=== PATIENT | female | born 2000 | race Caucasian/White ===

== ENCOUNTER 2024-04-20 17:14 | Emergency (ER) | payer OTHER, SELFPAY ==
[2024-04-20 17:21] VITALS: BP 137/91; PULSE 87; TEMP 37; O2SAT 99; BMI 18.8
--- NOTE | 2024-04-20 17:27 | XR_ITS ---
The [address] [address] Patient Name: DELIA CHRIS MRN: [id number] date: 2000 Sex: F Assigned Patient Location: ER Current Patient Location: Accession/Order Number: [id number] Exam Date: 04/20/2024 17:41 Report Date: 04/20/2024 19:29 At the request of: RAVI MAJOR Procedure: XR chest 2V EXAM: XR chest 2V TECHNIQUE: PA and lateral view of the chest HISTORY: rib pain COMPARISON: None. FINDINGS: The heart and mediastinum are unremarkable. The lung lerma are clear of any acute infiltrate, effusion or mass. No acute bony abnormality. XR/XR chest 2V IMPRESSION: No acute pulmonary disease. Electronically authenticated by: JANEY JAMES Date: 04/20/2024 19:29
--- NOTE | 2024-04-20 17:38 | ED_ITS ---
HPI HPI - General Adult General Chief complaint: Trauma Stated complaint: Difficulty Breathing, Rib Pain Time Seen by Provider: 04/20/24 17:21 Source: patient Mode of arrival: walk-in Limitations: no limitations History of Present Illness HPI narrative: Patient presents to ED complaining of left anterior rib pain. A couple of days ago she tripped over a baby gate and landed on herLeft chest and underneath her chin on the ground. No loss of consciousness no neck pain. 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 Patient's been taking Tylenol and Motrin but the pain is getting more severe and she states those medications are not really helping her pain anymore. Pain with deep breath in the rib but no obvious shortness of breath at rest. Vital signs stable. Related Data Previous Rx's ?Medication ?Instructions ?Recorded oxycodone-acetaminophen 5 mg-325 1 tab PO Q6H #10 tabs 04/20/24 mg tablet (Percocet) Allergies Allergy/AdvReac Type Severity Reaction Status Date / Time No Known Drug Allergies Allergy Verified 04/20/24 17:21 Opioid HPI Opioid Management Most Recent Opioid Data: Last Pain Scale 8 04/20/24 17:57 Review of Systems ROS Status of ROS 10 or more systems reviewed and unremark able except as noted in history and below Exam Narrative Exam Narrative: Time Seen: [] Vital Signs: [Per nurse's notes.] General: [Alert] Skin: [Warm, dry, no rash.] Head: [Normocephalic, Bruise under the mandible on the right side from the fall. No malalignment of the teeth and no Tenderness to palpation of the mandible Neck: [Supple, trachea midline.] Eye: [Pupils are equal, round and reactive to light, extraocular movements are intact, normal conjunctiva.] Ears, nose, mouth and throat: oral mucosa moist. Cardiovascular: [Regular rate and rhythm, no murmur.] Respiratory: [Lungs are clear to auscultation, respirations are non-labored, breath sounds are equal.] Chest wall: No ecchymosis, tenderness to palpation in the left anterior ribs around ribs 5 and 6. No crepitus, no deformity.] Gastrointestinal: [Soft, nontender, non distended, normal bowel sounds.] MSK: 5 out of 5 muscle strength x 4 extremities no calf pain or edema Lymphatics: [No lymphadenopathy.] Psychiatric: [Cooperative, appropriate mood & affect.] Neurological: [Alert and oriented to person, place, time, and situation, no focal neurological deficit observed.] Constitutional Vital Signs, click to edit/add: Last Vital Signs Temp 98.6 F 04/20/24 17:21 Pulse 87 04/20/24 17:21 Resp 18 04/20/24 17:21 BP 137/91 04/20/24 17:21 Pulse Ox 99 04/20/24 17:21 O2 Del Method Room Air 04/20/24 17:21 Course Vital Signs Vital signs: Vital Signs Temperature 98.6 F 04/20/24 17:21 Pulse Rate 87 04/20/24 17:21 Respiratory Rate 18 04/20/24 17:21 Blood Pressure 137/91 04/20/24 17:21 Pulse Oximetry 99 04/20/24 17:21 Oxygen Delivery Method Room Air 04/20/24 17:21 Temperature 98.6 F 04/20/24 17:21 Pulse Rate 87 04/20/24 17:21 Respiratory Rate 18 04/20/24 17:21 Blood Pressure 137/91 04/20/24 17:21 Pulse Oximetry 99 04/20/24 17:21 Oxygen Delivery Method Room Air 04/20/24 17:21 Medical Decision Making MDM Narrative Medical decision making narrative: Chest x-ray negative for acute. Patient most likely has a rib contusion. Will send home with pain medication. Follow-up with family doctor or return to ED if worsening symptoms. Differential Diagnosis Differential Diagnosis: Rib contusion rib fracture chest wall strain Medical Records Medical records reviewed: Yes I reviewed the patient's medical records Imaging Data Chest x-ray: Attestation: I personally reviewed and interpreted this imaging study as follows: My impression: Negative for acute fracture, no pneumothorax Discharge Plan Discharge Stand Alone Forms: Portal Instructions Chief Complaint: Trauma Clinical Impression: Contusion of rib on left side Patient Disposition: Home, Self-Care Time of Disposition Decision: 18:27 Mode of Transportation: Private Vehicle Prescriptions / Home Meds: New oxycodone-acetaminophen [Percocet] 5-325 mg tablet 1 tab PO Q6H Qty: 10 0RF Print Language: Salvadorean Instructions: Rib Contusion (ED) Referrals: DEFRANCE,BRICE [Primary Care Provider] - 1 week
[2024-04-20 18:33] VITALS: BP 118/78; PULSE 78; O2SAT 98
== END 2024-04-20 18:35 | disposition home or self-care (01) ==
PROVIDERS: Emergency Provider Emergency Medicine; PCP Family Medicine
DX: S20.212A Contusion of left front wall of thorax, initial encounter (principal); W18.09XA Striking against other object with subsequent fall, initial encounter
CPT/HCPCS: 71046; 99283

== ENCOUNTER 2024-07-13 18:14 | Emergency (ER) | payer OTHER, SELFPAY ==
[2024-07-13 18:22] VITALS: BP 100/64; PULSE 87; TEMP 37.1; O2SAT 97; BMI 19.6
--- NOTE | 2024-07-13 18:58 | CT_ITS ---
[address] [address] Patient Name: DELIA CHRIS MRN: [id number] date: 2000 Sex: F Assigned Patient Location: Current Patient Location: Accession/Order Number: [id number] Exam Date: 07/13/2024 19:40 Report Date: 07/13/2024 21:07 At the request of: NENO CHOW Procedure: CT abdomen pelvis w con EXAM: CT Abdomen and Pelvis With Intravenous Contrast CLINICAL INDICATION: Abdominal pain, left upper quad TECHNIQUE: Axial computed tomography images of the abdomen and pelvis with intravenous contrast. This CT exam was performed using one or more of the following dose reduction techniques: automated exposure control, adjustment of the mA and/or kV according to patient size, and/or use of iterative reconstruction technique. COMPARISON: No relevant prior studies available. FINDINGS: LUNG BASES: Unremarkable. No mass. No consolidation. ABDOMEN: LIVER: Heterogeneous hepatic echotexture. GALLBLADDER AND BILE DUCTS: Unremarkable. No calcified stones. No ductal dilation. PANCREAS: Unremarkable. No mass. No ductal dilation. SPLEEN: Spleen measures 13 cm. ADRENALS: Unremarkable. No mass. KIDNEYS AND URETERS: Unremarkable. No solid mass. No hydronephrosis. STOMACH AND BOWEL: Unremarkable. No obstruction. No mucosal thickening. PELVIS: APPENDIX: No findings to suggest acute appendicitis. BLADDER: Unremarkable. No mass. REPRODUCTIVE: 2 left ovarian dominant follicles or cysts. Heterogeneous uterus. Pelvic ultrasound may be of diagnostic benefit. ABDOMEN and PELVIS: INTRAPERITONEAL SPACE: Small amount of free fluid detected. No free air. BONES/JOINTS: No acute fracture. No dislocation. SOFT TISSUES: Unremarkable. VASCULATURE: Unremarkable. No abdominal aortic aneurysm. Patent portal vein. LYMPH NODES: Unremarkable. No enlarged lymph nodes. CT/CT abdomen pelvis w con IMPRESSION: Spleen is mildly enlarged. Small amount of free fluid. 2 small left ovarian follicles or cysts. Heterogeneous liver. Consider further evaluation with pelvic ultrasound to better interrogate. Heterogeneous appearance of the liver. Correlation with liver function tests advised. No focal liver lesions. No gallstones. Electronically authenticated by: MARIA TERESA HARRINGTON Date: 07/13/2024 21:07
--- NOTE | 2024-07-13 18:59 | ED_ITS ---
HPI - Abdominal Pain General Chief Complaint: Abdominal Pain Stated Complaint: Abdominal Pain Time Seen by Provider: 07/13/24 18:31 Source: patient Mode of arrival: walk-in Limitations: no limitations History of Present Illness HPI narrative: Patient is a 24-year-old female with a 2-day history of increasing pain in the left upper quadrant. She drove herself to this emergency department. She is concerned for an issue with her spleen because she had a CT scan apparently several weeks ago with the [facility] emergency department showing splenomegaly. Patient states she has had ongoing issues with pain in the left upper quadrant for over a year including nausea, vomiting, difficulty eating. She was referred to GI and has also been referred to heme/onc for which she has an upcoming appointment. She states with her pain increasing in the last 2 days and having episodes of vomiting, she was concerned for an issue with her spleen causing her symptoms. She denies fevers, upper respiratory symptoms, flank or back pain. She has no concern for . No previous abdominal surgeries. Related Data Home Medications ?Medication ?Instructions ?Recorded ?Confirmed ondansetron HCl 4 mg tablet 4 mg PO Q8H 07/13/24 07/13/24 Allergies Allergy/AdvReac Type Severity Reaction Status Date / Time No Known Drug Allergies Allergy Verified 04/20/24 17:21 Review of Systems ROS Constitutional Denies: fever or chills Ears, nose, mouth, and throat Denies: throat pain or nasal congestion Respiratory Denies: shortness of breath Gastrointestinal Reports: abdominal pain, nausea and vomiting; Denies: diarrhea or constipation Musculoskeletal Denies: back pain or neck pain Integumentary/Breast Denies: rash Neurological Denies: headache, numbness in extremities or weakness in extremities Hematologic/Lymphatic Denies: easy bruising or easy bleeding Exam Narrative Exam Narrative: Gen.: Awake, alert, in no distress Head: Normocephalic, atraumatic ENT: Moist mucous membranes Respiratory: No respiratory distress, lungs clear bilaterally Cardio: Regular rate and rhythm Gastrointestinal: Abdomen is soft, nondistended and mildly tender to palpation in the left upper quadrant with no guarding or rebound; no splenomegaly Extremities: Moves extremities equally Psych: Normal mood and affect Neuro: No focal neuro deficit Skin: Warm, dry, intact Constitutional Vital Signs, click to edit/add: Last Vital Signs Temp 98.8 F 07/13/24 18:22 Pulse 87 07/13/24 18:22 Resp 18 07/13/24 18:22 BP 100/64 07/13/24 18:22 Pulse Ox 97 07/13/24 18:22 O2 Del Method Room Air 07/13/24 18:22 Course Vital Signs Vital signs: Vital Signs Temperature 98.8 F 07/13/24 18:22 Pulse Rate 87 07/13/24 18:22 Respiratory Rate 18 07/13/24 18:22 Blood Pressure 100/64 07/13/24 18:22 Pulse Oximetry 97 07/13/24 18:22 Oxygen Delivery Method Room Air 07/13/24 18:22 Temperature 98.8 F 07/13/24 18:22 Pulse Rate 87 07/13/24 18:22 Respiratory Rate 18 07/13/24 18:22 Blood Pressure 100/64 07/13/24 18:22 Pulse Oximetry 97 07/13/24 18:22 Oxygen Delivery Method Room Air 07/13/24 18:22 MDM - Abdominal Pain MDM Narrative Medical decision making narrative: This patient was medicated with IV fluids, Levsin, Zofran and Protonix. Labs were obtained, urine specimen and urine test are negative. She was sent for CT of the abdomen and pelvis. All of her blood tests and CT results are pending at this time, patient called out to the nurses station stating that she wanted to leave the emergency department to take care of her child. She left from the emergency room prior to completion of her testing, she signed out AGAINST MEDICAL ADVICE and understands the risks of and disability by leaving prior to evaluation of her abdominal pain. She is hemodynamically stable in no distress on leaving the emergency department AGAINST MEDICAL ADVICE and understand she can return at any time. SUPERVISED APC VISIT, PHYSICIAN ATTESTATION: Based on the medical record the care appears appropriate. ? Medical Records Attestation: I reviewed the patient's medical records. Lab Data Attestation: I reviewed the patient's lab results. Labs: Lab Results 07/13/24 07/13/24 Range/Units 18:25 19:10 WBC 11.1 H (4.0-11.0) 10^3/uL RBC 4.21 (4.20-5.40) 10^6/uL Hgb 12.9 (12.0-16.0) g/dL Hct 38.3 (36.0-48.0) % MCV 91.0 (81.0-99.0) fL MCH 30.6 (26.7-34.0) pg MCHC 33.7 (29.9-35.2) g/dL RDW 13.0 (11.0-15.0) % Plt Count 211 (150-450) 10^3/uL MPV 12.1 (9.5-13.5) fL Neut % (Auto) 69.4 (43.0-75.0) % Lymph % (Auto) 22.7 (20.5-60.0) % [place] % (Auto) 7.0 (1.7-12.0) % Eos % (Auto) 0.5 L (0.9-7.0) % Baso % (Auto) 0.3 (0.2-2.0) % Neut # (Auto) 7.7 H (1.4-6.5) 10^3/uL Lymph # (Auto) 2.5 (1.2-3.8) 10^3/uL [place] # (Auto) 0.8 (0.3-0.8) 10^3/uL Eos # (Auto) 0.1 (0.0-0.7) 10^3/uL Baso # (Auto) 0.0 (0.0-0.1) 10^3/uL Abs Immat Gran (auto) 0.01 (0.00-0.03) 10^3/uL Imm/Tot Granulo (auto) 0.1 (0.0-0.5) % PT 11.4 (9.0-11.6) sec INR 1.08 Sodium 138 (136-145) mmol/L Potassium 3.4 L (3.5-5.1) mmol/L Chloride 102 (98-107) mmol/L Carbon Dioxide 28.8 (21.0-32.0) mmol/L Anion Gap 10.6 BUN 9.0 (7.0-18.0) mg/dL Creatinine 0.78 (0.55-1.02) mg/dL Est GFR ( Amer) >60 (>=60) Est GFR (Non-Af Amer) >60 (>=60) BUN/Creatinine Ratio 11.5 Glucose 92 (74-106) mg/dL Lactate 0.9 (0.4-2.0) mmol/L Calcium 8.9 (8.5-10.1) mg/dL Total Bilirubin 0.8 (0.2-1.0) mg/dL AST 8 L (15-37) U/L ALT 14 (14-59) U/L Alkaline Phosphatase 65 (46-116) U/L Total Protein 6.9 (6.4-8.2) g/dL Albumin 3.7 (3.4-5.0) g/dL Globulin 3.2 g/dL Albumin/Globulin Ratio 1.2 Lipase 19.0 (16.0-77.0) U/L Urine Color Lt. yellow (YELLOW) Urine Clarity Clear (CLEAR) Urine pH 8.5 (5.0-9.0) Ur Specific [place] 1.020 (1.005-1.025) Urine Protein Negative (NEG/TRACE) mg/dL Urine Glucose (UA) Negative (NEGATIVE) mg/dL Urine Ketones Negative (NEGATIVE) mg/dL Urine Occult Blood Negative (NEGATIVE) Urine Nitrite Negative (NEGATIVE) Urine Bilirubin Negative (NEGATIVE) Urine Urobilinogen 0.2 (0.2-1.0) EU/dL Ur Leukocyte Esterase Negative (NEGATIVE) Urine HCG, Qual Negative (NEGATIVE) Discharge Plan Discharge Stand Alone Forms: Portal Instructions Chief Complaint: Abdominal Pain Clinical Impression: Abdominal pain Patient Disposition: Left Against Medical Advice Time of Disposition Decision: 20:12 Prescriptions / Home Meds: No Action ondansetron HCl 4 mg tablet 4 mg PO Q8H Print Language: Kinyarwanda Referrals: BRICE CHURCH [Primary Care Provider] - 1 week Discharge Date/Time: 07/13/24 20:20
[2024-07-13 19:02] LABS: Bilirubin Urine NEGATIVE (NEGATIVE); Blood Urine NEGATIVE (NEGATIVE); Clarity Urine CLEAR (CLEAR); Color Urine LT. YELLOW (YELLOW); Glucose Urine UA NEGATIVE (NEGATIVE); Ketones Urine NEGATIVE (NEGATIVE); Leukocyte Esterase Urine NEGATIVE (NEGATIVE); Nitrite Urine NEGATIVE (NEGATIVE); Protein Urine NEGATIVE (NEG/TRACE); Urobilinogen Urine 0.2 EU/dL (0.2-1.0); pH Urine 8.5 (5.0-9.0)
[2024-07-13 19:03] LABS: Urine Microscopic Indicated NO
[2024-07-13] MEDS: PANTOPRAZOLE SODIUM 40 MG VIAL IV (19:20)
[2024-07-13] MEDS: 0.9 % SODIUM CHLORIDE 1,000 ML 999 ML IV (19:20)
[2024-07-13] MEDS: ONDANSETRON PF 4 MG/2 ML VIAL IV (19:20)
[2024-07-13] MEDS: HYOSCYAMINE SULFATE 0.125 MG TAB.SUBL SL (19:20)
[2024-07-13 19:25] LABS: HCG Qualitative Urine* NEGATIVE (NEGATIVE); Internal Control Within Normal Limits
[2024-07-13 20:02] LABS: Basophils Percent Auto 0.3 % (0.2-2.0); Eosinophils Absolute Auto 0.1 10^3/uL (0.0-0.7); Eosinophils Percent Auto 0.5 % (0.9-7.0); Hematocrit 38.3 % (36.0-48.0); Hemoglobin 12.9 g/dL (12.0-16.0); Immature Granulocytes Abs Auto 0.01 10^3/uL (0.00-0.03); Immature Granulocytes Pct Auto 0.1 % (0.0-0.5); Lymphocytes Absolute Auto 2.5 10^3/uL (1.2-3.8); Lymphocytes Percent Auto 22.7 % (20.5-60.0); Mean Corpuscular HGB Conc 33.7 g/dL (29.9-35.2); Mean Corpuscular Hemoglobin 30.6 pg (26.7-34.0); Mean Platelet Volume 12.1 fL (9.5-13.5); Monocytes Absolute Auto 0.8 10^3/uL (0.3-0.8); Neutrophils Absolute Auto 7.7 10^3/uL (1.4-6.5); Neutrophils Percent Auto 69.4 % (43.0-75.0); Platelet Count 211 10^3/uL (150-450); Red Blood Count 4.21 10^6/uL (4.20-5.40); White Blood Count 11.1 10^3/uL (4.0-11.0)
[2024-07-13 20:15] LABS: INR 1.08; Prothrombin Time 11.4 sec (9.0-11.6)
[2024-07-13 20:19] LABS: Lactate/Lactic Acid 0.9 mmol/L (0.4-2.0)
[2024-07-13 20:25] LABS: Alanine Aminotransferase 14 U/L (14-59); Albumin Globulin Ratio 1.2; Albumin Level 3.7 g/dL (3.4-5.0); Alkaline Phosphatase 65 U/L (46-116); Anion Gap 10.6; Aspartate Amino Transferase 8 U/L (15-37); BUN Creatinine Ratio 11.5; Bilirubin Total 0.8 mg/dL (0.2-1.0); Calcium 8.9 mg/dL (8.5-10.1); Carbon Dioxide 28.8 mmol/L (21.0-32.0); Chloride 102 mmol/L (98-107); Estimated GFR (African America >60 (>=60); Estimated GFR (Non-African Ame >60 (>=60); Globulin 3.2 g/dL; Glucose 92 mg/dL (74-106); Potassium 3.4 mmol/L (3.5-5.1); Sodium 138 mmol/L (136-145); Total Protein 6.9 g/dL (6.4-8.2)
== END 2024-07-13 20:20 | disposition left against medical advice (07) ==
PROVIDERS: Physician Assistant; Emergency Provider Internal Medicine; PCP Family Medicine
DX: R10.12 Left upper quadrant pain (principal); Z53.29 Procedure and treatment not carried out because of patient's decision for other reasons
CPT/HCPCS: 36415; 74177; 80053; 81003; 83605; 83690; 84703; 85025; 85610; 96361; 96374; 96375; 99284; J2405; Q9967

== ENCOUNTER 2024-09-19 15:07 | Outpatient (OUT) | payer OTHER, SELFPAY ==
--- NOTE | 2024-09-19 15:09 | US_ITS ---
[address] [address] Patient Name: DELIA CHRIS MRN: [id number] date: 2000 Sex: F Assigned Patient Location: Current Patient Location: Accession/Order Number: [id number] Exam Date: 09/19/2024 15:15 Report Date: 09/20/2024 04:23 At the request of: DAT EDEN Procedure: US OB transvaginal EXAMINATION: US OB transvaginal HISTORY: Positive Test, COMPARISON: No relevant comparison available. FINDINGS: GESTATIONAL SAC: Present and normal appearing. YOLK SAC: Present and normal appearing. POLE: Present and normal appearing. CARDIAC: Present. UTERUS: Normal size and appearance. OVARIES: Right: Normal. Left: Corpus lutein cyst. CERVIX: 4.3 cm in length and closed. CUL-DE-SAC: Normal. OTHER: None. AGE BY LMP: 7 weeks 6 days TALIB BY LMP: 05/02/2025 AGE BY US CRL: 7 weeks 6 days TALIB BY US CRL: 05/02/2025 US/US OB transvaginal IMPRESSION: 1. Single live intrauterine . Electronically authenticated by: ALEXA ELKINS Date: 09/20/2024 04:23
--- OUTSIDE RECORDS SUMMARY | 2024-09-19 15:23 | XMS_ITS | CCD ---
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 on 07-06-2024 Eosinophils/100 WBC (Bld) 0.6 % Normal . [facility] Comment on above: Performed By: #### R A, JORGE LUIS, METH, HEPACUTE #### [facility] , #### CBC, LDH, FE and TIBC, KIRILL, CMP, [id number] #### [facility] [address] Automated eosinophil countOr dered By: Genoveva Arce on 07-06-2024 Eosinophils (Bld) [#/Vol] 0.1 10*3/uL Normal 0.0-0.45 [facility] Comment on above: Performed By: #### R A, JORGE LUIS, METH, HEPACUTE #### [facility] , #### CBC, LDH, FE and TIBC, KIRILL, CMP, [id number] #### [address] Automated monocyte %Ordered By: Genoveva Pulliamsimon on 07-06-2024 Monocytes/100 WBC (Bld) 6.5 % Normal . [facility] Comment on above: Performed By: #### R A, JORGE LUIS, METH, HEPACUTE #### [facility] , #### CBC, LDH, FE and TIBC, KIRILL, CMP, [id number] #### [address] Automated neutrophil %Ordere d By: Genoveva Pulliamsimon on 07-06-2024 Neutrophils/100 WBC (Bld) 62.6 % Normal . [facility] Comment on above: Performed By: #### R A, JORGE LUIS, METH, HEPACUTE #### [facility] , #### CBC, LDH, FE and TIBC, KIRILL, CMP, [id number] #### [address] Bilirubin.total [Mass/volume ] in Serum or PlasmaOrdered By: Genoveva Claude on 07-06-2024 Bilirubin [Mass/Vol] 1.0 mg/dL Normal 0.3-1.0 [facility] Comment on above: Performed By: #### R A, JORGE LUIS, METH, HEPACUTE #### [facility] , #### CBC, LDH, FE and TIBC, KIRILL, CMP, [id number] #### [facility] [address] Calcium [Mass/volume] in Ser um or PlasmaOrdered By: Genoveva Arce on 07-06-2024 Calcium [Mass/Vol] 10.4 mg/dL High 8.6-10.[address] [facility] Comment on above: Performed By: #### R A, JORGE LUIS, METH, HEPACUTE #### [facility] , #### CBC, LDH, FE and TIBC, KIRILL, CMP, [id number] #### [facility] [address] Carbon dioxide, total [Moles /volume] in Serum or PlasmaOrdered By: eGnoveva Arce on 07-06-2024 CO2 [Moles/Vol] 27.0 mmol/L Normal 21.0-31.0 [facility] Comment on above: Performed By: #### R A, JORGE LUIS, METH, HEPACUTE #### [facility] , #### CBC, LDH, FE and TIBC, KIRILL, CMP, [id number] #### [facility] [address] Chloride [Moles/volume] in S qing or PlasmaOrdered By: Genoveva Arce on 07-06-2024 Chloride [Moles/Vol] 102 mmol/L Normal 98-107 [facility] Comment on above: Performed By: #### R A, JORGE LUIS, METH, HEPACUTE #### [facility] , #### CBC, LDH, FE and TIBC, KIRILL, CMP, [id number] #### [facility] [address] Complete Blood Count Auto Di ffon 07-06-2024 Mean Corpuscular HGB Conc 33.5 g/dL Normal 32.0-35.0 [facility] Comment on above: Performed By: #### R A, JORGE LUIS, METH, HEPACUTE #### [facility] , #### CBC, LDH, FE and TIBC, KIRILL, CMP, [id number] #### [address] NRBC% 0.1 /100{WBC} Normal 0-0.5 [facility] Comment on above: Performed By: #### R A, JORGE LUIS, METH, HEPACUTE #### [facility] , #### CBC, LDH, FE and TIBC, KIRILL, CMP, [id number] #### [address] Comprehensive Metabolic Pane eduardo 07-06-2024 Albumin [Mass/Vol] 5.2 g/dL Normal 3.5-5.7 [facility] Comment on above: Performed By: #### R A, JORGE LUIS, METH, HEPACUTE #### [facility] , #### CBC, LDH, FE and TIBC, KIRILL, CMP, [id number] #### [address] Creatinine Clr Calc Pharmacy 94.62 Normal [facility] Comment on above: Performed By: #### R A, JORGE LUIS, METH, HEPACUTE #### [facility] , #### CBC, LDH, FE and TIBC, KIRILL, CMP, [id number] #### [address] GFR/1.73 sq M.predicted MDRD (S/P/Bld) [Vol rate/Area] mL/min/{1.73_m2} Normal [facility] Comment on above: Performed By: #### R A, JORGE LUIS, METH, HEPACUTE #### [facility] , #### CBC, LDH, FE and TIBC, KIRILL, CMP, [id number] #### [address] Creatinine [Mass/volume] in Serum or PlasmaOrdered By: Genoveva Arce on 07-06-2024 Creatinine [Mass/Vol] 0.80 mg/dL Normal 0.60-1.20 [facility] Comment on above: Performed By: #### R A, JORGE LUIS, METH, HEPACUTE #### [facility] , #### CBC, LDH, FE and TIBC, KIRILL, CMP, [id number] #### [address] Erythrocyte distribution wid th [Ratio] by Automated countOrdered By: Genoveva Claude on 07-06-2024 Erythrocyte distribution width (RBC) [Ratio] 13.7 % Normal 11.9-15.3 [facility] Comment on above: Performed By: #### R A, JORGE LUIS, METH, HEPACUTE #### [facility] , #### CBC, LDH, FE and TIBC, KIRILL, CMP, [id number] #### [address] Erythrocytes [#/volume] in B lood by Automated countOrdered By: Genoveva Claude on 07-06-2024 RBC (Bld) [#/Vol] 4.84 10*6/uL Normal 3.60-5.00 [facility] [place] [facility] Comment on above: Performed By: #### R A, JORGE LUIS, METH, HEPACUTE #### [facility] , #### CBC, LDH, FE and TIBC, KIRILL, CMP, [id number] #### [address] Ferritin [Mass/volume] in Se rum or PlasmaOrdered By: Genoveva Claude on 07-06-2024 Ferritin [Mass/Vol] 28.8 ng/mL Normal 11.0-306.8 [facility] [place] [facility] Comment on above: Performed By: #### R A, JORGE LUIS, METH, HEPACUTE #### [facility] , #### CBC, LDH, FE and TIBC, KIRILL, CMP, [id number] #### [address] Folate [Mass/volume] in Seru m or PlasmaOrdered By: Genoveva Arce on 07-06-2024 Folate [Mass/Vol] 17.2 ng/mL >5.9 [facility] Comment on above: Folate reference ran ge: >5.9 ng/mlThe WHO technical consultation on folate and vitamin [id number] has determined that folate concentrations lessthan 4 ng/ml are considered deficient. Glucose [Mass/volume] in Ser um or PlasmaOrdered By: Genoveva Arce on 07-06-2024 Glucose [Mass/Vol] 93 mg/dL Normal 70-[address] [facility] Comment on above: ADA recommended refe rence rangeRandom Glucose Reference Range is dependent on time and content of last meal. Glucose of more than 200 mg/dL in a nonstressed, ambulatory subject supports the diagnosis of Diabetes Mellitus. Result Comment: [place] om Glucose Reference Range is dependent on time and content of last meal. Glucose of more than 200 mg/dL in a nonstressed, ambulatory subject supports the diagnosis of Diabetes Mellitus. ADA recommended reference range Performed By: #### R A, JORGE LUIS, METH, HEPACUTE #### [facility] , #### CBC, LDH, FE and TIBC, KIRILL, CMP, [id number] #### [facility] [address] Hematocrit [Volume Fraction] of Blood by Automated countOrdered By: Genoveva Martinezshawn on 07-06-2024 Hematocrit (Bld) [Volume fraction] 43.6 % Normal 34.0-46.4 [facility] Comment on above: Performed By: #### R A, JORGE LUIS, METH, HEPACUTE #### [facility] , #### CBC, LDH, FE and TIBC, KIRILL, CMP, [id number] #### [facility] [address] Hemoglobin [Mass/volume] in BloodOrdered By: Genoveva Pulliamsimon on 07-06-2024 Hemoglobin (Bld) [Mass/Vol] 14.6 g/dL Normal 11.8-15.4 [facility] Comment on above: Performed By: #### R A, JORGE LUIS, METH, HEPACUTE #### [facility] , #### CBC, LDH, FE and TIBC, KIRILL, CMP, [id number] #### [address] Hepatitis Acute Panelon 06-23 HBsAg Screen Negative Normal Negative [facility] Comment on above: Performed By: #### U RDS, [facility] #### [address] Hepatitis A Antibody IgM Negative Normal Negative [facility] Comment on above: Performed By: #### U RDS, [facility] #### [address] Hepatitis B Core Antibody IgM Negative Normal Negative [facility] Comment on above: Performed By: #### [facility] #### [address] Hepatitis C Virus Antibody Non-Reactive Normal Non Reactive [facility] Comment on above: Performed By: #### [facility] #### [address] Interpretation Hepatitis C Comment Normal . [facility] Comment on above: Result Comment: Not infected with HCV unless early or acute infection is suspected (which may be delayed in an immunocompromised individual), or other evidence exists to indicate HCV infection. Performed at: - [place] [id number] [employer] Electrician: Lionel Levy PhD, Phone: [phone] PERFORMED BY: [place] [address] PATHOLOGIST DIETARY CLERK FOX PONCE M.D. Performed By: #### [facility] #### [address] Hepatitis B virus surface Ag [Presence] in Serum or Plasma by ImmunoassayOrdered By: Genoveva Arce on 07-06-2024 HBV surface Ag IA Ql Negative Negative [facility] Hepatitis C virus IgG Ab [Pr esence] in Serum or Plasma by ImmunoassayOrdered By: Genoveva Arce on 07-06-2024 HCV IgG IA Ql Non-Reactive Non Reactive [facility] Hepatitis C virus RNA [Units /volume] (viral load) in Serum or Plasma by LULI with probOrdered By: Genoveva Claude on 07-06-2024 HCV RNA LULI+probe Qn N/A [facility] Hepatitis C virus RNA [log u nits/volume] (viral load) in Serum or Plasma by LULI withOrdered By: Genoveva Claude on 07-06-2024 HCV RNA LULI+probe [Log units/Vol] N/A [facility] Iron [Mass/volume] in Serum or PlasmaOrdered By: Genoveva Arce on 07-06-2024 Iron [Mass/Vol] 64 ug/dL Normal 50-212 [facility] Comment on above: Performed By: #### R A, JORGE LUIS, METH, HEPACUTE #### [facility] , #### CBC, LDH, FE and TIBC, KIRILL, CMP, [id number] #### [facility] [address] [place] [address] [place] Iron and TIBC Profileon 06-23 % Iron Saturation 14.5 % Low 20-50 [facility] Comment on above: Performed By: #### R A, JORGE LUIS, METH, HEPACUTE #### [facility] , #### CBC, LDH, FE and TIBC, KIRILL, CMP, [id number] #### [facility] [address] [place] [id number] [facility] Total Iron Binding Capacity 440 ug/dL Normal 255-450 [facility] Comment on above: Performed By: #### R A, JORGE LUIS, METH, HEPACUTE #### [facility] , #### CBC, LDH, FE and TIBC, KIRILL, CMP, [id number] #### [facility] [address] [place] [id number] [place] Iron binding capacity [Mass/ volume] in Serum or PlasmaOrdered By: Genoveva Arce on 07-06-2024 Iron binding capacity [Mass/Vol] 440 ug/dL 255-450 [facility] Iron saturation [Mass Fracti on] in Serum or PlasmaOrdered By: Genoveva Arce on 07-06-2024 Iron saturation [Mass fraction] 14.5 % Low 20-50 [facility] LDH Lactate Dehydrogenaseon 07-06-2024 LDH Lactate Dehydrogenase 128 U/L Low 140-271 [facility] Comment on above: Performed By: #### R A, JORGE LUIS, METH, HEPACUTE #### [facility] , #### CBC, LDH, FE and TIBC, KIRILL, CMP, [id number] #### [facility] [address] Lactate dehydrogenase [Enzym atic activity/volume] in Serum or Plasma by Lactate to pyOrdered By: Genoveva Arce on 07-06-2024 LDH Lactate to pyruvate reaction [Catalytic activity/Vol] 128 U/L Low 140-271 [facility] Leukocytes [#/volume] correc ryan for nucleated erythrocytes in Blood by Automated counOrdered By: Genoveva Pulliamsimon on 07-06-2024 WBC corrected for nucl RBC Auto (Bld) [#/Vol] 11.6 10*3/uL 3.8-11.6 [facility] Leukocytes [#/volume] in Blo od by Automated countOrdered By: Genoveva Pulliamsimon on 07-06-2024 WBC (Bld) [#/Vol] 11.6 10*3/uL Normal 3.8-11.6 [facility] [place] [facility] Comment on above: Performed By: #### R A, JORGE LUIS, METH, HEPACUTE #### [facility] , #### CBC, LDH, FE and TIBC, KIRILL, CMP, [id number] #### [facility] [address] [place] [address] Lymphocytes [#/volume] in Bl ood by Automated countOrdered By: Genoveva Pulliamsimon on 07-06-2024 Lymphocytes (Bld) [#/Vol] 3.5 10*3/uL Normal 1.00-4.8 [facility] Comment on above: Performed By: #### R A, JORGE LUIS, METH, HEPACUTE #### [facility] , #### CBC, LDH, FE and TIBC, KIRILL, CMP, [id number] #### [facility] [address] Lymphocytes/100 leukocytes i n Blood by Automated countOrdered By: Genoveva Arce on 07-06-2024 Lymphocytes/100 WBC (Bld) 30.0 % Normal . [facility] Comment on above: Performed By: #### R A, JORGE LUIS, METH, HEPACUTE #### [facility] , #### CBC, LDH, FE and TIBC, KIRILL, CMP, [id number] #### [address] MCH [Entitic mass] by Automa ryan countOrdered By: Genoveva Arce on 07-06-2024 MCH (RBC) [Entitic mass] 30.1 pg Normal 24.7-34.3 [facility] Comment on above: Performed By: #### R A, JORGE LUIS, METH, HEPACUTE #### [facility] , #### CBC, LDH, FE and TIBC, KIRILL, CMP, [id number] #### [address] MCHC Auto (RBC) [Mass/Vol]Or dered By: Genoveva Arce on 07-06-2024 MCHC (RBC) [Mass/Vol] 33.5 g/dL 32.0-35.0 [facility] MCV [Entitic volume] by Auto mated countOrdered By: Genoveva Arce on 07-06-2024 MCV (RBC) [Entitic vol] 90.0 fL Normal 80-100 [facility] Comment on above: Performed By: #### R A, JORGE LUIS, METH, HEPACUTE #### [facility] , #### CBC, LDH, FE and TIBC, KIRILL, CMP, [id number] #### [address] Methylmalonic Acidon 024 Methylmalonic Acid 184 Normal 0-378 [facility] Comment on above: Result Comment: This test was developed and its performance characteristics determined by [facility]. It has not been cleared or approved by the Food and Drug Administration. Performed at: [address] [id number] [employer]ian: Endy Arzate MD, Phone: [phone] Performed By: #### U RDS, [facility] #### [facility] [address] Neutrophils [#/volume] in Bl ood by Automated countOrdered By: Genoveva Arce on 07-06-2024 Neutrophils (Bld) [#/Vol] 7.3 10*3/uL Normal 1.8-7.7 [facility] Comment on above: Performed By: #### R A, JORGE LUIS, METH, HEPACUTE #### [facility] , #### CBC, LDH, FE and TIBC, KIRILL, CMP, [id number] #### [facility] [address] [place] [address] No Panel InformationOrdered By: Genoveva Arce on 07-06-2024 Estimated GFR (CKD-EPI) > 60.0 mL/Min [facility] Hepatitis A IgM Antibody Negative Negative [facility] Hepatitis B Core IgM Antibody Negative Negative [facility] Hepatitis C Interpretation Comment . [facility] Comment on above: Not infected with HC V unless early or acute infection issuspected (which may be delayed in an immunocompromisedindividual), or other evidence exists to indicate HCVinfection.Performed at: [facility] [address] [id number] Director: Lionel Levy PhD, Phone: [phone] Pharmacy Creatinine Clearance (Chem 94.62 [facility] Nucleated erythrocytes [Pres ence] in Blood by Automated countOrdered By: Genoveva Arce on 07-06-2024 Nucleated RBC Auto Ql (Bld) 0.1 /100{WBC} 0-0.5 [facility] Platelet mean volume [Entiti c volume] in Blood by Automated countOrdered By: Genoveva Arce on 07-06-2024 Platelet mean volume (Bld) [Entitic vol] 9.9 fL Normal 6.3-10.7 [facility] Comment on above: Performed By: #### R A, JORGE LUIS, METH, HEPACUTE #### [facility] , #### CBC, LDH, FE and TIBC, KIRILL, CMP, [id number] #### [address] Platelets [#/volume] in Bloo d by Automated countOrdered By: Genoveva Arce on 07-06-2024 Platelets (Bld) [#/Vol] 260 10*3/uL Normal 150-450 [facility] Comment on above: Performed By: #### R A, JORGE LUIS, METH, HEPACUTE #### [facility] , #### CBC, LDH, FE and TIBC, KIRILL, CMP, [id number] #### [address] Potassium [Moles/volume] in Serum or PlasmaOrdered By: Genoveva Arce on 07-06-2024 Potassium [Moles/Vol] 3.8 mmol/L Normal 3.5-5.1 [facility] Comment on above: Performed By: #### R A, JORGE LUIS, METH, HEPACUTE #### [facility] , #### CBC, LDH, FE and TIBC, KIRILL, CMP, [id number] #### [address] Protein [Mass/volume] in Ser um or PlasmaOrdered By: Genoveva Martinezshawn on 07-06-2024 Protein [Mass/Vol] 8.3 g/dL Normal 6.4-8.[address] [facility] Comment on above: Performed By: #### R A, JORGE LUIS, METH, HEPACUTE #### [facility] , #### CBC, LDH, FE and TIBC, KIRILL, CMP, [id number] #### [address] Rheumatoid Factoron 07-06-20 Rheumatoid Factor 10.2 Normal <14.0 [facility] Comment on above: Result Comment: Perf ormed at: [facility] [address] [place], [place] [id number] [employer] Electrician: Lionel Levy PhD, Phone: [phone] Performed By: #### U RDS, CG #### [address] Serum globulin measurement b y calculation (mass/volume)Ordered By: Genoveva Arce on 07-06-2024 Globulin (S) [Mass/Vol] 3.1 g/dL Normal [facility] Comment on above: Performed By: #### R A, JORGE LUIS, METH, HEPACUTE #### [facility] , #### CBC, LDH, FE and TIBC, KIRILL, CMP, [id number] #### [address] Serum homogeneous pattern an tinuclear antibody (JORGE LUIS) titerOrdered By: Genoveva Arce on 07-06-2024 Homogenous nuclear Ab pattern (S) [Titer] N/A [facility] Serum nuclear antibody titer Ordered By: Genoveva Arce on 07-06-2024 Nuclear Ab (S) [Titer] Negative . [facility] Comment on above: Negative <1:80 Borde florinine 1:80 Positive >1:80ICAP nomenclature: AC-0For more information about Hep-2 cell patterns useANApatterns.org, the official website for theInternational Consensus on Antinuclear Antibody (JORGE LUIS)Patterns (ICAP).Performed at: [facility] [place] [id number] Director: Lionel Levy PhD, Phone: [phone] Serum or plasma albumin/glob ulin mass ratioOrdered By: Genoveva Arce on 07-06-2024 Albumin/Globulin [Mass ratio] 1.7 {ratio} Normal [facility] Comment on above: Performed By: #### R A, JORGE LUIS, METH, HEPACUTE #### [facility] , #### CBC, LDH, FE and TIBC, KIRILL, CMP, [id number] #### [facility] [address] Serum or plasma anion gap de terminationOrdered By: Genoveva Claude on 07-06-2024 Anion gap [Moles/Vol] 13.8 mmol/L Normal 6.0-15.0 [facility] Comment on above: Performed By: #### R A, JORGE LUIS, METH, HEPACUTE #### [facility] , #### CBC, LDH, FE and TIBC, KIRILL, CMP, [id number] #### [address] Serum or plasma methylmalona te measurement (moles/volume)Ordered By: Genoveva Arce on 07-06-2024 Methylmalonate [Moles/Vol] 184 nmol/L 0-378 [facility] Comment on above: This test was develo ped and its performance characteristicsdetermined by [employer]. It has not been cleared orapproved by the Food and Drug Administration.Performed at: [facility] [address] [id number] Director: Endy Arzate MD, Phone: [phone] Serum or plasma rheumatoid f actor measurement (units/volume)Ordered By: Genoveva Claude on 07-06-2024 Rheumatoid factor Qn 10.2 [IU]/mL <14.0 [facility] Comment on above: Performed at: [address] [id number] Director: Lionel Levy PhD, Phone: [phone] Sodium [Moles/volume] in Ser um or PlasmaOrdered By: Genoveva Arce on 07-06-2024 Sodium [Moles/Vol] 139 mmol/L Normal 136-[address] [facility] Comment on above: Performed By: #### R A, JORGE LUIS, METH, HEPACUTE #### [facility] , #### CBC, LDH, FE and TIBC, KIRILL, CMP, [id number] #### [address] Transferrin [Mass/volume] in Serum or PlasmaOrdered By: Genoveva Arce on 07-06-2024 Transferrin [Mass/Vol] 314 mg/dL Normal 203-362 [facility] Comment on above: Performed By: #### R A, JORGE LUIS, METH, HEPACUTE #### [facility] , #### CBC, LDH, FE and TIBC, KIRILL, CMP, [id number] #### [facility] [address] Urea nitrogen [Mass/volume] in Serum or PlasmaOrdered By: Genoveva Arce on 07-06-2024 Urea nitrogen [Mass/Vol] 11 mg/dL Normal 7-25 [facility] Comment on above: Performed By: #### R A, JORGE LUIS, METH, HEPACUTE #### [facility] , #### CBC, LDH, FE and TIBC, KIRILL, CMP, [id number] #### [facility] [address] [place] [address] Vit. B12/Folate Profileon Folate 17.2 ng/mL Normal >5.9 [facility] Comment on above: Result Comment: Coco te reference range: >5.9 ng/ml The WHO technical consultation on folate and vitamin b12 deficiencies has determined that folate concentrations less than 4 ng/ml are considered deficient. PERFORMED BY: [place] [address] PATHOLOGIST DIETARY CLERK FOX PONCE M.D. Performed By: #### R A, JORGE LUIS, METH, HEPACUTE #### [facility] , #### CBC, LDH, FE and TIBC, KIRILL, CMP, [id number] #### [facility] [address] [place] [address] Vitamin B12 ser/plasOrdered By: Genoveva Martinezshawn on 07-06-2024 Cobalamin (Vitamin B12) [Mass/Vol] 357 pg/mL Normal 180-914 [facility] Comment on above: Performed By: #### R A, JORGE LUIS, METH, HEPACUTE #### [facility] , #### CBC, LDH, FE and TIBC, KIRILL, CMP, [id number] #### [facility] [address] abdomen pelvis w conon CT abdomen pelvis w con [facility] [place] [address] [place] [address] CT Scan Report Signed Patient: Radha Dickinson MR#: [id number] : 2000 Acct:[id number] Age/Sex: 23 / F ADM Date: 06/14/24 Loc: CT Room: Type: [facility] Attending Dr: Karissa Rosenthal DO Copies to: Karissa Rosenthal DO Ordering Provider: Karissa Rosenthal DO Date of Service: 06/14/24 CT/CT abdomen pelvis w con: R10.9 - Unspecified abdominal pain CT ABDOMEN AND PELVIS WITH INTRAVENOUS CONTRAST: CLINICAL HISTORY: Abdominal pain diarrhea nausea. Weight loss. COMPARISON: None TECHNIQUE: Spiral images were obtained through the abdomen and pelvis following the administration of intravenous contrast. This CT exam was performed using one or more following dose reduction techniques: Automated exposure control, adjustment of the mA and/or kV according to patient size, or use of iterative reconstruction technique. FINDINGS: Lung Bases: [No acute findings.] Organs:Liver portal vein gallbladder pancreas adrenal glands kidneys and aorta all appear unremarkable.[Splenomegaly measuring 13.5 cm. GI: Stomach is grossly unremarkable. Small bowel appears nondilated. Appendix is normal. No acute colonic abnormality.[ Pelvis:[Uterus is grossly unremarkable. No adnexal mass. Urinary bladder is grossly unremarkable.] Peritoneum/Retroperitoneum :No free air, free fluid or lymphadenopathy.[ Abd wall/Bones:Abdominal wall demonstrates no acute findings. Osseous structures demonstrate no acute process.[ CT/CT abdomen pelvis w con IMPRESSION: No acute findings. Mild splenomegaly. Impression dictated by: Bradford Briggs Jr., D.ORojas06/14/2024 11:57 AM Dictation Location: [place] [address] Transcribed By: [facility] 06/14/24 1157 Dictated By: Bradford Briggs Jr, DO 06/14/24 1155 Signed By: 06/14/24 1157 Normal [facility] Amphetamine Screen Ql (U)Ord ered By: Karissa Rosenthal on 05-23-2024 Amphetamines Ql (U) Negative Negative [facility] [place] [facility] Barbiturates [Presence] in U rine by Screen methodOrdered By: Karissa Rosenthal on 05-23-2024 Barbiturates Screen Ql (U) Negative Negative [facility] Benzodiazepines Screen Ql (U )Ordered By: Karissa Rosenthal on 05-23-2024 Benzodiazepines Ql (U) Negative Negative [facility] Benzoylecgonine [Presence] i n Urine by Screen methodOrdered By: Karissa Rosenthal on 05-23-2024 Benzoylecgonine Screen Ql (U) Negative Negative [facility] Cannabinoids [Presence] in U rine by Screen methodOrdered By: Karissa Rosenthal on 05-23-2024 Cannabinoids Screen Ql (U) Positive High Negative [facility] Comment on above: These are unconfirme d results and should not be used for legal purposes. Drug Cut-Off Concentration: AMPH 1000 ng/mL NIEVES 200 ng/mL HUGO 200 ng/mL COCM 300 ng/mL OP 300 ng/mL PCP 25 ng/mL THC 20 ng/mL Drug Screen,Urineon 05-23-20 24 Amphetamine Screen,Urine Negative Normal Negative [facility] Comment on above: Performed By: #### [facility] #### [address] Barbiturate Screen,Urine Negative Normal Negative [facility] Comment on above: Performed By: #### [facility] #### [facility] [address] [place] [address] [place] Benzodiazepines Screen,Urine Negative Normal Negative [facility] Comment on above: Performed By: #### [facility] #### [facility] [address] [place] [address] [place] Cannabinoid Screen,Urine Positive High Negative [facility] Comment on above: Result Comment: Thes e are unconfirmed results and should not be used for legal purposes. Drug Cut-Off Concentration: AMPH 1000 ng/mL NIEVES 200 ng/mL HUGO 200 ng/mL COCM 300 ng/mL OP 300 ng/mL PCP 25 ng/mL THC 20 ng/mL PERFORMED BY: [place] [address] PATHOLOGIST DIETARY CLERK FOX PONCE M.D. Performed By: #### U RDS, CG #### [address] Cocaine Screen,Urine Negative Normal Negative [facility] Comment on above: Performed By: #### U RDS, CG #### [address] Opiate Screen,Urine Negative Normal Negative [facility] Comment on above: Performed By: #### U RDS, CG #### [address] Phencyclidine Screen,Urine Negative Normal Negative [facility] Comment on above: Performed By: #### U RDS, CG #### [address] HCG ( test) [place].rapi d Ql (U)Ordered By: Karissa Rosenthal on 05-23-2024 HCG ( test) Ql (U) Negative [facility] HCG,Urineon 05-23-2024 Beta HCG ( test) Ql (U) Negative Normal [facility] Comment on above: Result Comment: PERF ORMED BY: [place] [address] PATHOLOGIST DIETARY CLERK FOX PONCE M.D. Performed By: #### U RDS, CG #### [place] [address] [place] Eduardo 05-23-2024 L Specimen: [id number] Received: 05/23/24 Status: BRET Barker Num: [id number] Spec Type: Surgical Subm Dr: Karissa Rosenthal, DO Tissues: A Small Intestine - Biopsy/Polyp (SMALL BOWEL BX) B GASTRIC FOR HP (GASTRIC HP) C Colon Biopsy (RANDOM COLON T) D Colon Biopsy (RANDOM COLON LT) E Colon Biopsy (SIGMOID POLYP) Procedures: HE/10, Gross/Micro L4/5, H PYLORI, IHC First AB Age/ Patient Sex Location Account Attending Physician Radha Dickinson 23/F [id number] Karissa Rosenthal DO SPEC NUM: [id number] RECD: 05/23/24 STATUS: BRET BARKER NUM: [id number] GIAN: 05/23/24- SUBM DR: Karissa Rosenthal DO ENTERED: 05/23/24-[address] [facility] [address]: SPEC TYPE: Surgical DEPT: S ORDERED: HE/10, Gross/Micro L4/5, H PYLORI, IHC First AB ORDERED: HE/10, Gross/Micro L4/5, H PYLORI, IHC First AB Pathological Diagnosis A. Small bowel, biopsy: No significant pathologic abnormality. B. Stomach, Biopsy: Reactive/ Chemical Gastropathy. - H. Pylori Immunostain Is Negative For H. Pylori Organisms. C. Right colon, random biopsy: No evidence of colitis. D. Left colon, random biopsy: No evidence of colitis. E. Polyp, sigmoid colon, biopsy: Hyperplastic polyp. Clinical Information Unintentional weight loss, nausea and vomiting. Rule out celiac dx, rule out H. pylori Specimen: [id number] Received: 05/23/24 Status: BRET Mj Num: [id number] Spec Type: Surgical Subm Dr: Karissa Rosenthal DO Tissues: A Small Intestine - Biopsy/Polyp (SMALL BOWEL BX) B GASTRIC FOR HP (GASTRIC HP) C Colon Biopsy (RANDOM COLON T) D Colon Biopsy (RANDOM COLON LT) E Colon Biopsy (SIGMOID POLYP) Procedures: HE/10, Gross/Micro L4/5, H PYLORI, IHC First AB Patient: Radha Dickinson [id number] (Continued) Specimen: [id number] Received: 05/23/24 (Continued) Signed (signature on file) Wojciech Sheikh MD 05/24/24 1556 Specimen: [id number] Received: 05/23/24 Status: BRET Barker Num: [id number] Spec Type: Surgical Subm Dr: Karissa Rosenthal DO Tissues: A Small Intestine - Biopsy/Polyp (SMALL BOWEL BX) B GASTRIC FOR HP (GASTRIC HP) C Colon Biopsy (RANDOM COLON T) D Colon Biopsy (RANDOM COLON LT) E Colon Biopsy (SIGMOID POLYP) Procedures: HE/10, Gross/Micro L4/5, H PYLORI, IHC First AB Patient: Radha Dickinson [id number] (Continued) Specimen: [id number] Received: 05/23/24 (Continued) Gross Description Received are 5 formalin filled containers each labeled with the patient's name, date of and specific specimen site. A. Further labeled small bowel are 2 schrader mucosal tissue fragments measuring 0.3 x 0.2 x 0.1 cm and 0.1 x 0.1 x 0.1 cm, entirely submitted in A1. B. Further labeled gastric biopsy is a 0.3 x 0.3 x 0.1 cm schrader mucosal tissue fragment, entirely submitted in B1. C. Further labeled random right colon biopsies are 4 schrader mucosal tissue fragments ranging from 0.4 x 0.2 x 0.1 cm to 0.2 x 0.1 x 0.1 cm, entirely submitted in C1. D. Further labeled random left colon biopsies are 4 schrader mucosal tissue fragments ranging from 0.3 x 0.1 x 0.1 cm to 0.1 x 0.1 x 0.1 cm, entirely submitted in D1. E. Further labeled sigmoid colon polyp is a 0.3 x 0.2 x 0.1 cm schrader polypoid tissue fragment, entirely submitted in E1. CPT Codes [id number] Specimen: [id number] Received: 05/23/24 Status: BRET Barker Num: [id number] Spec Type: Surgical Subm Dr: Karissa Rosenthal, Tissues: A Small Intestine - Biopsy/Polyp (SMALL BOWEL BX) B GASTRIC FOR HP (GASTRIC HP) C Colon Biopsy (RANDOM COLON T) D Colon Biopsy (RANDOM COLON LT) E Colon Biopsy (SIGMOID POLYP) Procedures: HE/10, Gross/Micro L4/5, H PYLORI, IHC First AB Patient: Radha Dickinson [id number] (Continued) Signed (signature on file) Wojciech Sheikh MD 05/24/24 1756 Normal [facility] Opiates [Presence] in Urine by Screen methodOrdered By: Karissa Rosenthal on 05-23-2024 Opiates Screen Ql (U) Negative Negative [facility] Phencyclidine Screen Ql (U)O rdered By: Karissa Rosenthal on 05-23-2024 Phencyclidine Ql (U) Negative Negative [facility] IgA [Mass/Vol]on 05-20-2024 CELIAC DISEASE SEROLOGY [place] SEE COMMENTS 05/24/2024 10:21 PM Normal [facility] Comment on above: Result Comment: NOTE Test Result Flag Unit RefValue ---- Celiac Disease Serology [place] Immunoglobulin A (IgA), S 239 mg/dL 61 - 356 Celiac Disease Interpretation See Note See Comment: Negative serology. Celiac disease unlikely. However, approximately 10% of patients with celiac disease are seronegative. Also, patients who are already adhering to a gluten-free diet may be seronegative. If celiac disease is highly clinically suspected, consider HLA-DQ typing. Test Performed by: [place] [address] Lift Electrician: Marissa Dodson Ph.D.; CLIA# [id number] Performed By: #### 2 106-3 #### [facility] ([id number]) [address] [place] [address] 24913 tTG IgA IA Qn (S)on 05-20-20 TTG AB IGA <1.2 Normal <4.0 (Negative) [facility] Comment on above: Result Comment: NOTE Test Performed by: [place] [address] Lift Electrician: Marissa Dodson Ph.D.; CLIA# [id number] Performed By: #### 2 106-3 #### [facility] ([id number]) [address] [place] [address] 97991 CBC AND AUTO DIFFon 03-15-20 24 ABSOLUTE BASOPHIL 0.0 X10E9/L Normal 0.0-0.2 [facility] Comment on above: Performed By: #### 2 106-3 #### [facility] ([id number]) [address] [place] [address] 21664 ABSOLUTE NEUTROPHIL 6.9 X10E9/L High 1.5-6.6 [facility] Comment on above: Performed By: #### 2 106-3 #### [facility] ([id number]) [address] [place] [address] 66386 Basophils/100 WBC (Bld) 0.3 % Normal [facility] Comment on above: Performed By: #### 2 106-3 #### [facility] ([id number]) [address] [place] [address] 07874 Eosinophils (Bld) [#/Vol] 0.1 10*3/uL Normal 0.0-0.4 [facility] Comment on above: Performed By: #### 2 106-3 #### [facility] ([id number]) [address] [place] [address] 50597 Eosinophils/100 WBC (Bld) 0.6 % Normal [facility] Comment on above: Performed By: #### 2 106-3 #### [facility] ([id number]) [address] [place] [address] 14299 Erythrocyte distribution width (RBC) [Ratio] 14.9 % Normal 11.5-15.0 [facility] Comment on above: Performed By: #### 2 106-3 #### [facility] ([id number]) [address] [place] [address] 13205 Hematocrit (Bld) [Volume fraction] 41.6 % Normal 35-47 [facility] Comment on above: Performed By: #### 2 106-3 #### [facility] ([id number]) [address] [place] [address] 45775 Hemoglobin (Bld) [Mass/Vol] 14.1 g/dL Normal 11.7-15.5 [facility] Comment on above: Performed By: #### 2 106-3 #### [facility] ([id number]) [address] [place] [address] [place] [address] Lymphocytes (Bld) [#/Vol] 1.7 10*3/uL Normal 1.0-3.5 [facility] Comment on above: Performed By: #### 2 106-3 #### [facility] ([id number]) [address] [place] [address] 11739 Lymphocytes/100 WBC (Bld) 18.5 % Normal [facility] Comment on above: Performed By: #### 2 106-3 #### [facility] ([id number]) [address] [place] [address] 53749 MCH (RBC) [Entitic mass] 30.6 pg Normal 27-34 [facility] Comment on above: Performed By: #### 2 106-3 #### [facility] ([id number]) [address] [place] [address] 65415 MCHC (RBC) [Mass/Vol] 33.8 g/dL Normal 32-36 [facility] Comment on above: Performed By: #### 2 106-3 #### [facility] ([id number]) [address] [place] [address] 17069 MCV (RBC) [Entitic vol] 91 fL Normal 80-[address] [facility] Comment on above: Performed By: #### 2 106-3 #### [facility] ([id number]) [address] [place] [address] 92450 Monocytes (Bld) [#/Vol] 0.7 10*3/uL Normal 0-0.9 [facility] Comment on above: Performed By: #### 2 106-3 #### [facility] ([id number]) [address] [place] [address] 11721 Monocytes/100 WBC (Bld) 7.3 % Normal [facility] Comment on above: Performed By: #### 2 106-3 #### [facility] ([id number]) [address] [place] [address] 66104 Neutrophils/100 WBC (Bld) 73.3 % Normal [facility] Comment on above: Performed By: #### 2 106-3 #### [facility] ([id number]) [address] [place] [address] 34440 Platelet mean volume (Bld) [Entitic vol] 10.3 fL Normal 7-12 [facility] Comment on above: Performed By: #### 2 106-3 #### [facility] ([id number]) [address] [place] [address] 13181 Platelets (Bld) [#/Vol] 212 10*3/uL Normal 150-450 [facility] Comment on above: Performed By: #### 2 106-3 #### [facility] ([id number]) [address] [place] [address] 42179 RBC COUNT 4.59 X10E12/L Normal 3.80-5.20 [facility] Comment on above: Performed By: #### 2 106-3 #### [facility] ([id number]) [address] [place] [address] 45235 WBC (Bld) [#/Vol] 9.4 10*3/uL Normal 4.0-11.0 [facility] Comment on above: Performed By: #### 2 106-3 #### [facility] ([id number]) [address] [place] [address] 23599 COMPREHENSIVE METABOLIC PANE Eduardo 03-15-2024 Albumin [Mass/Vol] 4.4 g/dL Normal 3.2-5.3 [facility] Comment on above: Performed By: #### C MP, THYR, 27234-7 #### [facility] ([id number]) [address], [address] [place] [address] ALP [Catalytic activity/Vol] 63 U/L Normal 39-130 [facility] Comment on above: Performed By: #### C JOLYNN THYR, 08874-1 #### [facility] ([id number]) [address], [address] [place] [address] ALT [Catalytic activity/Vol] 21 U/L Normal 0-31 [facility] Comment on above: Performed By: #### C JOLYNN THYR, 34923-1 #### [facility] ([id number]) [address], [address] [place] [address] Anion gap [Moles/Vol] 7 mmol/L Normal 5-15 [facility] Comment on above: Performed By: #### C JOLYNN THYR, 10438-7 #### [facility] ([id number]) [address], [address] [place] [address] AST [Catalytic activity/Vol] 15 U/L Normal 0-41 [facility] Comment on above: Performed By: #### C JOLYNN THYR, 16797-0 #### [facility] ([id number]) [address], [address] [place] [address] Bilirubin [Mass/Vol] 0.9 mg/dL Normal 0.3-1.2 [facility] Comment on above: Performed By: #### C JOLYNN THYR, 97484-0 #### [facility] ([id number]) [address] [place] [address] Calcium [Mass/Vol] 9.6 mg/dL Normal 8.5-10.5 [facility] Comment on above: Performed By: #### C JOLYNN THYR, 83094-3 #### [facility] ([id number]) [address], [address] [place] [address] Chloride [Moles/Vol] 105 mmol/L Normal 98-109 [facility] Comment on above: Performed By: #### C JOLYNN THYR, 52578-7 #### [facility] ([id number]) [address], [address] [place] [address] CO2 [Moles/Vol] 27 mmol/L Normal 22-32 [facility] Comment on above: Performed By: #### C CASSI NEIL, 15064-1 #### [facility] ([id number]) [address], [address] [place] [address] Creatinine [Mass/Vol] 0.71 mg/dL Normal 0.40-1.00 [facility] Comment on above: Result Comment: METH OD TRACEABLE TO IDMS STANDARD Performed By: #### [place], [address]-6 #### [facility] ([id number]) [address], [address] [place] [address] eGFR (CKD-EPI) NON-RACE DEPENDENT >90 Normal >59 [facility] Comment on above: Result Comment: Reported eGFR is based on the CKD-EPI 2020 equation that does not use a race coefficient. Performed By: #### [place], [address]-6 #### [facility] ([id number]) [address], [address] [place] [address] Glucose [Mass/Vol] 105 mg/dL High 65-99 [facility] Comment on above: Performed By: #### [place], [address]-9 #### [facility] ([id number]) [address], [address] [place] [address] Potassium [Moles/Vol] 4.2 mmol/L Normal 3.5-5.0 [facility] Comment on above: Performed By: #### Veronica NEIL THYR, 50498-2 #### [facility] ([id number]) [address], [address] [place] [address] Protein [Mass/Vol] 7.0 g/dL Normal 6.0-8.0 [facility] Comment on above: Performed By: #### C JOLYNN, THYR, 89108-7 #### [facility] ([id number]) [address], [address] [place] [address] Sodium [Moles/Vol] 139 mmol/L Normal 134-146 [facility] Comment on above: Performed By: #### C MP, THYR, 74459-0 #### [facility] ([id number]) [address], [address] [place] [address] Urea nitrogen [Mass/Vol] 11 mg/dL Normal 5-23 [facility] Comment on above: Performed By: #### C JOLYNN, THYR, 86725-6 #### [facility] ([id number]) [address], [address] [place] [address] ESR Photometric method (Bld) [Velocity]on 03-15-2024 ESR, ERYTHROCYTE SEDIMENTATION RATE 6 mm/h Normal 0-20 [facility] Comment on above: Performed By: #### 2 106-3 #### [facility] ([id number]) [address] [place] [address], [place] [address] GI PANELon 03-15-2024 Gastrointestinal pathogens DNA and RNA panel LULI+non-probe (Stl) SPECIMEN SOURCE STOOL CAMPYLOBACTER Not detected (qualifier value) PLESIOMONAS Not detected (qualifier value) SALMONELLA Not detected (qualifier value) VIBRIO Not detected (qualifier value) VIBRIO CHOLERAE Not detected (qualifier value) Y. ENTEROCOLITICA Not detected (qualifier value) AGGREGATIVE E COLI Not detected (qualifier value) PATHOGENIC E COLI Not detected (qualifier value) TOXIGENIC E COLI Not detected (qualifier value) SHIGA TOXIN E COLI Not detected (qualifier value) SHIGELLA-E COLI Not detected (qualifier value) CRYPTOSPORIDIUM Not detected (qualifier value) CYCLOSPORA Not detected (qualifier value) E HISTOLYTICA Not detected (qualifier value) GIARDIA LAMBLIA Not detected (qualifier value) ADENOVIRUS Not detected (qualifier value) ASTROVIRUS Not detected (qualifier value) NOROVIRUS Not detected (qualifier value) ROTAVIRUS A Not detected (qualifier value) SAPOVIRUS Not detected (qualifier value) Normal NDET [facility] Comment on above: Performed By: #### 2 106-3 #### [facility] ([id number]) [address] [place] [address] Lipid 1996 panelon 4 Cholesterol [Mass/Vol] 131 mg/dL Low 150-200 [facility] Comment on above: Performed By: #### C CASSI NEIL, 47316-9 #### [facility] ([id number]) [address] [place] [address] Cholesterol in HDL [Mass/Vol] 49 mg/dL Normal >39 [facility] Comment on above: Result Comment: HDL <40 mg/dL - High Risk HDL > or = 40mg/dL- Desirable HDL >60 mg/dL - Negative Risk Performed By: #### Veronica NEIL THYR, 81211-2 #### [facility] ([id number]) [address] [place] [address] Cholesterol in LDL [Mass/Vol] 62 mg/dL Normal <130 [facility] Comment on above: Result Comment: LDL <100 mg/dL - Desirable LDL >160 mg/dL - High Risk Performed By: #### Veronica NEIL THYGeorgette, 40634-2 #### [facility] ([id number]) [address], [address] [place] [address] Cholesterol in VLDL [Mass/Vol] 20 mg/dL Normal 0-30 [facility] Comment on above: Performed By: #### [place], [address]-1 #### [facility] ([id number]) [address], [address] [place] [address] CHOLESTEROL:HDL 2.7 Normal 1.0-5.0 [facility] Comment on above: Performed By: #### C JOLYNN, THYR, 27422-4 #### [facility] ([id number]) [address], [address] [place] [address] Triglyceride [Mass/Vol] 100 mg/dL Normal 27-[address] [facility] Comment on above: Performed By: #### C JOLYNN, THYR, 04110-4 #### [facility] ([id number]) [address], [address] [place] [address] THYROID PROFILEon 03-15-2024 Free T4 [Mass/Vol] 1.04 ng/dL Normal 0.61-1.60 [facility] Comment on above: Performed By: #### C OJLYNN, THYR, 68401-8 #### [facility] ([id number]) [address] [place] [address] TSH 0.68 uIU/mL Normal 0.49-4.67 [facility] Comment on above: Performed By: #### C JOLYNN, THYR, 02960-7 #### [facility] ([id number]) [address], [address] [place] [address] BASIC METABOLIC PANLon 01-31 Anion gap [Moles/Vol] 11 mmol/L Normal 5-15 [facility] Comment on above: Performed By: #### B JOLYNN, CBCA, 64227-8 #### [facility] ([id number]) [address] [place] [address], [place] [address] Calcium [Mass/Vol] 9.0 mg/dL Normal 8.5-10.5 [facility] Comment on above: Performed By: #### B JOLYNN, CBCA, 69525-7 #### [facility] ([id number]) [address] [address] Chloride [Moles/Vol] 101 mmol/L Normal 98-109 [facility] Comment on above: Performed By: #### B VALENTINA NEIL, 47342-9 #### [facility] ([id number]) [address] [address] 10010 CO2 [Moles/Vol] 23 mmol/L Normal 22-32 [facility] Comment on above: Performed By: #### B VALENTINA NEIL, 14714-7 #### [facility] ([id number]) [address] [place] [address] 26030 Creatinine [Mass/Vol] 0.78 mg/dL Normal 0.40-1.00 [facility] Comment on above: Result Comment: METH OD TRACEABLE TO IDMS STANDARD Performed By: #### B VALENTINA NEIL, 98819-7 #### [facility] ([id number]) [address] [place] [address] eGFR (CKD-EPI) NON-RACE DEPENDENT >90 Normal >59 [facility] Comment on above: Result Comment: Reported eGFR is based on the CKD-EPI 1 equation that does not use a race coefficient. Performed By: #### [place], [address]-5 #### [facility] ([id number]) [address] [address]89[address] Glucose [Mass/Vol] 87 mg/dL Normal 65-99 [facility] Comment on above: Performed By: #### B VALENTINA NEIL, 26665-0 #### [facility] ([id number]) [address] [address] 16870 Potassium [Moles/Vol] 4.1 mmol/L Normal 3.5-5.0 [facility] Comment on above: Performed By: #### B VALENTINA NEIL, 16537-5 #### [facility] ([id number]) [address] [place] [address] 19922 Sodium [Moles/Vol] 135 mmol/L Normal 134-146 [facility] Comment on above: Performed By: #### B MP, CBCA, 81407-4 #### [facility] ([id number]) [address] [place] [address] 22514 Urea nitrogen [Mass/Vol] 13 mg/dL Normal 5-23 [facility] Comment on above: Performed By: #### B MP, CBCA, 05618-7 #### [facility] ([id number]) [address] [place] [address] 37526 CBC AND AUTO DIFFon 02-01-20 24 ABSOLUTE BASOPHIL 0.1 X10E9/L Normal 0.0-0.2 [facility] Comment on above: Performed By: #### B MP, CBCA, 82236-7 #### [facility] ([id number]) [address] [id number] ABSOLUTE NEUTROPHIL 5.3 X10E9/L Normal 1.5-6.6 [facility] Comment on above: Performed By: #### B MP, CBCA, [id number] #### [facility] ([id number]) [address] [place] [address] 64699 Basophils/100 WBC (Bld) 0.7 % Normal [facility] Comment on above: Performed By: #### B MP, CBCA, 78880-9 #### [facility] ([id number]) [address] [address] 84532 Eosinophils (Bld) [#/Vol] 0.0 10*3/uL Normal 0.0-0.4 [facility] Comment on above: Performed By: #### B MP, CBCA, 45038-0 #### [facility] ([id number]) [address] [place] [address] [place] [address] Eosinophils/100 WBC (Bld) 0.1 % Normal [facility] Comment on above: Performed By: #### B JOLYNN, CBCA, 69505-9 #### [facility] ([id number]) [address] [place] [address] 58075 Erythrocyte distribution width (RBC) [Ratio] 13.5 % Normal 11.5-15.0 [facility] Comment on above: Performed By: #### B JOLYNN, CBCA, 55722-1 #### [facility] ([id number]) [address] [address] 58032 Hematocrit (Bld) [Volume fraction] 44.0 % Normal 35-47 [facility] Comment on above: Performed By: #### B JOLYNN, CBCA, 57689-4 #### [facility] ([id number]) [address] [address] 82620 Hemoglobin (Bld) [Mass/Vol] 15.3 g/dL Normal 11.7-15.5 [facility] Comment on above: Performed By: #### B JOLYNN, CBCA, 42278-2 #### [facility] ([id number]) [address] [place] [address] 48050 Lymphocytes (Bld) [#/Vol] 2.6 10*3/uL Normal 1.0-3.5 [facility] Comment on above: Performed By: #### B JOLYNN, CBCA, 08335-2 #### [facility] ([id number]) [address] [address] 97288 Lymphocytes/100 WBC (Bld) 29.4 % Normal [facility] Comment on above: Performed By: #### B JOLYNN, CBCA, 94801-1 #### [facility] ([id number]) [address] [place] [address] 84467 MCH (RBC) [Entitic mass] 30.5 pg Normal 27-34 [facility] Comment on above: Performed By: #### B JOLYNN, CBCA, 15604-3 #### [facility] ([id number]) [address] [address] 27183 MCHC (RBC) [Mass/Vol] 34.8 g/dL Normal 32-36 [facility] Comment on above: Performed By: #### B JOLYNN, CBCA, 32339-3 #### [facility] ([id number]) [address] [place] [address] 27660 MCV (RBC) [Entitic vol] 88 fL Normal 80-[address] [facility] Comment on above: Performed By: #### B JOLYNN, CBCA, 79838-7 #### [facility] ([id number]) [address] [place] [address] 45197 Monocytes (Bld) [#/Vol] 0.8 10*3/uL Normal 0-0.9 [facility] Comment on above: Performed By: #### B JOLYNN, CBCA, 87896-9 #### [facility] ([id number]) [address] [place] [address] 61691 Monocytes/100 WBC (Bld) 9.7 % Normal [facility] Comment on above: Performed By: #### B JOLYNN, CBCA, 50013-8 #### [facility] ([id number]) [address] [place] [address] 78207 Neutrophils/100 WBC (Bld) 60.1 % Normal [facility] Comment on above: Performed By: #### B JOLYNN, CBCA, 53934-3 #### [facility] ([id number]) [address] [place] [address] 97929 Platelet mean volume (Bld) [Entitic vol] 10.6 fL Normal 7-12 [facility] Comment on above: Performed By: #### B JOLYNN, CBCA, 56842-2 #### [facility] ([id number]) [address] [place] [address] 01152 Platelets (Bld) [#/Vol] 153 10*3/uL Normal 150-450 [facility] Comment on above: Performed By: #### B MP, CBCA, 50338-1 #### [facility] ([id number]) [address] [place] [address] 91073 RBC COUNT 5.02 X10E12/L Normal 3.80-5.20 [facility] Comment on above: Performed By: #### B MP, CBCA, 40736-4 #### [facility] ([id number]) [address] [place] [address] 89240 WBC (Bld) [#/Vol] 8.8 10*3/uL Normal 4.0-11.0 [facility] Comment on above: Performed By: #### B MP, CBCA, 64132-0 #### [facility] ([id number]) [address] [place] [address] 50745 Fibrin D-dimer DDU (PPP) [Ma ss/Vol]on 02-01-2024 D DIMER 188 ng/mL DDU Normal <255 [facility] Comment on above: Result Comment: Results <255 ng/mL DDU: The presence of a VTE can safely be excluded with a negative D-Dimer result and Wells score. A negative result doesn't exclude the possibility of DIC. The test be repeated along with other diagnostic tests if the patient's symptoms persist or worsen. [email or web address] Performed By: #### B MP, CBCA, 31105-2 #### [facility] ([id number]) [address] [place] [address] 82839 XR CHEST 1 VWon 02-01-2024 XR CHEST 1 VW XR CHEST 1 VW Clinical history: Shortness of breath Views: 1 Comparison: 11/27/2022 Findings/Impression: 1. No acute infiltrate. No volume loss nor consolidation. There is no pleural effusion, pneumothorax, nor volume loss. Heart and mediastinal structures are unremarkable. Pulmonary vasculature stable. 2. No significant change Finalized by Ck Hernandez MD on 02/01/2024 11:20 AM Normal [facility] HCG ( test) Ql (U)o n 01-30-2024 Beta HCG ( test) Ql (U) Negative Normal NEG [facility] Comment on above: Performed By: #### 2 106-3 #### [facility] ([id number]) [address] [place] [address], [place] [address] SARS/FLU A+B/RSV by NAAT/Mol ecularon 01-30-2024 SARS/FLU A+B/RSV by NAAT/Molecular FLU A PCR Positive (qualifier value) FLU B PCR Negative (qualifier value) RSV by PCR Negative (qualifier value) SARS CoV 2 Not detected (qualifier value) NOTE The Xpert Xpress SARS-CoV-2/Flu/RSV Plus test is a rapid, multiplexed real-time RT-PCR test intended for the simultaneous qualitative detection and differentiation of SARS-CoV-2, influenza A, influenza B and respiratory syncytial virus (RSV) viral RNA from individuals suspected of respiratory viral infection consistent with COVID-19 by their healthcare provider. This test has not been validated in asymptomatic patients. The Xpert Xpress SARS-CoV-2 test is intended for use by qualified and trained operators who are performing tests using either [employer] or [facility] systems and is limited to laboratories that meet the CLIA requirements to perform high and moderate complexity tests. The Xpert Xpress SARS-CoV-2/Flu/RSV Plus is only for use under the Food and Drug Administration's Emergency Use Authorization. Results are for the simultaneous detection and differentiation of SARS-CoV-2, influenza A, influenza B and RSV nucleic acids in clinical specimens. SARS-CoV-2, influenza A, influenza B and RSV RNA identified by this test are generally detectable in upper respiratory samples during the acute phase of infection. Positive results are indicative of the presence of the identified virus, but do not rule out bacterial infection or co-infection with other pathogens not detected by this test. Clinical correlation with patient history and other diagnostic information is necessary to determine patient infection status. The agent detected may not be the definite cause of disease. Negative results do not preclude SARS-CoV-2, influenza A, influenza B and RSV infection and should not be used as the sole basis for treatment or other patient management decisions. Negative results must be combined with clinical observations, patient history and epidemiological information. An Invalid result may occur with specimen-associated inhibition unable to be resolved with specimen repeat. Fact Sheet for Healthcare Providers: https://www.fda.gov/media/ 774351/download Fact Sheet for Patients: https://www.fda.gov/media/ 218745/download Normal [facility] Comment on above: Performed By: #### C OVFLR #### [facility] ([id number]) [address] [place] [address] 21979 URN MACROSCOPIC NURon 2023 BILIRUBIN APOLINAR Small Abnormal NEG [facility] Comment on above: Performed By: #### N UM #### [facility] ([id number]) [address] [place] [address] 62558 BLOOD/HGB APOLINAR Negative Normal NEG [facility] Comment on above: Performed By: #### N UM #### [facility] ([id number]) [address] [place] [address] 41522 GLUCOSE APOLINAR Negative Normal NEG [facility] Comment on above: Performed By: #### N UM #### [facility] ([id number]) [address] [place] [address] 35996 KETONES APOLINAR 80 mg/dL Abnormal NEG [facility] Comment on above: Performed By: #### N UM #### [facility] ([id number]) [address] [place] [address] 18315 LEUKOCYTE ESTERASE APOLINAR Negative Normal NEG [facility] Comment on above: Performed By: #### N UM #### [facility] ([id number]) [address] [place] [address] NITRITE APOLINAR Negative Normal NEG [facility] Comment on above: Performed By: #### N UM #### [facility] ([id number]) [address] [place] [address] 56692 PH APOLINAR 5.5 Normal 5.0-8.5 [facility] Comment on above: Performed By: #### N UM #### [facility] ([id number]) [address] [place] [address] 63476 PROTEIN APOLINAR Trace Abnormal NEG [facility] Comment on above: Performed By: #### N UM #### [facility] ([id number]) [address] [place] [address] 24318 SPECIFIC GRAVITY APOLINAR 1.025 Normal 1.003-1 .03 5 [facility] Comment on above: Performed By: #### N UM #### [facility] ([id number]) [address] [place] [address] 43587 UROBILINOGEN APOLINAR 0.2 eu/dL Normal <1.1 [facility] Comment on above: Performed By: #### N UM #### [facility] ([id number]) [address] [place] [address] 26259 Laboratory - Microbiology an d Antimicrobial susceptibilityOrdered By: Viky Waters on 07-10-2023 N. gonorrhoeae DNA LULI+probe Ql (Unsp spec) Negative Negative [facility] Comment on above: Performed at: =G L [address] [id number] Director: Kinga Solomon MD, Phone: [phone] No Panel InformationOrdered By: Viky Waters on 07-10-2023 Kay albicans (LULI) Negative Negative [facility] Comment on above: This test was develo ped and its performance characteristicsdetermined by [facility]. It has not been cleared orapproved by the Food and Drug Administration. Kay glabrata (LULI) Negative Negative [facility] Comment on above: This test was develo ped and its performance characteristicsdetermined by [facility]. It has not been cleared orapproved by the Food and Drug Administration. Chlamydia trachomatis (LULI) (LAB) Negative Negative [facility] Trichomonas vaginalis (LULI) Negative Negative [facility] Vaginal fluid Atopobium vagi xuan DNA detection by probe and target amplification methoOrdered By: Viky Waters on 07-10-2023 A. vaginae DNA LULI+probe Ql (Vag fld) High - 2 Score . [facility] Vaginal fluid Megasphaera sp ecies type 1 DNA detection by probe and target amplificatOrdered By: Viky Waters on 07-10-2023 Megasphaera sp type 1 DNA LULI+probe Ql (Vag fld) High - 2 Score . [facility] Comment on above: Calculate total scor e by adding the 3 individual bacterialvaginosis (BV) marker scores together. Total score isinterpreted as follows:Total score 0-1: Indicates the absence of BV.Total score 2: Indeterminate for BV. Additional clinical data should be evaluated to establish a diagnosis.Total score 3-6: Indicates the presence of BV.This test was developed and its performance characteristicsdetermined by [employer]. It has not been cleared or approvedby the Food and Drug Administration. Vaginal fluid bacterial vagi nosis associated bacterium 2 DNA detection by probe and tOrdered By: Viky Waters on 07-10-2023 Bacterial vaginosis associated bacterium 2 DNA LULI+probe Ql (Vag fld) High - 2 Score . [facility] Q - SURESWAB ADVANCED VAGINI TIS PLUSon 04-24-2022 KAY GLABRATA Not detected Normal NOT DETECTED [facility] Comment on above: Order Comment: [facility] performed at: [facility], [address] [place] [address], [address] [place] [address], [phone], Radiology Interventional Physician: Jonathan Hernandez MD [facility] Collection Date/Time: [facility] Results Received Date/Time: [facility] Reported Date/Time: Result Comment: Kay species C. albicans, C. tropicalis, C. parapsilosis, and/or C. dubliniensis can be detected, but not differentiated, in the Kay spp. result. Performed By: #### 1 0120 #### [facility] Default [address] [place] [address] KAY SPECIES Detected Abnormal NOT DETECTED [facility] Comment on above: Order Comment: [facility] performed at: [facility] [employer] [facility], [address] , [address] [place] [address], [address] [place] [address], Radiology Interventional Physician: Jonathan Hernandez MD [facility] Date/Time: [facility] Results Received Date/Time: [facility] Reported Date/Time: Performed By: #### 1 0120 #### [facility] [address] [place] [address] CHLAMYDIA TRACHOMATIS RNA, TMA, UROGENITAL Not detected Normal NOT DETECTED [facility] Comment on above: Order Comment: [facility] performed at: [facility], [employer] [facility], [address] , [address] [place] [address], [address] [place] [address], Radiology Interventional Physician: Jonathan Hernandez MD [facility] Date/Time: [facility] Results Received Date/Time: [facility] Reported Date/Time: Performed By: #### 1 0120 #### [facility] [address] [place] [address] NEISSERIA GONORRHOEAE RNA, TMA, UROGENITAL Not detected Normal NOT DETECTED [facility] Comment on above: Order Comment: [facility] performed at: [facility] [employer] [facility], [address] , [address] [place] [address], [address] [place] [address], Radiology Interventional Physician: Jonathan Hernandez MD [facility] Date/Time: [facility] Results Received Date/Time: [facility] Reported Date/Time: Result Comment: For additional information, please refer to [email or web address] (This link is being provided for information/ educational purposes only.) Performed By: #### 1 0120 #### [facility] [address] [place] [address] SURESWAB(R) ADV BACTERIAL VAGINOSIS (BV), TMA Positive Abnormal NEGATIVE [facility] [employer] Comment on above: Order Comment: [facility] performed at: [facility], [employer] [facility], [address] [facility], [address] [place] [address], [address] [place] [address], Radiology Interventional Physician: Jonathan Hernandez MD [facility] Date/Time: [facility] Results Received Date/Time: [facility] Reported Date/Time: Performed By: #### 1 0120 #### [facility] [address] [place] [address] TRICHOMONAS VAGINALIS (TV), TMA Not detected Normal NOT DETECTED [facility] [employer] Comment on above: Order Comment: [facility] performed at: [facility], [employer] [facility], [address] , [address] [place] [address], [address] [place] [address], Radiology Interventional Physician: Jonathan Hernandez MD [facility] Date/Time: [facility] Results Received Date/Time: [facility] Reported Date/Time: Performed By: #### 1 0120 #### [facility] [address] [place] [address] CBC auto differentialOrdered By: Neyda Lyle on 08-02-2021 Absolute Eos # 0.05 [employer] Phone: Absolute Immature Granulocyte <0.03 [employer] Phone: Absolute Lymph # 1.77 [employer] Phone: Absolute Fajardo # 0.61 [employer] Phone: Basophils (Bld) [#/Vol] 10*3/uL [employer] Phone: Basophils/100 WBC (Bld) 0 % 0 - 2 % [employer] Phone: Differential Type NOT REPORTED [employer] Phone: Eosinophils/100 WBC (Bld) 1 % 1 - 4 % [employer] Phone: Hematocrit (Bld) [Volume fraction] 35.3 % Low 36.3 - 47.1 % [employer] Phone: Hemoglobin.gastrointest inal spec 1 Ql (Stl) 11.8 g/dL Low 11.9 - 15.1 g/dL [employer] Phone: [phone] Immature granulocytes/100 WBC (Bld) 0 % 0 [employer] Phone: Interpretation and review of laboratory results Abnormal [employer] Phone: Lymphocytes/100 WBC (Bld) 22 % Low 24 - 43 % [employer] Phone: MCH (RBC) [Entitic mass] 28.9 pg 25.2 - 33.5 pg [employer] Phone: MCHC (RBC) [Mass/Vol] 33.4 g/dL 28.4 - 34.8 g/dL [employer] Phone: MCV (RBC) [Entitic vol] 86.5 fL 82.6 - 102.9 fL [employer] Phone: Monocytes/100 WBC (Bld) 8 % 3 - 12 % [employer] Phone: NRBC Automated 0.0 0.0 per 100 WBC [employer] Phone: Platelet distribution width (Bld) [Ratio] 13.7 % 11.8 - 14.4 % [employer] Phone: Platelet Estimate NOT REPORTED [employer] Phone: Platelet mean volume (Bld) [Entitic vol] 12.4 fL 8.1 - 13.5 fL [employer] Phone: Platelets (Bld) [#/Vol] 197 10*3/uL [employer] Phone: RBC (Bld) [#/Vol] 4.08 10*6/uL 3.95 - 5.11 m/uL [employer] Phone: RBC (Bld) [#/Vol] NOT REPORTED [employer] Phone: Segmented neutrophils/100 WBC (Bld) 69 % High 36 - 65 % [employer] Phone: Segs Absolute 5.53 [facility] Phone: WBC (Bld) [#/Vol] 8.0 10*3/uL [employer] Phone: WBC (Bld) [#/Vol] NOT REPORTED [employer] Phone: [employer] Phone: CBC with Diffon 08-02-2021 Abs. Basophil <0.03 Normal 0.00-0.20 [facility] Comment on above: Performed By: #### C DP #### [address] [place] [address] [employer]: Brice Frederick MD Abs.Imm.Granulocyte <0.03 Normal 0.00-0.30 [facility] Comment on above: Performed By: #### C DP #### [facility] [address] [place] [address] [place] [place], [place] 2107783 [employer] Electrician: Brice Frederick MD Abs.Neutrophil (Seg) 5.53 k/uL Normal 1.50-8.10 [facility] Comment on above: Performed By: #### C DP #### [address] [place] [address] [employer] Electrician: Brice Frederick MD Basophils/100 WBC (Bld) 0 % Normal 0-2 M [facility] Comment on above: Performed By: #### C DP #### [facility] [address] [place] [address] [place], [place] 7476[address] [employer] Electrician: Brice Frederick MD Eosinophils (Bld) [#/Vol] 0.05 10*3/uL Normal 0.00-0.44 [facility] Comment on above: Performed By: #### C DP #### [address] [place], [facility] [employer] Electrician: Brice Frederick MD Eosinophils/100 WBC (Bld) 1 % Normal 1-4 [facility] Comment on above: Performed By: #### C DP #### [address] [place], [facility]83 [employer] Electrician: Brice Frederick MD Erythrocyte distribution width (RBC) [Ratio] 13.7 % Normal 11.8-14.4 [facility] Comment on above: Performed By: #### C DP #### [address] [place], [facility]83 [employer] Electrician: Brice Frederick MD Hematocrit (Bld) [Volume fraction] 35.3 % Low 36.3-47.1 [facility] Comment on above: Performed By: #### C DP #### [address] [place], [facility]83 [employer] Electrician: Brice Frederick MD Hemoglobin (Bld) [Mass/Vol] 11.8 g/dL Low 11.9-15.1 [facility] Comment on above: Performed By: #### C DP #### [address] [place], [facility]83 [employer] Electrician: Brice Frederick MD Immature granulocytes/100 WBC (Bld) 0 % Normal 0 [facility] Comment on above: Performed By: #### C DP #### [address] [place] [facility]83 [employer] Electrician: Brice Frederick MD Lymphocytes (Bld) [#/Vol] 1.77 10*3/uL Normal 1.10-3.70 [facility] Comment on above: Performed By: #### C DP #### [facility] [address] [place], [place] [id number] [employer] Electrician: Brice Frederick MD Lymphocytes/100 WBC (Bld) 22 % Low 24-43 [facility] Comment on above: Performed By: #### C DP #### [facility] [address] [place], [place] [address]83 [employer] Electrician: Brice Frederick MD MCH (RBC) [Entitic mass] 28.9 pg Normal 25.2-33.5 [facility] Comment on above: Performed By: #### C DP #### [address] [place], [place] [address]142183 L[employer] Electrician: Brice Frederick MD MCHC (RBC) [Mass/Vol] 33.4 g/dL Normal 28.4-34.8 [facility] Comment on above: Performed By: #### C DP #### [address] [place], [place] [address]83 [employer] Electrician: Brice Frederick MD MCV (RBC) [Entitic vol] 86.5 fL Normal 82.6-102.9 [facility] Comment on above: Performed By: #### C DP #### [facility] [address] [place] [address] [place] [place], [place] 2484983 [employer] Electrician: Brice Frederick MD Monocytes (Bld) [#/Vol] 0.61 10*3/uL Normal 0.10-1.20 [facility] Comment on above: Performed By: #### C DP #### [address] [place] [address] Lift Electrician: Brice Frederick MD Monocytes/100 WBC (Bld) 8 % Normal 3-12 M [facility] Comment on above: Performed By: #### C DP #### [facility] [address] [place], [place] 5335[address] Lift Electrician: Brice Frederick MD Neutrophil (Seg) 69 % High 36-65 [facility] Comment on above: Performed By: #### C DP #### [facility] [address] [place] [id number] L[employer] Electrician: Brice Frederick MD NRBC Automated 0.0 per 100 WBC Normal 0.0 [facility] Comment on above: Performed By: #### C DP #### [facility] [address] [place] [id number] L[employer] Electrician: Brice Frederick MD Platelet mean volume (Bld) [Entitic vol] 12.4 fL Normal 8.1-13.5 [facility] Comment on above: Performed By: #### C DP #### [facility] [address] [place] [address] [place] [place], [place] 732[address]83 [employer] Electrician: Brice Frederick MD Platelets (Bld) [#/Vol] 197 10*3/uL Normal 138-453 [facility] Comment on above: Performed By: #### C DP #### [address] [place], [place] [address]83 [employer] Electrician: Brice Frederick MD RBC (Bld) [#/Vol] 4.08 10*6/uL Normal 3.95-5.11 [facility] Comment on above: Performed By: #### C DP #### [facility] [address] [place], [place] 3344[address] Lift Electrician: Brice Frederick MD WBC (Bld) [#/Vol] 8.0 10*3/uL Normal 3.5-11.3 [facility] Comment on above: Performed By: #### C DP #### [facility] [address] [place] [address] Lift Electrician: Brice Frederick MD Auto Diff Performed NOT REPORTED Normal [facility] Comment on above: Performed By: #### C DP #### [facility] [address] [place] [address] Lift Electrician: Brice Frederick MD Platelet Estimate NOT REPORTED Normal [facility] Comment on above: Performed By: #### C DP #### [facility] [address] [place], [facility]83 [employer] Electrician: Brice Frederick MD RBC morphology finding Nom (Bld) NOT REPORTED Normal [facility] Comment on above: Performed By: #### C DP #### [facility] [address] [place] [address] Lift Electrician: Brice Frederick MD WBC Morphology NOT REPORTED Normal [facility] Comment on above: Performed By: #### C DP #### [facility] [address] [place], [facility]83 Lift Electrician: Brice Frederick MD DRUG SCREEN MULTI URINEOrder ed By: Neyda Lyle on 08-02-2021 Amphetamine Screen, Ur Negative NEGATIVE [facility] [employer] Phone: Barbiturate Screen, Ur Negative NEGATIVE [facility] Work Phone: Benzodiazepine Screen, Urine Negative NEGATIVE [facility] [employer] Work Phone: Buprenorphine Urine Negative NEGATIVE [facility] Work Phone: Cannabinoid Scrn, Ur Positive Abnormal NEGATIVE [facility] [employer] Work Phone: [phone] Cocaine Metabolite, Urine Negative NEGATIVE [facility] Work Phone: Interpretation and review of laboratory results Abnormal [facility] [employer] Work Phone: Methadone Screen, Urine Negative NEGATIVE [facility] [employer] Work Phone: Methamphetamine, Urine Negative NEGATIVE [facility] [employer] Work Phone: [phone] Opiates, Urine Negative NEGATIVE [employer] Phone: Oxycodone Screen, Ur Negative NEGATIVE [employer] Phone: Phencyclidine, Urine Negative NEGATIVE [employer] Phone: Propoxyphene, Urine Negative NEGATIVE [facility]: Test Information NOT REPORTED [employer] Phone: Tricyclic Antidepressants, Urine Negative NEGATIVE [employer] Phone: Comment on above: Drug screen results are to be used for medical purposes only. All positive results are unconfirmed. Testing for employment or legal uses should be sent to a reference laboratory for confirmation. [employer] Phone: Drug Scr, Abuse, Uron 2020 Amphetamine(s),Ur Negative Normal NEG [facility] Comment on above: Performed By: #### D AU #### [facility] [address] [place] [address] Dr. [place], [place] [id number] Lift Electrician: Brice Frederick MD Barbiturate(s),Ur Negative Normal NEG [facility] Comment on above: Performed By: #### D AU #### [facility] [address] [place] [address] Dr. [place], [place] [id number] Lift Electrician: Brice Frederick MD Benzodiazepine(s) Negative Normal NEG [facility] Comment on above: Performed By: #### D AU #### [facility] [address] [place] [address] Dr. [place], [place] [id number] Lift Electrician: Brice Frederick MD Buprenorphrine, Ur Negative Normal NEG [facility] Comment on above: Performed By: #### D AU #### [facility] [address] [place] [address] [place] [address] Lift Electrician: Brice Frederick MD Cannabinoid(s),Ur Positive Abnormal NEG [facility] Comment on above: Performed By: #### D AU #### [facility] [address] [place], [place] [id number] Lift Electrician: Brice Frederick MD Cocaine Metabolite Negative Normal [facility] Comment on above: Performed By: #### D AU #### [facility] [address] [place], [place] [id number] Lift Electrician: Brice Frederick MD Methadone Ql (U) Negative Normal NEG [facility] Comment on above: Performed By: #### D AU #### [facility] [address] [place], [place] [id number] Lift Electrician: Brice Frederick MD Methamphetamine, Ur Negative Normal NEG [facility] Comment on above: Performed By: #### D AU #### [facility] [address] [place], [facility]83 Lift Electrician: Brice Frederick MD Opiate(s), Ur Negative Normal [facility] Comment on above: Performed By: #### D AU #### [facility] [address] [place], [facility] Lift Electrician: Brice Frederick MD Oxycodone, Urine Negative Normal [facility] Comment on above: Performed By: #### D AU #### [facility] [address] [place], [facility] Lift Electrician: Brice Frederick MD Phencyclidine, Ur Negative Normal NEG [facility] Comment on above: Performed By: #### D AU #### [facility] [address] [place], [place] [id number] Lift Electrician: Brice Frederick MD Propoxyphene,Urine Negative Normal [facility] Comment on above: Performed By: #### D AU #### [facility] [address] [place] [address] Lift Electrician: Brice Frederick MD Tricyclic antidepressants Screen Ql (U) Negative Normal NEG [facility] Comment on above: Result Comment: Drug screen results are to be used for medical purposes only. All positive results are unconfirmed. Testing for employment or legal uses should be sent to a reference laboratory for confirmation. Performed By: #### D AU #### [facility] [address] [place] [address] [place] [address] Lift Electrician: Brice Frederick MD Interpretive Info NOT REPORTED Normal [facility] Comment on above: Performed By: #### D AU #### [facility] [address] [place] [address] Lift Electrician: Brice Frederick MD Drug Scr, Abuse, UrOrdered B y: Neyda Pool on 08-02-2021 MDMA, Urine NOT REPORTED Normal NEG [facility] Phone: Comment on above: Performed By: #### D AU #### [facility] [address] [place] [address] [place] [address] Lift Electrician: Brice Frederick MD GBS, External ResultOrdered By: Historical Provider on 08-02-2021 GBS, External Result Negative [employer] Phone: [employer] Phone: UrinalysisOrdered By: Debbi Kolb on 08-02-2021 Bilirubin Urine Negative NEGATIVE [employer] Phone: Color, UA YELLOW YELLOW [employer] Phone: Glucose, Ur Negative NEGATIVE [employer] Phone: Ketones Ql (U) Negative NEGATIVE [employer] Phone: Leukocyte esterase Test strip Ql (U) Negative NEGATIVE [employer] Phone: Nitrite, Urine Negative NEGATIVE [employer] Phone: pH, UA 6.0 [employer] Phone: Protein, UA Negative NEGATIVE [facility] [employer] Work Phone: Specific [place], UA 1.020 [facility] [employer] Work Phone: Turbidity UA CLEAR CLEAR [facility] Work Phone: Urinalysis Comments NOT REPORTED [facility] [employer] Work Phone: Urine Hgb Negative NEGATIVE [facility] Work Phone: Urobilinogen, Urine Normal Normal [facility] Work Phone: [facility] [employer] Work Phone: Urinalysis, Routineon 2020 Bilirubin, SemiQt,Ur Negative Normal NEG [facility] Comment on above: Performed By: #### U A #### [facility] [address] [place] [address] Lift Electrician: Brice Frederick MD Blood, Urine Negative Normal [facility] Comment on above: Performed By: #### U A #### [facility] [address] [place] [address] Lift Electrician: Brice Frederick MD Clarity (U) CLEAR Normal CLEAR [facility] Comment on above: Performed By: #### U A #### [facility] [address] [place] [address] Lift Electrician: Brice Frederick MD Color (U) YELLOW Normal YEL [facility] Comment on above: Performed By: #### U A #### [facility] [address] [place] [address] Lift Electrician: Brice Frederick MD Glucose Ql (U) Negative Normal NEG [facility] Comment on above: Performed By: #### U A #### [facility] [address] [place] [address] Lift Electrician: Brice Frederick MD Ketones Ql (U) Negative Normal NEG [facility] Comment on above: Performed By: #### U A #### [facility] [address] [place] [address] Dr. [place], [facility]83 Lift Electrician: Brice Frederick MD Leukocyte esterase Test strip Ql (U) Negative Normal NEG [facility] Comment on above: Performed By: #### U A #### [facility] [address] [place] [address] Dr. [place], [facility]83 Lift Electrician: Brice Frederick MD Nitrite,Ur Negative Normal NEG [facility] Comment on above: Performed By: #### U A #### [address] [place] [id number] Lift Electrician: Brice Frederick MD PH,Ur 6.0 Normal 5.0-9.0 [facility] Comment on above: Performed By: #### U A #### [address] [place], [facility]83 Lift Electrician: Brice Frederick MD Protein Ql (U) Negative Normal NEG [facility] Comment on above: Performed By: #### U A #### [address] [place] [id number] Lift Electrician: Brice Frederick MD Spec. [place],Ur 1.020 Normal 1.010-1.02 0 [facility] Comment on above: Performed By: #### U A #### [facility] [address] [place] [address] Dr. [place]arez, [facility]83 Lift Electrician: Brice Frederick MD Urobilinogen,Ur Normal Normal NORM [facility] Comment on above: Performed By: #### U A #### [address] [place] [address] Lift Electrician: Brice Frederick MD Comment NOT REPORTED Normal [facility] Comment on above: Performed By: #### U A #### [facility] [address] [place] [address] [place] [address] Lift Electrician: Brice Frederick MD ABO, External ResultOrdered By: Historical Provider on 01-10-2021 ABO, External Result A+ [employer] Phone: C. Trachomatis, External Res ultOrdered By: Historical Provider on 01-10-2021 C. Trachomatis, External Result Negative [employer] Phone: Hepatitis B, External Result Ordered By: Historical Provider on 01-10-2021 Hep B, External Result NR [employer] Phone: N. Gonorrhoeae, External Res ultOrdered By: Historical Provider on 01-10-2021 N. Gonorrhoeae, External Result Negative [employer] Phone: No Panel InformationOrdered By: Historical Provider on 01-10-2021 [employer] Phone: [employer] Phone: PROFILE IOrdered By : Historical Provider on 01-10-2021 Hepatitis B Surface Ag [employer] Phone: RPR, External LabOrdered By: Historical Provider on 01-10-2021 RPR, External Result Negative [facility] Phone: Rubella Titer, External Resu ltOrdered By: Historical Provider on 01-10-2021 Rubella Titer, External Result IMM [employer] Phone: Operative Reporton 7 Operative Report MR#: [id number] [facility] Pt. Name: Radha Dickinson Room #: 0C Discharge Date: Birthdate: 2000 OPERATIVE REPORTDATE OF SURGERY: 09/14/2017SURGEON: Stephani Lopez M.D.BUILDING SUPERVISOR: Ham Nino M.D.PREOPERATIVE DIAGNOSIS: Radial digital nerve laceration, left indexfinger.POSTOPERATIVE DIAGNOSIS: Radial digital nerve laceration, left indexfinger.PROCEDURE:1. Repair of radial digital nerve, left index finger.2. Intraoperative use of microscope.DESCRIPTION OF PROCEDURE: Under general anesthetic, patient's left upperextremity was prepped and draped for the proposed procedure. Tourniquetapplied to left proximal humerus, was inflated to 250 mmHg followingexsanguination of the limb via the use of an Esmarch bandage. At thistime, a Caleb-like incision was made, centered over the PIP joint. Afull-thickness flap was elevated. Dissection performed under 3.5 timesloupe magnification. Noted was that on exploration, there was evidence ofcomplete transection of the radial digital nerve. This was dissected freefrom the surrounding tissues and noted was that it appeared as if there porsha additional longitudinal fascicular injury along the proximal aspect ofthe digital nerve. It appears if this was a separate entity noting thatthe caliber of the digital nerve proper that was appeared to be preserved,matched to distal aspect.At this time, the microscope was introduced and with slight flexion of thedigit an epineural repair was effected using a 9-0 nylon suture. At thistime, the digit was placed through a gentle range of motion. Noted wasthat there was no evidence of any tension placed upon the repair site.The wound was irrigated with normal saline solution and skin closed with a4-0 Novafil established in a simple suture fashion. Sterile bulky dressingwas applied. There were no complications. The patient was transferred torecovery room in stable condition.Electronically Signed by:Stephani Lopez M.D. 09/17/2017 05:16 P Stephani Lopez M.D.Date Dict: 09/14/2017/11:28 P/Stephani Lopez M.D.Date Trans: 09/15/2017 02:25 A/Phil_[id number] Normal [facility] POC GLUCOSE LABon 09-14-2017 Glucose mass conc 91 mg/dL Normal 70-100 [facility] Comment on above: Performed By: #### [id number] ####[facility], [place] [address] [place] [address] POC URINE PREGNANCYon 2016 HCG.beta subunit ( test) Ql (U) Negative Normal NEGATIVE [facility] Comment on above: Result Comment: Perf ormed in PACU Performed By: #### [id number] ####[facility] [place] [address] Vital Signs Date Time Vital Sign Value Performing Clinician Facility 09-14-2024 16:37-0400 Body mass index (BMI) [Ratio] 19.34 kg/m2 Brice Madrid MD Work Phone: [facility] 09-14-2024 16:37-0400 Body weight 57.7 kg Brice Madrid MD Work Phone: [facility] 09-14-2024 16:37-0400 Diastolic blood pressure 56 mm[Hg] Brice Madrid MD Work Phone: [facility] 09-14-2024 16:37-0400 Heart rate 80 /min Brice Madrid MD Work Phone: [facility] 09-14-2024 16:37-0400 Respiratory rate 16 /min Brice Madrid MD Work Phone: [facility] 09-14-2024 16:37-0400 Systolic blood pressure 98 mm[Hg] Brice Madrid MD Work Phone: [facility] 09-01-2024 09:07-0400 Body mass index (BMI) [Ratio] 19.89 kg/m2 Dat Kolb CNM Work Phone: [facility] 09-01-2024 09:07-0400 Body weight 57.61 kg Dat Kolb CNM Work Phone: [facility] 09-01-2024 09:07-0400 Diastolic blood pressure 70 mm[Hg] Dat Kolb CNM Work Phone: [facility] 09-01-2024 09:07-0400 Systolic blood pressure 118 mm[Hg] Dat Kolb CNM Work Phone: [facility] 08-31-2024 11:23-0400 Body height 172.7 cm Brice Madrid MD Work Phone: [facility] 08-31-2024 11:23-0400 Body mass index (BMI) [Ratio] 18.72 kg/m2 Brice Madrid MD Work Phone: [facility] 08-31-2024 11:23-0400 Body temperature 98.71 [degF] Brice Madrid MD Work Phone: [facility] 08-31-2024 11:23-0400 Body weight 55.85 kg Brice Madrid MD Work Phone: [facility] 08-31-2024 11:23-0400 Diastolic blood pressure 68 mm[Hg] Brice Madrid MD Work Phone: [facility] 08-31-2024 11:23-0400 Systolic blood pressure 112 mm[Hg] Brice Madrid MD Work Phone: [facility] 07-19-2024 09:37-0400 Body height 172.72 cm MD Brice Madrid Work Phone: [facility] 07-19-2024 09:37-0400 Body mass index (BMI) [Ratio] 18.2 kg/m2 MD Brice Madrid Work Phone: [facility] 07-19-2024 09:37-0400 Body temperature 97.8 [degF] MD Brice Madrid Work Phone: [facility] 07-19-2024 09:37-0400 Body weight 54.43 kg MD Brice Madrid Work Phone: [facility] 07-19-2024 09:37-0400 Diastolic blood pressure 72 mm[Hg] MD Brice Madrid Work Phone: [facility] 07-19-2024 09:37-0400 Heart rate 90 /min MD Brice Madrid Work Phone: [facility] 07-19-2024 09:37-0400 Respiratory rate 20 /min MD Brice Madrid Work Phone: [facility] 07-19-2024 09:37-0400 SaO2% (BldA) [Mass fraction] 100 % MD Brice Madrid Work Phone: [facility] 07-19-2024 09:37-0400 Systolic blood pressure 109 mm[Hg] MD Brice Madrid Work Phone: [facility] 07-06-2024 14:45-0400 Body height 172.72 cm MD Brice Madrid Work Phone: [facility] 07-06-2024 14:45-0400 Body mass index (BMI) [Ratio] 18.8 kg/m2 MD Brice Madrid Work Phone: [facility] 07-06-2024 14:45-0400 Body temperature 97.3 [degF] MD Brice Madrid Work Phone: [facility] 07-06-2024 14:45-0400 Body weight 56.24 kg MD Brice Madrid Work Phone: [facility] 07-06-2024 14:45-0400 Diastolic blood pressure 83 mm[Hg] MD Brice Madrid Work Phone: [facility] 07-06-2024 14:45-0400 Heart rate 66 /min MD Brice Madrid Work Phone: [facility] 07-06-2024 14:45-0400 Respiratory rate 16 /min MD Brice Madrid Work Phone: [facility] 07-06-2024 14:45-0400 SaO2% (BldA) [Mass fraction] 99 % MD Brice Madrid Work Phone: [facility] 07-06-2024 14:45-0400 Systolic blood pressure 125 mm[Hg] MD Brice Madrid Work Phone: [facility] 05-23-2024 12:04-0400 Diastolic blood pressure 63 mm[Hg] MD Brice Madrid Work Phone: [facility] 05-23-2024 12:04-0400 Heart rate 76 /min MD Brice Madrid Work Phone: [facility] 05-23-2024 12:04-0400 Respiratory rate 18 /min MD Brice Madrid Work Phone: [facility] 05-23-2024 12:04-0400 SaO2% (BldA) [Mass fraction] 100 % MD Brice Madrid Work Phone: [facility] 05-23-2024 12:04-0400 Systolic blood pressure 96 mm[Hg] MD Brice Madrid Work Phone: [facility] 05-23-2024 09:36-0400 Body height 172.72 cm MD Brice Madrid Work Phone: [facility] 05-23-2024 09:36-0400 Body weight 54.43 kg MD Brice Madrid Work Phone: [facility] 05-20-2024 08:45-0400 Body height 170.18 cm [facility] 05-20-2024 08:45-0400 Body mass index (BMI) [Ratio] 18.8 kg/m2 [facility] 05-20-2024 08:45-0400 Body weight 54.43 kg [facility] 05-20-2024 08:45-0400 Diastolic blood pressure 75 mm[Hg] [facility] 05-20-2024 08:45-0400 Heart rate 93 /min [facility] 05-20-2024 08:45-0400 Systolic blood pressure 113 mm[Hg] [facility] 07-10-2023 09:40-0400 Body height 170.18 cm Viky Waters Other [employer] Other 07-10-2023 09:40-0400 Body mass index (BMI) [Ratio] 21.42 kg/m2 Viky Strangeler Other [employer] Other 07-10-2023 09:40-0400 Body temperature 96.8 [degF] Viky Waters Other [employer] Other 07-10-2023 09:40-0400 Body weight 62.05 kg Viky Waters Other [employer] Other 07-10-2023 09:40-0400 Diastolic blood pressure 66 mm[Hg] Viky Waters Other [employer] Other 07-10-2023 09:40-0400 Respiratory rate 16 /min Viky Waters Other [employer] Other 07-10-2023 09:40-0400 SaO2% (BldA) [Mass fraction] 99 % Viky Waters Other [employer] Other 07-10-2023 09:40-0400 Systolic blood pressure 112 mm[Hg] Viky Waters Other [employer] Other 08-04-2021 08:20-0400 Body temperature 97.9 [degF] Dat Babcocko FILE MACHINE OPERATOR - CNM Work Phone: [employer] Work Phone: 08-04-2021 08:20-0400 Diastolic blood pressure 67 mm[Hg] Dat Helmedixo FILE MACHINE OPERATOR - CNM Work Phone: [employer] Work Phone: 08-04-2021 08:20-0400 Heart rate 63 /min Dat Helmedixo FILE MACHINE OPERATOR - CNM Work Phone: [employer] Work Phone: 08-04-2021 08:20-0400 Respiratory rate 16 /min Dat Kolb FILE MACHINE OPERATOR - [employer] Work Phone: [employer] Work Phone: 08-04-2021 08:20-0400 Systolic blood pressure 104 mm[Hg] Dat Kolb FILE MACHINE OPERATOR - [employer] Work Phone: [employer] Work Phone: 08-02-2021 20:03-0400 Body height 170.2 cm Dat Kolb FILE MACHINE OPERATOR - [employer] Work Phone: [employer] Work Phone: 08-02-2021 20:03-0400 Body mass index (BMI) [Ratio] 26.63 kg/m2 Dat Kolb APRN - [employer] Work Phone: [employer] Work Phone: 08-02-2021 20:03-0400 Body weight 77.11 kg Dat Kolb APRN - CNWebalo Work Phone: [employer] Work Phone: Encounters Encounter Date Encounter Type Care Provider Facility Start: 09-14-2024 End: 09-14-2024 ambulatory BRICE MADRID [facility] Start: 09-14-2024 End: 09-14-2024 Office outpatient visit 15 minutes Brice Madrid MD Work Phone: [facility] Comment on above: Multiple masses of n charmaine (Primary Dx); Less than 8 weeks gestation of Start: 09-06-2024 End: 09-06-2024 [facility] Start: 09-06-2024 End: 09-06-2024 ambulatory BRICE MADRID [facility] Start: 09-01-2024 End: 09-01-2024 Office outpatient visit 15 minutes Dat Kolb [employer] Work Phone: [facility] Comment on above: GA: 8w6d Start: 09-01-2024 End: 09-01-2024 ambulatory DAT L FLORO Not Available Start: 08-31-2024 End: 08-31-2024 ambulatory BRICE MADRID [facility] Start: 08-31-2024 End: 08-31-2024 Office outpatient visit 15 minutes Brice Madrid MD Work Phone: [facility] Comment on above: Multiple masses of n charmaine (Primary Dx); Mononucleosis syndrome Start: 07-19-2024 End: 07-19-2024 ambulatory DAT L FLORO Not Available Start: 07-19-2024 End: 07-19-2024 ambulatory DAT L FLORO Not Available Start: 07-19-2024 End: 07-19-2024 ambulatory MD Brice Madrid Work Phone: [facility] Work Phone: Start: 07-19-2024 End: 07-19-2024 Patient encounter procedure MD Brice Madrid Work Phone: [facility] Work Phone: Start: 07-19-2024 Registered Recurring MD Brice Madrid Work Phone: [facility] Work Phone: Start: 07-19-2024 ambulatory Brice Madrid Facility :[facility] Start: 07-06-2024 End: 07-06-2024 ambulatory MD Brice Madrid Work Phone: [facility] Work Phone: Start: 07-06-2024 End: 07-06-2024 Patient encounter procedure MD Brice Madrid Work Phone: [facility] Work Phone: Start: 06-14-2024 End: 06-14-2024 Patient encounter procedure MD Brice Madrid Work Phone: [facility] [place] Work Phone: Start: 06-14-2024 End: 06-14-2024 ambulatory MD Brice Madrid Work Phone: [facility] Work Phone: Start: 05-23-2024 Non-patient / Non-visit MD Brice Madrid Work Phone: [facility] Work Phone: Start: 05-23-2024 End: 05-23-2024 Admission to same day surgery center MD Brice Madrid Work Phone: [facility] Work Phone: Start: 05-23-2024 End: 05-23-2024 ambulatory MD Brice Madrid Work Phone: [facility] Work Phone: Start: 05-20-2024 End: 05-20-2024 ambulatory KARISSA ROSENTHAL [facility] Start: 05-20-2024 End: 05-20-2024 ambulatory [facility] Work Phone: Start: 05-20-2024 End: 05-20-2024 Patient encounter procedure [facility] Work Phone: Start: 04-25-2024 End: 04-25-2024 ambulatory BRICE Smith [facility] Start: 03-15-2024 End: 03-15-2024 ambulatory BRICE Smith [facility] Start: 02-05-2024 Telephone encounter Lidya Martin MA [facility] Start: 02-01-2024 End: 02-02-2024 Emergency department patient visit VIKY TAYLOR [facility] Start: 01-30-2024 End: 01-30-2024 Emergency department patient visit BUCODA Sarah [facility] Start: 07-14-2023 Telephone encounter Viky Waters [facility] Urgent Care [facility] Start: 07-14-2023 End: 07-14-2023 ambulatory Viky Waters Other [employer] Other Start: 07-14-2023 End: 07-14-2023 Departed [employer] FILE MACHINE OPERATOR Viky Jt Work Phone: [facility] [place] Work Phone: Start: 07-10-2023 Office outpatient ne w 20 minutes Viky Waters [facility] Start: 07-10-2023 End: 07-10-2023 ambulatory Viky Waters Other [facility] [employer] Other Start: 07-10-2023 End: 07-10-2023 Departed [employer] FILE MACHINE OPERATOR Vkiy Waters Work Phone: [facility] [place] Work Phone: Start: 08-02-2021 End: 08-04-2021 Evaluation and management of inpatient DAT KOLB [facility] Start: 08-02-2021 End: 08-04-2021 Evaluation and management of inpatient Dat [facility] FILE MACHINE OPERATOR - CNM Work Phone: [facility] Start: 09-14-2017 End: 09-15-2017 Ambulatory ABDULAZIM LUCY Facility:[facility] Start: 09-11-2017 End: 09-12-2017 Ambulatory DEFAULT PHYSICIAN Facility:[facility] Start: 03-05-2017 Well adult Lidya Geiger [facility] Procedures Date Procedure Procedure Detail Performing Clinician Start: 09-01-2024 Urine test visual color cmprsn meths Dat Kolb CN Work Phone: Start: 08-31-2024 Adult depression screening assessment Brice Madrid MD Work Phone: Start: 06-14-2024 Computed tomography of abdomen and pelvis with contrast MD Brice Madrid Work Phone: Start: 05-23-2024 Esophagogastroduodenoscopy MD Brice vasquez Work Phone: Start: 05-23-2024 Esophagogastroduodenoscopy MD Brice vasquez Work Phone: Start: 03-15-2024 Follow-up visit Follow-up BRICE Sarah LYNNETTE Start: 06-08-2023 Adult depression screening assessment Lidya Geiger [employer] Start: 08-02-2021 Blood count complete auto&auto difrntl wbc Neyda Lyle FILE MACHINE OPERATOR - CNM Work Phone: Start: 08-02-2021 Drug screen class list a Neyda Lyle FILE MACHINE OPERATOR - CNM Work Phone: Start: 08-02-2021 Urnls dip stick/tablet rgnt auto w/o microscopy Dat Kolb FILE MACHINE OPERATOR - CNM Work Phone: Start: 08-02-2021 GBS, EXTERNAL RESULT Historical Provider Start: 01-10-2021 ABO, EXTERNAL RESULT Historical Provider Start: 01-10-2021 C. TRACHOMATIS, EXTERNAL RESULT Historic al Provider Start: 01-10-2021 HEPATITIS B, EXTERNAL RESULT Historical Provider Start: 01-10-2021 N. GONORRHOEAE, EXTERNAL RESULT Historic al Provider Start: 01-10-2021 Obstetric panel Historical Provider Start: 01-10-2021 RPR, EXTERNAL RESULT Historical Provider Start: 01-10-2021 RUBELLA TITER, EXTERNAL RESULT Historica l Provider Start: 09-14-2017 ANESTH LOWER ARM SURGERY OTIS CESAR Start: 09-14-2017 Microsurg tqs req use operating microscope ABDULAZIM LUCY Start: 09-14-2017 REPAIR OF DIGIT NERVE ABDULAZIM LUCY Plan of Treatment Date Care Activity Detail Author Start: 08-31-2025 Adult BMI Screening Adult BMI Screen ing [facility] Start: 08-31-2025 Depression Screening Depression Scre ening [facility] Start: 08-31-2025 Tobacco Screening Tobacco Screening [facility] Start: 01-31-2025 Adult BMI Screening Adult BMI Screen ing [facility] Start: 01-31-2025 Tobacco Screening Tobacco Screening [facility] Start: 09-20-2024 End: 09-20-2024 Professional / ancillary services management 09/20/2024 9:30 AM EDT Ancillary Procedure [facility] [address] [place] [address] [facility] Start: 09-20-2024 End: 09-20-2024 Patient encounter procedure 09/20/2024 9:00 AM EDT Routine [facility] [address] [place] [id number] Dat Kolb, CNM [address] [place] [address] [facility] Start: 09-14-2024 End: 09-14-2024 Patient encounter procedure 09/14/2024 4:30 PM EDT Office Visit [facility] [address] [place] [address] Brice Madrid MD [address], [place] [id number] [facility] Start: 09-01-2024 End: 09-01-2025 US for US OB less than 14 weeks early Imaging Routine Amenorrhea examination or test, positive result Expected: 09/01/2024, Expires: 09/01/2025 [facility] Work Phone: Comment on above: Expected: 09/01/2024 , Expires: 09/01/2025 Start: 08-31-2024 End: 08-31-2025 CBC W Auto Differential panel - Blood CBC auto differential Lab Routine Multiple masses of neck Expected: 08/31/2024, Expires: 08/31/2025 [facility] Comment on above: Expected: 08/31/2024 , Expires: 08/31/2025 Start: 08-31-2024 End: 08-31-2025 US Head and neck soft tissue Ultrasound soft tissue head neck Imaging Routine Multiple masses of neck Expected: 08/31/2024, Expires: 08/31/2025 [facility] Comment on above: Expected: 08/31/2024 , Expires: 08/31/2025 Start: 07-24-2024 Influenza vaccination Influenza Vacc ine [facility] Start: 06-08-2024 Depression Screening Depression Scre ening [facility] Start: 05-23-2024 [facility] Start: 07-24-2023 Influenza vaccination Influenza Vacc ine [facility] Start: 07-10-2023 [facility] Start: 07-24-2021 Influenza vaccination Flu vaccine (# 1) [facility] Phone: Start: 2019 Screening for malign ant neoplasm of cervix Pap smear [facility] Start: 2017 DTaP/Tdap/Td vaccine (1 - Tdap) DTaP/Tdap/Td vaccine (1 - Tdap) [facility] Phone: Start: 2016 Adult BMI Follow Up Plan Adult BMI Follow Up Plan [facility] Start: 2014 Screening for Chlamy logan trachomatis Chlamydia screen [facility] Phone: Start: 2013 [facility] Work Phone: Start: 2010 COVID-19 Vaccine (1) COVID-19 Vaccin e (1) [facility] Phone: Start: 2009 DTaP,Tdap and Td Vaccines (6 - Tdap) DTaP,Tdap and Td Vaccines (6 - Tdap) [facility] Start: 2009 HPV vaccine (1 - 2-d ose series) HPV vaccine (1 - 2-dose series) [facility] Phone: Start: 2004 Pneumococcal 0-64 ye ars Vaccine (1 of 2 - PPSV23) Pneumococcal 0-64 years Vaccine (1 of 2 - PPSV23) [facility] Phone: Start: 1999 Varicella vaccine (1 of 2 - 2-dose childhood series) Varicella vaccine (1 of 2 - 2-dose childhood series) [facility] Phone: Start: 1998 Hepatitis C screening Hepatitis C sc reen [facility] Phone: Start: 1998 Tobacco Counseling Tobacco Counselin g [facility] Atopobium vaginae DN A [Presence] in Vaginal fluid by LULI with probe detection [facility] Bacterial vaginosis associated bacterium 2 DNA [Presence] in Vaginal fluid by LULI with probe detection [facility] End: 08-31-2025 C-reactive protein C-reactive protein Lab Routine Multiple masses of neck 1 Occurrences starting 08/31/2024 until 08/31/2025 [facility] Work Phone: Comment on above: 1 Occurrences starti ng 08/31/2024 until 08/31/2025 Comprehensive metabo lic 2000 panel - Serum or Plasma [facility] Comprehensive metabo lic 1999 panel - Serum or Plasma [facility] CT Abdomen and Pelvi s W contrast IV [facility] End: 08-31-2025 Jerod-Pena virus VCA, IgG Jerod-Pena virus VCA, IgG Lab Routine Multiple masses of neck Mononucleosis syndrome 1 Occurrences starting 08/31/2024 until 08/31/2025 [facility] Comment on above: 1 Occurrences starti ng 08/31/2024 until 08/31/2025 End: 08-31-2025 Jerod-Pena virus VCA, IgM Jerod-Pena virus VCA, IgM Lab Routine Multiple masses of neck Mononucleosis syndrome 1 Occurrences starting 08/31/2024 until 08/31/2025 [facility] Comment on above: 1 Occurrences starti ng 08/31/2024 until 08/31/2025 End: 08-31-2025 Erythrocyte sedimentation rate Erythrocyte Sedimentation Rate (ESR) Lab Routine Multiple masses of neck 1 Occurrences starting 08/31/2024 until 08/31/2025 [facility] Comment on above: 1 Occurrences starti ng 08/31/2024 until 08/31/2025 Megasphaera sp type 1 DNA [Presence] in Vaginal fluid by LULI with probe detection [facility] Patient Education Gastritis [place] n polyps Know your Meds [facility] Work Phone: Rheumatoid factor [Units/volume] in Serum or Plasma [facility] Immunizations Immunization Date Immunization Notes Care Provider Fa cility 08-03-2021 diphtheria, tetanus toxoids and acellular pertussis vaccine, unspecified formulation Dat Kolb FILE MACHINE OPERATOR - CN Work Phone: [facility] Work Phone: 08-03-2021 measles, mumps and rubella virus vaccine Dat Kolb FILE MACHINE OPERATOR - CNM Work Phone: [facility] Work Phone: 02-17-2019 influenza virus vaccine, unspecified formulation Brice Madrid MD Work Phone: [facility] 06-05-2003 diphtheria, tetanus toxoids and acellular pertussis [facility] measles, mumps and rubella virus vaccine [facility] 06-05-2003 poliovirus vaccine, inactivated Lidya [facility] 01-01-2000 diphtheria, tetanus toxoids and acellular pertussis vaccine, unspecified formulation [facility] 01-01-2000 poliovirus vaccine, unspecified formulation [facility] 10-01-1999 haemophilus influenz ae type b vaccine, conjugate unspecified formulation [facility] 07-04-1999 measles, mumps and rubella virus vaccine [facility] 04-04-1999 hepatitis B vaccine, pediatric or pediatric/adolescent dosage Lidya Geiger [facility] 01-03-1999 diphtheria, tetanus toxoids and acellular pertussis vaccine, unspecified formulation Lidya Geiger [facility] 01-03-1999 haemophilus influenz ae type b vaccine, conjugate unspecified formulation [facility] 1998 diphtheria, tetanus toxoids and acellular pertussis vaccine, unspecified formulation [facility] 1998 haemophilus influenz ae type b vaccine, conjugate unspecified formulation [facility] 1998 poliovirus vaccine, unspecified [facility] 1998 diphtheria, tetanus toxoids and acellular pertussis vaccine, unspecified formulation Lidya Geiger [facility] 1998 haemophilus influenz ae type b vaccine, conjugate unspecified formulation Lidya Geiger [facility] 1998 poliovirus vaccine, unspecified formulation Lidya Geiger [facility] 1998 hepatitis B vaccine, pediatric or pediatric/adolescent dosage Lidya Geiger [facility] 1998 hepatitis B vaccine, pediatric or pediatric/adolescent dosage Lidya Geiger [facility] Payers Date Payer Category Payer Managed Care, Other (non HMO) [employer] [id number] 2024 Unknown 2024 Unknown [id number] 2024 Self-pay 2024 Private Health Insurance [employer] Veronica BOUDREAUXHFSO-SLK-YUCLNHP PLAN [id number] 2024-Present [address] [place] [address] [id number] 2023 Private Health Insurance [id number] 2022 Medicaid [id number] 2020 Unknown [id number]. [id number] 1998 Unknown [id number] 2.16.840.1.679648.3.579.2. 173 1998 Unknown [id number] 2.16.840.1.643474.3.579.2. 9 1998 Unknown [id number] 2.16.840.1.048414.3.579.2. 1258 1998 Unknown [id number] 2.16.840.1.707287.3.579.2. 1258 1998 Unknown [id number] 2.16.840.1.770074.3.579.2. 1258 1998 Unknown [id number] 2.16840.1.443801.3.579.2. 1285 1998 Unknown [id number] 2.840.1.825562.3.579.2. 1285 1998 Unknown [id number] 2.840.1.401948.3.579.2. 1285 1998 Unknown [id number] 2.840.1.638429.3.579.2. 1285 1998 Unknown [id number] 2.840.1.478513.3.579.2. 1285 1998 Unknown [id number] 2.840.1.040944.3.579.2. 1285 1998 Unknown [id number] 2.840.1.368916.3.579.2. 1285 1998 Unknown [id number] 2.840.1.854729.3.579.2. 1285 1998 Unknown [id number] 2.16840.1.234795.3.579.2. 1286 Unknown [id number] Unknown [id number] 2.16840.1.103707.3.579.2. 531 Unknown [id number] 2.840.1.364083.3.579.2. 531 Unknown [id number] 2.16.840.1.499411.3.579.2. 531 Social History Date Type Detail Facility Start: 04-06-2019 End: 03-15-2024 Tobacco smoking status NHIS Current every day smoker [facility] Phone: Start: 08-03-2021 End: 03-15-2024 Tobacco use and exposure Never used [employer] Start: 08-03-2021 Alcohol intake Current non-dr edge inker heels of alcohol (finding) [facility] Phone: Start: 08-02-2021 Tobacco Comment 1-2 cigs a day [facility] Phone: Start: 1998 Sex Assigned At Not on file [employer] Phone: Exposure to SARS-CoV -2 (event) Not sure [employer] Start: 12-10-2020 End: 02-01-2024 Sex Assigned At [facility] [employer] Other Start: 1998 Sex Assigned At Female F [facility] Start: 07-09-2023 Tobacco smoking stat us HIIS Ex-smoker [facility] Start: 05-20-2024 End: 05-23-2024 History of tobacco use Current smoker [facility] [employer] [facility] Start: 04-06-2019 History of tobacco use [facility] Start: 02-01-2024 End: 09-14-2024 Alcohol intake Ex-drinker (finding) [facility] [employer] Start: 12-10-2020 End: 02-01-2024 History of Social function [facility] Adolescent depressio n screening assessment 0 [facility] Start: 07-09-2023 Tobacco Comment 1 cigarette a day-every other day [facility] Start: 07-09-2023 Alcohol Comment rare [facility] Start: 07-19-2024 Tobacco smoking stat us HIIS Never smoked tobacco [facility] Start: 07-15-2024 [facility] Start: 06-26-2015 Sex Female (finding) [facility] Goals Date Patient Goal Desired Activity /State Clinical Notes 08-04-2021 to 09-14-2024 rBice Madrid MD - 09/14/2024 4:30 PM EDTBrice Madrid MD - 09/14/2024 4:30 PM EDTDat Kolb CNM - 09/01/2024 9:15 AM EDTBrice Madrid MD - 08/31/2024 11:15 AM EDT Note Date & Type Note Facility 09-14-2024 History of Present illness Narrative Images from the original note were not included. [id number] [facility] [address] SUBJECTIVE: Patient ID: Radha Dickinson is a 24 y.o. female. 24 yo wf with 7 weeks and has some keflex remaining, lymphnodes are stable or improving, will finish the antibiotic as pt is trying to get sinus infection, pt has gained 4# The following portions of the patient's history were reviewed and updated as appropriate: allergies, current medications, past family history, past medical history, past social history, past surgical history and problem list. REVIEW OF SYSTEMS: Review of Systems HENT: Positive for congestion. PHYSICAL EXAMINATION: Vitals: 09/14/24 1637 BP: 98/56 Pulse: 80 Resp: 16 Weight: 57.7 kg (127 lb 3.2 oz) Physical Exam HENT: Head: Normocephalic and atraumatic. Nose: Congestion and rhinorrhea present. Eyes: Extraocular Movements: Extraocular movements intact. Pupils: Pupils are equal, round, and reactive to light. Neck: Comments: Right postauricular node is stable, , and left occipital node slightly smaller Cardiovascular: Rate and Rhythm: Normal rate and regular rhythm. Pulmonary: Effort: Pulmonary effort is normal. Breath sounds: Normal breath sounds. Skin: General: Skin is warm and dry. Neurological: General: No focal deficit present. Mental Status: She is oriented to person, place, and time. Psychiatric: Mood and Affect: Mood normal. Behavior: Behavior normal. ASSESSMENT/PLAN: Radha was seen today for follow-up. Diagnoses and all orders for this visit: Multiple masses of neck Less than 8 weeks gestation of Follow-up: Complete keflex and recheck if not improving Images from the original note were not included. [id number] [facility] [address] SUBJECTIVE: Patient ID: Radha Dickinson is a 24 y.o. female. HPI The following portions of the patient's history were reviewed and updated as appropriate: allergies, current medications, past family history, past medical history, past social history, past surgical history and problem list. REVIEW OF SYSTEMS: Review of Systems PHYSICAL EXAMINATION: Vitals: 09/14/24 1637 BP: 98/56 Pulse: 80 Resp: 16 Weight: 57.7 kg (127 lb 3.2 oz) Physical Exam ASSESSMENT/PLAN: There are no diagnoses linked to this encounter. Follow-up: documented in this encounter [facility] 09-06-2024 Note US SOFT TISS HEAD NE CK Procedure: US SOFT TISS HEAD NECK; Reason for Exam: Multiple masses of neck; Comparison: None Technique: Real time sonography of the neck soft tissues performed. FINDINGS: In the right retroauricular region the mathematical sciences professor demonstrates a hypoechoic soft tissue lesion which measures 1.4 x 0.7 x 0.7 cm. There appears to be abnormal internal blood flow. In the left occipital region, mathematical sciences professor demonstrates a reniform hypoechoic lesion measuring 1.0 x 0.3 x 0.8 cm with hilar blood flow. IMPRESSION: 1. Right retroauricular soft tissue lesion, likely enlarged lymph node. While statistically benign/reactive, requires correlation with context/risk factors. Continued clinical follow-up recommended. If there is clinical worsening or failure to improve, consideration for sampling could be pursued. 2. Smaller presumed left suboccipital lymph node, favored reactive Finalized by Roshan Kramer MD on 09/06/2024 4:35 PM [facility] 09-01-2024 History of Present illness Narrative Subjective Radha Dickinson is a 24 y.o. at 8w6d with a working estimated date of delivery of 04/07/2025, by Last Menstrual Period who presents for an initial visit. This is unplanned. Patient Care Team: Brice Madrid MD as PCP - General (Family Medicine) Dat Kolb CNM (Obstetrics and Gynecology) OB History Para Term AB Living 3 1 1 1 1 SAB IAB Ectopic Multiple Live Births 1 1 # Outcome Date GA Lbr Mio/2nd Weight Sex Type Anes PTL Lv 3 Current 2 Term 08/02/21 38w3d / 00:11 6 lb 1.2 oz F Vag-Spont None N YULI 1 SAB 02/04/19 21w0d ND Her is complicated by: Patient referred by Gynecology History Last Pap 07/11/24 The following portions of the chart were reviewed this encounter and updated as appropriate: Review of Systems Objective Physical Exam weight: 127 lb Expected Total Weight Gain: 25 lb-35 lb Pregravid BMI: 19.89 BP: 118/70 Urine protein-negative Urine glucose-negative Labs Assessment/Plan Diagnoses and all orders for this visit: examination or test, positive result - US OB less than 14 weeks early; Future Amenorrhea - POCT , urine - US OB less than 14 weeks early; Future Patient is measuring about 5 weeks per US, sac visualized but no pole and tech feels the gestation is too early. We will have her return in 2-3 weeks for repeat US and verification of viability documented in this encounter [facility] 08-31-2024 History of Present illness Narrative Images from the original note were not included. [address] [facility] [address] SUBJECTIVE: Patient ID: Radha Dickinson is a 24 y.o. female. 24 yo WF with swollen gland worse x 1 week and somewhat chronic, 2 months , has had mono int he pas , recently saw oncology 1 month ago fo f/u - was cleared for any issues The following portions of the patient's history were reviewed and updated as appropriate: allergies, current medications, past family history, past medical history, past social history, past surgical history and problem list. REVIEW OF SYSTEMS: Review of Systems Hematological: Positive for adenopathy. Bruises/bleeds easily. PHYSICAL EXAMINATION: Vitals: 08/31/24 1123 BP: 112/68 BP Site: Left Arm BP Postition: Sitting Temp: 37.1 C (98.7 F) TempSrc: Tympanic Weight: 55.8 kg (123 lb 2 oz) Height: 172.7 cm (5' 8 ) Physical Exam Vitals and nursing note reviewed. Constitutional: Appearance: Normal appearance. HENT: Head: Normocephalic and atraumatic. Eyes: Extraocular Movements: Extraocular movements intact. Pupils: Pupils are equal, round, and reactive to light. Cardiovascular: Rate and Rhythm: Normal rate and regular rhythm. Pulses: Normal pulses. Heart sounds: Normal heart sounds. Pulmonary: Effort: Pulmonary effort is normal. Breath sounds: Normal breath sounds. Skin: General: Skin is warm and dry. Comments: Sq nodule/node under right ear and left post neck area Neurological: General: No focal deficit present. Mental Status: She is alert and oriented to person, place, and time. Psychiatric: Mood and Affect: Mood normal. Behavior: Behavior normal. ASSESSMENT/PLAN: Radha was seen today for mass. Diagnoses and all orders for this visit: Multiple masses of neck - C-reactive protein; Future - Erythrocyte Sedimentation Rate (ESR); Future - CBC auto differential; Future - Ultrasound soft tissue head neck; Future - Jerod-Pena virus VCA, IgM; Future - Jerod-Pena virus VCA, IgG; Future Mononucleosis syndrome - Jerod-Pena virus VCA, IgM; Future - Jerod-Pena virus VCA, IgG; Future Other orders - CEPHalexin (KEFLEX) 500 mg capsule; Take 1 capsule (500 mg total) by mouth in the morning and 1 capsule (500 mg total) at noon and 1 capsule (500 mg total) in the evening and 1 capsule (500 mg total) before bedtime. Do all this for 10 days. Follow-up: Keflex x10d Recheck in 2 weeks Labs and us soft tissue consider recheck by oncology documented in this encounter [facility] [email or web address] 05-23-2024 History and physical note Note Date/Time May 23, 2024 9:59a m [facility] [address] [place] [address] Gastroenterology H&P Signed Patient: Radha Dickinson MR#: [id number] : 2000 Acct:[id number] Age/Sex: 23 / F Adm Date: 4 Loc: Room: Type: [facility] Attending Dr: Karissa Rosenthal DO Copies to: DO Brice Acharya MD~ Date of Service: 05/23/2024 HISTORY & PHYSICAL: Patient's history with special attention to the cardiovascular, pulmonary systems and the current problem was reviewed with the patient immediately prior to the procedure. Present medications and doses reviewed in the EMR. Allergies and pertinent laboratory tests were also reviewedat this time in the EMR. The physical examination, as below, was then performed. Indication, assessment and HPI: 23-year-old female who presents for EGD and colonoscopy for nausea, vomiting, abdominal pain, diarrhea, abnormal weight loss. No prior EGD or colonoscopy Family history of GI malignancy? No PHYSICAL EXAMINATION General appearance: cooperative, NAD Skin: No jaundice, no rash or lesions Head: NCAT Eyes: Anicteric Neck: Supple Lungs: Normal respiratory effort, no use of accessory muscles Abdomen: Soft, nondistended Neuro: No focal deficits, Ox3. REVIEW OF SYSTEMS Constitutional: Denies malaise, fevers Cardiovascular: Denies chest pain, palpitations Respiratory: Denies shortness of breath, wheezing Gastrointestinal: As per HPI Genitourinary: Denies dysuria, polyuria Musculoskeletal: Denies joint swelling, joint stiffness Neurological: Denies confusion, numbness, tingling Endocrine: Denies fatigue Written informed consent obtained from the patient. Risks (including but not limited to perforation, infection, bloating, bleeding, need for emergent surgeryand loss of life), benefits and alternatives explained and questions answered. The patient verbalized understanding. Based on history patient is an appropriate candidate for the procedure. Karissa Rosenthal DO Documented By: Karissa Rosenthal DO 05/23/24 0958 Signed By: <Electronically signed by Karissa Rosenthal DO> 05/23/24 110[address] [facility] Work Phone: 1(825) 994-437807-01-2024 [facility] Miscellaneous Notes* Telephone Encounter - Lidya Geiger CMA - 02/05/2024 10:00 AM EDT Patient with sinus pressure asking for ATB to [employer] * Telephone Encounter - Brice Madrid MD - 02/05/2024 10:00 AM EDT Zpak sent to [employer] * Telephone Encounter - Lidya Geiger CMA - 02/05/2024 10:00 AM EDT Patient advised [facility] Telephone encounter Note* Telephone Encounter - Lidya Geiger CMA - 02/05/2024 10:00 AM EDT Patient with sinus pressure asking for ATB to [employer] [facility]03-15-2024 Telephone encounter Note* Telephone Encounter - Brice Madrid MD - 02/05/2024 10:00 AM EDT [employer] sent to [employer] [facility]03-15-2024 Telephone encounter Note* Telephone Encounter - Lidya Geiger CMA - 02/05/2024 10:00 AM EDT Patient advised [facility]08-18-2023 Evaluation note* Encounter Date Diagnosis Assessment Notes Treatment Notes Treatment Clinical Notes Jun, Vaginal discharge (ICD-10 - N89.8) Vag + performed in office today. Will treat prophylactically for yeast based on physical exam and symptoms. Specimen was sent to lab and patient will be notified of results. Tx plan may be altered at time of results. Patient to follow with PCP or CONDUIT CLEANER as needed for persistent or worsening symptoms. Immediate eval if abdominal pain, fever, chills, body aches, back/flank pain, nausea, urinary complaints. Patient may use OTC external yeast infection creams for external irritation, do not insert creams or meds as Diflucan rx will treat. Avoid scratching and douching. Patient verbalizes understanding and is agreeable to treatment plan. [facility] Other 09-12-2021 History of Present illness Narrative* Neyda Lyle APRN - NATALEE - 08/04/2021 9:15 AM EDT Department of Obstetrics and Gynecology Labor and Delivery Post Progress Note SUBJECTIVE: Pt doing well today. Pt denies needs at this time. Pt is ready to go home today OBJECTIVE: Vitals: BP 104/67 Pulse 63 Temp 97.9 F (36.6 C) Resp 16 Ht 5' 7 (1.702 m) Wt 170 lb (77.1 kg) Unknown BMI 26.63 kg/m Patient Vitals for the past 24 hrs: BP Temp Pulse Resp 08/04/21 0820 104/67 97.9 F (36.6 C) 63 16 08/04/21 0238 125/70 66 16 08/03/21 1930 116/60 98.2 F (36.8 C) 73 20 08/03/21 1655 117/76 98.4 F (36.9 C) 79 18 08/03/21 1124 130/67 98.7 F (37.1 C) 88 20 ABDOMEN: normal shape, position and consistency GENITAL/URINARY: External Genitalia: General appearance; normal, Hair distribution; normal, Lesionsabsent Uterus: Size normal, Contour normal Breast:normal appearance, no masses or tenderness Cor: RRR no Murmurs Pulmonary: clear to auscultation anterior and posterior Extremities: no Clubbing cyanosis or ecchymosis DATA: ASSESSMENT : Active Problems: 38 weeks gestation of (normal spontaneous vaginal delivery) Plan: Continue care * Neyda Lyle APRN - CNM - 08/03/2021 8:22 AM EDT Department of Obstetrics and Gynecology Labor and Delivery Post Progress Note SUBJECTIVE: Pt doing much better today. Pt denies needs at this time. OBJECTIVE: Vitals: BP 119/78 Pulse 63 Temp 97.9 F (36.6 C) Resp 16 Ht 5' 7 (1.702 m) Wt 170 lb (77.1 kg) Unknown BMI 26.63 kg/m Patient Vitals for the past 24 hrs: BP Temp Pulse Resp Height Weight 08/03/21 0802 119/78 97.9 F (36.6 C) 63 16 08/03/21 0652 (!) 122/57 97.8 F (36.6 C) 73 20 08/03/21 0201 125/77 86 08/03/21 0141 126/73 73 08/03/21 0127 126/69 71 08/03/21 0112 123/67 73 08/03/21 0056 138/88 85 08/03/21 0041 129/78 81 08/03/21 0028 137/81 85 08/03/21 0027 115/84 82 08/03/21 0011 (!) 138/94 81 08/02/21 2358 (!) 132/90 97.4 F (36.3 C) 81 08/02/21 2343 (!) 140/78 75 08/02/21 2338 (!) 149/99 97 08/02/21 2330 24 08/02/21 2301 22 08/02/21 2258 (!) 140/87 81 08/02/21 2246 132/80 76 22 08/02/21 2226 (!) 135/90 84 08/02/21 2208 122/74 75 08/02/21 2207 97.8 F (36.6 C) 20 08/02/212002 (!) 107/58 76 5' 7 (1.702 m) 170 lb (77.1 kg) 08/02/211902 117/62 95 08/02/211901 98 F (36.7 C) 18 ABDOMEN: normal shape, position and consistency GENITAL/URINARY: External Genitalia: General appearance; normal, Hair distribution; normal, Lesionsabsent Uterus: Size normal, Contour normal Breast:normal appearance, no masses or tenderness Cor: RRR no Murmurs Pulmonary: clear to auscultation anterior and posterior Extremities: no Clubbing cyanosis or ecchymosis DATA: ASSESSMENT : Active Problems: 38 weeks gestation of (normal spontaneous vaginal delivery) Plan: continue care * Lucille Hong RN - 08/02/2021 6:57 PM EDT Pt arrives with complaints of contractions, states they have been Q5min apart since she woke up 3 hours ago. Pt rates ctx pain 6 on scale 1-10. Pt denies leaking of fluid or vaginal bleeding. Pt states she last had a appointment with Frank Kolb CNM yesterday - states she did not have an SVE at appointment. Pt states last SVE was here at the hospital the last time she came in. [facility] Work Phone: evaluation note* Diagnosis 38 weeks gestation of state, incidental (normal spontaneous vaginal delivery) Normal delivery documented in this encounter [facility] [employer] Work Phone: evaluation noteNo assessment information available [facility] Work Phone: Evaluation noteNo InformationNort Muzui Other Evaluation note* Diagnosis Onset Date Resolution Status Abdominal pain acute Diarrhea acute Nausea & vomiting acute Unintentional weight loss ac wilfredo [facility] Work Phone: Evaluation note* Diagnosis Onset Date Resolution Status Abdominal pain acute Diarrhea acute Nausea & vomiting acute Unintentional weight loss ac wilfredo Splenomegaly acute Splenomegaly acute [facility] Work Phone: Evaluation note* Diagnosis Multiple masses of neck- Primary Mononucleosis syndrome Infectious mononucleosis [facility] Diagnosis examination or test, positive result Amenorrhea Absence of menstruation [facility] Diagnosis Multiple masses of neck- Primary Less than 8 weeks gestation of [facility] Narrative - Reported* Type Description Date Surgical History KNEE SURGERY Surgical History TENDON REPAIR IN HAND Surgical History WISDOME TEETH Hospitalization History CHILD [facility] Other Hospital Discharge instructions* Instructions* Tonia Cuellar RN - 08/04/2021 Follow-up with your OB doctor as specified. [facility] OB Department phone: Kalli Kolb, MSN, FILE MACHINE OPERATOR, CNM [place] [phone] DIET Eat a well balanced diet focusing on foods high in fiber and protein. Drink plenty of fluids especially water. To avoid constipation you may take a mild stool softener as recommended by your doctor or media liaison officer. ACTIVITY Gradually increase your activity. Resume exercise regimen only after advice by your doctor or media liaison officer. Avoid lifting anything heavier than a gallon of milk for SIX weeks. Avoid driving until your doctor or media liaison officer has given their approval. Rise slowly from a lying to sitting and then a standing position. Climb stairs one at a time. Use caution when carrying your baby up and down the stairs. NO SEXUAL Activity for 4-6 weeks or until advised by your doctor; Nothing in vagina: intercourse, tampons, or douching. Be prepared to discuss family planning at your follow-up OB visit. You may feel tired or have a lack of energy. You may continue your vitamin to replenish nutrients post delivery. Nap when baby naps to catch up on sleep. EMOTIONS You may feel quintana, sad, teary, & overwhelmed. Contact your OB provider if you feel you may be showing signs of depression, or have thoughts of harming yourself or your infant. If will not stop crying, contact another adult for help or place infant in their crib on their back and take a break. NEVER shake your . BLEEDING Vaginal bleeding will decrease in amount over the next few weeks. You will notice that as your activity increases, your flow may increase. This is your body's way oftelling you, you need to take things easier and rest more often. Call your care provider if you are saturating more than one maxi pad in an hour & resting does not help. BREAST CARE Take medications as recommended by your doctor or media liaison officer for pain If you develop a warm, red, tender area on your breast or develop a fever contact your OB provider. For moms: If you become engorged, feeding may be more difficult or painful for 1-2 days. You may find it helpful to hand express some milk so that the infant can latch on more easily. While , continue to take your vitamins as directed by your doctor or media liaison officer. Refer to the booklet in the folder/binder for more information. If you feel you need more assistance or have questions, please call Agata Gray IBCLC, consumer services consultant, at or the OB department to schedule an appointment or phone consultation. For more FREE help, visit the Support Group on Thursday evenings at 7 pm in the OB department. For NON- moms: You may apply ice packs to your breasts over your bra for twenty minutes at a time for comfort. Avoid stimulation to your breasts, when showering allow the water to strike your back not your breasts. Wear a good fitting bra until your milk dries, such as a sports bra. SYED CARE Use the syed-bottle after toileting until bleeding stops. Cleanse your perineum from front to back If used, stitches will dissolve in 4-6 weeks. You may use a sitz bath or soak in a clean tub as needed for comfort. Kegel exercises will help restore bladder control. SWELLING Try to keep your legs elevated when you are sitting. When lying down keep your legs elevated. When wearing stocking or socks, make sure they are not too tight. WHEN TO CALL THE DOCTOR If you have a temp of 100.6 or more. If your bleeding has increased and you are saturating a pad in an hour. Your abdomen is tender to touch. You are passing blood clots bigger than the size of a lemon. If you are experiencing extreme weakness or dizziness. If you are having flu-like symptoms such as achy muscles or joints. There is a foul smell or a green color to your vaginal bleeding. If you have pain that cannot be relieved. You have persistent burning or frequency with urination. Call if you have concerns about your well-being. You are unable to sleep, eat, or are having thoughts of harming yourself or your baby. You have swelling, bleeding, drainage, foul odor, redness, or warmth in/around your incision or stitches. You have a red, warm, tender area in your calf. 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-Power 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 Latest Code Status on File Code Status Date Activated Date Inactivated Comments Full Code 08/03/2021 12:15 AM Full Code 08/02/2021 7:40 PM 08/03/2021 12:14 AM Full Code 08/02/2021 7:16 PM 08/02/2021 7:40 PM Advance Directive Response Recorded Date/ Time Advance Directives No April 07 3:39pm Latest Code Status on File Code Status Date Activated Date Inactivated Comments Full Code 07/08/2021 10:51 PM 07/09/2021 1:17 AM Date Activated Date Inactivated Comments 07/08/2021 10:51 PM 07/09/2021 1:17 AM Chief Complaint and Reason for Visit Chief Complaint Refer by Brice camargo, unintentional weight loss Reason for Visit Abdominal pain Diarrhea Nausea & vomiting Unintentional weight loss Chief Complaint Refer by Brice camargo, unintentional weight loss unintentional weight loss/ n&v / diarrhea unintentional weight loss/ n&v / diarrhea Reason for Visit Abdominal pain Diarrhea Nausea & vomiting Unintentional weight loss Chief Complaint Refer by Brice camargo, unintentional weight loss unintentional weight loss/ n&v / diarrhea unintentional weight loss/ n&v / diarrhea r10.9 Reason for Visit Abdominal pain Diarrhea Nausea & vomiting Unintentional weight loss Chief Complaint Refer by Brice camargo, unintentional weight loss unintentional weight loss/ n&v / diarrhea unintentional weight loss/ n&v / diarrhea r10.9 NEW Splenomegaly Reason for Visit Abdominal pain Diarrhea Nausea & vomiting Unintentional weight loss Chief Complaint Refer by Brice camargo, unintentional weight loss unintentional weight loss/ n&v / diarrhea unintentional weight loss/ n&v / diarrhea r10.9 NEW Splenomegaly Splenomegaly Follow Up Reason for Visit Abdominal pain Diarrhea Nausea & vomiting Unintentional weight loss Splenomegaly Splenomegaly Additional Source Comments INFORMATION SOURCE (unrecogn ized section and content) DATE CREATED AUTHOR 05/18/2018 [facility] DATE CREATED AUTHOR AUTHOR'S ORGANIZ ATION 08/05/2021 [facility] DATE CREATED AUTHOR AUTHOR'S ORGANIZ ATION 04/26/2022 [facility] dical Specialist DATE CREATED AUTHOR AUTHOR'S ORGANIZ ATION 07/20/2024 [facility] DATE CREATED AUTHOR AUTHOR'S ORGANIZ ATION 09/06/2024 [facility] d[facility] Specialists EPIC DATE CREATED AUTHOR AUTHOR'S ORGANIZ ATION 09/08/2024 [facility] DATE CREATED AUTHOR AUTHOR'S ORGANIZ ATION 09/16/2024 [facility] Reason for Visit (unrecogniz ed section and content) Reason Comments Contractions Reason Comments Mass Behind ear and hairl ine- itches and tender Reason Comments Initial Visit Reason Comments Follow-up Patient is ! Back of neck went down some, right ear has not went down Scheduled Active and Recently Administ ered Medications (unrecognized section and content) Medication Order 08/02/2021 08/03/2021 08/04/2021 benzocaine-menthol (DERMOPLAST) 20-0.5 % spray Topical, 2 TIMES DAILY, First dose on 08/03/21 at 0030, Apply to perineal area. Patient is capable and may self administer at bedside., 0138 (Given - Provider: Safia Reynolds RN)0900 (Due)2100 (Due) 09 (Due)2099 (Due) ibuprofen (ADVIL;MOTRIN) tablet 800 mg 800 mg, Oral, EVERY 8 HOURS, First dose on 08/03/21 at 0030, Do not crush or break., 0138 (Given - Provider: Safia Reynolds, RN)0830 (Due)1704 (Given - Provider: Tonia Cuellar, RN) 0235 (Given - Provider: Lizeth Horton, RN)1030 (Due - Provider: Lucille Hong, RN)1200 (Given - Provider: Tonia Cuellar, RN)1630 (Due) measles, mumps & rubella vaccine (MMR) injection 0.5 mL 0.5 mL, SubCUTAneous, PRIOR TO DISCHARGE, Starting on 08/03/21 at 0014, For 1 dose, sodium chloride flush 0.9 % injection 10 mL 10 mL, IntraVENous, EVERY 12 HOURS SCHEDULED (2 times per day), First dose on 08/03/21 at 0900, 09 (Due)2099 (Due) 899 (Due)2099 (Due) Yhotjrs-Ijuasb-Nilek Pertussis (BOOSTRIX) injection 0.5 mL 0.5 mL, IntraMUSCular, PRIOR TO DISCHARGE, Starting on 08/03/21 at 0014, For 1 dose, If not previously administered during at 27-36 weeks as recommended by CDC., witch kavita-glycerin (TUCKS) pad Topical, 2 TIMES DAILY, First dose on 08/03/21 at 0030, Apply to perineal area. Patient is capable and may self administer at bedside., 0030 (Due)09 (Due)2099 (Due) 09 (Due)2099 (Due) Continuous Medication Order 08/02/2021 08/03/2021 08/04/2021 lactated ringers infusion (CANCELED) IntraVENous, at 125 mL/hr, CONTINUOUS, Starting on Thu08/02/21 at 2000, Labor and Delivery 2027 (New Bag - Provider: Safia Reynolds, RN)223 (New Bag - Provider: Safia Reynolds, RN)2319 (Rate/Dose Change - Provider: Safia Reynolds, RN)2338 (Stopped - Provider: Safia Reynolds, RN)2348 (Canceled Entry - Provider: Safia Reynolds, STEPHON) oxytocin (PITOCIN) 30 units in 500 mL infusion (CANCELED) 1-24 cali-units/min (1-24 mL/hr), IntraVENous, at 1-24 mL/hr, CONTINUOUS, Starting on 08/02/21 at 2215, Begin infusion at 1 cali-unit/min (1 cali-unit per min = 1 mL per hour) and increase by 2 cali-unit/min after 30 minutes. Then increase by 2 cali-units/min as needed, no faster than every 30 minutes, until labor is achieved. Labor is defined as contractions every 2-3 minutes with cervical changes or [place] units (MVU) greater than 200 in a 10-minute window. Maximum infusion rate: 24 cali-unit/min. Contact provider if maximum rate does not achieve desired response. Provider may order alternative titration goal or other clinically appropriate goal of titration rate (s). Smaller titration increments of 1 cali-units/min, not faster than every 30 minutes, may be used when approaching therapeutic goal. 2205 (New Bag - Provider: Safia Reynolds, RN)2235 (Rate/Dose Change - Provider: Safia Reynolds, RN)2305 (Rate/Dose Change - Provider: Safia Reynolds, RN)2329 (Stopped - Provider: Safia Reynolds, RN)2348 (Restarted - Provider: Safia Reynolds, RN) 0008 (Rate/Dose Change - Provider: Safia Reynolds, RN)0200 (Stopped - Provider: Safia Reynolds, RN) PRN Medication Order 08/02/2021 08/03/2021 08/04/2021 0.9 % sodium chloride infusion 25 mL, IntraVENous, at 100 mL/hr, PRN, If patient receiving piggyback infusions without ordered maintenance IV fluids or with frequent/long duration piggyback infusions, Starting on 08/03/21 at 0014, Administer at the same rate as the piggyback being infused., acetaminophen (TYLENOL) tablet 650 mg 650 mg, Oral, EVERY 4 HOURS PRN, Fever, Fever >100.5 F (38 C) or pain 1-10, Starting on 08/03/21 at 0014, Maximum dose of acetaminophen is 4000 mg from all sources in 24 hours., 0919 (Given - Provid er: Tonia Cuellar, RN) docusate sodium (COLACE) capsule 100 mg 100 mg, Oral, 2 TIMES DAILY PRN, Constipation, Starting on 08/03/21 at 0014, Do not crush or break., lansinoh lanolin ointment Topical, PRN, Dry Skin, nipple discomfort, Starting on 08/03/21 at 0014, nalbuphine (NUBAIN) injection 10 mg (CANCELED) 10 mg, IntraVENous, EVERY 2 HOURS PRN, Pain Moderate (4-6), Pain Severe (7-10), For pain, Starting on Thu08/02/21 at 1939, PRN for pain, Labor and Delivery 2204 (Given - Provider: Safia Reynolds, STEPHON) oxytocin (PITOCIN) 30 units in 500 mL infusion 166 cali-units/min (166 mL/hr), IntraVENous, at 166 mL/hr, PRN, Bleeding, Starting on Thu08/02/21 at 1939, For 1 dose, For Post Use Only. Give after delivery of placenta. Following Bolus from bag administration, reduce the rate to166 mL/hr and administer remaining bag sodium chloride flush 0.9 % injection 10 mL 10 mL, IntraVENous, PRN, Line Care, Starting on 08/03/21 at 0014, After every IV line use, Care Teams (unrecognized sec tion and content) Team Status: Inactive Member Role Status Dates Jung Mcqueen MD Attending Provider Active Team Status: Inactive Member Role Status Dates Viky Waters APRN Attending Provider Active Senior Hardware Engineer Relationship Specialty Start Date End Date Brice Madrid MD [address] [place] [address] PCP - General Family Medicine 06/12/23 Team Status: Active Member Role Status Dates PHYSICIAN NO FAMILY Primary Care Provider Active Team Status: Inactive Member Role Status Dates PHYSICIAN NO FAMILY Primary Care Provider Active Start: May 20, 2024 End: May 20, 2024 Karissa Rosenthal DO Attending Provider Active St art: May 20, 2024 End: May 20, 2024 Team Status: Active Member Role Status Dates Brice Madrid MD Primary Care Provider Active Team Status: Inactive Member Role Status Dates Karissa Billings Ly , DO Attending Provider Active St art: May 23, 2024 End: May 23, 2024 Brice Madrid MD Primary Care Provider Active Start: May 23, 2024 End: May 23, 2024 Team Status: Active Member Role Status Dates Karissa Rosenthal , DO Attending Provider, Other Provider Active Start: May 23, 2024 Brice Madrid MD Primary Care Provider Active Start: May 23, 2024 Team Status: Inactive Member Role Status Dates Brice Madrid MD Primary Care Provider Active Start: June 14, 2024 End: June 14, 2024 Karissa L Ly , DO Attending Provider Active St art: June 14, 2024 End: June 14, 2024 Team Status: Inactive Member Role Status Dates Brice Madrid MD Primary Care Provider Active Start: July 06, 2024 End: July 06, 2024 Genoveva Arce APRN Attending Provider Acti ve Start: July 06, 2024 End: July 06, 2024 Karissa Manuelito Rosenthal , DO Referring Provider Active St art: July 06, 2024 End: July 06, 2024 Team Status: Active Member Role Status Dates Brice Madrid MD Primary Care Provider Active Start: July 19, 2024 Genoveva Arce APRN Attending Provider Acti ve Start: July 19, 2024 Karissa Rosenthal , DO Referring Provider Active St art: July 19, 2024 Team Status: Inactive Member Role Status Dates Brice Madrid MD Primary Care Provider Active Start: July 19, 2024 End: July 19, 2024 Genoveva Arce APRN Attending Provider Acti ve Start: July 19, 2024 End: July 19, 2024 Senior Hardware Engineer Relationship Specialty Start Date End Date Brice Madrid MD [address] [place] [address] PCP - General Family Medicine 06/12/23 Senior Hardware Engineer Relationship Specialty Start Date End Date Brice Madrid MD [address] [place] [address] PCP - General Family Medicine 08/10/24 Dat Kolb CNM [address] [place] [address] Obstetrics and Gynecology 06/30/23 Senior Hardware Engineer Relationship Specialty Start Date End Date Brice Madrid MD [address] [place], [place] [id number] PCP - General Family Medicine 06/12/23 Goals (unrecognized section and content) Goals may be documented in a n alternate section FOR RECORDS PERTAINING TO PATIENTS WHO ARE OR HAVE BEEN ENROLLED IN A CHEMICAL DEPENDENCY/SUBSTANCEABUSE PROGRAM, SOME INFORMATION MAY BE OMITTED. This clinical summary was aggregated from multiple sources. Caution should be exercised in using it in the provision of clinical care. This summary normalizes information from multiple sources, and as a consequence, information in this document may materially change the coding, format and clinical context of patient data. In addition, data may be omitted in some cases. CLINICAL DECISIONS SHOULD BE BASED ON THE PRIMARY CLINICAL RECORDS. [facility] [employer] [facility]. provides no warranty or guarantee of the accuracy or completeness of information in this document.
== END 2024-09-19 15:08 | disposition home or self-care (01) ==
LOC: US 15:07
PROVIDERS: PCP Family Medicine; Visit Provider Midwife
DX: Z32.01 Encounter for pregnancy test, result positive (principal); Z3A.01 Less than 8 weeks gestation of pregnancy; N91.2 Amenorrhea, unspecified
CPT/HCPCS: 76817

== ENCOUNTER 2024-10-04 14:18 | Emergency (ER) | payer OTHER, SELFPAY ==
[2024-10-04 14:32] VITALS: BP 116/72; PULSE 111; TEMP 36.9; O2SAT 98; BMI 19.8
--- NOTE | 2024-10-04 14:39 | US_ITS ---
The [address] [address] Patient Name: DELIA CHRIS MRN: [id number] date: 2000 Sex: F Assigned Patient Location: ER Current Patient Location: Accession/Order Number: [id number] Exam Date: 10/04/2024 16:06 Report Date: 10/04/2024 17:28 At the request of: RAVI MAJOR Procedure: US OB transvaginal EXAM: Pelvic ultrasound ultrasound CLINICAL INDICATION: vag bleeding. COMPARISON: Ultrasound dated 09/19/2024 TECHNIQUE: Transvaginal pelvic ultrasound was performed with grayscale and color Doppler images were obtained. FINDINGS: Intrauterine gestational sac with fetus and yolk sac present. cardiac activity is present at 168 bpm. [place]-rump length measures 3.2 cm for an estimated gestational age of 10 weeks 1 day. Cervix is closed and measures 3.8 cm length. No placental hematoma evident. Right ovary: Measures 3.1 x 2.5 x 2.2 cm. Normal color flow and Doppler arterial and venous waveforms. No ovarian masses. Left ovary: Measures 3.2 x 2.6 x 2.4 cm. Normal color flow and Doppler arterial and venous waveforms. No ovarian masses. No free fluid in the pelvis. US/US OB transvaginal IMPRESSION: 1. Single intrauterine , cardiac activity is present. 2. No acute sonographic abnormalities evident. Electronically authenticated by: GREGORIA JOYCE Date: 10/04/2024 17:28
--- NOTE | 2024-10-04 14:41 | ED_ITS ---
HPI HPI - General Adult General Chief complaint: Vaginal Bleeding Stated complaint: VAGINAL BLEEDING Time Seen by Provider: 10/04/24 14:22 Source: patient Mode of arrival: walk-in Limitations: no limitations History of Present Illness HPI narrative: at 10 weeks along presents with a long presents with concerns for lower abdominal cramping back pain and spotting on this past Thursday. She had 1 miscarriage in the past with her first at 21 weeks. her second was a normal full-term without any complication. This is her third and she is at about 10 weeks along. Thursday she said she had some spotting and since then she has had some lower abdominal cramping and today she started with some back cramping. Since she had a miscarriage with her first she said she was just sitting at home very anxious about what could be going on so she came in for evaluation. She has not had any continued bleeding. She denies any chest pain vomiting or shortness of breath. She has had some mild nausea throughout the . She has had 1 ultrasound in this at 8 weeks which was normal at that time. Patient has not had continued vaginal bleeding she just had a little bit of spotting on Thursday. Otherwise no further complaints at this time Related Data Home Medications ?Medication ?Instructions ?Recorded ?Confirmed ondansetron HCl 4 mg tablet 4 mg PO Q8H 07/13/24 07/13/24 Allergies Allergy/AdvReac Type Severity Reaction Status Date / Time No Known Drug Allergies Allergy Verified 10/04/24 14:36 Opioid HPI Opioid Management Most Recent Opioid Data: Last Pain Scale 8 04/20/24 17:57 04/20/24 Review of Systems ROS Status of ROS 10 or more systems reviewed and unremark able except as noted in history and below PFSH [facility] Social History Little interest or pleasure in doing things: not at all Feeling down, depressed, or hopeless: not at all Exam Narrative Exam Narrative: Time Seen: [] Vital Signs: [Per nurse's notes.] General: [Alert] Skin: [Warm, dry, no rash.] Head: [Normocephalic, atraumatic.] Neck: [Supple, trachea midline.] Eye: [Pupils are equal, round and reactive to light, extraocular movements are intact, normal conjunctiva.] Ears, nose, mouth and throat: oral mucosa moist. Cardiovascular: [Regular rate and rhythm, no murmur.] Respiratory: [Lungs are clear to auscultation, respirations are non-labored, breath sounds are equal.] Chest wall: [No tenderness, no deformity.] Gastrointestinal: [Soft, very mild lower abdominal pain, mild left lower quadrant pain. No rebound no guarding, non distended, normal bowel sounds.] MSK: 5 out of 5 muscle strength x 4 extremities no calf pain or edema Lymphatics: [No lymphadenopathy.] Psychiatric: [Cooperative, appropriate mood & affect.] Neurological: [Alert and oriented to person, place, time, and situation, no focal neurological deficit observed.] Constitutional Vital Signs, click to edit/add: Last Vital Signs Temp 98.4 F 10/04/24 14:32 Pulse 111 H 10/04/24 14:32 Resp 20 10/04/24 14:32 BP 116/72 10/04/24 14:32 Pulse Ox 98 10/04/24 14:32 O2 Del Method Room Air 10/04/24 14:32 Course Vital Signs Vital signs: Vital Signs Temperature 98.4 F 10/04/24 14:32 Pulse Rate 111 H 10/04/24 14:32 Respiratory Rate 20 10/04/24 14:32 Blood Pressure 116/72 10/04/24 14:32 Pulse Oximetry 98 10/04/24 14:32 Oxygen Delivery Method Room Air 10/04/24 14:32 Temperature 98.4 F 10/04/24 14:32 Pulse Rate 111 H 10/04/24 14:32 Respiratory Rate 20 10/04/24 14:32 Blood Pressure 116/72 10/04/24 14:32 Pulse Oximetry 98 10/04/24 14:32 Oxygen Delivery Method Room Air 10/04/24 14:32 Medical Decision Making MDM Narrative Medical decision making narrative: Patient's ultrasound showed normal heart tones at 168 and fetus was measuring 10 weeks 1 day. No obvious acute abnormalities on the ultrasound. Patient was instructed to follow-up with [facility] as scheduled. Return to ED if worsening bleeding cramping or any other concerns. Patient is comfortable with care plan for home. Differential Diagnosis Differential Diagnosis: Threatened , first trimester bleeding, subchorionic hemorrhage Discharge Plan Discharge Chief Complaint: Vaginal Bleeding Clinical Impression: Vaginal bleeding Patient Disposition: Home, Self-Care Time of Disposition Decision: 16:37 Condition: Good Mode of Transportation: Private Vehicle Prescriptions / Home Meds: No Action ondansetron HCl 4 mg tablet 4 mg PO Q8H Print Language: [place]an Instructions: Abdominal Pain in (ED) Referrals: BRICE CHURCH [Primary Care Provider] - 1 week Discharge Date/Time: 10/04/24 16:49
== END 2024-10-04 16:49 | disposition home or self-care (01) ==
PROVIDERS: Emergency Provider Emergency Medicine; PCP Family Medicine
DX: O20.9 Hemorrhage in early pregnancy, unspecified (principal); Z3A.10 10 weeks gestation of pregnancy
CPT/HCPCS: 76817; 99284

== ENCOUNTER 2024-12-13 15:53 | Outpatient (OUT) | payer OTHER, SELFPAY ==
--- NOTE | 2024-12-13 15:59 | US_ITS ---
[address] [address] Patient Name: DELIA CHRIS MRN: [id number] date: 2000 Sex: F Assigned Patient Location: US Current Patient Location: US Accession/Order Number: [id number] Exam Date: 12/13/2024 16:08 Report Date: 12/13/2024 23:39 At the request of: DAT EDEN Procedure: US OB cervical length EXAMINATION: US OB anatomy, US OB cervical length HISTORY: Related Condition In Second Trimester COMPARISON: Ultrasound OB transvaginal 10/04/2024 TECHNIQUE: Transabdominal sonographic examination was performed for obstetrical and evaluation. FINDINGS: Number: 1 Heart Rate: 156.98 bpm H.B. /min Amniotic Fluid Volume: Subjectively normal Placental Location: Posterior with lower margin 5.4 cm from os. Cervix Length: 3.2 cm; closed. ANATOMY: Normal Structures -cerebellum, choroid plexus, cisterna magna, lateral cerebral ventricles, orbits, midline falx, hard palate, four-chamber heart, RVOT, LVOT, stomach, kidneys, bladder, umbilical cord insertion into abdomen, three-vessel cord, cervical spine, thoracic spine, lumbar spine, sacral spine, right upper extremity, left upper extremity, right lower extremity, left lower extremity. SUBOPTIMALLY SEEN: None ABNORMALITIES: None BIOMETRY: BPD: 4.86 cm; 20 weeks 5 days; 77.40 % HC: 17.79 cm; 20 weeks 2 days; 54.40 % AC: 15.31 cm; 20 weeks 4 days; 61.80 % FL: 3.29 cm; 20 weeks 2 days; 52.10 % EFW:351.18 g; 68.50 % FL/AC: 21.46 FL/BPD: 67.64 HC/AC: 1.16 GESTATIONAL AGE: Age by EDC: 20 weeks 0 days Age by current US: 20 weeks 3 days TALIB by current US: 2025-04-29 TALIB by EDC: 2025-05-02 US/US OB cervical length IMPRESSION: 1. Single live intrauterine with growth detailed above. 2. Closed cervix 3.2 cm in length. Electronically authenticated by: ALEXA ELKINS Date: 12/13/2024 23:39
--- NOTE | 2024-12-13 15:59 | US_ITS ---
[address] [address] Patient Name: DELIA CHRIS MRN: [id number] date: 2000 Sex: F Assigned Patient Location: US Current Patient Location: US Accession/Order Number: [id number] Exam Date: 12/13/2024 16:08 Report Date: 12/13/2024 23:39 At the request of: DAT EDEN Procedure: US OB anatomy EXAMINATION: US OB anatomy, US OB cervical length HISTORY: Related Condition In Second Trimester COMPARISON: Ultrasound OB transvaginal 10/04/2024 TECHNIQUE: Transabdominal sonographic examination was performed for obstetrical and evaluation. FINDINGS: Number: 1 Heart Rate: 156.98 bpm H.B. /min Amniotic Fluid Volume: Subjectively normal Placental Location: Posterior with lower margin 5.4 cm from os. Cervix Length: 3.2 cm; closed. ANATOMY: Normal Structures -cerebellum, choroid plexus, cisterna magna, lateral cerebral ventricles, orbits, midline falx, hard palate, four-chamber heart, RVOT, LVOT, stomach, kidneys, bladder, umbilical cord insertion into abdomen, three-vessel cord, cervical spine, thoracic spine, lumbar spine, sacral spine, right upper extremity, left upper extremity, right lower extremity, left lower extremity. SUBOPTIMALLY SEEN: None ABNORMALITIES: None BIOMETRY: BPD: 4.86 cm; 20 weeks 5 days; 77.40 % HC: 17.79 cm; 20 weeks 2 days; 54.40 % AC: 15.31 cm; 20 weeks 4 days; 61.80 % FL: 3.29 cm; 20 weeks 2 days; 52.10 % EFW:351.18 g; 68.50 % FL/AC: 21.46 FL/BPD: 67.64 HC/AC: 1.16 GESTATIONAL AGE: Age by EDC: 20 weeks 0 days Age by current US: 20 weeks 3 days TALIB by current US: 2025-04-29 TALIB by EDC: 2025-05-02 US/US OB anatomy IMPRESSION: 1. Single live intrauterine with growth detailed above. 2. Closed cervix 3.2 cm in length. Electronically authenticated by: ALEXA ELKINS Date: 12/13/2024 23:39
== END 2024-12-13 15:54 | disposition home or self-care (01) ==
LOC: US 15:53
PROVIDERS: PCP Family Medicine; Visit Provider Midwife
DX: O26.92 Pregnancy related conditions, unspecified, second trimester (principal); Z3A.20 20 weeks gestation of pregnancy
CPT/HCPCS: 76805; 76817

== ENCOUNTER 2024-12-30 13:22 | Observation (INO) | payer OTHER, SELFPAY ==
[2024-12-30 13:32] VITALS: BP 118/67; PULSE 107; TEMP 36.8; O2SAT 98; BMI 22.7
--- NOTE | 2024-12-30 13:39 | ECG_ITS ---
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
[2024-12-30 13:59] LABS: Basophils Percent Auto 0.3 % (0.2-2.0); Eosinophils Absolute Auto 0.1 10^3/uL (0.0-0.7); Eosinophils Percent Auto 1.3 % (0.9-7.0); Hematocrit 32.7 % (36.0-48.0); Hemoglobin 10.8 g/dL (12.0-16.0); Immature Granulocytes Abs Auto 0.07 10^3/uL (0.00-0.03); Immature Granulocytes Pct Auto 0.6 % (0.0-0.5); Lymphocytes Absolute Auto 1.9 10^3/uL (1.2-3.8); Lymphocytes Percent Auto 17.1 % (20.5-60.0); Mean Corpuscular Hemoglobin 29.4 pg (26.7-34.0); Mean Corpuscular Volume 89.1 fL (81.0-99.0); Mean Platelet Volume 10.6 fL (9.5-13.5); Monocytes Absolute Auto 0.9 10^3/uL (0.3-0.8); Monocytes Percent Auto 8.4 % (1.7-12.0); Neutrophils Absolute Auto 7.9 10^3/uL (1.4-6.5); Neutrophils Percent Auto 72.3 % (43.0-75.0); Platelet Count 193 10^3/uL (150-450); Red Blood Count 3.67 10^6/uL (4.20-5.40); Red Cell Distribution Width 12.8 % (11.0-15.0)
[2024-12-30 14:00] VITALS: PULSE 99; O2SAT 100
--- NOTE | 2024-12-30 14:05 | XR_ITS ---
The [address] [address] Patient Name: DELIA CHRIS MRN: [id number] date: 2000 Sex: F Assigned Patient Location: ED.MAIN Current Patient Location: ED.MAIN Accession/Order Number: [id number] Exam Date: 12/30/2024 14:00 Report Date: 12/30/2024 14:34 At the request of: NENO CHOW Procedure: XR chest 1V EXAM: XR chest 1V at 1353 hours HISTORY: Shortness of breath COMPARISON: 11/05/2012 TECHNIQUE: AP upright portable chest x-ray FINDINGS: The heart is not enlarged and the vasculature is not distended. No acute infiltrate, effusion or pneumothorax is identified. The osseous structures are grossly intact. XR/XR chest 1V IMPRESSION: No acute infiltrate or evidence of cardiac decompensation. The overall appearance of the chest is essentially unchanged. Electronically authenticated by: QUETA TERRY Date: 12/30/2024 14:34
[2024-12-30 14:06] LABS: Bilirubin Urine NEGATIVE (NEGATIVE); Blood Urine NEGATIVE (NEGATIVE); Clarity Urine CLEAR (CLEAR); Color Urine LT. YELLOW (YELLOW); Glucose Urine UA NEGATIVE (NEGATIVE); Ketones Urine NEGATIVE (NEGATIVE); Leukocyte Esterase Urine NEGATIVE (NEGATIVE); Nitrite Urine NEGATIVE (NEGATIVE); Protein Urine NEGATIVE (NEG/TRACE); Specific Gravity Urine <=1.005 (1.005-1.025); Urobilinogen Urine 0.2 EU/dL (0.2-1.0)
--- NOTE | 2024-12-30 14:12 | ED_ITS ---
HPI HPI - General Adult General Chief complaint: Abdominal Pain Stated complaint: 22 WEEKS SOB SWOLLEN ANKLES Time Seen by Provider: 12/30/24 13:39 Source: patient Limitations: no limitations History of Present Illness HPI narrative: Patient is a 24-year-old female who presents to the emergency department at 22 weeks of for the evaluation of exertional dyspnea for the last week. She has not had any fevers, chills, cough, congestion, chest pain. She has not had any sputum production. She states that her bilateral ankles are swollen but she has not had any calf swelling or pain. She is speaking and breathing easily at initial interview. She also reports low abdominal tightness that has been present for the last several days. No urinary symptoms, vomiting or diarrhea. No medications taken prior to arrival. She has not had any vaginal bleeding or discharge. Related Data Home Medications ?Medication ?Instructions ?Recorded ?Confirmed ondansetron HCl 4 mg tablet 4 mg PO Q8H 07/13/24 07/13/24 Allergies Allergy/AdvReac Type Severity Reaction Status Date / Time No Known Drug Allergies Allergy Verified 12/30/24 13:31 Opioid HPI Opioid Management Most Recent Opioid Data: Last Pain Scale 8 04/20/24 17:57 04/20/24 Review of Systems ROS Constitutional Denies: fever or chills Ears, nose, mouth, and throat Denies: throat pain, nasal discharge or nasal congestion Cardiovascular Denies: chest pain Respiratory Reports: shortness of breath; Denies: cough, coughing up blood or chest congestion Gastrointestinal Reports: abdominal pain; Denies: nausea, vomiting or diarrhea Musculoskeletal Denies: back pain Integumentary/Breast Denies: rash Neurological Denies: numbness in extremities or weakness in extremities Hematologic/Lymphatic Denies: easy bruising or easy bleeding [facility] Social History Little interest or pleasure in doing things: not at all Feeling down, depressed, or hopeless: not at all Exam Narrative Exam Narrative: Gen.: Awake, alert, in no distress Head: Normocephalic, atraumatic ENT: Moist mucous membranes Respiratory: No respiratory distress, lungs clear bilaterally, speaks in full sentences, no coughing or wheezing noted Cardio: Regular rate and rhythm Gastrointestinal: Abdomen is soft, nondistended and nontender to palpation; gravid abdomen Extremities: Moves extremities equally, minimal pitting edema noted of the bilateral ankles with no calf swelling or tenderness Psych: Normal mood and affect Neuro: No focal neuro deficit Skin: Warm, dry, intact Constitutional Vital Signs, click to edit/add: Last Vital Signs Temp 98.2 F 12/30/24 13:32 Pulse 107 H 12/30/24 13:32 Resp 20 12/30/24 13:32 BP 118/67 12/30/24 13:32 Pulse Ox 100 12/30/24 14:00 O2 Del Method Room Air 12/30/24 14:00 Course Vital Signs Vital signs: Vital Signs Temperature 98.2 F 12/30/24 13:32 Pulse Rate 107 H 12/30/24 13:32 Respiratory Rate 20 12/30/24 13:32 Blood Pressure 118/67 12/30/24 13:32 Pulse Oximetry 98 12/30/24 13:32 Oxygen Delivery Method Room Air 12/30/24 13:32 Temperature 98.2 F 12/30/24 13:32 Pulse Rate 107 H 12/30/24 13:32 Respiratory Rate 20 12/30/24 13:32 Blood Pressure 118/67 12/30/24 13:32 Pulse Oximetry 100 12/30/24 14:00 Oxygen Delivery Method Room Air 12/30/24 14:00 Medical Decision Making MDM Narrative Medical decision making narrative: Patient declined pain medication or nausea medication in the ER. She has an unremarkable EKG, unremarkable labs. She is speaking and breathing easily in the ER with an unremarkable chest x-ray. BNP is normal as well. She is discharged from the emergency department and sent to [facility] for clearance of her low abdominal pain at 22 weeks . Urine specimen was unremarkable. She is comfortable with treatment plan. SUPERVISED APC VISIT, PHYSICIAN ATTESTATION: Based on the medical record the care appears appropriate. ? Medical Records Medical records reviewed: Yes I reviewed the patient's medical records Lab Data Lab results reviewed: Yes I reviewed the patient's lab results Labs: Lab Results 12/30/24 12/30/24 Range/Units 13:47 13:51 WBC 11.0 (4.0-11.0) 10^3/uL RBC 3.67 L (4.20-5.40) 10^6/uL Hgb 10.8 L (12.0-16.0) g/dL Hct 32.7 L (36.0-48.0) % MCV 89.1 (81.0-99.0) fL MCH 29.4 (26.7-34.0) pg MCHC 33.0 (29.9-35.2) g/dL RDW 12.8 (11.0-15.0) % Plt Count 193 (150-450) 10^3/uL MPV 10.6 (9.5-13.5) fL Neut % (Auto) 72.3 (43.0-75.0) % Lymph % (Auto) 17.1 L (20.5-60.0) % [place] % (Auto) 8.4 (1.7-12.0) % Eos % (Auto) 1.3 (0.9-7.0) % Baso % (Auto) 0.3 (0.2-2.0) % Neut # (Auto) 7.9 H (1.4-6.5) 10^3/uL Lymph # (Auto) 1.9 (1.2-3.8) 10^3/uL [place] # (Auto) 0.9 H (0.3-0.8) 10^3/uL Eos # (Auto) 0.1 (0.0-0.7) 10^3/uL Baso # (Auto) 0.0 (0.0-0.1) 10^3/uL Abs Immat Gran (auto) 0.07 H (0.00-0.03) 10^3/uL Imm/Tot Granulo (auto) 0.6 H (0.0-0.5) % Sodium 141 (136-145) mmol/L Potassium 3.6 (3.5-5.1) mmol/L Chloride 106 (98-107) mmol/L Carbon Dioxide 27.3 (21.0-32.0) mmol/L Anion Gap 11.3 BUN 9.0 (7.0-18.0) mg/dL Creatinine 0.53 L (0.55-1.02) mg/dL Est GFR ( Amer) >60 (>=60 mL/min/1.73m^2) Est GFR (Non-Af Amer) >60 (>=60 mL/min/1.73m^2) BUN/Creatinine Ratio 17.0 Glucose 76 (74-106) mg/dL Calcium 8.2 L (8.5-10.1) mg/dL NT-Pro-B Natriuret Pep 84.0 (<=450.0) pg/mL Urine Color Lt. yellow (YELLOW) Urine Clarity Clear (CLEAR) Urine pH 6.0 (5.0-9.0) Ur Specific [place] <=1.005 A (1.005-1.025) Urine Protein Negative (NEG/TRACE) mg/dL Urine Glucose (UA) Negative (NEGATIVE) mg/dL Urine Ketones Negative (NEGATIVE) mg/dL Urine Occult Blood Negative (NEGATIVE) Urine Nitrite Negative (NEGATIVE) Urine Bilirubin Negative (NEGATIVE) Urine Urobilinogen 0.2 (0.2-1.0) EU/dL Ur Leukocyte Esterase Negative (NEGATIVE) Urine RBC None seen (0-2) #/HPF Urine WBC 0-2 A (NONE SEEN) #/HPF Ur Squamous Epith Cells Rare (NONE/RARE) #/LPF Urine Crystals None seen (None Seen) #/HPF Urine Bacteria None seen (NONE SEEN) #/HPF Urine Casts None seen (NONE SEEN) #/LPF Urine Mucus None seen (NONE SEEN) Ur Culture Indicated? No Imaging Data Chest x-ray: Attestation: I have reviewed the pertinent imaging results. Radiologist's impression: ITS Impressions Chest X-Ray 12/30/24 14:05 IMPRESSION: No acute infiltrate or evidence of cardiac decompensation. The overall appearance of the chest is essentially unchanged. Electronically authenticated by: QUETA TERRY Date: 12/30/2024 14:34 ECG Data Attestation: I personally reviewed and interpreted this ECG as follows: (. Normal sinus rhythm at a rate of 95, no acute ST elevation or ectopy. EKG reviewed by attending physician) Discharge Plan Discharge Chief Complaint: Abdominal Pain Clinical Impression: Exertional dyspnea, Abdominal pain affecting Patient Disposition: Admitted to [facility], OBS Time of Disposition Decision: 15:15 Condition: Good Prescriptions / Home Meds: No Action ondansetron HCl 4 mg tablet 4 mg PO Q8H Print Language: Citizen Of [place] Instructions: Dyspnea (ED), Abdominal Pain in (ED) Referrals: BRICE CHURCH [Primary Care Provider] - 1 week
[2024-12-30 14:14] LABS: Bacteria Urine NONE SEEN #/HPF (NONE SEEN); Cast Seen? NONE SEEN #/LPF (NONE SEEN); Crystals Seen? None Seen #/HPF (None Seen); Mucus Urine NONE SEEN (NONE SEEN); RBC Urine NONE SEEN #/HPF (0-2); Squamous Epithelial Cell Urine RARE #/LPF (NONE/RARE); Urine Culture Indicated NO; WBC Urine 0-2 #/HPF (NONE SEEN)
[2024-12-30 14:29] LABS: Anion Gap 11.3; Calcium 8.2 mg/dL (8.5-10.1); Carbon Dioxide 27.3 mmol/L (21.0-32.0); Chloride 106 mmol/L (98-107); Estimated GFR (African America >60 (>=60 mL/min/1.73m^2); Estimated GFR (Non-African Ame >60 (>=60 mL/min/1.73m^2); Glucose 76 mg/dL (74-106); Potassium 3.6 mmol/L (3.5-5.1); Sodium 141 mmol/L (136-145)
[2024-12-30 16:08] VITALS: PULSE 91; O2SAT 100
--- OUTSIDE RECORDS SUMMARY | 2024-12-30 16:22 | XMS_ITS | CCD ---
Author Organization [facility] Care Team Providers Care Anodizing Line Operator Name Role Phone PHYSICIAN, DEFAULT Unavailable Unavailable PHYSICIAN, DEFAULT Unavailable Unavailable LUCY, ABDULAZIM Unavailable Unavailable LUCY, ABDULAZIM Unavailable Unavailable SELF, REFERRED Unavailable Unavailable SELF, REFERRED Unavailable Unavailable MT Unavailable Unavailable LUCY, ABDULAZIM Unavailable Unavailable OTIS WEBSTER Unavailable Unavailable MT Unavailable Unavailable Unavailable Primary Care Provider UnavailDAT Seaman Admitting Unavailable NEYDA LYLE Attending Unavailable Viky Waters Unavailable EFFIE Waters Attending Provider MD Jung Mcqueen Attending Provider [phone] Brice Madrid MD Primary Care Provider Ly, DO Karissa L Attending Provider MD Brice Madrid Primary Care Provider [phone] EFFIE Arce Attending Provider Ly, DO Karissa L Referring Provider [phone] Brice Madrid Primary Care Unavailable Ly, Karissa L Admitting Unavailable Ly, Karissa L Attending Unavailable Brice Madrid Primary Care Unavailable Ly, Karissa L Admitting Unavailable Ly, Karissa L Attending Unavailable Brice Madrid Primary Care Unavailable Ly, Karissa L Referring Unavailable Genoveva Arce Admitting Unavail able Genoveva Arce Attending Unavail able Kennedi ALBRIGHT, Dat L Unavailable [phone] Brice Madrid MD Primary Care Provider BRICE MADRID Primary Care Unavailable KYA HIDALGO Attending UnavailBRICE Stevens Primary Care Unavailable KAYODE, DANNY L. Attending Unavailable VAZQUEZ, VIKY Attending Unavailable VAZQUEZ, VIKY Referring Unavailable DEFRANCE, BRICE T Primary Care Unavailable DEFRANCE, BRICE T Referring Unavailable DEFRANCE, BRICE T Primary Care Unavailable LY, KARISSA Billings Referring Unavailable DEFRANCE, BRICE T Primary Care [...] Unavailable DEFRANCE, BRICE T Primary Care Unavailable FLORO, DAT L Attending Unavailable FLORO, DAT L Attending Unavailable FLORO, DAT L Referring Unavailable FLORO, DAT L Attending Unavailable FLORO, DAT L Referring Unavailable FLORO, DAT L Attending Unavailable FLORO, DAT L Attending Unavailable FLORO, DAT L Referring Unavailable FLORO, DAT L Attending Unavailable Allergies Allergy Classification Reported Allergen(s) Allergy Type Date of Onset Reaction(s) Facility (1 source) NKA; Translations: [NKA] Propensity to adverse reactions (disorder) [facility] (1 source) No Known Allergies; Translations: [No Known Allergies] Propensity to adverse reactions (disorder) [facility] Medications Current Medications Medication Drug [...] 24 hours. albuterol 0.83 mg/ml inhalation solution (12 sources) beta2-Adrenergic Agonist Start: 02-01-2024 take 3 [...] as needed Inhalation every 4 hrs Active amoxicillin 500 mg oral capsule (1 source) Penicillin-class Antibacterial Start: 12-09-2024 End: 12-19-2024 take 1 capsule by mouth three times daily amoxicillin (AMOXIL) 500 mg capsule Take 1 capsule (500 mg total) by mouth 3 (three) times a day for 10 days. 30 capsule 12/09/2024 12/19/2024 Active ascorbic acid/vitamin E/biotin (HAIR, SKIN, NAILS WITH BIOTIN ORAL) (1 source) ascorbic acid/vitamin E/biotin (HAIR, SKIN, NAILS WITH BIOTIN ORAL) Take by mouth. 0 Active azithromycin 250 mg oral tablet (1 source) Macrolide Antimicrobial Start: 02-05-2024 End: 02-10-2024 azithromycin (ZITHROMAX Z-JANA) 250 mg tablet Take 2 tablets the first day then 1 tablet every day for 4 days. 6 tablet 0 02/05/2024 02/10/2024 Active benzocaine 200 mg/ml / menthol 5 mg/ml topical spray (1 source) Standardized Chemical Allergen Start: 08-03-2021 apply 1 dose topically twice daily Topical, 2 TIMES DAILY, First dose on 08/03/21 at 0030 Apply to perineal area. Patient is capable and may self administer at bedside. benzonatate 100 mg oral capsule (1 source) Non-narcotic Antitussive Start: 01-30-2024 take 1 capsule by mouth every eight hours benzonatate (TESSALON PERLES) 100 mg capsule Take 1 capsule (100 mg total) by mouth every 8 (eight) hours. 21 capsule 0 01/30/2024 Active cephalexin 500 mg oral capsule (1 source) Cephalosporin Antibacterial Start: 08-31-2024 End: 09-10-2024 CEPHalexin (KEFLEX) 500 mg capsule Take 1 capsule (500 mg total) by mouth in the morning and 1 capsule (500 mg total) at noon and 1 capsule (500 mg total) in the evening and 1 capsule (500 mg total) before bedtime. Do all this for 10 days. 40 capsule 08/31/2024 09/10/2024 Active docusate sodium 100 mg oral capsule (1 source) Start: 08-03-2021 take 100 mg by mouth twice daily as needed for constipation 100 mg, Oral, 2 TIMES DAILY PRN, Constipation, Starting on 08/03/21 at 0014 Do not crush or break. fluconazole 150 mg oral tablet (2 sources) Azole Antifungal Start: 07-10-2023 Fluconazole 150 MG 1 tablet Orally once, repeat dose in 72 hours if needed for 2 Jun, Active ibuprofen 800 mg oral tablet (1 source) Nonsteroidal Anti-inflammatory Drug Start: 08-03-2021 take 800 mg by mouth every eight hours 800 mg, Oral, EVERY 8 HOURS, First dose on 08/03/21 at 0030 Do not crush or break. lanolin 1000 mg/ml topical cream (1 source) Start: 08-03-2021 Topical, PRN, Dry Skin, nipple discomfort, Starting on 08/03/21 at 0014, metroNIDAZOLE 500 mg oral tablet (1 source) Nitroimidazole Antimicrobial Start: 07-14-2023 take 1 tablet by mouth every twelve hours metroNIDAZOLE 500 MG 1 tablet Orally Twice a day for 7 day(s) Jun, Active vxbqftcx-mfxu-BR-c alcium &mins (THERAGRAN-M) 9 mg iron-400 mcg tablet (1 source) qbrtyies-fnwv-EZ - calcium &mins (THERAGRAN-M) 9 mg iron-400 mcg tablet Take 1 tablet by mouth in the morning. 0 Active ondansetron 4 mg disintegrating oral tablet (20 sources) Serotonin-3 Receptor Antagonist Start: 11-14-2024 take 2 tablets by mouth every eight hours for nausea ondansetron ODT (Zofran-ODT) 4 MG disintegrating tablet Indications: Nausea and vomiting in prior to 22 weeks gestation Take 2 tablets (8 mg) by mouth every 8 (eight) hours if needed for nausea or vomiting 20 tablet 11/14/2024 Active Start: 09-28-2024 take 2 tablets by mo uth every eight hours for nausea ondansetron ODT (Zofran-ODT) 4 MG disintegrating tablet Indications: Nausea and vomiting in prior to 22 weeks gestation Take 2 tablets (8 mg) by mouth every 8 (eight) hours if needed for nausea or vomiting 20 tablet 09/28/2024 Active Start: 07-19-2024 take 8 mg by mouth e very eight hours Ondansetron Active 8 MG PO Q8H July 19, 2024 12:00am Start: 05-20-2024 take 4 mg by mouth once daily Ondansetron Hcl Active 4 MG PO Daily May 20, 2024 12:00am Start: 01-30-2024 End: 10-13-2024 take 1 tablet by mouth every eight hours as needed for nausea ondansetron ODT (ZOFRAN ODT) 4 mg disintegrating tablet Dissolve 1 tablet (4 mg total) on tongue every 8 (eight) hours as needed for nausea for up to 180 doses. 30 tablet 10/13/2024 Active End: 08-04-2021 ondansetron (ZOFRAN-ODT) 8 M [...] 0.028 meq/ml injectable solution (1 source) Start: 1 End: 1 lactated ringers infusion 1 ml medroxyPROGESTERone acetate 150 mg/ml prefilled syringe (7 sources) Progestin Start: 3 End: 4 medroxyPROGESTERone (Depo-Provera) 150 MG/ML suspension prefilled syringe injection syringe Indications: Encounter for Depo-Provera contraception INJECT 1ML INTO THE SHOULDER, THIGH OR BUTTOCKS ONE TIME FOR ONE DOSE 1 mL 2 09/30/2023 07/19/2024 Discontinued (Therapy completed) medroxyprogester one acetate (DEPO-PROVERA IM) Inject into the appropriate muscle. 0 Active Depo-Provera 150 MG/ML 1 mL Intramuscular Active 1 ml nalbuphine hydrochloride 10 mg/ml injection (1 source) Opioid Agonist/Antagonist Start: 08-02-2021 End: 08-03-2021 nalbuphine (NUBAIN) injection [...] Date Documented Da te Episodic/Chronic Anxiety disorders (5 sources) Mixed anxiety and depressive disorder; Translations: [...] Amenorrhea; Translations: [Amenorrhea, unspecified] 09-01-2024 Chronic Other complications of (2 sources) Vomiting of , unspecified; Translations: [Mild hyperemesis gravidarum, unspecified as to episode of care or not applicable] 09-19-2024 Episodic Other female genital disorders (1 source) Other [...] 05-20-2024 Episodic Other and delivery including normal (12 sources) Delivery normal; Translations: [Encounter for full-term [...] weeks gestation of ] Onset: 09-14-2024 Episodic Substance-related disorders (2 sources) Marijuana user; Translations: [Cannabis use, unspecified, uncomplicated] 10-17-2024 Episodic Unclassified (2 sources) Unknown / UNK(Unknown) [...] Date Documented Da te Episodic/Chronic Abdominal pain (14 sources) Abdominal pain; Translations: [Unspecified abdominal pain] Onset: 05-20-2024 05-20-2024 Episodic Influenza (1 source) Influenza due to other identified influenza virus with other respiratory manifestations; Translations: [Influenza due to other identified influenza virus with other respiratory manifestations] Onset: 01-30-2024 Episodic Mood disorders (5 sources) Depressive disorder; Translations: [Depression] Onset: 03-05-2017 Resolved: 03-05-2017 03-05-2017 Chronic Mood disorders (5 sources) Mood disorders Onset: 06-08-2023 Resolved: 08-31-2024 [...] of mental health and substance abuse codes (5 sources) H/O: attempted suicide; Translations: [History of suicide attempt] Onset: 03-05-2017 03-05-2017 Episodic Results Test Name Value Interpretation Reference Range Facility C REACTIVE PROTEINon 09-06- 024 CRP [Mass/Vol] mg/L Normal 0.000-0.74 4 [facility] Comment on above: Performed By: #### 2 106-3 #### [facility] ([id number]) [address] [place] [address] CBC AND AUTO DIFFon 09-06-20 24 ABSOLUTE BASOPHIL 0.1 X10E9/L Normal 0.0-0.[address] [facility] Comment on above: Performed By: #### 2 106-3 #### [facility] ([id number]) [address] [place] [address] ABSOLUTE NEUTROPHIL 7.6 X10E9/L High 1.5-6.6 [facility] Comment on above: Performed By: #### 2 106-3 #### [facility] ([id number]) [address] [place] [address] 58319 Basophils/100 WBC (Bld) 0.5 % Normal [facility] Comment on above: Performed By: #### 2 106-3 #### [facility] ([id number]) [address] [place] [address] 26278 Eosinophils (Bld) [#/Vol] 0.2 10*3/uL Normal 0.0-0.4 [facility] Comment on above: Performed By: #### 2 106-3 #### [facility] ([id number]) [address] [place] [address] 65151 Eosinophils/100 WBC (Bld) 1.5 % Normal [facility] Comment on above: Performed By: #### 2 106-3 #### [facility] ([id number]) [address] [place] [address] 14806 Erythrocyte distribution width (RBC) [Ratio] 13.1 % Normal 11.5-15.0 [facility] Comment on above: Performed By: #### 2 106-3 #### [facility] ([id number]) [address] [place] [address] 82266 Hematocrit (Bld) [Volume fraction] 39.5 % Normal 35-47 [facility] Comment on above: Performed By: #### 2 106-3 #### [facility] ([id number]) [address] [place] [address] 47927 Hemoglobin (Bld) [Mass/Vol] 13.1 g/dL Normal 11.7-15.5 [facility] Comment on above: Performed By: #### 2 106-3 #### [facility] ([id number]) [address] [place] [address] 91123 Lymphocytes (Bld) [#/Vol] 2.4 10*3/uL Normal 1.0-3.5 [facility] Comment on above: Performed By: #### 2 106-3 #### [facility] ([id number]) [address] [place] [address] 24157 Lymphocytes/100 WBC (Bld) 20.9 % Normal [facility] Comment on above: Performed By: #### 2 106-3 #### [facility] ([id number]) [address] [place] [address] 10342 MCH (RBC) [Entitic mass] 30.6 pg Normal 27-34 [facility] Comment on above: Performed By: #### 2 106-3 #### [facility] ([id number]) [address] [place] [address] 06761 MCHC (RBC) [Mass/Vol] 33.2 g/dL Normal 32-36 [facility] Comment on above: Performed By: #### 2 106-3 #### [facility] ([id number]) [address] [place] [address] 80990 MCV (RBC) [Entitic vol] 92 fL Normal 80-100 [facility] Comment on above: Performed By: #### 2 106-3 #### [facility] ([id number]) [address] [place] [address] 52689 Monocytes (Bld) [#/Vol] 1.4 10*3/uL High 0-0.9 [facility] Comment on above: Performed By: #### 2 106-3 #### [facility] ([id number]) [address] [place] [address] 02565 Monocytes/100 WBC (Bld) 11.9 % Normal [facility] Comment on above: Performed By: #### 2 106-3 #### [facility] ([id number]) [address] [place] [address] 67174 Neutrophils/100 WBC (Bld) 65.2 % Normal [facility] Comment on above: Performed By: #### 2 106-3 #### [facility] ([id number]) [address] [place] [address] 81936 Platelet mean volume (Bld) [Entitic vol] 10.1 fL Normal 7-12 [facility] Comment on above: Performed By: #### 2 106-3 #### [facility] ([id number]) [address] [place] [address] 76109 Platelets (Bld) [#/Vol] 195 10*3/uL Normal 150-450 [facility] Comment on above: Performed By: #### 2 106-3 #### [facility] ([id number]) [address] [place] [address] 34470 RBC COUNT 4.28 X10E12/L Normal 3.80-5.20 [facility] Comment on above: Performed By: #### 2 106-3 #### [facility] ([id number]) [address] [place] [address] 37602 WBC (Bld) [#/Vol] 11.7 10*3/uL High 4.0-11.0 [facility] Comment on above: Performed By: #### 2 106-3 #### [facility] ([id number]) [address] [place] [address] 72758 EBV capsid IgG IA Qn (S)on 1 JEROD PENA VCA IgG >8.0 High <0.9 [facility] Comment on above: Result Comment: Interpretation-------- <0.9 Negative 0.9 - 1.0 Equivocal >1.0 Positive Performed By: #### 2 106-3 #### [facility] ([id number]) [address] [place] [address] 25944 EBV capsid IgM IA Qn (S)on 1 JEROD PENA VCA IgM 0.3 AI Normal <0.9 [facility] Comment on above: Result Comment: Interpretation-------- <0.9 Negative 0.9 - 1.0 Equivocal >1.0 Positive Performed By: #### C OVFLR #### [facility] ([id number]) [address] [place] [address] 40350 ESR Photometric method (Bld) [Velocity]on 09-06-2024 ESR, ERYTHROCYTE SEDIMENTATION RATE 2 mm/h Normal 0-20 [facility] Comment on above: Performed By: #### 2 106-3 #### [facility] ([id number]) [address] [place] [address] 27460 HCG ( test) Ql (U)o n 09-01-2024 Interpretation and review of laboratory results Abnormal [facility] Preg Test, Ur [facility] US OB < 14 WEEKS EARLYon US [...] at this time. Likely too early. Followup CGs. 2. Followup ultrasound 20-22 weeks GA for growth/anatomy. Dictated and transcribed 09/01/24/dpd This report has been electronically signed and [...] IFA Negative Normal . [facility] Comment on above: Result Comment: Nega tive <1:80 Borderline 1:80 Positive >1:80 ICAP nomenclature: AC-0 For more information about Hep-2 cell patterns use ANApatterns.org, the official website for the International Consensus on Antinuclear Antibody (JORGE LUIS) Patterns (ICAP). Performed at: - Lab[address] [id number] Client Advisor: Lionel Levy PhD, Phone: [phone] PERFORMED BY: [address] [address] PATHOLOGIST SHIPBOARD INTELLIGENCE ANALYST FOX PONCE M.D. Performed By: #### [facility] [place] #### [facility] [address] Alanine aminotransferase [En zymatic activity/volume] in Serum or PlasmaOrdered By: Genoveva Pulliamsimon on 07-06-2024 ALT [Catalytic activity/Vol] 13 U/L Normal 7-52 [facility] Comment on above: Performed By: #### R A, JORGE LUIS, METH, HEPACUTE #### [facility] , #### CBC, LDH, FE and TIBC, KIRILL, CMP, [id number] #### [facility] [address] Albumin [Mass/volume] in Ser um or Plasma by Bromocresol green (BCG) dye binding methoOrdered By: Genoveva Claude on 07-06-2024 Albumin BCG dye [Mass/Vol] 5.2 g/dL 3.5-5.7 [facility] Alkaline phosphatase [Enzyma tic activity/volume] in Serum or PlasmaOrdered By: Genoveva Claude on 07-06-2024 ALP [Catalytic activity/Vol] 67 U/L Normal 34-104 [facility] Comment on above: Performed By: #### R A, JORGE LUIS, METH, HEPACUTE #### [facility] , #### CBC, LDH, FE and TIBC, KIRILL, CMP, [id number] #### [facility] [address] [place] [address] Aspartate aminotransferase [ Enzymatic activity/volume] in Serum or PlasmaOrdered By: Genoevva Claude on 07-06-2024 AST [Catalytic activity/Vol] 13 U/L Normal 13-39 [facility] Comment on above: Performed By: #### R A, JORGE LUIS, METH, HEPACUTE #### [facility] , #### CBC, LDH, FE and TIBC, KIRILL, CMP, [id number] #### [facility] [address] [place] [address] [place] Automated basophil %Ordered By: Genoveva Claude on 07-06-2024 Basophils/100 WBC (Bld) 0.3 % Normal . [facility] Comment on above: Performed By: #### R A, JORGE LUIS, METH, HEPACUTE #### [facility] , #### CBC, LDH, FE and TIBC, KIRILL, CMP, [id number] #### [address] Automated basophil countOrde red By: Genoveva Pulliamsimon on 07-06-2024 Basophils (Bld) [#/Vol] 0.0 10*3/uL Normal 0.0-0.2 [facility] Comment on above: Result Comment: PERF ORMED BY: [place] [address] PATHOLOGIST SHIPBOARD INTELLIGENCE ANALYST FOX PONCE M.D. Performed By: #### R A, JORGE LUIS, METH, HEPACUTE #### [facility] , #### CBC, LDH, FE and TIBC, KIRILL, CMP, [id number] #### [address] Automated blood monocyte cou ntOrdered By: Genoveva Claude on 07-06-2024 Monocytes (Bld) [#/Vol] 0.8 10*3/uL Normal 0.0-0.8 [facility] Comment on above: Performed By: #### R A, JORGE LUIS, METH, HEPACUTE #### [facility] , #### CBC, LDH, FE and TIBC, KIRILL, CMP, [id number] #### [address] Automated eosinophil %Ordere d By: Genoveva Claude on 07-06-2024 Eosinophils/100 WBC (Bld) 0.6 % Normal . [facility] Comment on above: Performed By: #### R A, JORGE LUIS, METH, HEPACUTE #### [facility] , #### CBC, LDH, FE and TIBC, KIRILL, CMP, [id number] #### [address] Automated eosinophil countOr dered By: Genoveva Claude on 07-06-2024 Eosinophils (Bld) [#/Vol] 0.1 10*3/uL Normal 0.0-0.45 [facility] Comment on above: Performed By: #### R A, JORGE LUIS, METH, HEPACUTE #### [facility] , #### CBC, LDH, FE and TIBC, KIRILL, CMP, [id number] #### [facility] [address] Automated monocyte %Ordered By: Genoveva Claude on 07-06-2024 Monocytes/100 WBC (Bld) 6.5 % Normal . [facility] Comment on above: Performed By: #### R A, JORGE LUIS, METH, HEPACUTE #### [facility] , #### CBC, LDH, FE and TIBC, KIRILL, CMP, [id number] #### [address] Automated neutrophil %Ordere d By: Genoveva Claude on 07-06-2024 Neutrophils/100 WBC (Bld) 62.6 % Normal . [facility] Comment on above: Performed By: #### R A, JORGE LUIS, METH, HEPACUTE #### [facility] , #### CBC, LDH, FE and TIBC, KIRILL, CMP, [id number] #### [address] Bilirubin.total [Mass/volume ] in Serum or PlasmaOrdered By: Genoveva Claude on 07-06-2024 Bilirubin [Mass/Vol] 1.0 mg/dL Normal 0.3-1.0 [facility] Comment on above: Performed By: #### R A, JORGE LUIS, METH, HEPACUTE #### [facility] , #### CBC, LDH, FE and TIBC, KIRILL, CMP, [id number] #### [address] Calcium [Mass/volume] in Ser um or PlasmaOrdered By: Genoveva Arce on 07-06-2024 Calcium [Mass/Vol] 10.4 mg/dL High 8.6-10.3 [facility] Comment on above: Performed By: #### R A, JORGE LUIS, METH, HEPACUTE #### [facility] , #### CBC, LDH, FE and TIBC, KIRILL, CMP, [id number] #### [address] Carbon dioxide, total [Moles /volume] in Serum or PlasmaOrdered By: Genoveva Claude on 07-06-2024 CO2 [Moles/Vol] 27.0 mmol/L Normal 21.0-31.0 [facility] Comment on above: Performed By: #### R A, JORGE LUIS, METH, HEPACUTE #### [facility] , #### CBC, LDH, FE and TIBC, KIRILL, CMP, [id number] #### [address] Chloride [Moles/volume] in S qing or PlasmaOrdered By: Genoveva Claude on 07-06-2024 Chloride [Moles/Vol] 102 mmol/L Normal 98-107 [facility] Comment on above: Performed By: #### R A, JORGE LUIS, METH, HEPACUTE #### [facility] , #### CBC, LDH, FE and TIBC, KIRILL, CMP, [id number] #### [address] Complete Blood Count Auto Di ffon 07-06-2024 Mean Corpuscular HGB Conc 33.5 g/dL Normal 32.0-35.0 [facility] Comment on above: Performed By: #### R A, JORGE LUIS, METH, HEPACUTE #### [facility] , #### CBC, LDH, FE and TIBC, KIRILL, CMP, [id number] #### [address] NRBC% 0.1 /100{WBC} Normal 0-0.5 [facility] Comment on above: Performed By: #### R A, JORGE LUIS, METH, HEPACUTE #### [facility] , #### CBC, LDH, FE and TIBC, KIRILL, CMP, [id number] #### [facility] [address] Comprehensive Metabolic Pane eduardo 07-06-2024 Albumin [Mass/Vol] 5.2 g/dL Normal 3.5-5.7 [facility] Comment on above: Performed By: #### R A, JORGE LUIS, METH, HEPACUTE #### [facility] , #### CBC, LDH, FE and TIBC, KIRILL, CMP, [id number] #### [facility] [address] [place] [address] Creatinine Clr Calc Pharmacy 94.62 Normal [facility] Comment on above: Performed By: #### R A, JORGE LUIS, METH, HEPACUTE #### [facility] , #### CBC, LDH, FE and TIBC, KIRILL, CMP, [id number] #### [address] GFR/1.73 sq M.predicted MDRD (S/P/Bld) [Vol rate/Area] mL/min/{1.73_m2} Normal [facility] Comment on above: Performed By: #### R A, JORGE LUIS, METH, HEPACUTE #### [facility] , #### CBC, LDH, FE and TIBC, KIRILL, CMP, [id number] #### [facility] [address] [place] [address] Creatinine [Mass/volume] in Serum or PlasmaOrdered By: Genoveva Arce on 07-06-2024 Creatinine [Mass/Vol] 0.80 mg/dL Normal 0.60-1.20 [facility] Comment on above: Performed By: #### R A, JORGE LUIS, METH, HEPACUTE #### [facility] , #### CBC, LDH, FE and TIBC, KIRILL, CMP, [id number] #### [facility] [address] Erythrocyte distribution wid th [Ratio] by Automated countOrdered By: Genoveva Claude on 07-06-2024 Erythrocyte distribution width (RBC) [Ratio] 13.7 % Normal 11.9-15.3 [facility] Comment on above: Performed By: #### R A, JORGE LUIS, METH, HEPACUTE #### [facility] , #### CBC, LDH, FE and TIBC, KIRILL, CMP, [id number] #### [facility] [address] Erythrocytes [#/volume] in B lood by Automated countOrdered By: Genoveva Claude on 07-06-2024 RBC (Bld) [#/Vol] 4.84 10*6/uL Normal 3.60-5.00 [facility] Comment on above: Performed By: #### R A, JORGE LUIS, METH, HEPACUTE #### [facility] , #### CBC, LDH, FE and TIBC, KIRILL, CMP, [id number] #### [address] Ferritin [Mass/volume] in Se rum or PlasmaOrdered By: Genoveva Claude on 07-06-2024 Ferritin [Mass/Vol] 28.8 ng/mL Normal 11.0-306.8 [facility] Comment on above: Performed By: #### R A, JORGE LUIS, METH, HEPACUTE #### [facility] , #### CBC, LDH, FE and TIBC, KIRILL, CMP, [id number] #### [facility] [address] [place] [address] Folate [Mass/volume] in Seru m or PlasmaOrdered By: Genoveva Claude on 07-06-2024 Folate [Mass/Vol] 17.2 ng/mL >5.9 [facility] Comment on above: Folate reference ran ge: >5.9 ng/mlThe WHO technical consultation on folate and vitamin [id number] has determined that folate concentrations lessthan 4 ng/ml are considered deficient. Glucose [Mass/volume] in Ser um or PlasmaOrdered By: Genoveva Arce on 07-06-2024 Glucose [Mass/Vol] 93 mg/dL Normal 70-100 [facility] Comment on above: ADA recommended refe rence rangeRandom Glucose Reference Range is dependent on time and content of last meal. Glucose of more than 200 mg/dL in a nonstressed, ambulatory subject supports the diagnosis of Diabetes Mellitus. Result Comment: [place] om Glucose Reference Range is dependent on time and content of last meal. Glucose of more than 200 mg/dL in a nonstressed, ambulatory subject supports the diagnosis of Diabetes Mellitus. ADA recommended reference range Performed By: #### R A, JORGE LUIS, METH, HEPACUTE #### [facility] , #### CBC, LDH, FE and TIBC, KIRILL, CMP, [id number] #### [address] Hematocrit [Volume Fraction] of Blood by Automated countOrdered By: Genoveva Arce on 07-06-2024 Hematocrit (Bld) [Volume fraction] 43.6 % Normal 34.0-46.4 [facility] Comment on above: Performed By: #### R A, JORGE LUIS, METH, HEPACUTE #### [facility] , #### CBC, LDH, FE and TIBC, KIRILL, CMP, [id number] #### [facility] [address] [place] [address] Hemoglobin [Mass/volume] in BloodOrdered By: Genoveva Arce on 07-06-2024 Hemoglobin (Bld) [Mass/Vol] 14.6 g/dL Normal 11.8-15.4 [facility] Comment on above: Performed By: #### R A, JORGE LUIS, METH, HEPACUTE #### [facility] , #### CBC, LDH, FE and TIBC, KIRILL, CMP, [id number] #### [address] Hepatitis Acute Panelon 06-23 HBsAg Screen Negative Normal Negative [facility] Comment on above: Performed By: #### [facility] [place] #### [address] Hepatitis A Antibody IgM Negative Normal Negative [facility] Comment on above: Performed By: #### [facility], [facility] #### [address] Hepatitis B Core Antibody IgM Negative Normal Negative [facility] Comment on above: Performed By: #### [facility] [place] #### [address] Hepatitis C Virus Antibody Non-Reactive Normal Non Reactive [facility] Comment on above: Performed By: #### [facility] [place] #### [address] Interpretation Hepatitis C Comment Normal . [facility] Comment on above: Result Comment: Not infected with HCV unless early or acute infection is suspected (which may be delayed in an immunocompromised individual), or other evidence exists to indicate HCV infection. Performed at: - [facility] [id number] Client Advisor: Lionel eLvy PhD, Phone: [phone] PERFORMED BY: [place] [address] PATHOLOGIST SHIPBOARD INTELLIGENCE ANALYST FOX PONCE M.D. Performed By: #### [facility] [place] #### [address] Hepatitis B virus surface Ag [Presence] in Serum or Plasma by ImmunoassayOrdered By: Genoveva Arce on 07-06-2024 HBV surface Ag IA Ql Negative Negative [facility] Hepatitis C virus IgG Ab [Pr esence] in Serum or Plasma by ImmunoassayOrdered By: Genoveva Arce on 07-06-2024 HCV IgG IA Ql Non-Reactive Non Reactive [facility] Hepatitis C virus RNA [Units /volume] (viral load) in Serum or Plasma by LULI with probOrdered By: Genoveav Arce on 07-06-2024 HCV RNA LULI+probe Qn N/A [facility] Hepatitis C virus RNA [log u nits/volume] (viral load) in Serum or Plasma by LULI withOrdered By: Genoveva Claude on 07-06-2024 HCV RNA LULI+probe [Log units/Vol] N/A [facility] Iron [Mass/volume] in Serum or PlasmaOrdered By: Genoveva Arce on 07-06-2024 Iron [Mass/Vol] 64 ug/dL Normal 50-212 [facility] Comment on above: Performed By: #### R A, JORGE LUIS, METH, HEPACUTE #### [facility] , #### CBC, LDH, FE and TIBC, KIRILL, CMP, [id number] #### [facility] [address] Iron and TIBC Profileon 06-23 % Iron Saturation 14.5 % Low 20-50 [facility] Comment on above: Performed By: #### R A, JORGE LUIS, METH, HEPACUTE #### [facility] , #### CBC, LDH, FE and TIBC, KIRILL, CMP, [id number] #### [facility] [address] Total Iron Binding Capacity 440 ug/dL Normal 255-450 [facility] Comment on above: Performed By: #### R A, JORGE LUIS, METH, HEPACUTE #### [facility] , #### CBC, LDH, FE and TIBC, KIRILL, CMP, [id number] #### [facility] [address] Iron binding capacity [Mass/ volume] in Serum or PlasmaOrdered By: Genoveva Arce on 07-06-2024 Iron binding capacity [Mass/Vol] 440 ug/dL 255-450 [facility] Iron saturation [Mass Fracti on] in Serum or PlasmaOrdered By: Genoveva Arce on 07-06-2024 Iron saturation [Mass fraction] 14.5 % Low 20-50 [facility] LDH Lactate Dehydrogenaseon 07-06-2024 LDH Lactate Dehydrogenase 128 U/L Low 140-271 [facility] Comment on above: Performed By: #### R A, JORGE LUIS, METH, HEPACUTE #### [facility] , #### CBC, LDH, FE and TIBC, KIRILL, CMP, [id number] #### [facility] [address] [place] [address] [place] Lactate dehydrogenase [Enzym atic activity/volume] in Serum or Plasma by Lactate to pyOrdered By: Genoveva Claude on 07-06-2024 LDH Lactate to pyruvate reaction [Catalytic activity/Vol] 128 U/L Low 140-271 [facility] Leukocytes [#/volume] correc ryan for nucleated erythrocytes in Blood by Automated counOrdered By: Genoveva Claude on 07-06-2024 WBC corrected for nucl RBC Auto (Bld) [#/Vol] 11.6 10*3/uL 3.8-11.6 [facility] Leukocytes [#/volume] in Blo od by Automated countOrdered By: Genoveva Claude on 07-06-2024 WBC (Bld) [#/Vol] 11.6 10*3/uL Normal 3.8-11.6 [facility] Comment on above: Performed By: #### R A, JORGE LUIS, METH, HEPACUTE #### [facility] , #### CBC, LDH, FE and TIBC, KIRILL, CMP, [id number] #### [facility] [address] [place] [address] [place] Lymphocytes [#/volume] in Bl ood by Automated countOrdered By: Genoveva Claude on 07-06-2024 Lymphocytes (Bld) [#/Vol] 3.5 10*3/uL Normal 1.00-4.8 [facility] Comment on above: Performed By: #### R A, JORGE LUIS, METH, HEPACUTE #### [facility] , #### CBC, LDH, FE and TIBC, KIRILL, CMP, [id number] #### [facility] [address] [place], [place] [address] [place] Lymphocytes/100 leukocytes i n Blood by Automated countOrdered By: Genoveva Arce on 07-06-2024 Lymphocytes/100 WBC (Bld) 30.0 % Normal . [facility] Comment on above: Performed By: #### R A, JORGE LUIS, METH, HEPACUTE #### [facility] , #### CBC, LDH, FE and TIBC, KIRILL, CMP, [id number] #### [facility] [address] MCH [Entitic mass] by Automa ryan countOrdered By: Genoveva Arce on 07-06-2024 MCH (RBC) [Entitic mass] 30.1 pg Normal 24.7-34.3 [facility] Comment on above: Performed By: #### R A, JORGE LUIS, METH, HEPACUTE #### [facility] , #### CBC, LDH, FE and TIBC, KIRILL, CMP, [id number] #### [facility] [address] MCHC Auto (RBC) [Mass/Vol]Or dered By: Genoveva Pulliamsimon on 07-06-2024 MCHC (RBC) [Mass/Vol] 33.5 g/dL 32.0-35.0 [facility] MCV [Entitic volume] by Auto mated countOrdered By: Genoveva Arce on 07-06-2024 MCV (RBC) [Entitic vol] 90.0 fL Normal 80-100 [facility] Comment on above: Performed By: #### R A, JORGE LUIS, METH, HEPACUTE #### [facility] , #### CBC, LDH, FE and TIBC, KIRILL, CMP, [id number] #### [facility] [address] Methylmalonic Acidon 024 Methylmalonic Acid 184 Normal 0-378 [facility] Comment on above: Result Comment: This test was developed and its performance characteristics determined by [facility]. It has not been cleared or approved by the Food and Drug Administration. Performed at: [address] [id number] Client Advisor: Endy Arzate MD, Phone: [phone] Performed By: #### U RDS, [facility] #### [facility] [address] [place] [address] Neutrophils [#/volume] in Bl ood by Automated countOrdered By: Genoveva Arce on 07-06-2024 Neutrophils (Bld) [#/Vol] 7.3 10*3/uL Normal 1.8-7.7 [facility] Comment on above: Performed By: #### R A, JORGE LUIS, METH, HEPACUTE #### [facility] , #### CBC, LDH, FE and TIBC, KIRILL, CMP, [id number] #### [facility] [address] [place] [address] No Panel InformationOrdered By: Genoveva Arce on 07-06-2024 Estimated GFR (CKD-EPI) > 60.0 mL/Min [facility] Hepatitis A IgM Antibody Negative Negative [facility] Hepatitis B Core IgM Antibody Negative Negative [facility] Hepatitis C Interpretation Comment . [facility] Comment on above: Not infected with HC V unless early or acute infection issuspected (which may be delayed in an immunocompromisedindividual), or other evidence exists to indicate HCVinfection.Performed at: [facility] [id number] Director: Lionel Levy PhD, Phone: [phone] Pharmacy Creatinine Clearance (Chem 94.62 [facility] Nucleated erythrocytes [Pres ence] in Blood by Automated countOrdered By: Genoveva Arce on 07-06-2024 Nucleated RBC Auto Ql (Bld) 0.1 /100{WBC} 0-0.5 [facility] Platelet mean volume [Entiti c volume] in Blood by Automated countOrdered By: Genoveva Arce on 07-06-2024 Platelet mean volume (Bld) [Entitic vol] 9.9 fL Normal 6.3-10.7 [facility] Comment on above: Performed By: #### R A, JORGE LUIS, METH, HEPACUTE #### [facility] , #### CBC, LDH, FE and TIBC, KIRILL, CMP, [id number] #### [facility] [address] [place] [address] [place] Platelets [#/volume] in Bloo d by Automated countOrdered By: Genoveva Arce on 07-06-2024 Platelets (Bld) [#/Vol] 260 10*3/uL Normal 150-450 [facility] Comment on above: Performed By: #### R A, JORGE LUIS, METH, HEPACUTE #### [facility] , #### CBC, LDH, FE and TIBC, KIRILL, CMP, [id number] #### [address] Potassium [Moles/volume] in Serum or PlasmaOrdered By: Genoveva Arce on 07-06-2024 Potassium [Moles/Vol] 3.8 mmol/L Normal 3.5-5.1 [facility] Comment on above: Performed By: #### R A, JORGE LUIS, METH, HEPACUTE #### [facility] , #### CBC, LDH, FE and TIBC, KIRILL, CMP, [id number] #### [facility] [address] [place] [address] Protein [Mass/volume] in Ser um or PlasmaOrdered By: Genoveva Arce on 07-06-2024 Protein [Mass/Vol] 8.3 g/dL Normal 6.4-8.9 [facility] Comment on above: Performed By: #### R A, JORGE LUIS, METH, HEPACUTE #### [facility] , #### CBC, LDH, FE and TIBC, KIRILL, CMP, [id number] #### [facility] [address] Rheumatoid Factoron 07-06-20 Rheumatoid Factor 10.2 Normal <14.0 [facility] Comment on above: Result Comment: Perf ormed at: - [facility] [address] [id number] Client Advisor: Lionel Levy PhD, Phone: [phone] Performed By: #### [facility] [place], [facility] #### [facility] [address] Serum globulin measurement b y calculation (mass/volume)Ordered By: Genoveva Pulliamsimon on 07-06-2024 Globulin (S) [Mass/Vol] 3.1 g/dL Normal F [facility] Comment on above: Performed By: #### R A, JORGE LUIS, METH, HEPACUTE #### [facility] , #### CBC, LDH, FE and TIBC, KIRILL, CMP, [id number] #### [facility] [address] Serum homogeneous pattern an tinuclear antibody (JORGE LUIS) titerOrdered By: Genoveva Claude on 07-06-2024 Homogenous nuclear Ab pattern (S) [Titer] N/A [facility] Serum nuclear antibody titer Ordered By: Genoveva Claude on 07-06-2024 Nuclear Ab (S) [Titer] Negative . [facility] Comment on above: Negative <1:80 Borde rline 1:80 Positive >1:80ICAP nomenclature: AC-0For more information about Hep-2 cell patterns useANApatterns.org, the official website for theInternational Consensus on Antinuclear Antibody (JORGE LUIS)Patterns (ICAP).Performed at: [facility] [id number] Director: Lionel Levy PhD, Phone: [phone] Serum or plasma albumin/glob ulin mass ratioOrdered By: Genoveva Claude on 07-06-2024 Albumin/Globulin [Mass ratio] 1.7 {ratio} Normal [facility] Comment on above: Performed By: #### R A, JORGE LUIS, METH, HEPACUTE #### [facility] , #### CBC, LDH, FE and TIBC, KIRILL, CMP, [id number] #### [address] Serum or plasma anion gap de terminationOrdered By: Genoveva Claude on 07-06-2024 Anion gap [Moles/Vol] 13.8 mmol/L Normal 6.0-15.0 [facility] Comment on above: Performed By: #### R A, JORGE LUIS, METH, HEPACUTE #### [facility] , #### CBC, LDH, FE and TIBC, KIRILL, CMP, [id number] #### [facility] [address] Serum or plasma methylmalona te measurement (moles/volume)Ordered By: Genoveva Pulliamsimon on 07-06-2024 Methylmalonate [Moles/Vol] 184 nmol/L 0-378 [facility] Comment on above: This test was develo ped and its performance characteristicsdetermined by [facility]. It has not been cleared orapproved by the Food and Drug Administration.Performed at: [facility] [id number] Director: Endy Arzate MD, Phone: [phone] Serum or plasma rheumatoid f actor measurement (units/volume)Ordered By: Genoveva Pulliamsimon on 07-06-2024 Rheumatoid factor Qn 10.2 [IU]/mL <14.0 [facility] Comment on above: Performed at: [address] [id number] Director: Lionel Levy PhD, Phone: [phone] Sodium [Moles/volume] in Ser um or PlasmaOrdered By: Genoveva Claude on 07-06-2024 Sodium [Moles/Vol] 139 mmol/L Normal 136-145 [facility] Comment on above: Performed By: #### R A, JORGE LUIS, METH, HEPACUTE #### [facility] , #### CBC, LDH, FE and TIBC, KIRILL, CMP, [id number] #### [facility] [address] Transferrin [Mass/volume] in Serum or PlasmaOrdered By: Genoveva Claude on 07-06-2024 Transferrin [Mass/Vol] 314 mg/dL Normal 203-362 [facility] Comment on above: Performed By: #### R A, JORGE LUIS, METH, HEPACUTE #### [facility] , #### CBC, LDH, FE and TIBC, KIRILL, CMP, [id number] #### [facility] [address] [place] [address] Urea nitrogen [Mass/volume] in Serum or PlasmaOrdered By: Genoveva Pulliamsimon on 07-06-2024 Urea nitrogen [Mass/Vol] 11 mg/dL Normal 7-25 [facility] Comment on above: Performed By: #### R A, JORGE LUIS, METH, HEPACUTE #### [facility] , #### CBC, LDH, FE and TIBC, KIRILL, CMP, [id number] #### [facility] [address] [place] [address] Vit. B12/Folate Profileon Folate 17.2 ng/mL Normal >5.9 [facility] Comment on above: Result Comment: Coco te reference range: >5.9 ng/ml The WHO technical consultation on folate and vitamin b12 deficiencies has determined that folate concentrations less than 4 ng/ml are considered deficient. PERFORMED BY: [place] [address] PATHOLOGIST SHIP[employer]ARD INTELLIGENCE ANALYST FOX PONCE M.D. Performed By: #### R A, JORGE LUIS, METH, HEPACUTE #### [facility] , #### CBC, LDH, FE and TIBC, KIRILL, CMP, [id number] #### [facility] [address] [place] [address] Vitamin B12 ser/plasOrdered By: Genoveva Pulliamsimon on 07-06-2024 Cobalamin (Vitamin B12) [Mass/Vol] 357 pg/mL Normal 180-914 [facility] Comment on above: Performed By: #### R A, JORGE LUIS, METH, HEPACUTE #### [facility] , #### CBC, LDH, FE and TIBC, KIRILL, CMP, [id number] #### [address] abdomen pelvis w conon CT abdomen pelvis w con [facility] [place] [address] [place] [address] CT Scan Report Signed Patient: Radha Dickinson MR#: [id number] : 2000 Acct:[id number] Age/Sex: 23 / F ADM Date: 06/14/24 Loc: CT Room: Type: [facility] Attending Dr: Karissa Rosenthal DO Copies [...] splenomegaly. Impression dictated by: Bradford Briggs Jr., D.O.06/14/2024 11:57 AM Dictation Location: [place] [address] Transcribed By: [facility] 06/14/24 1157 Dictated By: Bradford Briggs Jr, DO 06/14/24 1155 Signed By: 06/14/24 1157 Normal [facility] Amphetamine Screen Ql (U)Ord ered By: Karissa Rosenthal on 05-23-2024 Amphetamines Ql (U) Negative Negative [facility] Barbiturates [Presence] in U rine by Screen methodOrdered By: Karissa Rosenthal on 05-23-2024 Barbiturates Screen Ql (U) Negative Negative [facility] Benzodiazepines Screen Ql (U )Ordered By: Karissa Rosenthal on 05-23-2024 Benzodiazepines Ql (U) Negative Negative Fi [facility] Benzoylecgonine [Presence] i n Urine by Screen methodOrdered By: Karissa Rosenthal on 05-23-2024 Benzoylecgonine Screen Ql (U) Negative Negative [facility] Cannabinoids [Presence] in U rine by Screen methodOrdered By: Karissa Rosenthal on 05-23-2024 Cannabinoids Screen Ql (U) Positive High Negative [facility] Comment on above: These are unconfirme d results and should not be used for legal purposes. Drug Cut-Off Concentration: AMPH 1000 ng/mL NIEVES 200 ng/mL HUGO 200 ng/mL COCM 300 ng/mL OP 300 ng/mL PCP 25 ng/mL THC 20 ng/mL Drug Screen,Urineon 05-23-20 24 Amphetamine Screen,Urine Negative Normal Negative [facility] Comment on above: Performed By: #### [facility] #### [address] Barbiturate Screen,Urine Negative Normal Negative [facility] Comment on above: Performed By: #### [facility] [place] #### [place] [address] [place] Benzodiazepines Screen,Urine Negative Normal Negative [facility] Comment on above: Performed By: #### [facility] [place] #### [place] [address] [place] Cannabinoid Screen,Urine Positive High Negative [facility] Comment on above: Result Comment: Thes e are unconfirmed results and should not be used for legal purposes. Drug Cut-Off Concentration: AMPH 1000 ng/mL NIEVES 200 ng/mL HUGO 200 ng/mL COCM 300 ng/mL OP 300 ng/mL PCP 25 ng/mL THC 20 ng/mL PERFORMED BY: [place] [address] PATHOLOGIST SHIP[employer]ARD INTELLIGENCE ANALYST FOX PONCE M.D. Performed By: #### [facility] #### [facility] [address] Cocaine Screen,Urine Negative Normal Negative [facility] Comment on above: Performed By: #### [facility] #### [facility] [address] Opiate Screen,Urine Negative Normal Negative [facility] Comment on above: Performed By: #### [facility] #### [facility] [address] Phencyclidine Screen,Urine Negative Normal Negative [facility] Comment on above: Performed By: #### [facility] #### [address] HCG ( test) IA.rapi d Ql (U)Ordered By: Karissa Rosenthal on 05-23-2024 HCG ( test) Ql (U) Negative [facility] HCG,Urineon 05-23-2024 Beta HCG ( test) Ql (U) Negative Normal [facility] Comment on above: Result Comment: PERF ORMED BY: [place] [address] PATHOLOGIST SHIPBOARD INTELLIGENCE ANALYST FOX PONCE M.D. Performed By: #### U [facility], [facility] #### [address] Eduardo 05-23-2024 L Specimen: [id number] Received: 05/23/24 Status: BRET Barker Num: [id number] Spec Type: Surgical Subm Dr: Karissa Rosenthal DO Tissues: A Small Intestine - Biopsy/Polyp (SMALL BOWEL BX) B GASTRIC FOR HP (GASTRIC HP) C Colon Biopsy (RANDOM COLON T) D Colon Biopsy (RANDOM COLON LT) E Colon Biopsy (SIGMOID POLYP) Procedures: HE/10, Gross/Micro L4/5, H PYLORI, IHC First AB Age/ Patient Sex Location Account Attending Physician Radha Dickinson 23/F [id number] Karissa Rosenthal DO SPEC NUM: [id number] RECD: 05/23/24 STATUS: BRET BARKER NUM: [id number] GIAN: 05/23/24- SUBM DR: Karissa Rosenthal DO ENTERED: 05/23/24-[address] [facility] [address]: SPEC TYPE: Surgical DEPT: S ORDERED: [...] celiac dx, rule out H. pylori Specimen: [id number] Received: 05/23/24 Status: BRET Barker Num: [id number] Spec Type: Surgical Subm Dr: Karissa Rosenthal DO Tissues: A Small Intestine - Biopsy/Polyp (SMALL BOWEL BX) B GASTRIC FOR HP (GASTRIC HP) C Colon Biopsy (RANDOM COLON T) D Colon Biopsy (RANDOM COLON LT) E Colon Biopsy (SIGMOID POLYP) Procedures: HE/10, Gross/Micro L4/5, H PYLORI, IHC First AB Patient: Radha Dickinson [id number] (Continued) Specimen: [id number] Received: 05/23/24 (Continued) Signed (signature on file) Wojciech Sheikh MD 05/24/24 1556 Specimen: [id number] Received: 05/23/24 Status: BRET Barker Num: [id number] Spec Type: Surgical Subm Dr: Karissa Rosenthal DO Tissues: A Small Intestine - Biopsy/Polyp (SMALL BOWEL BX) B GASTRIC FOR HP (GASTRIC HP) C Colon Biopsy (RANDOM COLON T) D Colon Biopsy (RANDOM COLON LT) E Colon Biopsy (SIGMOID POLYP) Procedures: HE/10, Gross/Micro L4/5, H PYLORI, IHC First AB Patient: Radha Dickinson [id number] (Continued) Specimen: [id number] Received: 05/23/24-1218 (Continued) Gross Description Received are 5 formalin [...] polypoid tissue fragment, entirely submitted in E1. [facility] Codes [id number] Specimen: [id number] Received: 05/23/24 Status: BRET Barker Num: [id number] Spec Type: Surgical Subm Dr: Karissa Rosenthal, Tissues: A Small Intestine - Biopsy/Polyp (SMALL BOWEL BX) B GASTRIC FOR HP (GASTRIC HP) C Colon Biopsy (RANDOM COLON T) D Colon Biopsy (RANDOM COLON LT) E Colon Biopsy (SIGMOID POLYP) Procedures: HE/10, Gross/Micro L4/5, H PYLORI, IHC First AB Patient: Radha Dickinson [id number] (Continued) Signed (signature on file) Wojciech Sheikh MD 05/24/24 1764 Normal [facility] Opiates [Presence] in Urine by Screen methodOrdered By: Karissa Rosenthal on 05-23-2024 Opiates Screen Ql (U) Negative Negative [facility] Phencyclidine Screen Ql (U)O rdered By: Karissa Rosenthal on 05-23-2024 Phencyclidine Ql (U) Negative Negative [facility] IgA [Mass/Vol]on 05-20-2024 CELIAC DISEASE SEROLOGY [place] SEE COMMENTS 05/24/2024 10:21 PM Normal [facility] Comment on above: Result Comment: NOTE Test Result Flag Unit RefValue ---- Celiac Disease Serology [place] Immunoglobulin A (IgA), S 239 mg/dL 61 - 356 Celiac Disease Interpretation See Note See Comment: Negative serology. Celiac disease unlikely. However, approximately 10% of patients with celiac disease are seronegative. Also, patients who are already adhering to a gluten-free diet may be seronegative. If celiac disease is highly clinically suspected, consider HLA-DQ typing. Test Performed by: [place] [address] Client Advisor: Marissa Dodson Ph.D.; CLIA# [id number] Performed By: #### 2 106-3 #### [facility] ([id number]) [address] [place] [address] tTG IgA IA Qn (S)on 05-20-20 TTG AB IGA <1.2 Normal <4.0 (Negative) [facility] Comment on above: Result Comment: NOTE Test Performed by: [place] [address] Client Advisor: Marissa Dosdon Ph.D.; CLIA# [id number] Performed By: #### 2 106-3 #### [facility] ([id number]) [address] [place] [address] CBC AND AUTO DIFFon 03-15-20 24 ABSOLUTE BASOPHIL 0.0 X10E9/L Normal 0.0-0.[address] [facility] Comment on above: Performed By: #### 2 106-3 #### [facility] ([id number]) [address] [place] [address] ABSOLUTE NEUTROPHIL 6.9 X10E9/L High 1.5-6.6 [facility] Comment on above: Performed By: #### 2 106-3 #### [facility] ([id number]) [address] [place] [address] 85913 Basophils/100 WBC (Bld) 0.3 % Normal [facility] Comment on above: Performed By: #### 2 106-3 #### [facility] ([id number]) [address] [place] [address] 06778 Eosinophils (Bld) [#/Vol] 0.1 10*3/uL Normal 0.0-0.4 [facility] Comment on above: Performed By: #### 2 106-3 #### [facility] ([id number]) [address] [place] [address] 67059 Eosinophils/100 WBC (Bld) 0.6 % Normal [facility] Comment on above: Performed By: #### 2 106-3 #### [facility] ([id number]) [address] [place] [address] 69764 Erythrocyte distribution width (RBC) [Ratio] 14.9 % Normal 11.5-15.0 [facility] Comment on above: Performed By: #### 2 106-3 #### [facility] ([id number]) [address] [place] [address] 42456 Hematocrit (Bld) [Volume fraction] 41.6 % Normal 35-47 [facility] Comment on above: Performed By: #### 2 106-3 #### [facility] ([id number]) [address] [place] [address] 74676 Hemoglobin (Bld) [Mass/Vol] 14.1 g/dL Normal 11.7-15.5 [facility] Comment on above: Performed By: #### 2 106-3 #### [facility] ([id number]) [address] [place] [address] 57340 Lymphocytes (Bld) [#/Vol] 1.7 10*3/uL Normal 1.0-3.5 [facility] Comment on above: Performed By: #### 2 106-3 #### [facility] ([id number]) [address] [place] [address] 28145 Lymphocytes/100 WBC (Bld) 18.5 % Normal [facility] Comment on above: Performed By: #### 2 106-3 #### [facility] ([id number]) [address] [place] [address] 96401 MCH (RBC) [Entitic mass] 30.6 pg Normal 27-34 [facility] Comment on above: Performed By: #### 2 106-3 #### [facility] ([id number]) [address] [place] [address] 69556 MCHC (RBC) [Mass/Vol] 33.8 g/dL Normal 32-36 [facility] Comment on above: Performed By: #### 2 106-3 #### [facility] ([id number]) [address] [place] [address] 86446 MCV (RBC) [Entitic vol] 91 fL Normal 80-100 [facility] Comment on above: Performed By: #### 2 106-3 #### [facility] ([id number]) [address] [place] [address] 93610 Monocytes (Bld) [#/Vol] 0.7 10*3/uL Normal 0-0.9 [facility] Comment on above: Performed By: #### 2 106-3 #### [facility] ([id number]) [address] [place] [address] 48331 Monocytes/100 WBC (Bld) 7.3 % Normal [facility] Comment on above: Performed By: #### 2 106-3 #### [facility] ([id number]) [address] [place] [address] 96320 Neutrophils/100 WBC (Bld) 73.3 % Normal [facility] Comment on above: Performed By: #### 2 106-3 #### [facility] ([id number]) [address] [place] [address] 01646 Platelet mean volume (Bld) [Entitic vol] 10.3 fL Normal 7-12 [facility] Comment on above: Performed By: #### 2 106-3 #### [facility] ([id number]) [address] [place] [address] 77364 Platelets (Bld) [#/Vol] 212 10*3/uL Normal 150-450 [facility] Comment on above: Performed By: #### 2 106-3 #### [facility] ([id number]) [address] [place] [address] 53569 RBC COUNT 4.59 X10E12/L Normal 3.80-5.20 [facility] Comment on above: Performed By: #### 2 106-3 #### [facility] ([id number]) [address] [place] [address] 88206 WBC (Bld) [#/Vol] 9.4 10*3/uL Normal 4.0-11.[address] [facility] Comment on above: Performed By: #### 2 106-3 #### [facility] ([id number]) [address] [place] [address] 98085 COMPREHENSIVE METABOLIC PANE Eduardo 03-15-2024 Albumin [Mass/Vol] 4.4 g/dL Normal 3.2-5.[address] [facility] Comment on above: Performed By: #### C JOLYNN, THYR, 38367-1 #### [facility] ([id number]) [address] [facility] [address], [address] [place] [address] ALP [Catalytic activity/Vol] 63 U/L Normal 39-130 [facility] Comment on above: Performed By: #### C MP, THYR, 14655-5 #### [facility] ([id number]) [address], [address] [place] [address] ALT [Catalytic activity/Vol] 21 U/L Normal 0-31 [facility] Comment on above: Performed By: #### Veronica NEIL THYR, 27141-5 #### [facility] ([id number]) [address], [address] [place] [address] Anion gap [Moles/Vol] 7 mmol/L Normal 5-15 [facility] Comment on above: Performed By: #### C JOLYNN THYR, 07326-5 #### [facility] ([id number]) [address], [address] [place] [address] AST [Catalytic activity/Vol] 15 U/L Normal 0-41 [facility] Comment on above: Performed By: #### Veronica NEIL THYR, 84961-3 #### [facility] ([id number]) [address], [address] [place] [address] Bilirubin [Mass/Vol] 0.9 mg/dL Normal 0.3-1.2 [facility] Comment on above: Performed By: #### Veronica NEIL THYGeorgette, 75986-8 #### [facility] ([id number]) [address], [address] [place] [address] Calcium [Mass/Vol] 9.6 mg/dL Normal 8.5-10.[address] [facility] Comment on above: Performed By: #### Veronica NEIL THYR, 95858-3 #### [facility] ([id number]) [address], [address] [place] [address] Chloride [Moles/Vol] 105 mmol/L Normal 98-109 [facility] Comment on above: Performed By: #### Veronica NEIL THYR, 22152-1 #### [facility] ([id number]) [address], [address] [place] [address] CO2 [Moles/Vol] 27 mmol/L Normal 22-32 [facility] Comment on above: Performed By: #### C JOLYNN THYR, 78330-7 #### [facility] ([id number]) [address] [address] [place] [address] Creatinine [Mass/Vol] 0.71 mg/dL Normal 0.40-1.00 [facility] Comment on above: Result Comment: METH OD TRACEABLE TO IDMS STANDARD Performed By: #### C JOLYNN THYR, 78359-8 #### [facility] ([id number]) [address], [facility] [address] [place] [address] eGFR (CKD-EPI) NON-RACE DEPENDENT >90 Normal >59 [facility] Comment on above: Result Comment: Reported eGFR is based on the CKD-EPI 2020 equation that does not use a race coefficient. Performed By: #### C JOLYNN THYR, 67544-2 #### [facility] ([id number]) [address], [address] [place] [address] Glucose [Mass/Vol] 105 mg/dL High 65-[address] [facility] Comment on above: Performed By: #### C JOLYNN THYR, 97072-4 #### [facility] ([id number]) [address] [address] [place] [address] Potassium [Moles/Vol] 4.2 mmol/L Normal 3.5-5.0 [facility] Comment on above: Performed By: #### C JOLYNN THYR, 73899-8 #### [facility] ([id number]) [address], [address] [place] [address] Protein [Mass/Vol] 7.0 g/dL Normal 6.0-8.[address] [facility] Comment on above: Performed By: #### C JOLYNN, THYR, 21548-3 #### [facility] ([id number]) [address], [address] [place] [address] Sodium [Moles/Vol] 139 mmol/L Normal 134-[address] [facility] Comment on above: Performed By: #### C JOLYNN, THYR, 17427-1 #### [facility] ([id number]) [address], [address] [place] [address] Urea nitrogen [Mass/Vol] 11 mg/dL Normal 5-23 [facility] Comment on above: Performed By: #### C JOLYNN, THYR, 70908-3 #### [facility] ([id number]) [address], [address] [place] [address] ESR Photometric method (Bld) [Velocity]on 03-15-2024 ESR, ERYTHROCYTE SEDIMENTATION RATE 6 mm/h Normal 0-20 [facility] Comment on above: Performed By: #### 2 106-3 #### [facility] ([id number]) [address] [place] [address] 39492 GI PANELon 03-15-2024 Gastrointestinal pathogens DNA and [...] SAPOVIRUS Not detected (qualifier value) Normal NDET [facility] Comment on above: Performed By: #### 2 106-3 #### [facility] ([id number]) [address] [facility], [place] [address] Lipid 1996 panelon 4 Cholesterol [Mass/Vol] 131 mg/dL Low 150-200 Pr [facility] Comment on above: Performed By: #### [place], [address]-2 #### [facility] ([id number]) [address], [address] [place] [address] Cholesterol in HDL [Mass/Vol] 49 mg/dL Normal >39 [facility] Comment on above: Result Comment: HDL <40 mg/dL - High Risk HDL > or = 40mg/dL- Desirable HDL >60 mg/dL - Negative Risk Performed By: #### Veronica NEIL THYGeorgette, 23313-7 #### [facility] ([id number]) [address], [address] [place] [address] Cholesterol in LDL [Mass/Vol] 62 mg/dL Normal <130 [facility] Comment on above: Result Comment: LDL <100 mg/dL - Desirable LDL >160 mg/dL - High Risk Performed By: #### [place], [address]-9 #### [facility] ([id number]) [address], [address] [place] [address] Cholesterol in VLDL [Mass/Vol] 20 mg/dL Normal 0-30 [facility] Comment on above: Performed By: #### [place], [address]72-2 #### [facility] ([id number]) [address], [address] [place] [address] CHOLESTEROL:HDL 2.7 Normal 1.0-5.0 [facility] Comment on above: Performed By: #### C JOLYNN, THYR, 05901-0 #### [facility] ([id number]) [address], [address] [place] [address] Triglyceride [Mass/Vol] 100 mg/dL Normal 27-150 [facility] Comment on above: Performed By: #### C JOLYNN, THYR, 23074-5 #### [facility] ([id number]) [address], [address] [place] [address] THYROID PROFILEon 03-15-2024 Free T4 [Mass/Vol] 1.04 ng/dL Normal 0.61-1.[address] [facility] Comment on above: Performed By: #### C JOLYNN, THYR, 21630-8 #### [facility] ([id number]) [address], [address] [place] [address] TSH 0.68 uIU/mL Normal 0.49-4.67 [facility] Comment on above: Performed By: #### C JOLYNN, THYR, 78161-5 #### [facility] ([id number]) [address], [address] [place] [address] BASIC METABOLIC PANLon 01-31 Anion gap [Moles/Vol] 11 mmol/L Normal 5-15 [facility] Comment on above: Performed By: #### B JOLYNN CBCA, 65229-1 #### [facility] ([id number]) [address] [place] [address] 58223 Calcium [Mass/Vol] 9.0 mg/dL Normal 8.5-10.[address] [facility] Comment on above: Performed By: #### B JOLYNN CBCA, 49590-7 #### [facility] ([id number]) [address] [place] [address] 63846 Chloride [Moles/Vol] 101 mmol/L Normal 98-109 [facility] Comment on above: Performed By: #### B VALENTINA NEIL, 12150-0 #### [facility] ([id number]) [address] [place] [address] 66580 CO2 [Moles/Vol] 23 mmol/L Normal 22-32 [facility] Comment on above: Performed By: #### B VALENTINA NEIL, 97750-5 #### [facility] ([id number]) [address] [place] [address] 57148 Creatinine [Mass/Vol] 0.78 mg/dL Normal 0.40-1.00 [facility] Comment on above: Result Comment: METH OD TRACEABLE TO IDMS STANDARD Performed By: #### B VALENTINA NEIL, 23144-8 #### [facility] ([id number]) [address] [place] [address] 39342 eGFR (CKD-EPI) NON-RACE DEPENDENT >90 Normal >59 [facility] Comment on above: Result Comment: Reported eGFR is based on the CKD-EPI 2021 equation that does not use a race coefficient. Performed By: #### B VALENTINA NEIL, 98228-7 #### [facility] ([id number]) [address] [place] [address] 45331 Glucose [Mass/Vol] 87 mg/dL Normal 65-[address] [facility] Comment on above: Performed By: #### B VALENTINA NEIL, 85347-7 #### [facility] ([id number]) [address] [place] [address] 51275 Potassium [Moles/Vol] 4.1 mmol/L Normal 3.5-5.0 [facility] Comment on above: Performed By: #### B VALENTINA NEIL, 83157-0 #### [facility] ([id number]) [address] [place] [address] 39478 Sodium [Moles/Vol] 135 mmol/L Normal 134-[address] [facility] Comment on above: Performed By: #### B MP, CBCA, 71054-5 #### [facility] ([id number]) [address] [place] [address] 76286 Urea nitrogen [Mass/Vol] 13 mg/dL Normal 5-23 [facility] Comment on above: Performed By: #### B MP, CBCA, 41433-4 #### [facility] ([id number]) [address] [place] [address] 57756 CBC AND AUTO DIFFon 02-01-20 24 ABSOLUTE BASOPHIL 0.1 X10E9/L Normal 0.0-0.[address] [facility] Comment on above: Performed By: #### B MP, CBCA, 10932-0 #### [facility] ([id number]) [address] [place] [address] 77553 ABSOLUTE NEUTROPHIL 5.3 X10E9/L Normal 1.5-6.6 [facility] Comment on above: Performed By: #### B MP, CBCA, 03398-5 #### [facility] ([id number]) [address] [place] [address] 92797 Basophils/100 WBC (Bld) 0.7 % Normal [facility] Comment on above: Performed By: #### B MP, CBCA, 65151-2 #### [facility] ([id number]) [address] [place] [address] 55252 Eosinophils (Bld) [#/Vol] 0.0 10*3/uL Normal 0.0-0.4 [facility] Comment on above: Performed By: #### B MP, CBCA, 07351-8 #### [facility] ([id number]) [address] [place] [address] 33235 Eosinophils/100 WBC (Bld) 0.1 % Normal [facility] Comment on above: Performed By: #### B MP, CBCA, 26828-1 #### [facility] ([id number]) [address] [place] [address] 70512 Erythrocyte distribution width (RBC) [Ratio] 13.5 % Normal 11.5-15.0 [facility] Comment on above: Performed By: #### B JOLYNN, CBCA, 76089-0 #### [facility] ([id number]) [address] [place] [address] 39219 Hematocrit (Bld) [Volume fraction] 44.0 % Normal 35-47 [facility] Comment on above: Performed By: #### B JOLYNN, CBCA, 78763-2 #### [facility] ([id number]) [address] [place] [address] 98135 Hemoglobin (Bld) [Mass/Vol] 15.3 g/dL Normal 11.7-15.5 [facility] Comment on above: Performed By: #### B JOLYNN, CBCA, 83583-7 #### [facility] ([id number]) [address] [place] [address] 83836 Lymphocytes (Bld) [#/Vol] 2.6 10*3/uL Normal 1.0-3.5 [facility] Comment on above: Performed By: #### B JOLYNN, CBCA, 22228-8 #### [facility] ([id number]) [address] [place] [address] 44650 Lymphocytes/100 WBC (Bld) 29.4 % Normal [facility] Comment on above: Performed By: #### B JOLYNN, CBCA, 85633-6 #### [facility] ([id number]) [address] [place] [address] 24073 MCH (RBC) [Entitic mass] 30.5 pg Normal 27-34 [facility] Comment on above: Performed By: #### B JOLYNN, CBCA, 85466-4 #### [facility] ([id number]) [address] [place] [address] 28521 MCHC (RBC) [Mass/Vol] 34.8 g/dL Normal 32-36 [facility] Comment on above: Performed By: #### B JOLYNN, CBCA, 24486-3 #### [facility] ([id number]) [address] [place] [address] 03750 MCV (RBC) [Entitic vol] 88 fL Normal 80-100 [facility] Comment on above: Performed By: #### B JOLYNN, CBCA, 97589-6 #### [facility] ([id number]) [address] [place] [address] 63927 Monocytes (Bld) [#/Vol] 0.8 10*3/uL Normal 0-0.9 [facility] Comment on above: Performed By: #### B JOLYNN, CBCA, 88863-4 #### [facility] ([id number]) [address] [place] [address] 27016 Monocytes/100 WBC (Bld) 9.7 % Normal [facility] Comment on above: Performed By: #### Dhruv NEIL, CBCA, 47502-0 #### [facility] ([id number]) [address] [place] [address] 69036 Neutrophils/100 WBC (Bld) 60.1 % Normal [facility] Comment on above: Performed By: #### B JOLYNN, CBCA, 24179-3 #### [facility] ([id number]) [address] [place] [address] 95544 Platelet mean volume (Bld) [Entitic vol] 10.6 fL Normal 7-12 [facility] Comment on above: Performed By: #### B JOLYNN, CBCA, 19340-6 #### [facility] ([id number]) [address] [place] [address] 57801 Platelets (Bld) [#/Vol] 153 10*3/uL Normal 150-450 [facility] Comment on above: Performed By: #### B MP, CBCA, 77947-5 #### [facility] ([id number]) [address] [place] [address] 05904 RBC COUNT 5.02 X10E12/L Normal 3.80-5.20 [facility] Comment on above: Performed By: #### B MP, CBCA, 23236-6 #### [facility] ([id number]) [address] [place] [address] 84574 WBC (Bld) [#/Vol] 8.8 10*3/uL Normal 4.0-11.[address] [facility] Comment on above: Performed By: #### B MP, CBCA, 77599-1 #### [facility] ([id number]) [address] [place] [address] 94179 Fibrin D-dimer DDU (PPP) [Ma ss/Vol]on 02-01-2024 D DIMER 188 ng/mL DDU Normal <255 [facility] Comment on above: Result Comment: Results <255 ng/mL DDU: The presence of a VTE can safely be excluded with a negative D-Dimer result and Wells score. A negative result doesn't exclude the possibility of DIC. The test be repeated along with other diagnostic tests if the patient's symptoms persist or worsen. [email or web address] Performed By: #### B MP, CBCA, 45505-4 #### [facility] ([id number]) [address] [place] [address] 28306 XR CHEST 1 VWon 02-01-2024 XR CHEST [...] Hernandez MD on 02/01/2024 11:20 AM Normal [facility] HCG ( test) Ql (U)o n 01-30-2024 Beta HCG ( test) Ql (U) Negative Normal NEG [facility] Comment on above: Performed By: #### 2 106-3 #### [facility] ([id number]) [address] [place] [address], [place] [address] SARS/FLU A+B/RSV by NAAT/Mol ecularon 01-30-2024 SARS/FLU [...] operators who are performing tests using either [employer] DX or [employer] systems and is limited to laboratories that [...] repeat. Fact Sheet for Healthcare Providers: https://www.fda.gov/media/ 045546/download Fact Sheet for Patients: https://www.fda.gov/media/ 326362/download Normal [facility] Comment on above: Performed By: #### C OVFLR #### [facility] ([id number]) [address] [place] [address] 94112 URN MACROSCOPIC NURon 2023 BILIRUBIN APOLINAR Small Abnormal NEG [facility] Comment on above: Performed By: #### N UM #### [facility] ([id number]) [address] [place] [address] 70855 BLOOD/HGB APOLINAR Negative Normal NEG [facility] Comment on above: Performed By: #### N UM #### [facility] ([id number]) [address] [place] [address] 41079 GLUCOSE APOLINAR Negative Normal NEG [facility] Comment on above: Performed By: #### N UM #### [facility] ([id number]) [address] [place] [address] 32656 KETONES APOLINAR 80 mg/dL Abnormal NEG [facility] Comment on above: Performed By: #### N UM #### [facility] ([id number]) [address] [place] [address] 97178 LEUKOCYTE ESTERASE APOLINAR Negative Normal NEG Pr [facility] Comment on above: Performed By: #### N UM #### [facility] ([id number]) [address] [place] [address] 50752 NITRITE APOLINAR Negative Normal NEG [facility] Comment on above: Performed By: #### N UM #### [facility] ([id number]) [address] [place] [address] PH APOLINAR 5.5 Normal 5.0-8.5 [facility] Comment on above: Performed By: #### N UM #### [facility] ([id number]) [address] [place] [address] 60024 PROTEIN APOLINAR Trace Abnormal NEG [facility] Comment on above: Performed By: #### N UM #### [facility] ([id number]) [address] [place] [address] 86596 SPECIFIC GRAVITY APOLINAR 1.025 Normal 1.003-1 .03 5 [facility] Comment on above: Performed By: #### N UM #### [facility] ([id number]) [address] [place] [address] 75164 UROBILINOGEN APOLINAR 0.2 eu/dL Normal <1.1 [facility] Comment on above: Performed By: #### N UM #### [facility] ([id number]) [address] [place] [address] 40993 Laboratory - Microbiology an d Antimicrobial susceptibilityOrdered By: Viky Waters on 07-10-2023 N. gonorrhoeae DNA LULI+probe Ql (Unsp spec) Negative Negative [facility] Comment on above: Performed at: [address] [id number] Director: Kinga Solomon MD, Phone: [phone] No Panel InformationOrdered By: Viky Waters on 07-10-2023 Kay albicans (LULI) Negative Negative [facility] Comment on above: This test was develo ped and its performance characteristicsdetermined by [facility]. It has not been cleared orapproved by the Food and Drug Administration. Kay glabrata (LULI) Negative Negative [facility] Comment on above: This test was develo ped and its performance characteristicsdetermined by [facility]. It has not been cleared orapproved by the Food and Drug Administration. Chlamydia trachomatis (LULI) (LAB) Negative Negative [facility] Trichomonas vaginalis (LULI) Negative Negative [facility] Vaginal fluid Atopobium vagi xuan DNA detection by probe and target amplification methoOrdered By: Viky Waters on 07-10-2023 A. vaginae DNA LULI+probe Ql (Vag fld) High - 2 Score . [facility] Vaginal fluid Megasphaera sp ecies type 1 DNA detection by probe and target amplificatOrdered By: Viky Waters on 07-10-2023 Megasphaera sp type 1 DNA LULI+probe Ql (Vag fld) High - 2 Score . [facility] Comment on above: Calculate total scor e by adding the 3 individual bacterialvaginosis (BV) marker scores together. Total score isinterpreted as follows:Total score 0-1: Indicates the absence of BV.Total score 2: Indeterminate for BV. Additional clinical data should be evaluated to establish a diagnosis.Total score 3-6: Indicates the presence of BV.This test was developed and its performance characteristicsdetermined by [facility]. It has not been cleared or approvedby the Food and Drug Administration. Vaginal fluid bacterial vagi nosis associated bacterium 2 DNA detection by probe and tOrdered By: Viky Waters on 07-10-2023 Bacterial vaginosis associated bacterium 2 DNA LULI+probe Ql (Vag fld) High - 2 Score . [facility] Q - SURESWAB ADVANCED VAGINI TIS PLUSon 04-24-2022 KAY GLABRATA Not detected Normal NOT DETECTED [facility] Comment on above: Order Comment: [facility] performed at: QPT, [facility], [address] [place] [address], [address] [place], [place] [address], [id number], Palliative Care Nurse Practitioner: Jonathan Hernandez MD [facility] Collection Date/Time: [facility] Results Received Date/Time: [facility] Reported Date/Time: Result Comment: Kay species C. albicans, C. tropicalis, C. parapsilosis, and/or C. dubliniensis can be detected, but not differentiated, in the Kay spp. result. Performed By: #### 1 0120 #### [facility] Default [address] [place] [address] KAY SPECIES Detected Abnormal NOT DETECTED [facility] Specialist Comment on above: Order Comment: [facility] Testing performed at: [facility] [employer] [facility], [address] [facility], [address] [place] [address], [address] [place] [address], Palliative Care Nurse Practitioner: Jonathan Hernandez MD [facility] Collection Date/Time: [facility] Results Received Date/Time: [facility] Reported Date/Time: Performed By: #### 1 0120 #### [facility] Default [address] [place] [address] CHLAMYDIA TRACHOMATIS RNA, TMA, UROGENITAL Not detected Normal NOT DETECTED [facility] Specialist Comment on above: Order Comment: [facility] Testing performed at: [facility] [employer] [facility], [address] [facility], [address] [place] [address], [address] [place] [address], Palliative Care Nurse Practitioner: Jonathan Hernadnez MD [facility] Collection Date/Time: [facility] Results Received Date/Time: [facility] Reported Date/Time: Performed By: #### 1 0120 #### [facility] Default [address] [place] [address] NEISSERIA GONORRHOEAE RNA, TMA, UROGENITAL Not detected Normal NOT DETECTED [facility] Specialist Comment on above: Order Comment: [facility] Testing performed at: [facility] [employer], [address] [facility], [address] [place] [address], [address] [place] [address], Palliative Care Nurse Practitioner: Jonathan Hernandez MD [facility] Collection Date/Time: [facility] Results Received Date/Time: [facility] Reported Date/Time: Result Comment: For additional information, please refer to https://education.discoapi/faq/BLI907 (This link is being provided for information/ educational purposes only.) Performed By: #### 1 0120 #### [facility] Default [address] [place] [address] SURESWAB(R) ADV BACTERIAL VAGINOSIS (BV), TMA Positive Abnormal NEGATIVE [facility] Specialist Comment on above: Order Comment: [facility] Testing performed at: [facility] [employer] [facility], [address], [address] [place] [address], [id number], Palliative Care Nurse Practitioner: Jonathan Hernandez MD [facility] Collection Date/Time: [facility] Results Received Date/Time: [facility] Reported Date/Time: Performed By: #### 1 0120 #### [facility] Default [address] [place] [address] TRICHOMONAS VAGINALIS (TV), TMA Not detected Normal NOT DETECTED [facility] Supervisor Comment on above: Order Comment: [facility] Testing performed at: [facility] [employer] [facility], [address], [address] [place], [address], Palliative Care Nurse Practitioner: Jonathan Hernandez MD [facility] Collection Date/Time: [facility] Results Received Date/Time: [facility] Reported Date/Time: Performed By: #### 1 0120 #### [facility] Default [address] [place] [address] CBC auto differentialOrdered By: Neyda Lyle on 08-02-2021 Absolute Eos # 0.05 [employer] Phone: Absolute Immature Granulocyte <0.03 [employer] Phone: Absolute Lymph # 1.77 [employer] Phone: Absolute [place]burn # 0.61 [employer] Phone: Basophils (Bld) [#/Vol] 10*3/uL [facility] Phone: Basophils/100 WBC (Bld) 0 % 0 - 2 % [facility] Phone: Differential Type NOT REPORTED [employer] Phone: Eosinophils/100 WBC (Bld) 1 % 1 - 4 % [employer] Phone: Hematocrit (Bld) [Volume fraction] 35.3 % Low 36.3 - 47.1 % [employer] Phone: Hemoglobin.gastrointest inal spec 1 Ql (Stl) 11.8 g/dL Low 11.9 - 15.1 g/dL [employer] Phone: Immature granulocytes/100 WBC (Bld) 0 % 0 [employer] Phone: Interpretation and review of laboratory results Abnormal [employer] Phone: Lymphocytes/100 WBC (Bld) 22 % Low 24 - 43 % [employer] Phone: MCH (RBC) [Entitic mass] 28.9 pg 25.2 - 33.5 pg [employer] Phone: MCHC (RBC) [Mass/Vol] 33.4 g/dL 28.4 - 34.8 g/dL [employer] Phone: MCV (RBC) [Entitic vol] 86.5 fL 82.6 - 102.9 fL [employer] Phone: Monocytes/100 WBC (Bld) 8 % 3 - 12 % [facility] Phone: NRBC Automated 0.0 0.0 per 100 WBC [employer] Phone: Platelet distribution width (Bld) [Ratio] 13.7 % 11.8 - 14.4 % [employer] Phone: Platelet Estimate NOT REPORTED [employer] Phone: Platelet mean volume (Bld) [Entitic vol] 12.4 fL 8.1 - 13.5 fL [employer] Phone: Platelets (Bld) [#/Vol] 197 10*3/uL [employer] Phone: RBC (Bld) [#/Vol] 4.08 10*6/uL 3.95 - 5.11 m/uL [facility] Phone: RBC (Bld) [#/Vol] NOT REPORTED [facility] Phone: Segmented neutrophils/100 WBC (Bld) 69 % High 36 - 65 % [employer] Phone: Segs Absolute 5.53 [facility] Phone: WBC (Bld) [#/Vol] 8.0 10*3/uL [facility] Phone: WBC (Bld) [#/Vol] NOT REPORTED [facility] Phone: [facility] Phone: CBC with Diffon 08-02-2021 Abs. Basophil <0.03 Normal 0.00-0.20 [facility] Comment on above: Performed By: #### C DP #### [facility] [address] [place] [address] Dr. [place], [place] [id number] Client Advisor: Brice Frederick MD Abs.Imm.Granulocyte <0.03 Normal 0.00-0.30 [facility] Comment on above: Performed By: #### C DP #### [facility] [address] [place] [address] Dr. [place], [place] [id number] Client Advisor: Brice Frederick MD Abs.Neutrophil (Seg) 5.53 k/uL Normal 1.50-8.10 [facility] Comment on above: Performed By: #### C DP #### [facility] [address] [place] [address] Dr. [place], [place] [phone] Client Advisor: Brice Frederick MD Basophils/100 WBC (Bld) 0 % Normal 0-2 [facility] Comment on above: Performed By: #### C DP #### [facility] [address] [place] [address] Dr. [place], [place] [id number] Client Advisor: Brice Frederick MD Eosinophils (Bld) [#/Vol] 0.05 10*3/uL Normal 0.00-0.44 [facility] Comment on above: Performed By: #### C DP #### [address] [place], [facility]83 Client Advisor: Brice Frederick MD Eosinophils/100 WBC (Bld) 1 % Normal 1-4 [facility] Comment on above: Performed By: #### C DP #### [address] [place], [place] [address] Client Advisor: Brice Frederick MD Erythrocyte distribution width (RBC) [Ratio] 13.7 % Normal 11.8-14.4 [facility] Comment on above: Performed By: #### C DP #### [address] [place] [address] Client Advisor: Brice Frederick MD Hematocrit (Bld) [Volume fraction] 35.3 % Low 36.3-47.1 [facility] Comment on above: Performed By: #### C DP #### [address] [place], [place] [address] Client Advisor: Brice Frederick MD Hemoglobin (Bld) [Mass/Vol] 11.8 g/dL Low 11.9-15.1 [facility] Comment on above: Performed By: #### C DP #### [address] [place], [place] [address] Client Advisor: Brice Frederick MD Immature granulocytes/100 WBC (Bld) 0 % Normal 0 [facility] Comment on above: Performed By: #### C DP #### [address] [place], [facility]83 Client Advisor: Brice Frederick MD Lymphocytes (Bld) [#/Vol] 1.77 10*3/uL Normal 1.10-3.70 [facility] Comment on above: Performed By: #### C DP #### [facility] [address] [place], [place] [id number] Client Advisor: Brice Frederick MD Lymphocytes/100 WBC (Bld) 22 % Low 24-43 [facility] Comment on above: Performed By: #### C DP #### [facility] [address] [place], [facility]83 Client Advisor: Brice Frederick MD MCH (RBC) [Entitic mass] 28.9 pg Normal 25.2-33.5 [facility] Comment on above: Performed By: #### C DP #### [facility] [address] [place] [address] Client Advisor: Brice Frederick MD MCHC (RBC) [Mass/Vol] 33.4 g/dL Normal 28.4-34.8 [facility] Comment on above: Performed By: #### C DP #### [address] [place], [place] [address] Client Advisor: Brice Frederick MD MCV (RBC) [Entitic vol] 86.5 fL Normal 82.6-102.9 [facility] Comment on above: Performed By: #### C DP #### [address] [place], [facility]83 Client Advisor: Brice Frederick MD Monocytes (Bld) [#/Vol] 0.61 10*3/uL Normal 0.10-1.20 [facility] Comment on above: Performed By: #### C DP #### [facility] [address] [place], [facility]83 Client Advisor: Brice Frederick MD Monocytes/100 WBC (Bld) 8 % Normal 3-12 [facility] Comment on above: Performed By: #### C DP #### [facility] [address] [place], [facility]83 Client Advisor: Brice Frederick MD Neutrophil (Seg) 69 % High 36-65 [facility] Comment on above: Performed By: #### C DP #### [facility] [address] [place] [address] Client Advisor: Brice Frederick MD NRBC Automated 0.0 per 100 WBC Normal 0.0 [facility] Comment on above: Performed By: #### C DP #### [facility] [address] [place], [place] [id number] Client Advisor: Brice Frederick MD Platelet mean volume (Bld) [Entitic vol] 12.4 fL Normal 8.1-13.5 [facility] Comment on above: Performed By: #### C DP #### [facility] [address] [place] [address] Client Advisor: Brice Frederick MD Platelets (Bld) [#/Vol] 197 10*3/uL Normal 138-453 [facility] Comment on above: Performed By: #### C DP #### [address] [place], [place] [id number] Client Advisor: Brice Frederick MD RBC (Bld) [#/Vol] 4.08 10*6/uL Normal 3.95-5.11 [facility] Comment on above: Performed By: #### C DP #### [facility] [address] [place], [facility]83 Client Advisor: Brice Frederick MD WBC (Bld) [#/Vol] 8.0 10*3/uL Normal 3.5-11.3 [facility] Comment on above: Performed By: #### C DP #### [facility] [address] [place], [place] [id number] Client Advisor: Brice Frederick MD Auto Diff Performed NOT REPORTED Normal [facility] Comment on above: Performed By: #### C DP #### [facility] [address] [place] [address] Client Advisor: Brice Frederick MD Platelet Estimate NOT REPORTED Normal [facility] Comment on above: Performed By: #### C DP #### [facility] [address] [place], [place] [id number] Client Advisor: Brice Frederick MD RBC morphology finding Nom (Bld) NOT REPORTED Normal [facility] Comment on above: Performed By: #### C DP #### [facility] [address] [place], [place] [id number] Client Advisor: Brice Frederick MD WBC Morphology NOT REPORTED Normal [facility] Comment on above: Performed By: #### C DP #### [facility] [address] [place] [address] Client Advisor: Brice Frederick MD DRUG SCREEN MULTI URINEOrder ed By: Neyda Lyle on 08-02-2021 Amphetamine Screen, Ur Negative NEGATIVE [facility] Work Phone: Barbiturate Screen, Ur Negative NEGATIVE [facility] Work Phone: Benzodiazepine Screen, Urine Negative NEGATIVE [facility] [employer] Work Phone: Buprenorphine Urine Negative NEGATIVE [facility] Work Phone: Cannabinoid Scrn, Ur Positive Abnormal NEGATIVE [facility] Work Phone: Cocaine Metabolite, Urine Negative NEGATIVE [facility] Work Phone: Interpretation and review of laboratory results Abnormal [facility] [employer] Work Phone: Methadone Screen, Urine Negative NEGATIVE [facility] Work Phone: Methamphetamine, Urine Negative NEGATIVE [facility] Work Phone: Opiates, Urine Negative NEGATIVE [facility] Work Phone: Oxycodone Screen, Ur Negative NEGATIVE [facility] Work Phone: Phencyclidine, Urine Negative NEGATIVE [facility] [employer] Phone: Propoxyphene, Urine Negative NEGATIVE [facility] Phone: Test Information NOT REPORTED [facility] Phone: Tricyclic Antidepressants, Urine Negative NEGATIVE [facility] Phone: Comment on above: Drug screen results are to be used for medical purposes only. All positive results are unconfirmed. Testing for employment or legal uses should be sent to a reference laboratory for confirmation. [employer] Phone: Drug Scr, Abuse, Uron 2020 Amphetamine(s),Ur Negative Normal NEG [facility] Comment on above: Performed By: #### D AU #### [facility] [address] [place] [address] [place] [address] Client Advisor: Brice Frederick MD Barbiturate(s),Ur Negative Normal NEG [facility] Comment on above: Performed By: #### D AU #### [facility] [address] [place] [address] Client Advisor: Brice Frederick MD Benzodiazepine(s) Negative Normal [facility] Comment on above: Performed By: #### D AU #### [facility] [address] [place], [place] [id number] Client Advisor: Brice Frederick MD Buprenorphrine, Ur Negative Normal NEG [facility] Comment on above: Performed By: #### D AU #### [facility] [address] [place] [address] Client Advisor: Brice Frederick MD Cannabinoid(s),Ur Positive Abnormal NEG [facility] Comment on above: Performed By: #### D AU #### [facility] [address] [place] [address] Client Advisor: Brice Frederick MD Cocaine Metabolite Negative Normal [facility] Comment on above: Performed By: #### D AU #### [facility] [address] [place], [facility]83 Client Advisor: Brice Frederick MD Methadone Ql (U) Negative Normal [facility] Comment on above: Performed By: #### D AU #### [facility] [address] [place], [facility]83 Client Advisor: Brice Frederick MD Methamphetamine, Ur Negative Normal NEG [facility] Comment on above: Performed By: #### D AU #### [facility] [address] [place] [id number] Client Advisor: Brice Frederick MD Opiate(s), Ur Negative Normal [facility] Comment on above: Performed By: #### D AU #### [facility] [address] [place] [id number] Client Advisor: Brice Frederick MD Oxycodone, Urine Negative Normal [facility] Comment on above: Performed By: #### D AU #### [facility] [address] [place] [id number] Client Advisor: Brice Frederick MD Phencyclidine, Ur Negative Normal [facility] Comment on above: Performed By: #### D AU #### [facility] [address] [place], [facility]83 Client Advisor: Brice Frederick MD Propoxyphene,Urine Negative Normal [facility] Comment on above: Performed By: #### D AU #### [facility] [address] [place] [id number] Client Advisor: Brice Frederick MD Tricyclic antidepressants Screen Ql (U) Negative Normal [facility] Comment on above: Result Comment: Drug screen results are to be used for medical purposes only. All positive results are unconfirmed. Testing for employment or legal uses should be sent to a reference laboratory for confirmation. Performed By: #### D AU #### [facility] [address] [place] [address] Client Advisor: Brice Frederick MD Interpretive Info NOT REPORTED Normal [facility] Comment on above: Performed By: #### D AU #### [facility] [address] [place] [address] Client Advisor: Brice Frederick MD Drug Scr, Abuse, UrOrdered B y: Neyda Pool on 08-02-2021 MDMA, Urine NOT REPORTED Normal NEG [facility] Phone: Comment on above: Performed By: #### D AU #### [facility] [address] [place] [address] Client Advisor: Brice Frederick MD GBS, External ResultOrdered By: Historical Provider on 08-02-2021 GBS, External Result Negative [employer] Phone: [employer] Phone: UrinalysisOrdered By: Debbi Kolb on 08-02-2021 Bilirubin Urine Negative NEGATIVE [employer] Phone: Color, UA YELLOW YELLOW [employer] Phone: Glucose, Ur Negative NEGATIVE [employer] Phone: Ketones Ql (U) Negative NEGATIVE [employer] Phone: Leukocyte esterase Test strip Ql (U) Negative NEGATIVE [employer] Phone: Nitrite, Urine Negative NEGATIVE [employer] Phone: pH, UA 6.0 [employer] Phone: Protein, UA Negative NEGATIVE [employer] Phone: Specific [place], UA 1.020 [employer] Phone: Turbidity UA CLEAR CLEAR [employer] Phone: Urinalysis Comments NOT REPORTED [facility] [employer] Work Phone: Urine Hgb Negative NEGATIVE [facility] Work Phone: Urobilinogen, Urine Normal Normal [facility] [employer] [place] Phone: [facility] [employer] Work Phone: Urinalysis, Routineon 2020 Bilirubin, SemiQt,Ur Negative Normal NEG [facility] Comment on above: Performed By: #### U A #### [facility] [address] [place] [address] Client Advisor: Brice Frederick MD Blood, Urine Negative Normal [facility] Comment on above: Performed By: #### U A #### [facility] [address] [place] [address] Dr. [place], [facility]83 Client Advisor: Brice Frederick MD Clarity (U) CLEAR Normal CLEAR [facility] Comment on above: Performed By: #### U A #### [facility] [address] [place] [address] [place] [address] Client Advisor: Brice Frederick MD Color (U) YELLOW Normal YEL [facility] Comment on above: Performed By: #### U A #### [facility] [address] [place] [address] Client Advisor: Brice Frederick MD Glucose Ql (U) Negative Normal [facility] Comment on above: Performed By: #### U A #### [facility] [address] [place] [address] [place] [address] Client Advisor: Brice Frederick MD Ketones Ql (U) Negative Normal NEG [facility] Comment on above: Performed By: #### U A #### [facility] [address] [place] [address] Client Advisor: Brice Frederick MD Leukocyte esterase Test strip Ql (U) Negative Normal NEG [facility] Comment on above: Performed By: #### U A #### [address] [place] [address] Client Advisor: Brice Frederick MD Nitrite,Ur Negative Normal NEG [facility] Comment on above: Performed By: #### U A #### [address] [place] [address] Client Advisor: Brice Frederick MD PH,Ur 6.0 Normal 5.0-9.0 [facility] Comment on above: Performed By: #### U A #### [address] [place] [address] Client Advisor: Brice Frederick MD Protein Ql (U) Negative Normal NEG [facility] Comment on above: Performed By: #### U A #### [address] [place] [address] Client Advisor: Brice Frederick MD Spec. Crand[place],Ur 1.020 Normal 1.010-1.02 0 [facility] Comment on above: Performed By: #### U A #### [address] [place], [place] [id number] Client Advisor: Brice Frederick MD Urobilinogen,Ur Normal Normal NORM [facility] Comment on above: Performed By: #### U A #### [address] [place] [address] Client Advisor: Brice Frederick MD Comment NOT REPORTED Normal [facility] Comment on above: Performed By: #### U A #### [address] [place] [address] Client Advisor: Brice Frederick MD ABO, External ResultOrdered By: Historical Provider on 01-10-2021 ABO, External Result A+ [employer] Phone: C. Trachomatis, External Res ultOrdered By: Historical Provider on 01-10-2021 C. Trachomatis, External Result Negative [employer] Phone: Hepatitis B, External Result Ordered By: Historical Provider on 01-10-2021 Hep B, External Result NR [employer] Phone: N. Gonorrhoeae, External Res ultOrdered By: Historical Provider on 01-10-2021 N. Gonorrhoeae, External Result Negative [employer] Phone: No Panel InformationOrdered By: Historical Provider on 01-10-2021 [employer] Phone: [employer] Phone: PROFILE IOrdered By : Historical Provider on 01-10-2021 Hepatitis B Surface Ag NR [employer] Phone: RPR, External LabOrdered By: Historical Provider on 01-10-2021 RPR, External Result Negative [employer] Phone: Rubella Titer, External Resu ltOrdered By: Historical Provider on 01-10-2021 Rubella Titer, External Result IMM [employer] Phone: Operative Reporton [id number] [id number] Operative Report MR#: [id number] [facility] Pt. Name: Radha Dickinson Room #: 0C Discharge Date: Birthdate: 2000 OPERATIVE REPORTDATE OF SURGERY: 09/14/2017SURGEON: Stephani Lopez M.D.POURER BUGGY LADLE: Ham Nino M.D.PREOPERATIVE DIAGNOSIS: Radial digital nerve [...] 09/14/2017/11:28 P/Stephani Lopez M.D.Date Trans: 09/15/2017 02:25 [id number] Normal [facility] POC GLUCOSE LABon 09-14-2017 Glucose mass conc 91 mg/dL Normal 70-100 [facility] Comment on above: Performed By: #### 8 5499 ####[facility] [place] [address], [facility] POC URINE PREGNANCYon 2016 HCG.beta subunit ( test) Ql (U) Negative Normal NEGATIVE [facility] Comment on above: Result Comment: Perf ormed in PACU Performed By: #### 8 4140 ####[facility] Vital Signs Date Time Vital Sign Value Performing Clinician Facility 12-19-2024 16:29-0500 Body mass index (BMI) [Ratio] 21.46 kg/m2 Dat Floro CNM Work Phone: [facility] 12-19-2024 16:29-0500 Body weight 62.14 kg Dat Floro CNM Work Phone: [facility] 12-19-2024 16:29-0500 Diastolic blood pressure 70 mm[Hg] Dat Floro CNM Work Phone: [facility] 12-19-2024 16:29-0500 Systolic blood pressure 120 mm[Hg] Dat Floro CNM Work Phone: [facility] 10-17-2024 16:59-0500 Body mass index (BMI) [Ratio] 20.2 kg/m2 Dat Floro CNM Work Phone: [facility] 10-17-2024 16:59-0500 Body weight 58.51 kg Dat Floro CNM Work Phone: [facility] 10-17-2024 16:59-0500 Diastolic blood pressure 70 mm[Hg] Dat Floro CNM Work Phone: [facility] 10-17-2024 16:59-0500 Systolic blood pressure 120 mm[Hg] Dat Floro CNM Work Phone: [facility] 09-19-2024 13:27-0400 Body mass index (BMI) [Ratio] 20.05 kg/m2 Dat Floro CNM Work Phone: [facility] 09-19-2024 13:27-0400 Body weight 58.06 kg Dat Floro CNM Work Phone: [facility] 09-19-2024 13:27-0400 Diastolic blood pressure 80 mm[Hg] Dat Yokoo CNM Work Phone: [facility] 09-19-2024 13:27-0400 Systolic blood pressure 122 mm[Hg] Dat Yokoo CNM Work Phone: [facility] 09-14-2024 16:37-0400 Body mass index (BMI) [Ratio] 19.34 kg/m2 Brice Madrid MD Work Phone: [facility] 09-14-2024 16:37-0400 Body weight 57.7 kg Brice Madrid MD Work Phone: [facility] 09-14-2024 16:37-0400 Diastolic blood pressure 56 mm[Hg] Brice Madrid MD Work Phone: [facility] 09-14-2024 16:37-0400 Heart rate 80 /min Brice Madrid MD Work Phone: [facility] 09-14-2024 16:37-0400 Respiratory rate 16 /min Brice Madrid MD Work Phone: [facility] 09-14-2024 16:37-0400 Systolic blood pressure 98 mm[Hg] Brice Madrid MD Work Phone: [facility] 09-01-2024 09:07-0400 Body mass index (BMI) [Ratio] 19.89 kg/m2 Dat Yokoo CNM Work Phone: [facility] 09-01-2024 09:07-0400 Body weight 57.61 kg Dat Yokoo CNM Work Phone: [facility] 09-01-2024 09:07-0400 Diastolic blood pressure 70 mm[Hg] Dat Floro CNM Work Phone: [facility] 09-01-2024 09:07-0400 Systolic blood pressure 118 mm[Hg] Dat Floro CNM Work Phone: [facility] 08-31-2024 11:23-0400 Body height 172.7 cm Brice Madrid MD Work Phone: [facility] 08-31-2024 11:23-0400 Body mass index (BMI) [Ratio] 18.72 kg/m2 Brice Madrid MD Work Phone: [facility] 08-31-2024 11:23-0400 Body temperature 98.71 [degF] Brice Madrid MD Work Phone: [facility] 08-31-2024 11:23-0400 Body weight 55.85 kg Brice Madrid MD Work Phone: [facility] 08-31-2024 11:23-0400 Diastolic blood pressure 68 mm[Hg] Brice Madrid MD Work Phone: [facility] 08-31-2024 11:23-0400 Systolic blood pressure 112 mm[Hg] Brice Madrid MD Work Phone: [facility] 07-19-2024 13:20-0400 Body mass index (BMI) [Ratio] 19.58 kg/m2 Dat Floro CNM Work Phone: [facility] 07-19-2024 13:20-0400 Body weight 56.7 kg Dat Floro CNM Work Phone: [facility] 07-19-2024 13:20-0400 Diastolic blood pressure 70 mm[Hg] Dat Floro CNM Work Phone: [facility] 07-19-2024 13:20-0400 Systolic blood pressure 112 mm[Hg] Dat Floro CNM Work Phone: [facility] 07-19-2024 09:37-0400 Body height 172.72 cm MD Brice Madrid Work Phone: [facility] 07-19-2024 09:37-0400 Body mass index (BMI) [Ratio] 18.2 kg/m2 MD Brice Madrid Work Phone: [facility] 07-19-2024 09:37-0400 Body temperature 97.8 [degF] MD Brice Madrid Work Phone: [facility] 07-19-2024 09:37-0400 Body weight 54.43 kg MD Brice Madrid Work Phone: [facility] 07-19-2024 09:37-0400 Diastolic blood pressure 72 mm[Hg] MD Brice Madrid Work Phone: [facility] 07-19-2024 09:37-0400 Heart rate 90 /min MD Brice Madrid Work Phone: [facility] 07-19-2024 09:37-0400 Respiratory rate 20 /min MD Brice Madrid Work Phone: [facility] 07-19-2024 09:37-0400 SaO2% (BldA) [Mass fraction] 100 % MD Brice Madrid Work Phone: [facility] 07-19-2024 09:37-0400 Systolic blood pressure 109 mm[Hg] MD Brice Madrid Work Phone: [facility] 07-06-2024 14:45-0400 Body height 172.72 cm MD Brice Madrid Work Phone: [facility] 07-06-2024 14:45-0400 Body mass index (BMI) [Ratio] 18.8 kg/m2 MD Brice Madrid Work Phone: [facility] 07-06-2024 14:45-0400 Body temperature 97.3 [degF] MD Brice Madrid Work Phone: [facility] 07-06-2024 14:45-0400 Body weight 56.24 kg MD Brice Madrid Work Phone: [facility] 07-06-2024 14:45-0400 Diastolic blood pressure 83 mm[Hg] MD Brice Madrid Work Phone: [facility] 07-06-2024 14:45-0400 Heart rate 66 /min MD Brice Madrid Work Phone: [facility] 07-06-2024 14:45-0400 Respiratory rate 16 /min MD Brice Madrid Work Phone: [facility] 07-06-2024 14:45-0400 SaO2% (BldA) [Mass fraction] 99 % MD Brice Madrid Work Phone: [facility] 07-06-2024 14:45-0400 Systolic blood pressure 125 mm[Hg] MD Brice Madrid Work Phone: [facility] 05-23-2024 12:04-0400 Diastolic blood pressure 63 mm[Hg] MD Brice Madrid Work Phone: [facility] 05-23-2024 12:04-0400 Heart rate 76 /min MD Brice Madrid Work Phone: [facility] 05-23-2024 12:04-0400 Respiratory rate 18 /min MD Brice Madrid Work Phone: [facility] 05-23-2024 12:04-0400 SaO2% (BldA) [Mass fraction] 100 % MD Brice Madrid Work Phone: [facility] 05-23-2024 12:04-0400 Systolic blood pressure 96 mm[Hg] MD Brice Madrid Work Phone: [facility] 05-23-2024 09:36-0400 Body height 172.72 cm MD Brice Madrid Work Phone: [facility] 05-23-2024 09:36-0400 Body weight 54.43 kg MD Brice Madrid Work Phone: [facility] 05-20-2024 08:45-0400 Body height 170.[address] [facility] 05-20-2024 08:45-0400 Body mass index (BMI) [Ratio] 18.8 kg/m2 [facility] 05-20-2024 08:45-0400 Body weight 54.[address] [facility] 05-20-2024 08:45-0400 Diastolic blood pressure 75 mm[Hg] [facility] 05-20-2024 08:45-0400 Heart rate 93 /min [facility] 05-20-2024 08:45-0400 Systolic blood pressure 113 mm[Hg] [facility] 07-10-2023 09:40-0400 Body height 170.18 cm Viky Jt Other [employer] Other 07-10-2023 09:40-0400 Body mass index (BMI) [Ratio] 21.42 kg/m2 Viky Waters Other [employer] Other 07-10-2023 09:40-0400 Body temperature 96.8 [degF] Viky Waters Other [employer] Other 07-10-2023 09:40-0400 Body weight 62.05 kg Viky Waters Other [employer] Other 07-10-2023 09:40-0400 Diastolic blood pressure 66 mm[Hg] Viky Waters Other [employer] Other 07-10-2023 09:40-0400 Respiratory rate 16 /min Viky Waters Other [employer] Other 07-10-2023 09:40-0400 SaO2% (BldA) [Mass fraction] 99 % Viky Waters Other [employer] Other 07-10-2023 09:40-0400 Systolic blood pressure 112 mm[Hg] Viky Waters Other [employer] Other 08-04-2021 08:20-0400 Body temperature 97.9 [degF] Dat Kolb APRN [facility] Work Phone: [employer] Work Phone: 08-04-2021 08:20-0400 Diastolic blood pressure 67 mm[Hg] Dat Kolb APRN - CNM Work Phone: [employer] Work Phone: 08-04-2021 08:20-0400 Heart rate 63 /min Dat Kolb APRN - CNM Work Phone: [employer] Work Phone: 08-04-2021 08:20-0400 Respiratory rate 16 /min Dat Kolb APRN - CNM Work Phone: [employer] Work Phone: 08-04-2021 08:20-0400 Systolic blood pressure 104 mm[Hg] Dat Kolb APRN - CNM Work Phone: [employer] Work Phone: 08-02-2021 20:03-0400 Body height 170.2 cm Dat Kolb APRN - CNM Work Phone: [employer] Work Phone: 08-02-2021 20:03-0400 Body mass index (BMI) [Ratio] 26.63 kg/m2 Dat Kolb APRN - CNM Work Phone: [employer] Phone: 08-02-2021 20:03-0400 Body weight 77.11 kg Dat Kolb APRN - CNM Work Phone: [employer] Phone: Encounters Encounter Date Encounter Type Care Provider Facility Start: 12-30-2024 End: 12-30-2024 Telephone encounter Dat Kolb CNM Work Phone: [facility] Start: 12-19-2024 End: 12-19-2024 Subsequent care visit Dat Kolb CNM Work Phone: [facility] Comment on above: Encounter for superv ision of other normal , third trimester (Primary Dx) Start: 12-19-2024 End: 12-19-2024 ambulatory DAT L FLORO Not Available Start: 12-19-2024 End: 12-19-2024 Bamboo flowsheet Dat L Floro CNM Work Phone: [facility] Start: 12-19-2024 End: 12-19-2024 Bamboo flowsheet Dat L Floro CNM Work Phone: [facility] Start: 12-09-2024 End: 12-09-2024 Orders Only Brice Madrid [facility] Start: 11-21-2024 End: 11-21-2024 ambulatory DAT L FLORO Not Available Start: 11-21-2024 End: 11-21-2024 Bamboo flowsheet Dat L Floro CNM Work Phone: [facility] Start: 11-21-2024 End: 11-21-2024 Bamboo flowsheet Dat L Floro CNM Work Phone: [facility] Start: 10-17-2024 End: 10-17-2024 Subsequent care visit Dat L Floro CNM Work Phone: [facility] Comment on above: Marijuana use (Prima ry Dx); Encounter for supervision of other normal , first trimester Start: 10-17-2024 End: 10-17-2024 ambulatory DAT L FLORO Not Available Start: 10-17-2024 End: 10-17-2024 Bamboo flowsheet Dat L Floro CNM Work Phone: [facility] Start: 10-17-2024 End: 10-17-2024 Bamboo flowsheet Dat L Floro CNM Work Phone: [facility] Start: 10-13-2024 End: 10-13-2024 Refill Brice Madrid MD [facility] Start: 09-20-2024 End: 09-20-2024 Telephone encounter Brice Madrid MD Work Phone: [facility] Start: 09-19-2024 End: 09-19-2024 Bamboo flowsheet Dat L Floro CNM Work Phone: [facility] Start: 09-19-2024 End: 09-19-2024 Bamboo flowsheet Dat L Floro CNM Work Phone: [facility] Start: 09-19-2024 End: 09-19-2024 Office outpatient visit 15 minutes Dat L Floro CNM Work Phone: [facility] Comment on above: Nausea and vomiting in prior to 22 weeks gestation (Primary Dx); Encounter for supervision of other normal , first trimester Start: 09-19-2024 End: 09-19-2024 ambulatory DAT L FLORO Not Available Start: 09-14-2024 End: 09-14-2024 ambulatory [facility] Start: 09-14-2024 End: 09-14-2024 Office outpatient visit 15 minutes Brice Madrid MD Work Phone: [facility] Comment on above: Multiple masses of n charmaine (Primary Dx); Less than 8 weeks gestation of Start: 09-06-2024 End: 09-06-2024 ambulatory BRICE MADRID [facility] Start: 09-06-2024 End: 09-06-2024 ambulatory BRICE LEERANCE [facility] Start: 09-01-2024 End: 09-01-2024 Office outpatient visit 15 minutes Dat L Floro CNM Work Phone: [facility] Comment on above: GA: 8w6d Start: 09-01-2024 End: 09-01-2024 ambulatory DAT L FLORO Not Available Start: 08-31-2024 End: 08-31-2024 ambulatory [facility] Start: 08-31-2024 End: 08-31-2024 Office outpatient visit 15 minutes Brice Madrid MD [facility] Comment on above: Multiple masses of n charmaine (Primary Dx); Mononucleosis syndrome Start: 07-19-2024 End: 07-19-2024 ambulatory DAT L FLORO Not Available Start: 07-19-2024 End: 07-19-2024 Bamboo flowsheet Dat L Floro CNM Work Phone: [facility] Start: 07-19-2024 End: 07-19-2024 Bamboo flowsheet Dat L Floro CNM Work Phone: [facility] Start: 07-19-2024 End: 07-19-2024 Office outpatient visit 15 minutes Dat L Floro CNM Work Phone: [facility] Comment on above: Pelvic pain in femal e Start: 07-19-2024 End: 07-19-2024 ambulatory DAT L FLORO Not Available Start: 07-19-2024 End: 07-19-2024 ambulatory MD Brice Madrid Work Phone: [facility] Work Phone: Start: 07-19-2024 End: 07-19-2024 Patient encounter procedure MD Brice Madrid Work Phone: [facility] [place] [facility] Work Phone: Start: 07-19-2024 Registered Recurring MD Brice Madrid Work Phone: [facility] Work Phone: Start: 07-19-2024 ambulatory Brice Madrid Facility :[facility] Start: 07-11-2024 End: 07-11-2024 Bamboo flowsheet Dat L Floro CNM Work Phone: [facility] Start: 07-11-2024 End: 07-11-2024 Bamboo flowsheet Dat L Floro CNM Work Phone: [facility] Start: 07-06-2024 End: 07-06-2024 ambulatory MD Brice Madrid Work Phone: [facility] Work Phone: Start: 07-06-2024 End: 07-06-2024 Patient encounter procedure MD Brice Madrid Work Phone: [facility] Work Phone: Start: 06-14-2024 End: 06-14-2024 Patient encounter procedure MD Brice Madrid Work Phone: [facility] [place] Work Phone: Start: 06-14-2024 End: 06-14-2024 ambulatory MD Brice Madrid Work Phone: [facility] Work Phone: Start: 05-23-2024 Non-patient / Non-visit MD Brice Madrid Work Phone: [facility] G[facility] Work Phone: Start: 05-23-2024 End: 05-23-2024 Admission to same day surgery center MD Brice Madrid Work Phone: [facility] Work Phone: Start: 05-23-2024 End: 05-23-2024 ambulatory MD Brice Madrid Work Phone: [facility] Work Phone: Start: 05-20-2024 End: 05-20-2024 ambulatory KARISSA ROSENTHAL [facility] Start: 05-20-2024 End: 05-20-2024 ambulatory [facility] Work Phone: Start: 05-20-2024 End: 05-20-2024 Patient encounter procedure [facility] G[facility] Work Phone: Start: 04-25-2024 End: 04-25-2024 ambulatory BRICE [facility] Start: 03-15-2024 End: 03-15-2024 ambulatory [facility] Start: 02-05-2024 Telephone encounter Lidya Bar[facility] Start: 02-01-2024 End: 02-02-2024 Emergency department patient visit VIKY VAZQUEZ [facility] Start: 01-30-2024 End: 01-30-2024 Emergency department patient visit BRICE Ibarra [facility] Start: 07-14-2023 Telephone encounter Viky Waters [facility] [address] Start: 07-14-2023 End: 07-14-2023 ambulatory Viky Waters Other [employer] Other Start: 07-14-2023 End: 07-14-2023 Departed Referred EFFIE Waters Work Phone: [facility] [employer] [place] Work Phone: Start: 07-10-2023 Office outpatient ne w 20 minutes Viky Waters [facility] Start: 07-10-2023 End: 07-10-2023 ambulatory Viky Waters Other [employer] Other Start: 07-10-2023 End: 07-10-2023 Departed Referred EFFIE Waters Work Phone: [facility] [employer] [place] Work Phone: Start: 08-02-2021 End: 08-04-2021 Evaluation and management of inpatient DAT KOLB [facility] Start: 08-02-2021 End: 08-04-2021 Evaluation and management of inpatient 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M Work Phone: [facility] Labor and Delivery Start: 09-14-2017 End: 09-15-2017 Ambulatory ABDULAZIM LUCY Facility:[facility] Start: 09-11-2017 End: 09-12-2017 Ambulatory DEFAULT PHYSICIAN Facility:[facility] Start: 03-05-2017 Well adult Lidya Geiger [facility] Procedures Date Procedure Procedure Detail Performing Clinician Start: 09-01-2024 Urine test visual color cmprsn meths Dat Billings Kennedi CNM Work Phone: Start: 08-31-2024 Adult depression screening assessment Brice Madrid MD Work Phone: Start: 06-14-2024 Computed tomography of abdomen and pelvis with contrast MD Brice Madrid Work Phone: Start: 05-23-2024 Esophagogastroduodenoscopy MD Brice vasquez Work Phone: Start: 05-23-2024 Esophagogastroduodenoscopy MD Brice vasquez Work Phone: Start: 03-15-2024 Follow-up visit Follow-up BRICE MADRID Start: 06-08-2023 Adult depression screening assessment Lidya Geiger [employer] REPA[employer]ER Start: 08-02-2021 Blood count complete auto&auto difrntl wbc Neyda E Pool 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 - CNM Work Phone: Start: 08-02-2021 Drug screen class list a Neyda E Pool 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 - CNM Work Phone: Start: 08-02-2021 Urnls dip stick/tablet rgnt auto w/o microscopy Dat Kennedi 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 - CNM Work Phone: Start: 08-02-2021 GBS, [...] Treatment Date Care Activity Detail Author Start: 09-14-2025 Adult BMI Screening Adult BMI Screen ing [facility] Start: 09-14-2025 Tobacco Screening Tobacco Screening [facility] Start: 08-31-2025 Adult BMI Screening Adult BMI Screen ing [facility] Start: 08-31-2025 Depression Screening Depression Scre ening [facility] Start: 08-31-2025 Tobacco Screening Tobacco Screening [facility] Start: 01-31-2025 Adult BMI Screening Adult BMI Screen ing [facility] Start: 01-31-2025 Tobacco Screening Tobacco Screening [facility] Start: 01-16-2025 End: 01-16-2025 Patient encounter procedure 01/16/2025 4:30 PM EST Routine [facility] [address] [place] [address] Dat Kolb CNM [address] [place] [address] [facility] Start: 11-21-2024 End: 11-21-2024 Patient encounter procedure [facility] Comment on above: Arrived Start: 10-17-2024 End: 10-17-2024 Patient encounter procedure [facility] Comment on above: Encounter for superv ision of other normal , first trimester Start: 10-17-2024 End: 10-17-2025 ABO/Rh ABO/Rh Lab Routine Encounter for supervision of other normal , first trimester Expected: 10/17/2024 (Approximate), Expires: 10/17/2025 [facility] Comment on above: Expected: 10/17/2024 (Approximate), Expires: 10/17/2025 Start: 10-17-2024 End: 10-17-2025 Antibody screen Antibody screen Lab Routine Encounter for supervision of other normal , first trimester Expected: 10/17/2024 (Approximate), Expires: 10/17/2025 [facility] Comment on above: Expected: 10/17/2024 (Approximate), Expires: 10/17/2025 Start: 10-17-2024 End: 10-17-2025 Bacteria identified in Urine by Culture Urine culture Microbiology Routine Encounter for supervision of other normal , first trimester Expected: 10/17/2024 (Approximate), Expires: 10/17/2025 [facility] Comment on above: Expected: 10/17/2024 (Approximate), Expires: 10/17/2025 Start: 10-17-2024 End: 10-17-2025 CBC panel - Blood by Automated count CBC Lab Routine Encounter for supervision of other normal , first trimester Expected: 10/17/2024 (Approximate), Expires: 10/17/2025 [facility] Comment on above: Expected: 10/17/2024 (Approximate), Expires: 10/17/2025 Start: 10-17-2024 End: 10-17-2025 DRUG TOX MONITORIGN 6 W/ CONF,URINE DRUG TOX MONITORIGN 6 W/ CONF,URINE Lab Routine Encounter for supervision of other normal , first trimester Expected: 10/17/2024 (Approximate), Expires: 10/17/2025 [facility] Comment on above: Expected: 10/17/2024 (Approximate), Expires: 10/17/2025 Start: 10-17-2024 End: 10-17-2025 Hemoglobin A1c/Hemoglobin.total in Blood Hemoglobin A1c Lab Routine Encounter for supervision of other normal , first trimester Expected: 10/17/2024 (Approximate), Expires: 10/17/2025 [facility] Comment on above: Expected: 10/17/2024 (Approximate), Expires: 10/17/2025 Start: 10-17-2024 End: 10-17-2025 Hepatitis B virus surface Ag [Presence] in Serum or Plasma by Immunoassay Hepatitis B surface antigen Lab Routine Encounter for supervision of other normal , first trimester Expected: 10/17/2024 (Approximate), Expires: 10/17/2025 [facility] Work Phone: Comment on above: Expected: 10/17/2024 (Approximate), Expires: 10/17/2025 Start: 10-17-2024 End: 10-17-2025 HIV-1/HIV-2 antigen/antibody combination immunoassay HIV-1 and HIV-2 antibodies Lab Routine Encounter for supervision of other normal , first trimester Expected: 10/17/2024 (Approximate), Expires: 10/17/2025 [facility] Comment on above: Expected: 10/17/2024 (Approximate), Expires: 10/17/2025 Start: 10-17-2024 End: 10-17-2025 Neisseria gonorrhoeae DNA [Presence] in Cervical mucus by LULI with probe detection C. trachomatis / N. gonorrhoeae, DNA probe Pathology and Cytology Routine Encounter for supervision of other normal , first trimester Expected: 10/17/2024 (Approximate), Expires: 10/17/2025 [facility] Comment on above: Expected: 10/17/2024 (Approximate), Expires: 10/17/2025 Start: 10-17-2024 End: 10-17-2025 Reagin Ab [Presence] in Serum by RPR RPR Lab Routine Encounter for supervision of other normal , first trimester Expected: 10/17/2024 (Approximate), Expires: 10/17/2025 [facility] Comment on above: Expected: 10/17/2024 (Approximate), Expires: 10/17/2025 Start: 10-17-2024 End: 10-17-2025 Rubella antibody, IgG Rubella antibody, IgG Lab Routine Encounter for supervision of other normal , first trimester Expected: 10/17/2024 (Approximate), Expires: 10/17/2025 [facility] Comment on above: Expected: 10/17/2024 (Approximate), Expires: 10/17/2025 Start: 10-17-2024 End: 10-17-2025 TSH W/REFLEX TO FT4 TSH W/REFLEX TO FT4 Lab Routine Encounter for supervision of other normal , first trimester Expected: 10/17/2024 (Approximate), Expires: 10/17/2025 [facility] Comment on above: Expected: 10/17/2024 (Approximate), Expires: 10/17/2025 Start: 10-17-2024 End: 10-17-2025 URINALYSIS MICROSCOPIC URINALYSIS MICROSCOPIC Lab Routine Encounter for supervision of other normal , first trimester Expected: 10/17/2024 (Approximate), Expires: 10/17/2025 [facility] Comment on above: Expected: 10/17/2024 (Approximate), Expires: 10/17/2025 Start: 09-20-2024 End: 09-20-2024 Professional / ancillary services management 09/20/2024 11:30 AM EDT Ancillary Procedure [facility] [address] [address] [facility] Start: 09-20-2024 End: 09-20-2024 Professional / ancillary services management 09/20/2024 9:30 AM EDT Ancillary Procedure [facility] [address] [address] [facility] Start: 09-20-2024 End: 09-20-2024 Patient encounter procedure 09/20/2024 9:00 AM EDT Routine [facility] [address] [place] [id number] Dat Kolb, CNM [address] [place] [address] [facility] Start: 09-19-2024 End: 09-19-2024 Patient encounter procedure 09/19/2024 1:30 PM EDT Routine [facility] [address] [place] [address] Dat Kolb, CNM [address] [place] [address] Arrived [facility] Comment on above: Arrived Start: 09-14-2024 End: 09-14-2024 Patient encounter procedure 09/14/2024 4:30 PM EDT Office Visit [facility] [address] [place] [id number] Brice Madrid MD [address] [place] [address] [facility] Start: 09-01-2024 End: [...] masses of neck Expected: 08/31/2024, Expires: 08/31/2025 [facility] Comment on above: Expected: 08/31/2024 , Expires: 08/31/2025 Start: 08-31-2024 End: 08-31-2025 US Head and neck soft tissue Ultrasound soft tissue head neck Imaging Routine Multiple masses of neck Expected: 08/31/2024, Expires: 08/31/2025 [facility] Comment on above: Expected: 08/31/2024 , Expires: 08/31/2025 Start: 07-24-2024 Influenza vaccination Influenza Vacc [facility] Start: 07-19-2024 End: 07-19-2025 US Pelvis transvaginal [facility] Work Phone: Comment on above: Expected: 07/19/2024 , Expires: 07/19/2025 Start: 07-19-2024 End: 07-19-2024 Patient encounter procedure 07/19/2024 1:15 PM EDT Office Visit [facility] [address] [place] [address] Dat Kolb, CNM [address] [place] [address] Arrived [facility] Comment on above: Arrived Start: 06-08-2024 Depression Screening Depression Scre vera [facility] Start: 05-23-2024 [facility] Start: 07-24-2023 Influenza vaccination Influenza Vacc ine [facility] Start: 07-10-2023 [facility] Start: 07-24-2021 Influenza vaccination Flu vaccine (# 1) [facility] [employer] Work Phone: Start: 2019 Screening for malign ant neoplasm of cervix [facility] Start: 2017 DTaP/Tdap/Td vaccine (1 - Tdap) DTaP/Tdap/Td vaccine (1 - Tdap) [employer] Phone: Start: 2016 Adult BMI Follow Up Plan [facility] Start: 2014 Screening for Chlamy logan trachomatis [facility]lamydia [facility] Phone: Start: 2013 HIV screening [facility] screen [facility] Work Phone: Start: 2010 COVID-19 Vaccine (1) COVID-19 Vaccin e (1) [facility]: Start: 2009 DTaP,Tdap and Td Vaccines (6 - Tdap) DTaP,Tdap and Td Vaccines (6 - Tdap) [facility] Start: 2009 HPV vaccine (1 - 2-d ose series) HPV vaccine (1 - 2-dose series) [employer] Phone: Start: 2004 Pneumococcal 0-64 ye ars Vaccine (1 of 2 - PPSV23) Pneumococcal 0-64 years Vaccine (1 of 2 - PPSV23) [facility] Phone: Start: 1999 Varicella vaccine (1 of 2 - 2-dose childhood series) Varicella vaccine (1 of 2 - 2-dose childhood series) [facility] Phone: Start: 1998 Hepatitis C screening Hepatitis C sc reen [facility] Phone: Start: 1998 Tobacco Counseling Tobacco Counselin g [facility] [employer] [facility] Atopobium vaginae DN A [Presence] in Vaginal fluid by LULI with probe detection [facility] Bacterial vaginosis associated bacterium 2 DNA [Presence] in Vaginal fluid by LULI with probe detection [facility] End: 08-31-2025 C-reactive protein C-reactive protein Lab Routine Multiple masses of neck 1 Occurrences starting 08/31/2024 until 08/31/2025 [facility] Work Phone: Comment on above: 1 Occurrences starti ng 08/31/2024 until 08/31/2025 Comprehensive metabo lic 1999 panel - Serum or Plasma [facility] Comprehensive metabo lic 1999 panel - Serum or Plasma [facility] CT Abdomen and Pelvi s W contrast IV [facility] End: 08-31-2025 Jerod-Pena virus VCA, IgG Jerod-Pena virus VCA, IgG Lab Routine Multiple masses of neck Mononucleosis syndrome 1 Occurrences starting 08/31/2024 until 08/31/2025 [facility] Comment on above: 1 Occurrences starti ng 08/31/2024 until 08/31/2025 End: 08-31-2025 Jerod-Pena virus VCA, IgM Jerod-Pena virus VCA, IgM Lab Routine Multiple masses of neck Mononucleosis syndrome 1 Occurrences starting 08/31/2024 until 08/31/2025 [facility] Comment on above: 1 Occurrences starti ng 08/31/2024 until 08/31/2025 End: 08-31-2025 Erythrocyte sedimentation rate Erythrocyte Sedimentation Rate (ESR) Lab Routine Multiple masses of neck 1 Occurrences starting 08/31/2024 until 08/31/2025 [facility] Comment on above: 1 Occurrences starti ng 08/31/2024 until 08/31/2025 Hepatitis C virus Ab [Presence] in Serum or Plasma by Immunoassay Hepatitis C antibody Lab Routine Encounter for supervision of other normal , first trimester Ordered: 10/17/2024 [facility] Comment on above: Ordered: 10/17/2024 Megasphaera sp type 1 DNA [Presence] in Vaginal fluid by LULI with probe detection [facility] Patient Education Gastritis [place] n polyps Know your Meds [facility] Work Phone: Rheumatoid factor [Units/volume] in Serum or Plasma [facility] Immunizations Immunization Date Immunization Notes Care Provider Fa cility 08-03-2021 diphtheria, tetanus toxoids and acellular pertussis vaccine, unspecified formulation 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 Work Phone: [facility] Work Phone: 08-03-2021 measles, mumps and rubella virus vaccine 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 Work Phone: [facility] Work Phone: 02-17-2019 influenza virus vaccine, unspecified formulation Brice Madrid MD Work Phone: [facility] 06-05-2003 diphtheria, tetanus toxoids and acellular pertussis vaccine Lidya Geiger [facility] 06-05-2003 measles, mumps and rubella [facility], [facility] 01-01-2000 diphtheria, tetanus toxoids and acellular pertussis vaccine, unspecified formulation Lidya Geiger [facility] 01-01-2000 poliovirus vaccine, unspecified formulation Lidya Geiger [facility] 10-01-1999 haemophilus influenz ae type b vaccine, conjugate unspecified formulation [facility] 07-04[facility]1999 measles, mumps and rubella virus vaccine [facility] 04-04-1999 hepatitis B vaccine, pediatric or pediatric/adolescent dosage [facility] 01-03-1999 diphtheria, tetanus toxoids and acellular pertussis vaccine, unspecified formulation Lidya Geiger [facility] 01-03-1999 haemophilus influenz ae type b vaccine, conjugate unspecified formulation Lidya Geiger [facility] 1998 diphtheria, tetanus toxoids and acellular pertussis vaccine, unspecified formulation Lidya Geiger [facility] 1998 haemophilus influenz ae type b vaccine, conjugate unspecified formulation Lidya Geiger [facility] 1998 poliovirus vaccine, unspecified formulation Lidya Geiger [facility] 1998 diphtheria, tetanus toxoids and acellular pertussis vaccine, unspecified formulation [facility] 1998 haemophilus influenz ae type b vaccine, conjugate unspecified formulation Lidya Juanjo [facility] 1998 poliovirus vaccine, unspecified formulation Lidya Geiger [facility] 1998 hepatitis B vaccine, pediatric or pediatric/adolescent dosage Lidya Geiger [facility] 1998 hepatitis B vaccine, pediatric or pediatric/adolescent dosage Lidya Geiger [facility] Payers Date Payer Category Payer Managed Care, Other (non HMO) [id number] 2024 Unknown 2024 Unknown [id number] 2024 Self-pay 2024 Private Health Insurance [id number] 2023 Private Health Insurance [id number] 2022 Medicaid [id number] 2. [id number] 2020 Unknown [id number] 15 1998 Unknown [id number] 2.16.8 40.1.635878.3.579.2.173 1998 Unknown [id number] 2.16.840.1.428927.3.579.2.1286 1998 Unknown [id number] 2.16.840.1.346461.3.579.2.1286 1998 Unknown [id number] 2.16.840.1.710964.3.579.2.1286 1998 Unknown [id number] 2.16.840.1.849756.3.579.2.128 1998 Unknown [id number] 2.16.840.1.497968.3.579.2.1286 1998 Unknown [id number] 2.16.840.1.418694.3.579.2.1285 1998 Unknown [id number] 2.16.840.1.817626.3.579.2.1285 1998 Unknown [id number] 2.16.840.1.841447.3.579.2.1285 1998 Unknown [id number] 2.16.840.1.916437.3.579.2.1285 1998 Unknown [id number] 2.16.84 0.1.209171.3.579.2.1258 1998 Unknown [id number] 2.16.84 0.1.657202.3.579.2.1258 1998 Unknown [id number] 2.16.84 0.1.928202.3.579.2.1258 1998 Unknown [id number] 2.16.84 0.1.693188.3.579.2.1258 1998 Unknown [id number] 2.16.84 0.1.248009.3.579.2.1258 1998 Unknown [id number] 2.16.84 0.1.592431.3.579.2.1258 1998 Unknown [id number] 2.16.84 0.1.068300.3.579.2.1258 1998 Unknown [id number] 2.16.84 0.1.980067.3.579.2.1259 Unknown [id number] Unknown [id number] 2.16.8 40.1.164974.3.579.2.531 Unknown [id number] 2.16.8 40.1.495709.3.579.2.531 Unknown [id number] 2.16.8 40.1.183053.3.579.2.531 Social History Date Type Detail Facility Start: 04-06-2019 End: 03-15-2024 Tobacco smoking status NHIS Current every day smoker [employer] Phone: Start: 08-03-2021 End: 07-19-2024 Tobacco use and exposure Never used [employer] Start: 08-03-2021 Alcohol intake Current non-drinker of alcohol (finding) [employer] Phone: Start: 08-02-2021 Tobacco Comment 1-2 cigs a day [employer] Phone: Start: 1998 Sex Assigned At Not on file [employer] Phone: Exposure to SARS-CoV -2 (event) Not sure [employer] Start: 02-01-2024 End: 09-01-2024 Sex Assigned At [facility] [employer] Start: 2000 Sex Assigned At Female [facility] Start: 07-09-2023 Tobacco smoking status NHIS Ex-smoker [employer] Start: 05-20-2024 End: 05-23-2024 History of tobacco use Current smoker [employer] Start: 04-06-2019 History of tobacco use [employer] Start: 02-01-2024 End: 09-01-2024 Alcohol intake Ex-drinker (finding) [employer] Start: 02-01-2024 End: 09-01-2024 History of Social function [facility] Adolescent depressio n screening assessment 0 [facility] Start: 07-09-2023 Tobacco Comment 1 cigarette a day-every other day [employer] Start: 07-09-2023 Alcohol Comment rare [facility] Start: 07-19-2024 Tobacco smoking status NHIS Never smoked tobacco [facility] Start: 07-15-2024 [facility] Start: 06-26-2015 Sex Female (finding) [facility] Tobacco smoking stat NHIS Tobacco smoking consumption unknown [facility] Goals Date Patient Goal Desired Activity /State Clinical Notes 08-04-2021 to 12-30-2024 Telephone Encounter - Lita Clancy - 12/30/2024 10:11 AM ESTTelephone Encounter - Lita Clancy - 12/30/2024 10:11 AM Brandin Kolb CNM - 12/19/2024 4:30 PM EST Note Date & Type Note Facility 12-30-2024 Telephone encounter Note Tn, my name is Radha Gauthier. I am calling about question for Ball or even Eva in her office. If 1 of them could just give me a call back against Radha Gauthier. My day is [phone] and my phone number is [phone]. Thank you. [facility] 12-30-2024 Miscellaneous Notes Tn, my name is Radha Gauthier. I am calling about question for Ball or even Eva in her office. If 1 of them could just give me a call back against Radha Gauthier. My day is 8998 and my phone number is [phone]. Thank you. documented in this encounter [facility] 12-19-2024 History of Present illness Narrative Subjective No chief complaint on file. Radha Dickinson is a 24 y.o. at 20w6d with a working estimated date of delivery of 05/02/2025, by Ultrasound who presents for a routine visit. She denies vaginal bleeding, leakage of fluid, decreased movements, or contractions. OB History Para Term AB Living 3 1 1 1 1 SAB IAB Ectopic Multiple Live Births 1 1 # Outcome Date GA Lbr Mio/2nd Weight Sex Type Anes PTL Lv 3 Current 2 Term 08/02/21 38w3d / 00:11 6 lb 1.2 oz F Vag-Spont None N YULI 1 SAB 02/04/19 21w0d ND Her is complicated by: nausea and vomiting The following portions of the chart were reviewed this encounter and updated as appropriate: Objective Physical Exam weight: 137 lb Expected Total Weight Gain: 25 lb-35 lb Pregravid BMI: 19.89 BP: 120/70 Urine protein Urine glucose Labs: reviewed Imaging Assessment/Plan Continue vitamin. Labs reviewed. Rhogam GTT . Follow up in 2 weeks for a routine visit. documented in this encounter [facility] 10-17-2024 History of Present illness Narrative Subjective No chief complaint on file. Radha Dickinson is a 24 y.o. at 11w6d with a working estimated date of delivery of 05/02/2025, by Ultrasound who presents for a routine visit. She denies vaginal bleeding, leakage of fluid, decreased movements, and contractions. OB History Para Term AB Living 3 1 1 1 1 SAB IAB Ectopic Multiple Live Births 1 1 # Outcome Date GA Lbr Mio/2nd Weight Sex Type Anes PTL Lv 3 Current 2 Term 08/02/21 38w3d / 00:11 6 lb 1.2 oz F Vag-Spont None N YULI 1 SAB 02/04/19 21w0d ND Her is complicated by: marijuana use The following portions of the chart were reviewed this encounter and updated as appropriate: Objective Physical Exam weight: 129 lb, Pregravid BMI: 19.89 Expected Total Weight Gain: 25 lb-35 lb BP: 120/70 Labs Imaging Assessment/Plan Diagnoses and all orders for this visit: Marijuana use Encounter for supervision of other normal , first trimester - Ambulatory referral to Obstetrics / Gynecology - Hepatitis B surface antigen; Future - Rubella antibody, IgG; Future - CBC; Future - Antibody screen; Future - RPR; Future - Hemoglobin A1c; Future - TSH W/REFLEX TO FT4; Future - HIV-1 and HIV-2 antibodies; Future - ABO/Rh; Future - DRUG TOX MONITORIGN 6 W/ CONF,URINE; Future - Hepatitis C antibody - Urine culture; Future - URINALYSIS MICROSCOPIC; Future - C. trachomatis / N. gonorrhoeae, DNA probe; Future Urine protein-negative Urine glucose-negative Continue vitamin. Labs reviewed. Order placed for anatomy scan at 20 weeks. Follow up in 4 weeks for a routine visit. documented in this encounter [facility] 10-13-2024 Miscellaneous Notes Patient requesting refill of Ondansetron to [facility] documented in this encounter [facility] 10-13-2024 Telephone encounter Note Patient requesting refill of Ondansetron to [facility] 09-20-2024 Telephone encounter Note Kimmie from the [facility] Ultrasound called to say the order needs updated to say transvaginal and then faxed to [phone]. Ty [facility] 09-20-2024 Miscellaneous Notes Kimmie from the [facility] Ultrasound called to say the order needs updated to say transvaginal and then faxed to [phone]. Ty documented in this encounter [facility] 09-19-2024 History of Present illness Narrative Subjective No chief complaint on file. Radha Dickinson is a 24 y.o. at 11w3d with a working estimated date of delivery of 04/07/2025, by Last Menstrual Period who presents for a routine visit. She denies vaginal bleeding, leakage of fluid, decreased movements, and contractions. OB History Para Term AB Living 3 1 1 1 1 SAB IAB Ectopic Multiple Live Births 1 1 # Outcome Date GA Lbr Mio/2nd Weight Sex Type Anes PTL Lv 3 Current 2 Term 08/02/21 38w3d / 00:11 6 lb 1.2 oz F Vag-Spont None N YULI 1 SAB 02/04/19 21w0d ND Her is complicated by: nausea and vomiting The following portions of the chart were reviewed this encounter and updated as appropriate: Objective Physical Exam weight: 128 lb, Pregravid BMI: 19.89 Expected Total Weight Gain: 25 lb-35 lb BP: 122/80 Labs Imaging Assessment/Plan Diagnoses and all orders for this visit: Nausea and vomiting in prior to 22 weeks gestation Encounter for supervision of other normal , first trimester Urine protein-negative Urine glucose-negative Unable to auscultate heart tones at 11 weeks , patient going to [facility] Continue vitamin. Labs reviewed. Order placed for anatomy scan at 20 weeks. Follow up in 4 weeks for a routine visit. documented in this encounter [facility] 09-14-2024 History of Present illness Narrative Images from the original note were not included. [address] [facility] [address] SUBJECTIVE: Patient ID: Radha Dickinson [...] note were not included. [address] [facility] [address] SUBJECTIVE: Patient ID: Radha Dickinson is a [...] this encounter. Follow-up: documented in this encounter [facility] 09-06-2024 Note US SOFT TISS HEAD NE CK Procedure: US SOFT TISS HEAD NECK; Reason for Exam: Multiple masses of neck; Comparison: None Technique: Real time sonography of the neck soft tissues performed. FINDINGS: In the right retroauricular region the cube cutter demonstrates a hypoechoic soft tissue lesion which measures 1.4 x 0.7 x 0.7 cm. There appears to be abnormal internal blood flow. In the left occipital region, cube cutter demonstrates a reniform hypoechoic lesion measuring 1.0 [...] Roshan Kramer MD on 09/06/2024 4:35 PM [facility] 09-01-2024 History of Present illness Narrative Subjective [...] verification of viability documented in this encounter [facility] 08-31-2024 History of Present illness Narrative Images from the original note were not included. [address] [facility] [id number] SUBJECTIVE: Patient ID: Radha Dickinson is a [...] recheck by oncology documented in this encounter [employer] 07-19-2024 History of Present illness Narrative PROBLEM VISIT Radha Dickinson is 24 y.o. a patient of [facility] Here for Last pap: 09/18/21 Last mammogram: Patient's last menstrual period was 2024 (approximate). History: History reviewed. No pertinent past medical history. Past Surgical History: Procedure Laterality Date KNEE SURGERY Right No family history on file. @SOCX@ Allergies: No Known Allergies Medications: Current Outpatient Medications on File Prior to Visit Medication Sig Dispense Refill ondansetron ODT (Zofran-ODT) 4 MG disintegrating tablet 1 tablet on the tongue and allow to dissolve Orally every 6-8 hrs prn nausea and vomiting for 10 days [DISCONTINUED] medroxyPROGESTERone (Depo-Provera) 150 MG/ML suspension prefilled syringe injection syringe INJECT 1ML INTO THE SHOULDER, THIGH OR BUTTOCKS ONE TIME FOR ONE DOSE 1 mL 2 No current facility-administered medications on file prior to visit. There were no vitals filed for this visit. HPI: ROS: Review of Systems All other systems reviewed and are negative. Physical exam: Physical Exam Cardiovascular: Rate and Rhythm: Normal rate and regular rhythm. Pulses: Normal pulses. Heart sounds: Normal heart sounds. Pulmonary: Effort: Pulmonary effort is normal. Breath sounds: Normal breath sounds. Abdominal: General: Bowel sounds are normal. Tenderness: There is generalized abdominal tenderness and tenderness in the suprapubic area. Assessment and Plan: There are no diagnoses linked to this encounter. Patient has abdominal tenderness with palpation she states her bowel movements are normal and no difficulty with bowel movements. She has been sick and losing weight for a long time, like over a year. She has been to several specialists to see what is wrong and she had a CT scan that showed ovarian cysts and was told to follow up with me. CT scan done at [facility] reviewed and does not have any measurements of ovarian cysts so I will order US here today. Patient has been to specialists such as GI, oncology, endocrinology, thyroid, etc and no one can find out what's wrong with me. She states she has lost 70-80 lbs in the last year and at first they told me they thought I had lymphoma. She states her PCP does not see her, keeps referring her specialists and she's seen everyone she feels like. She is hoping someone can figure out what is wrong. She eats about every 2 days as she gets nauseated and vomits. I do want her to make an appt with her PCP and meet with him and go over all of the testing, results and his recommendations. PVU I will call her when we get the results and then recommend she see PCP No follow-ups on file. There are no Patient Instructions on file for this visit. Eva Daigle MA,07/19/2024 1:29 PM documented in this encounter [facility] 05-23-2024 History and physical note Note Date/Time May 23, 2024 9:59a m [facility] [address] [place] [address] Gastroenterology H&P Signed Patient: Radha Dickinson MR#: [id number] : 2000 Acct:[id number] Age/Sex: 23 / F Adm Date: 4 Loc: Room: Type: [facility] Attending Dr: Karissa Rosenthal DO Copies [...] <Electronically signed by Karissa Rosenthal DO> 05/23/24 [address] [facility] Work Phone: 1(475) 355-311507-01-2024 [facility]-2024 Miscellaneous Notes* Telephone Encounter - Lidya Geiger CMA - 02/05/2024 10:00 AM EDT Patient with sinus pressure asking for ATB to [facility] * Telephone Encounter - Brice Madrid MD - 02/05/2024 10:00 AM EDT Zpak sent to [facility] * Telephone Encounter - Lidya Geiger CMA - 02/05/2024 10:00 AM EDT Patient advised [facility] Telephone encounter Note* Telephone Encounter - Lidya Geiger CMA - 02/05/2024 10:00 AM EDT Patient with sinus pressure asking for ATB to [employer] [employer] [id number] Telephone encounter Note* Telephone Encounter - Brice Madrid MD - 02/05/2024 10:00 AM EDT Zpak sent to [employer] [id number] Telephone encounter Note* Telephone Encounter - Lidya Geiger CMA - 02/05/2024 10:00 AM EDT Patient advised [employer]08-18-2023 Evaluation note* Encounter Date Diagnosis Assessment Notes Treatment Notes Treatment Clinical Notes Jun, Vaginal discharge (ICD-10 - N89.8) Vag + performed in office today. Will treat prophylactically for yeast based on physical exam and symptoms. Specimen was sent to lab and patient will be notified of results. Tx plan may be altered at time of results. Patient to follow with PCP or COMPUTATIONAL SCIENTIST as needed for persistent or worsening symptoms. Immediate eval if abdominal pain, fever, chills, body aches, back/flank pain, nausea, urinary complaints. Patient may use OTC external yeast infection creams for external irritation, do not insert creams or meds as Diflucan rx will treat. Avoid scratching and douching. Patient verbalizes understanding and is agreeable to treatment plan. [employer] Other 09-12-2021 History of Present illness Narrative* [...] 7 (1.702 m) 170 lb (77.1 kg) 08/02/21 1903 117/62 95 08/02/21 1902 98 F (36.7 C) 18 ABDOMEN: normal [...] states she last had a appointment with V. Floro CNM yesterday - states she did not have an SVE at appointment. Pt states last SVE was here at the hospital the last time she came in. [facility] [employer] Work Phone: evaluation note* Diagnosis 38 weeks gestation of state, incidental (normal spontaneous vaginal delivery) Normal delivery documented in this encounter [facility] [employer] Work Phone: evaluation noteNo assessment information available [facility] Work Phone: Evaluation noteNo InformationNortWern[facility] Other Evaluation note* Diagnosis Onset Date Resolution Status Abdominal pain acute Diarrhea acute Nausea & vomiting acute Unintentional weight loss [place] [facility] Work Phone: Evaluation note* Diagnosis Onset Date Resolution Status Abdominal pain acute Diarrhea acute Nausea & vomiting acute Unintentional weight loss [place] Splenomegaly acute Splenomegaly acute [facility] Work Phone: Evaluation note* Diagnosis Multiple masses of neck- Primary Mononucleosis syndrome Infectious mononucleosis [facility] Diagnosis examination or test, positive result Amenorrhea Absence of menstruation [facility] Diagnosis Multiple masses of neck- Primary Less than 8 weeks gestation of [facility] Diagnosis Nausea and vomiting in prior to 22 weeks gestation- Primary Encounter for supervision of other normal , first trimester [facility] Diagnosis Marijuana use- Primary Encounter for supervision of other normal , first trimester [facility]* Diagnosis Pelvic pain in female Unspecified symptom associated with female genital organs [facility] Diagnosis Encounter for supervision of other normal , third trimester- Primary documented in this encounter [facility] Narrative - Reported* Type Description Date Surgical History KNEE SURGERY Surgical History TENDON REPAIR IN HAND Surgical History WISDOME TEETH Hospitalization History CHILD [facility] Other Hospital Discharge instructions* Instructions* Tonia Cuellar RN - 08/04/2021 Follow-up with your OB doctor as specified. [facility] OB Department phone: Kalli Kolb, MSN, 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, CNM [place] [id number] [facility] [address] DIET Eat a well balanced diet focusing on foods high in fiber and protein. Drink plenty of fluids especially water. To avoid constipation you may take a mild stool softener as recommended by your doctor or trim technician. ACTIVITY Gradually increase your activity. Resume exercise regimen only after advice by your doctor or trim technician. Avoid lifting anything heavier than a gallon of milk for SIX weeks. Avoid driving until your doctor or trim technician has given their approval. Rise slowly from [...] of harming yourself or your infant. If infant will not stop crying, contact another adult for help or place in their crib on their back and take a break. NEVER shake your infant. BLEEDING Vaginal bleeding will decrease in amount [...] medications as recommended by your doctor or trim technician for pain If you develop a warm, [...] vitamins as directed by your doctor or trim technician. Refer to the booklet in the folder/binder for more information. If you feel you need more assistance or have questions, please call Agata Gray IBCLC, image consultant, at or the OB department to [...] area in your calf. documented in this [facility] [employer] Work Phone: InstructionsNot on filedocumented in this encounter [facility]ructions[facility] on filedocumented in this encounter [facility] SystemInstructionsNot on filedocumented in this encounter [facility] SystemInstructionsNot on filedocumented in this encounter [facility] SystemReason for visit Narrative* Maternity Services (Routine) - Closed Specialty Diagnoses / Procedures Referred By Leann ibarra Referred To Contact Obstetrics and Gynecology Diagnoses Encounter for supervision of other normal , first trimester Procedures MT OFFICE/OUTPATIENT [facility] HIGH MDM 60 MINUTES aDt Kolb, CNM [address] [place] [address] Phone: tel: fax: Dat Kolb, CNM [address] [place] [address] Phone: tel: fax: Referral ID Status Reason Start Date Expiration Date V isits Requested Visits Authorized [id number] Closed Specialty Services Required 09/19/2024 03/18/2025 1 1 [facility] Healthcare Summary Purpose Family History Relationship Condition Age at Onset Recorded Date/T jannette maternal grandfather Heart disease Unknown Advance Directives Documents on File Type Date Recorded Patient Grain Combine Driver Expl anation ACP-Advance Directive ACP-Power of Jinrikisha Driver Latest Code Status on File Code Status [...] weight loss Chief Complaint Refer by Brice Defra nce, unintentional weight loss unintentional weight loss/ n&v [...] section and content) DATE CREATED AUTHOR 05/18/2018 [facility] DATE CREATED AUTHOR AUTHOR'S ORGANIZ ATION 08/05/2021 [facility] DATE CREATED AUTHOR AUTHOR'S ORGANIZ ATION 04/26/2022 [facility] dical Specialist DATE CREATED AUTHOR AUTHOR'S ORGANIZ ATION 07/20/2024 [facility] DATE CREATED AUTHOR AUTHOR'S ORGANIZ ATION 09/08/2024 [facility] DATE CREATED AUTHOR AUTHOR'S ORGANIZ ATION 09/16/2024 [facility] DATE CREATED AUTHOR AUTHOR'S ORGANIZ ATION 12/20/[address] [facility] dical Specialists EPIC Reason for Visit (unrecogniz ed section and content) Reason Comments Contractions Reason Comments Mass Behind ear and hairl ine- itches and tender Reason Comments Initial Visit Reason Comments Follow-up Patient is ! Back of neck went down some, right ear has not went down Reason Onset Date Comments Med Refill 10/13/2024 Reason Comments Pelvic Pain Scheduled Active and Recently Administ ered Medications (unrecognized section and content) Medication Order 08/02/2021 08/03/2021 08/04/2021 benzocaine-menthol (DERMOPLAST) 20-0.5 % spray Topical, 2 TIMES DAILY, First dose on 08/03/21 at 0030, Apply to perineal area. Patient is capable and may self administer at bedside., 0138 (Given - Provider: Safia Reynolds, STEPHON)0900 (Due)2099 (Due) 09 (Due)2099 (Due) ibuprofen (ADVIL;MOTRIN) tablet 800 mg 800 mg, Oral, EVERY 8 HOURS, First dose on 08/03/21 at 0030, Do not crush or break., 0138 (Given - Provider: Safia Reynolds, STEPHON)0830 (Due)1704 (Given - Provider: Tonia Cuellar, RN) [...] day), First dose on 08/03/21 at 0900, 0900 (Due)2100 (Due) 09 (Due)2099 (Due) Wwxdeyh-Qerrii-Maevm Pertussis (BOOSTRIX) injection 0.5 mL 0.5 mL, IntraMUSCular, PRIOR TO DISCHARGE, Starting on 08/03/21 at 0014, For 1 dose, If not previously administered during at 27-36 weeks as recommended by CDC., witch kavita-glycerin (TUCKS) pad Topical, 2 TIMES DAILY, First dose on 08/03/21 at 0030, Apply to perineal area. Patient is capable and may self administer at bedside., 0030 (Due)0900 (Due)2100 (Due) 09 (Due)2099 (Due) Continuous Medication Order 08/02/2021 08/03/2021 08/04/2021 lactated ringers infusion (CANCELED) IntraVENous, at 125 mL/hr, CONTINUOUS, Starting on Thu08/02/21 at 2000, Labor and Delivery 2027 (New Bag - Provider: Safia Reynolds, STEPHON)2234 (New Bag - Provider: Safia Reynolds RN)2319 (Rate/Dose Change - Provider: Safia Reynolds, RN)2338 (Stopped - Provider: Safia Reynolds, RN)2348 (Canceled Entry - Provider: Safia Reynolds RN) oxytocin (PITOCIN) 30 units in 500 mL infusion (CANCELED) 1-24 cali-units/min (1-24 mL/hr), IntraVENous, at 1-24 mL/hr, CONTINUOUS, Starting on Thu08/02/21 at 2215, Begin infusion at 1 cali-unit/min (1 cali-unit per min = 1 mL per hour) and increase by 2 cali-unit/min after 30 minutes. Then increase by 2 cali-units/min as needed, no faster than every 30 minutes, until labor is achieved. Labor is defined as contractions every 2-3 minutes with cervical changes or [place] units (MVU) greater than 200 in a [...] goal. 2205 (New Bag - Provider: Safia Reynolds RN)2235 (Rate/Dose Change - Provider: Safia Reynolds, [...] with frequent/long duration piggyback infusions, Starting on Thu08/03/21 at 0014, Administer at the same rate [...] 1939, PRN for pain, Labor and Delivery 220 (Given - Provider: Safia Reynolds RN) oxytocin (PITOCIN) 30 units in 500 mL [...] Dates Viky Waters APRN Attending Provider Active Anodizing Line Operator Relationship Specialty Start Date End Date Brice Madrid MD [address] [place] [address] PCP - General Family Medicine 06/12/23 Team Status: Active Member Role Status Dates PHYSICIAN NO FAMILY Primary Care Provider Active Team Status: Inactive Member Role Status Dates PHYSICIAN NO FAMILY Primary Care Provider Active Start: May 20, 2024 End: May 20, 2024 Karissa Billings Ly , DO Attending Provider Active St art: May 20, 2024 End: May 20, 2024 Team Status: Active Member Role Status Dates Brice Madrid MD Primary Care Provider Active Team Status: Inactive Member Role Status Dates Karissa Rosenthal , DO Attending Provider Active St art: May 23, 2024 End: May 23, 2024 Brice Madrid MD Primary Care Provider Active Start: May 23, 2024 End: May 23, 2024 Team Status: Active Member Role Status Dates Karissa Rosenthal , Attending Provider, Other Provider Active Start: May 23, 2024 Brice Madrid MD Primary Care Provider Active Start: May 23, 2024 Team Status: Inactive Member Role Status Dates Brice Madrid MD Primary Care Provider Active Start: June 14, 2024 End: June 14, 2024 Karissa Rosenthal , DO Attending Provider Active St art: June 14, 2024 End: June 14, 2024 Team Status: Inactive Member Role Status Dates Brice Madrid MD Primary Care Provider Active Start: July 06, 2024 End: July 06, 2024 Genoveva Arce APRN Attending Provider Acti ve Start: July 06, 2024 End: July 06, 2024 Karissa Rosenthal , Referring Provider Active St art: July 06, 2024 End: July 06, 2024 Team Status: Active Member Role Status Gita Madrid MD Primary Care Provider Active Start: July 19, 2024 Genoveva Arce APRN Attending Provider Acti ve Start: July 19, 2024 Karissa Rosenthal , Referring Provider Active St art: July 19, 2024 Team Status: Inactive Member Role Status Gita Madrid MD Primary Care Provider Active Start: July 19, 2024 End: July 19, 2024 Genoveva Arce APRN Attending Provider Acti ve Start: July 19, 2024 End: July 19, 2024 Anodizing Line Operator Relationship Specialty Start Date End Date Brice Madrid MD [address] [address] PCP - General Family Medicine 06/12/23 Anodizing Line Operator Relationship Specialty Start Date End Date Brice Madrid MD [address] [place] [address] PCP - General Family Medicine 08/10/24 Dat Kolb CNM [address] [place] [facility] [place] [address] Obstetrics and Gynecology 06/30/23 Anodizing Line Operator Relationship Specialty Start Date End Date Brice Madrid MD [address] [place] [address] PCP - General Family Medicine 06/12/23 Anodizing Line Operator Relationship Specialty Start Date End Date Brice Madrid MD [address] [place] [address] PCP - General Family Medicine 08/10/24 Dat Kolb CNM [address] [place] [facility] [place] [address] Obstetrics and Gynecology 06/30/23 Anodizing Line Operator Relationship Specialty Start Date End Date Brice Madrid MD [address] [place] [address] PCP - General Family Medicine 08/10/24 Dat Kolb CNM [address] [place] [facility] [place] [address] Obstetrics and Gynecology 06/30/23 Anodizing Line Operator Relationship Specialty Start Date End Date Brice Madrid MD [address] [place] [address] PCP - General Family Medicine 06/12/23 Anodizing Line Operator Relationship Specialty Start Date End Date Brice Madrid MD [address] [place] [address] PCP - General Family Medicine 08/10/24 Dat Kolb CNM [address] [place] [address] Obstetrics and Gynecology 06/30/23 Anodizing Line Operator Relationship Specialty Start Date End Date Dat Kolb CNM [address] [place] [address] Obstetrics and Gynecology 06/30/23 Anodizing Line Operator Relationship Specialty Start Date End Date Dat Kolb CNM [address] [place] [facility] [place] [address] Obstetrics and Gynecology 06/30/23 Anodizing Line Operator Relationship Specialty Start Date End Date Dat Kolb CNM [address] [place] [facility] [place] [address] Obstetrics and Gynecology 06/30/23 Anodizing Line Operator Relationship Specialty Start Date End Date Brice Madrid MD [address] [place] [address] PCP - General Family Medicine 08/10/24 Dat Kolb CNM [address] [facility] [place] [address] Obstetrics and Gynecology 06/30/23 Anodizing Line Operator Relationship Specialty Start Date End Date Brice Madrid MD [address] [place] [address] PCP - General Family Medicine 06/12/23 Anodizing Line Operator Relationship Specialty Start Date End Date Brice Madrid MD [address] [place] [address] PCP - General Family Medicine 08/10/24 Dat Kolb CNM [address] [facility] [place] [address] Obstetrics and Gynecology 06/30/23 Anodizing Line Operator Relationship Specialty Start Date End Date Brice Madrid MD [address] [place] [address] PCP - General Family Medicine 08/10/24 Dat Kolb CNM [address] [facility] [place] [address] Obstetrics and Gynecology 06/30/23 Goals (unrecognized section and content) Goals may [...] BE BASED ON THE PRIMARY CLINICAL RECORDS. [facility]. provides no warranty or guarantee of the accuracy or completeness of information in this document.
[2024-12-30 16:33] VITALS: BP 104/58; PULSE 83
--- NOTE | 2024-12-30 17:02 | PC.NURSE ---
2637-Pt arrives from ER for further OB assessment. Report received from Erica SZYMANSKI. Pt has IV 20G Right AC. Pt taken to room 253 via wheelchair. Pt ambulates to bathroom and PO fluids given. handheld doppler tones obtained at this time; heart rate ranges from 136-157 bpm with very active movement noted audibly and per pt. Pt denies vaginal bleeding or leaking of fluid. Pt denies complications in . Pt reports very active movement daily. Pt begins to explain lower bilateral abdominal pain that increases with movement. Pt states she feels like its just normal round ligament pain . Pt states she has been experiencing this more recently. Pt states she is having regular bowel movements and no urinary s/s.Pt denies other s/s at this time.
--- NOTE | 2024-12-30 17:26 | PC.NURSE ---
1652-Discharge instructions given to patient at this time. Pt verbalizes understanding. 1655-Pt d/c home.
--- OUTSIDE RECORDS SUMMARY | 2024-12-30 17:38 | XMS_ITS | CCD ---
Author Organization [facility] [employer] Care Team Providers Care Databases Software Consultant Name Role Phone PHYSICIAN, DEFAULT Unavailable Unavailable PHYSICIAN, DEFAULT Unavailable Unavailable LUCY, ABDULAZIM Unavailable Unavailable LUCY, ABDULAZIM Unavailable Unavailable SELF, REFERRED Unavailable Unavailable SELF, REFERRED Unavailable Unavailable [place] Unavailable Unavailable LUCY, ABDULAZIM Unavailable Unavailable OTIS WEBSTER Unavailable Unavailable [place] Unavailable Unavailable Unavailable Primary Care Provider UnavailDAT Seaman Admitting Unavailable NEYDA LYLE Attending Unavailable Viky Waters Unavailable EFFIE Waters Attending Provider [phone] MD Jung Mcqueen Attending Provider Brice Madrid MD Primary Care Provider Ly, DO Karissa L Attending Provider MD Brice Madrid Primary Care Provider [phone] EFFIE Arce Attending Provider Ly, DO Karissa L Referring Provider Brice Madrid Primary Care Unavailable Ly, Karissa L Admitting Unavailable Ly, Karissa L Attending Unavailable Brice Madrid Primary Care Unavailable Ly, Karissa L Admitting Unavailable Ly, Karissa L Attending Unavailable Brice Madrid Primary Care Unavailable Ly, Karissa L Referring Unavailable Genoveva Arce Admitting Unavail able Genoveva Arce Attending Unavail able Kennedi ALBRIGHT, Dat L Unavailable Brice Madrid MD Primary Care Provider BRICE [...] [NKA] Propensity to adverse reactions (disorder) [facility] Repository (1 source) No Known Allergies; Translations: [No Known Allergies] Propensity to adverse reactions (disorder) [facility] Medications Current Medications Medication Drug Class(es) [...] a day for 7 day(s) Jun, Active zdfdgbde-yhou-MH-c alcium &mins (THERAGRAN-M) 9 mg iron-400 mcg tablet (1 source) nkumezit-temv-CW - calcium &mins (THERAGRAN-M) 9 mg iron-400 [...] 024 CRP [Mass/Vol] mg/L Normal 0.000-0.74 4 [facility] Comment on above: Performed By: #### 2 106-3 #### [facility] ([id number]) [address] [place] [address] CBC AND AUTO DIFFon 09-06-20 24 ABSOLUTE BASOPHIL 0.1 X10E9/L Normal 0.0-0.2 [facility] Comment on above: Performed By: #### 2 106-3 #### [facility] ([id number]) [address] [place] [address] ABSOLUTE NEUTROPHIL 7.6 X10E9/L High 1.5-6.6 [facility] Comment on above: Performed By: #### 2 106-3 #### [facility] ([id number]) [address] [place] [address] 18898 Basophils/100 WBC (Bld) 0.5 % Normal [facility] Comment on above: Performed By: #### 2 106-3 #### [facility] ([id number]) [address] [place] [address] 6[address]22 Eosinophils (Bld) [#/Vol] 0.2 10*3/uL Normal 0.0-0.4 [facility] Comment on above: Performed By: #### 2 106-3 #### [facility] ([id number]) [address] [place] [address] 43993 Eosinophils/100 WBC (Bld) 1.5 % Normal [facility] Comment on above: Performed By: #### 2 106-3 #### [facility] ([id number]) [address] [place] [address] 75208 Erythrocyte distribution width (RBC) [Ratio] 13.1 % Normal 11.5-15.0 [facility] Comment on above: Performed By: #### 2 106-3 #### [facility] ([id number]) [address] [place] [address] 59091 Hematocrit (Bld) [Volume fraction] 39.5 % Normal 35-47 [facility] Comment on above: Performed By: #### 2 106-3 #### [facility] ([id number]) [address] [place] [address] 23045 Hemoglobin (Bld) [Mass/Vol] 13.1 g/dL Normal 11.7-15.5 [facility] Comment on above: Performed By: #### 2 106-3 #### [facility] ([id number]) [address] [place] [address] 63815 Lymphocytes (Bld) [#/Vol] 2.4 10*3/uL Normal 1.0-3.5 [facility] Comment on above: Performed By: #### 2 106-3 #### [facility] ([id number]) [address] [place] [address] 44189 Lymphocytes/100 WBC (Bld) 20.9 % Normal [facility] Comment on above: Performed By: #### 2 106-3 #### [facility] ([id number]) [address] [place] [address] 46355 MCH (RBC) [Entitic mass] 30.6 pg Normal 27-34 [facility] Comment on above: Performed By: #### 2 106-3 #### [facility] ([id number]) [address] [place] [address] 78518 MCHC (RBC) [Mass/Vol] 33.2 g/dL Normal 32-36 [facility] Comment on above: Performed By: #### 2 106-3 #### [facility] ([id number]) [address] [place] [address] 11162 MCV (RBC) [Entitic vol] 92 fL Normal 80-100 [facility] Comment on above: Performed By: #### 2 106-3 #### [facility] ([id number]) [address] [place] [address] 24444 Monocytes (Bld) [#/Vol] 1.4 10*3/uL High 0-0.9 [facility] Comment on above: Performed By: #### 2 106-3 #### [facility] ([id number]) [address] [place] [address] 26220 Monocytes/100 WBC (Bld) 11.9 % Normal [facility] Comment on above: Performed By: #### 2 106-3 #### [facility] ([id number]) [address] [place] [address] 30909 Neutrophils/100 WBC (Bld) 65.2 % Normal [facility] Comment on above: Performed By: #### 2 106-3 #### [facility] ([id number]) [address] [place] [address] 79927 Platelet mean volume (Bld) [Entitic vol] 10.1 fL Normal 7-12 [facility] Comment on above: Performed By: #### 2 106-3 #### [facility] ([id number]) [address] [place] [address] 68370 Platelets (Bld) [#/Vol] 195 10*3/uL Normal 150-450 [facility] Comment on above: Performed By: #### 2 106-3 #### [facility] ([id number]) [address] [place] [address] 99611 RBC COUNT 4.28 X10E12/L Normal 3.80-5.20 [facility] Comment on above: Performed By: #### 2 106-3 #### [facility] ([id number]) [address] [place] [address] 09662 WBC (Bld) [#/Vol] 11.7 10*3/uL High 4.0-11.0 [facility] Comment on above: Performed By: #### 2 106-3 #### [facility] ([id number]) [address] [place] [address] 65290 EBV capsid IgG IA Qn (S)on 1 JEROD PENA VCA IgG >8.0 High <0.9 [facility] Comment on above: Result Comment: Interpretation-------- <0.9 Negative 0.9 - 1.0 Equivocal >1.0 Positive Performed By: #### 2 106-3 #### [facility] ([id number]) [address] [place] [address] 98076 EBV capsid IgM IA Qn (S)on 1 JEROD PENA VCA IgM 0.3 AI Normal <0.9 [facility] Comment on above: Result Comment: Interpretation-------- <0.9 Negative 0.9 - 1.0 Equivocal >1.0 Positive Performed By: #### C OVFLR #### [facility] ([id number]) [address] [place] [address] 21058 ESR Photometric method (Bld) [Velocity]on 09-06-2024 ESR, ERYTHROCYTE SEDIMENTATION RATE 2 mm/h Normal 0-20 [facility] Comment on above: Performed By: #### 2 106-3 #### [facility] ([id number]) [address] [place] [address] 54268 HCG ( test) Ql (U)o n 09-01-2024 Interpretation and review of laboratory results Abnormal [facility] Preg Test, Ur [facility] US OB < 14 WEEKS EARLYon US [...] Antinuclear Abs, IFA Negative Normal . [facility] Comment on above: Result Comment: Nega tive <1:80 Borderline 1:80 Positive >1:80 ICAP nomenclature: AC-0 For more information about Hep-2 cell patterns use ANApatterns.org, the official website for the International Consensus on Antinuclear Antibody (JORGE LUIS) Patterns (ICAP). Performed at: - [address] [id number] Concrete Smoother: Lionel Levy PhD, Phone: [phone] PERFORMED BY: [address] [address] PATHOLOGIST PROJECT MANAGER FOX PONCE M.D. Performed By: #### [facility] #### [facility] [address] Alanine aminotransferase [En zymatic activity/volume] in Serum or PlasmaOrdered By: Genoveva Pulliamsimon on 07-06-2024 ALT [Catalytic activity/Vol] 13 U/L Normal 7-52 [facility] Comment on above: Performed By: #### R A, JORGE LUIS, METH, HEPACUTE #### [facility] , #### CBC, LDH, FE and TIBC, KIRILL, CMP, [id number] #### [facility] [address] Albumin [Mass/volume] in Ser um or Plasma by Bromocresol green (BCG) dye binding methoOrdered By: Genoveva Claude on 07-06-2024 Albumin BCG dye [Mass/Vol] 5.2 g/dL 3.5-5.7 [facility] Alkaline phosphatase [Enzyma tic activity/volume] in Serum or PlasmaOrdered By: Genoveva Claude on 07-06-2024 ALP [Catalytic activity/Vol] 67 U/L Normal 34-104 [facility] Comment on above: Performed By: #### R A, JORGE LUIS, METH, HEPACUTE #### [facility] , #### CBC, LDH, FE and TIBC, KIRILL, CMP, [id number] #### [facility] [address] [place] [address] Aspartate aminotransferase [ Enzymatic activity/volume] in Serum or PlasmaOrdered By: Genoveva Claude on 07-06-2024 AST [Catalytic activity/Vol] 13 U/L Normal 13-39 [facility] Comment on above: Performed By: #### R A, JORGE LUIS, METH, HEPACUTE #### [facility] , #### CBC, LDH, FE and TIBC, KIRILL, CMP, [id number] #### [facility] [address] [place] [address] [place] Automated basophil %Ordered By: Genoveva Claude on 07-06-2024 Basophils/100 WBC (Bld) 0.3 % Normal . [facility] Comment on above: Performed By: #### R A, JORGE LUIS, METH, HEPACUTE #### [facility] , #### CBC, LDH, FE and TIBC, KIRILL, CMP, [id number] #### [address] Automated basophil countOrde red By: Genoveva Pulliamsimon on 07-06-2024 Basophils (Bld) [#/Vol] 0.0 10*3/uL Normal 0.0-0.2 [facility] Comment on above: Result Comment: PERF ORMED BY: [place] [address] PATHOLOGIST PROJECT MANAGER FOX PONCE M.D. Performed By: #### R A, JORGE LUIS, METH, HEPACUTE #### [facility] , #### CBC, LDH, FE and TIBC, KIRILL, CMP, [id number] #### [address] Automated blood monocyte cou ntOrdered By: Genoveva Claude on 07-06-2024 Monocytes (Bld) [#/Vol] 0.8 10*3/uL Normal 0.0-0.8 [facility] Comment on above: Performed By: #### R A, JORGE LUIS, METH, HEPACUTE #### [facility] , #### CBC, LDH, FE and TIBC, KIRILL, CMP, [id number] #### [address] Automated eosinophil %Ordere d By: Genoveva Claude on 07-06-2024 Eosinophils/100 WBC (Bld) 0.6 % Normal . [facility] Comment on above: Performed By: #### R A, JORGE LUIS, METH, HEPACUTE #### [facility] , #### CBC, LDH, FE and TIBC, KIRILL, CMP, [id number] #### [address] Automated eosinophil countOr dered By: Genoveva Claude on 07-06-2024 Eosinophils (Bld) [#/Vol] 0.1 10*3/uL Normal 0.0-0.45 [facility] Comment on above: Performed By: #### R A, JORGE LUIS, METH, HEPACUTE #### [facility] , #### CBC, LDH, FE and TIBC, KIRILL, CMP, [id number] #### [facility] [address] Automated monocyte %Ordered By: Genoveva Claude on 07-06-2024 Monocytes/100 WBC (Bld) 6.5 % Normal . [facility] Comment on above: Performed By: #### R A, JORGE LUIS, METH, HEPACUTE #### [facility] , #### CBC, LDH, FE and TIBC, KIRILL, CMP, [id number] #### [address] Automated neutrophil %Ordere d By: Genoveva Claude on 07-06-2024 Neutrophils/100 WBC (Bld) 62.6 % Normal . [facility] Comment on above: Performed By: #### R A, JORGE LUIS, METH, HEPACUTE #### [facility] , #### CBC, LDH, FE and TIBC, KIRILL, CMP, [id number] #### [address] Bilirubin.total [Mass/volume ] in Serum or PlasmaOrdered By: Genoveva Claude on 07-06-2024 Bilirubin [Mass/Vol] 1.0 mg/dL Normal 0.3-1.0 [facility] Comment on above: Performed By: #### R A, JORGE LUIS, METH, HEPACUTE #### [facility] , #### CBC, LDH, FE and TIBC, KIRILL, CMP, [id number] #### [address] Calcium [Mass/volume] in Ser um or PlasmaOrdered By: Genoveva Arce on 07-06-2024 Calcium [Mass/Vol] 10.4 mg/dL High 8.6-10.3 [facility] Comment on above: Performed By: #### R A, JORGE LUIS, METH, HEPACUTE #### [facility] , #### CBC, LDH, FE and TIBC, KIRILL, CMP, [id number] #### [address] Carbon dioxide, total [Moles /volume] in Serum or PlasmaOrdered By: Genoveva Claude on 07-06-2024 CO2 [Moles/Vol] 27.0 mmol/L Normal 21.0-31.0 [facility] Comment on above: Performed By: #### R A, JORGE LUIS, METH, HEPACUTE #### [facility] , #### CBC, LDH, FE and TIBC, KIRILL, CMP, [id number] #### [address] Chloride [Moles/volume] in S qing or PlasmaOrdered By: Genoveva Claude on 07-06-2024 Chloride [Moles/Vol] 102 mmol/L Normal 98-107 [facility] Comment on above: Performed By: #### R A, JORGE LUIS, METH, HEPACUTE #### [facility] , #### CBC, LDH, FE and TIBC, KIRILL, CMP, [id number] #### [address] Complete Blood Count Auto Di ffon 07-06-2024 Mean Corpuscular HGB Conc 33.5 g/dL Normal 32.0-35.0 [facility] Comment on above: Performed By: #### R A, JORGE LUIS, METH, HEPACUTE #### [facility] , #### CBC, LDH, FE and TIBC, KIRILL, CMP, [id number] #### [address] NRBC% 0.1 /100{WBC} Normal 0-0.5 [facility] Comment on above: Performed By: #### R A, JORGE LUIS, METH, HEPACUTE #### [facility] , #### CBC, LDH, FE and TIBC, KIRILL, CMP, [id number] #### [facility] [address] Comprehensive Metabolic Pane eduardo 07-06-2024 Albumin [Mass/Vol] 5.2 g/dL Normal 3.5-5.7 [facility] Comment on above: Performed By: #### R A, JORGE LUIS, METH, HEPACUTE #### [facility] , #### CBC, LDH, FE and TIBC, KIRILL, CMP, [id number] #### [facility] [address] [place] [address] Creatinine Clr Calc Pharmacy 94.62 Normal [facility] Comment on above: Performed By: #### R A, JORGE LUIS, METH, HEPACUTE #### [facility] , #### CBC, LDH, FE and TIBC, KIRILL, CMP, [id number] #### [address] GFR/1.73 sq M.predicted MDRD (S/P/Bld) [Vol rate/Area] mL/min/{1.73_m2} Normal [facility] Comment on above: Performed By: #### R A, JORGE LUIS, METH, HEPACUTE #### [facility] , #### CBC, LDH, FE and TIBC, KIRILL, CMP, [id number] #### [facility] [address] [place] [address] Creatinine [Mass/volume] in Serum or PlasmaOrdered By: Genoveva Arce on 07-06-2024 Creatinine [Mass/Vol] 0.80 mg/dL Normal 0.60-1.20 [facility] Comment on above: Performed By: #### R A, JORGE LUIS, METH, HEPACUTE #### [facility] , #### CBC, LDH, FE and TIBC, KIRILL, CMP, [id number] #### [facility] [address] Erythrocyte distribution wid th [Ratio] by Automated countOrdered By: Genoveva Claude on 07-06-2024 Erythrocyte distribution width (RBC) [Ratio] 13.7 % Normal 11.9-15.3 [facility] Comment on above: Performed By: #### R A, JORGE LUIS, METH, HEPACUTE #### [facility] , #### CBC, LDH, FE and TIBC, KIRILL, CMP, [id number] #### [facility] [address] Erythrocytes [#/volume] in B lood by Automated countOrdered By: Genoveva Claude on 07-06-2024 RBC (Bld) [#/Vol] 4.84 10*6/uL Normal 3.60-5.00 [facility] Comment on above: Performed By: #### R A, JORGE LUIS, METH, HEPACUTE #### [facility] , #### CBC, LDH, FE and TIBC, KIRILL, CMP, [id number] #### [address] Ferritin [Mass/volume] in Se rum or PlasmaOrdered By: Genoveva Claude on 07-06-2024 Ferritin [Mass/Vol] 28.8 ng/mL Normal 11.0-306.8 [facility] Comment on above: Performed By: #### R A, JORGE LUIS, METH, HEPACUTE #### [facility] , #### CBC, LDH, FE and TIBC, KIRILL, CMP, [id number] #### [facility] [address] [place] [address] Folate [Mass/volume] in Seru m or PlasmaOrdered By: Genoveva Claude on 07-06-2024 Folate [Mass/Vol] 17.2 ng/mL >5.9 [facility] Comment on above: Folate reference ran ge: >5.9 ng/mlThe WHO technical consultation on folate and vitamin [id number] has determined that folate concentrations lessthan 4 ng/ml are considered deficient. Glucose [Mass/volume] in Ser um or PlasmaOrdered By: Genoveva Arce on 07-06-2024 Glucose [Mass/Vol] 93 mg/dL Normal 70-100 [facility] Comment on above: ADA recommended refe rence rangeRandom Glucose Reference Range is dependent on time and content of last meal. Glucose of more than 200 mg/dL in a nonstressed, ambulatory subject supports the diagnosis of Diabetes Mellitus. Result Comment: [place] om Glucose Reference Range is dependent on time and content of last meal. Glucose of more than 200 mg/dL in a nonstressed, ambulatory subject supports the diagnosis of Diabetes Mellitus. ADA recommended reference range Performed By: #### R A, JORGE LUIS, METH, HEPACUTE #### [facility] , #### CBC, LDH, FE and TIBC, KIRILL, CMP, [id number] #### [address] Hematocrit [Volume Fraction] of Blood by Automated countOrdered By: Genoveva Arce on 07-06-2024 Hematocrit (Bld) [Volume fraction] 43.6 % Normal 34.0-46.4 [facility] Comment on above: Performed By: #### R A, JORGE LUIS, METH, HEPACUTE #### [facility] , #### CBC, LDH, FE and TIBC, KIRILL, CMP, [id number] #### [facility] [address] [place] [address] Hemoglobin [Mass/volume] in BloodOrdered By: Genoveva Arce on 07-06-2024 Hemoglobin (Bld) [Mass/Vol] 14.6 g/dL Normal 11.8-15.4 [facility] Comment on above: Performed By: #### R A, JORGE LUIS, METH, HEPACUTE #### [facility] , #### CBC, LDH, FE and TIBC, KIRILL, CMP, [id number] #### [address] Hepatitis Acute Panelon 06-23 HBsAg Screen Negative Normal Negative [facility] Comment on above: Performed By: #### [facility] #### [address] Hepatitis A Antibody IgM Negative Normal Negative [facility] Comment on above: Performed By: #### U [facility], [facility] #### [address] Hepatitis B Core Antibody IgM Negative Normal Negative [facility] Comment on above: Performed By: #### [facility] #### [address] Hepatitis C Virus Antibody Non-Reactive Normal Non Reactive [facility] Comment on above: Performed By: #### [facility] #### [address] Interpretation Hepatitis C Comment Normal . [facility] Comment on above: Result Comment: Not infected with HCV unless early or acute infection is suspected (which may be delayed in an immunocompromised individual), or other evidence exists to indicate HCV infection. Performed at: - [place] [id number] Concrete Smoother: Lionel Levy PhD, Phone: [phone] PERFORMED BY: [place] [address] PATHOLOGIST PROJECT MANAGER FOX PONCE M.D. Performed By: #### [facility] #### [address] Hepatitis B virus surface Ag [Presence] in Serum or Plasma by ImmunoassayOrdered By: Genoveva Arce on 07-06-2024 HBV surface Ag IA Ql Negative Negative [facility] Hepatitis C virus IgG Ab [Pr esence] in Serum or Plasma by ImmunoassayOrdered By: Genoveva Arce on 07-06-2024 HCV IgG IA Ql Non-Reactive Non Reactive [facility] Hepatitis C virus RNA [Units /volume] (viral load) in Serum or Plasma by LULI with probOrdered By: Genoveva Arce on 07-06-2024 HCV RNA LULI+probe Qn N/A [facility] Hepatitis C virus RNA [log u nits/volume] (viral load) in Serum or Plasma by LULI withOrdered By: Genoveva Claude on 07-06-2024 HCV RNA LULI+probe [Log units/Vol] N/A [facility] Iron [Mass/volume] in Serum or PlasmaOrdered By: Genoveva Arce on 07-06-2024 Iron [Mass/Vol] 64 ug/dL Normal 50-212 [facility] Comment on above: Performed By: #### R A, JORGE LUIS, METH, HEPACUTE #### [facility] , #### CBC, LDH, FE and TIBC, KIRILL, CMP, [id number] #### [facility] [address] Iron and TIBC Profileon 06-23 % Iron Saturation 14.5 % Low 20-50 [facility] Comment on above: Performed By: #### R A, JORGE LUIS, METH, HEPACUTE #### [facility] , #### CBC, LDH, FE and TIBC, KIRILL, CMP, [id number] #### [facility] [address] Total Iron Binding Capacity 440 ug/dL Normal 255-450 [facility] Comment on above: Performed By: #### R A, JORGE LUIS, METH, HEPACUTE #### [facility] , #### CBC, LDH, FE and TIBC, KIRILL, CMP, [id number] #### [facility] [address] Iron binding capacity [Mass/ volume] in Serum or PlasmaOrdered By: Genoveva Arce on 07-06-2024 Iron binding capacity [Mass/Vol] 440 ug/dL 255-450 [facility] Iron saturation [Mass Fracti on] in Serum or PlasmaOrdered By: Genoveva Arce on 07-06-2024 Iron saturation [Mass fraction] 14.5 % Low 20-50 [facility] LDH Lactate Dehydrogenaseon 07-06-2024 LDH Lactate Dehydrogenase 128 U/L Low 140-271 [facility] Comment on above: Performed By: #### R A, JORGE LUIS, METH, HEPACUTE #### [facility] , #### CBC, LDH, FE and TIBC, KIRILL, CMP, [id number] #### [facility] [address] [place] [address] [place] Lactate dehydrogenase [Enzym atic activity/volume] in Serum or Plasma by Lactate to pyOrdered By: Genoveva Claude on 07-06-2024 LDH Lactate to pyruvate reaction [Catalytic activity/Vol] 128 U/L Low 140-271 [facility] Leukocytes [#/volume] correc ryan for nucleated erythrocytes in Blood by Automated counOrdered By: Genoveva Claude on 07-06-2024 WBC corrected for nucl RBC Auto (Bld) [#/Vol] 11.6 10*3/uL 3.8-11.6 [facility] Leukocytes [#/volume] in Blo od by Automated countOrdered By: Genoveva Claude on 07-06-2024 WBC (Bld) [#/Vol] 11.6 10*3/uL Normal 3.8-11.6 [facility] Comment on above: Performed By: #### R A, JORGE LUIS, METH, HEPACUTE #### [facility] , #### CBC, LDH, FE and TIBC, KIRILL, CMP, [id number] #### [facility] [address] [place] [address] [place] Lymphocytes [#/volume] in Bl ood by Automated countOrdered By: Genoveva Claude on 07-06-2024 Lymphocytes (Bld) [#/Vol] 3.5 10*3/uL Normal 1.00-4.8 [facility] Comment on above: Performed By: #### R A, JORGE LUIS, METH, HEPACUTE #### [facility] , #### CBC, LDH, FE and TIBC, KIRILL, CMP, [id number] #### [facility] [address] [place], [place] [id number] [place] Lymphocytes/100 leukocytes i n Blood by Automated countOrdered By: Genoveva Arce on 07-06-2024 Lymphocytes/100 WBC (Bld) 30.0 % Normal . [facility] Comment on above: Performed By: #### R A, JORGE LUIS, METH, HEPACUTE #### [facility] , #### CBC, LDH, FE and TIBC, KIRILL, CMP, [id number] #### [facility] [address] MCH [Entitic mass] by Automa ryan countOrdered By: Genoveva Arce on 07-06-2024 MCH (RBC) [Entitic mass] 30.1 pg Normal 24.7-34.3 [facility] Comment on above: Performed By: #### R A, JORGE LUIS, METH, HEPACUTE #### [facility] , #### CBC, LDH, FE and TIBC, KIRILL, CMP, [id number] #### [facility] [address] MCHC Auto (RBC) [Mass/Vol]Or dered By: Genoveva Pulliamsimon on 07-06-2024 MCHC (RBC) [Mass/Vol] 33.5 g/dL 32.0-35.0 [facility] MCV [Entitic volume] by Auto mated countOrdered By: Genoveva Arce on 07-06-2024 MCV (RBC) [Entitic vol] 90.0 fL Normal 80-[address] [facility] Comment on above: Performed By: #### R A, JORGE LUIS, METH, HEPACUTE #### [facility] , #### CBC, LDH, FE and TIBC, KIRILL, CMP, [id number] #### [facility] [address] Methylmalonic Acidon 024 Methylmalonic Acid 184 Normal 0-378 [facility] Comment on above: Result Comment: This test was developed and its performance characteristics determined by [facility]. It has not been cleared or approved by the Food and Drug Administration. Performed at: [address] [id number] Concrete Smoother: Endy Arzate MD, Phone: [phone] Performed By: #### U RDS, UHCG #### [facility] [address] [place] [address] Neutrophils [#/volume] in Bl ood by Automated countOrdered By: Genoveva Arce on 07-06-2024 Neutrophils (Bld) [#/Vol] 7.3 10*3/uL Normal 1.8-7.7 [facility] Comment on above: Performed By: #### R A, JORGE LUIS, METH, HEPACUTE #### [facility] , #### CBC, LDH, FE and TIBC, KIRILL, CMP, [id number] #### [facility] [address] [place] [address] No Panel InformationOrdered By: Genoveva Arce on 07-06-2024 Estimated GFR (CKD-EPI) > 60.0 mL/Min [facility] Hepatitis A IgM Antibody Negative Negative [facility] Hepatitis B Core IgM Antibody Negative Negative [facility] Hepatitis C Interpretation Comment . [facility] Comment on above: Not infected with HC V unless early or acute infection issuspected (which may be delayed in an immunocompromisedindividual), or other evidence exists to indicate HCVinfection.Performed at: [facility] [id number] Director: Lionel Levy PhD, Phone: [phone] Pharmacy Creatinine Clearance (Chem 94.62 [facility] Nucleated erythrocytes [Pres ence] in Blood by Automated countOrdered By: Genoveva Arce on 07-06-2024 Nucleated RBC Auto Ql (Bld) 0.1 /100{WBC} 0-0.5 [facility] Platelet mean volume [Entiti c volume] in Blood by Automated countOrdered By: Genoveva Arce on 07-06-2024 Platelet mean volume (Bld) [Entitic vol] 9.9 fL Normal 6.3-10.7 [facility] Comment on above: Performed By: #### R A, JORGE LUIS, METH, HEPACUTE #### [facility] , #### CBC, LDH, FE and TIBC, KIRILL, CMP, [id number] #### [facility] [address] [place] [address] [place] Platelets [#/volume] in Bloo d by Automated countOrdered By: Genoveva Acre on 07-06-2024 Platelets (Bld) [#/Vol] 260 10*3/uL Normal 150-450 [facility] Comment on above: Performed By: #### R A, JORGE LUIS, METH, HEPACUTE #### [facility] , #### CBC, LDH, FE and TIBC, KIRILL, CMP, [id number] #### [address] Potassium [Moles/volume] in Serum or PlasmaOrdered By: Genoveva Arce on 07-06-2024 Potassium [Moles/Vol] 3.8 mmol/L Normal 3.5-5.1 [facility] Comment on above: Performed By: #### R A, JORGE LUIS, METH, HEPACUTE #### [facility] , #### CBC, LDH, FE and TIBC, KIRILL, CMP, [id number] #### [facility] [address] [place] [address] Protein [Mass/volume] in Ser um or PlasmaOrdered By: Genoveva Arce on 07-06-2024 Protein [Mass/Vol] 8.3 g/dL Normal 6.4-8.9 [facility] Comment on above: Performed By: #### R A, JORGE LUIS, METH, HEPACUTE #### [facility] , #### CBC, LDH, FE and TIBC, KIRILL, CMP, [id number] #### [facility] [address] Rheumatoid Factoron 07-06-20 Rheumatoid Factor 10.2 Normal <14.0 [facility] Comment on above: Result Comment: Perf ormed at: - [facility] [address] [id number] Concrete Smoother: Lionel Lvey PhD, Phone: [phone] Performed By: #### U ROSENDO, [facility] #### [facility] [address] Serum globulin measurement b y calculation (mass/volume)Ordered By: Genoveva Pulliamsimon on 07-06-2024 Globulin (S) [Mass/Vol] 3.1 g/dL Normal [facility] Comment on above: Performed By: #### R A, JORGE LUIS, METH, HEPACUTE #### [facility] , #### CBC, LDH, FE and TIBC, KIRILL, CMP, [id number] #### [facility] [address] Serum homogeneous pattern an tinuclear antibody (JORGE LUIS) titerOrdered By: Genoveva Claude on 07-06-2024 Homogenous nuclear Ab pattern (S) [Titer] N/A [facility] Serum nuclear antibody titer Ordered By: Genoveva Claude on 07-06-2024 Nuclear Ab (S) [Titer] Negative . [facility] Comment on above: Negative <1:80 Borde rline 1:80 Positive >1:80ICAP nomenclature: AC-0For more information about Hep-2 cell patterns useANApatterns.org, the official website for theInternational Consensus on Antinuclear Antibody (JORGE LUIS)Patterns (ICAP).Performed at: [facility] [place] [id number] Director: Lionel Levy PhD, Phone: [phone] Serum or plasma albumin/glob ulin mass ratioOrdered By: Genoveva Claude on 07-06-2024 Albumin/Globulin [Mass ratio] 1.7 {ratio} Normal [facility] Comment on above: Performed By: #### R A, JORGE LUIS, METH, HEPACUTE #### [facility] , #### CBC, LDH, FE and TIBC, KIRILL, CMP, [id number] #### [address] Serum or plasma anion gap de terminationOrdered By: Genoveva Claude on 07-06-2024 Anion gap [Moles/Vol] 13.8 mmol/L Normal 6.0-15.0 [facility] Comment on above: Performed By: #### R A, JORGE LUIS, METH, HEPACUTE #### [facility] , #### CBC, LDH, FE and TIBC, KIRILL, CMP, [id number] #### [facility] [address] Serum or plasma methylmalona te measurement (moles/volume)Ordered By: Genoveva Pulliamsimon on 07-06-2024 Methylmalonate [Moles/Vol] 184 nmol/L 0-378 [facility] Comment on above: This test was develo ped and its performance characteristicsdetermined by [facility]. It has not been cleared orapproved by the Food and Drug Administration.Performed at: [facility] [address] [id number] Director: Endy Arzate MD, Phone: [phone] Serum or plasma rheumatoid f actor measurement (units/volume)Ordered By: Genoveva Pulliamsimon on 07-06-2024 Rheumatoid factor Qn 10.2 [IU]/mL <14.0 [facility] Comment on above: Performed at: [address] [id number] Director: Lionel Levy PhD, Phone: [phone] Sodium [Moles/volume] in Ser um or PlasmaOrdered By: Genoveva Claude on 07-06-2024 Sodium [Moles/Vol] 139 mmol/L Normal 136-145 [facility] Comment on above: Performed By: #### R A, JORGE LUIS, METH, HEPACUTE #### [facility] , #### CBC, LDH, FE and TIBC, KIRILL, CMP, [id number] #### [facility] [address] Transferrin [Mass/volume] in Serum or PlasmaOrdered By: Genoveva Claude on 07-06-2024 Transferrin [Mass/Vol] 314 mg/dL Normal 203-362 [facility] Comment on above: Performed By: #### R A, JORGE LUIS, METH, HEPACUTE #### [facility] , #### CBC, LDH, FE and TIBC, KIRILL, CMP, [id number] #### [facility] [address] [place] [address] Urea nitrogen [Mass/volume] in Serum or PlasmaOrdered By: Genoveva Pulliamsimon on 07-06-2024 Urea nitrogen [Mass/Vol] 11 mg/dL Normal 7-25 [facility] Comment on above: Performed By: #### R A, JORGE LUIS, METH, HEPACUTE #### [facility] , #### CBC, LDH, FE and TIBC, KIRILL, CMP, [id number] #### [facility] [address] [place] [address] Vit. B12/Folate Profileon Folate 17.2 ng/mL Normal >5.9 [facility] Comment on above: Result Comment: Coco te reference range: >5.9 ng/ml The WHO technical consultation on folate and vitamin b12 deficiencies has determined that folate concentrations less than 4 ng/ml are considered deficient. PERFORMED BY: [place] [address] PATHOLOGIST PROJECT MANAGER FOX PONCE M.D. Performed By: #### R A, JORGE LUIS, METH, HEPACUTE #### [facility] , #### CBC, LDH, FE and TIBC, KIRILL, CMP, [id number] #### [facility] [address] [place] [address] Vitamin B12 ser/plasOrdered By: Genoveva Pulliamsimon on 07-06-2024 Cobalamin (Vitamin B12) [Mass/Vol] 357 pg/mL Normal 180-914 [facility] Comment on above: Performed By: #### R A, JORGE LUIS, METH, HEPACUTE #### [facility] , #### CBC, LDH, FE and TIBC, KIRILL, CMP, [id number] #### [address] abdomen pelvis w conon CT abdomen pelvis w con [facility] [place] [address] [place] [address] CT Scan Report Signed Patient: Radha Dickinson MR#: [id number] : 2000 Acct:[id number] Age/Sex: 23 / F ADM Date: 06/14/24 Loc: CT Room: Type: [facility] Attending Dr: Karissa Rosenthal DO Copies to: [...] Briggs Jr., D.O.06/14/2024 11:57 AM Dictation Location: [place] [address] Transcribed By: [facility] 06/14/24 1157 Dictated By: Bradford Briggs Jr, DO 06/14/24 1155 Signed By: 06/14/24 1157 Normal [facility] Amphetamine Screen Ql (U)Ord ered By: Karissa Rosenthal on 05-23-2024 Amphetamines Ql (U) Negative Negative [facility] Barbiturates [Presence] in U rine by Screen methodOrdered By: Karissa Rosenthal on 05-23-2024 Barbiturates Screen Ql (U) Negative Negative [facility] Benzodiazepines Screen Ql (U )Ordered By: Karissa Rosenthal on 05-23-2024 Benzodiazepines Ql (U) Negative Negative Fi [facility] Benzoylecgonine [Presence] i n Urine by Screen methodOrdered By: Karissa Rosenthal on 05-23-2024 Benzoylecgonine Screen Ql (U) Negative Negative [facility] Cannabinoids [Presence] in U rine by Screen methodOrdered By: Karissa Rosenthal on 05-23-2024 Cannabinoids Screen Ql (U) Positive High Negative [facility] Comment on above: These are unconfirme d results and should not be used for legal purposes. Drug Cut-Off Concentration: AMPH 1000 ng/mL NIEVES 200 ng/mL HUGO 200 ng/mL COCM 300 ng/mL OP 300 ng/mL PCP 25 ng/mL THC 20 ng/mL Drug Screen,Urineon 05-23-20 24 Amphetamine Screen,Urine Negative Normal Negative [facility] Comment on above: Performed By: #### U [facility] #### [address] Barbiturate Screen,Urine Negative Normal Negative [facility] Comment on above: Performed By: #### U [facility] #### [place] [address] [place] Benzodiazepines Screen,Urine Negative Normal Negative [facility] Comment on above: Performed By: #### U [facility] #### [place] [address] [place] Cannabinoid Screen,Urine Positive High Negative [facility] Comment on above: Result Comment: Thes e are unconfirmed results and should not be used for legal purposes. Drug Cut-Off Concentration: AMPH 1000 ng/mL NIEVES 200 ng/mL HUGO 200 ng/mL COCM 300 ng/mL OP 300 ng/mL PCP 25 ng/mL THC 20 ng/mL PERFORMED BY: [place] [address] PATHOLOGIST PROJECT MANAGER FOX PONCE M.D. Performed By: #### U [facility], [facility] #### [facility] [address] Cocaine Screen,Urine Negative Normal Negative [facility] Comment on above: Performed By: #### U RDS, [facility] #### [facility] [address] Opiate Screen,Urine Negative Normal Negative [facility] Comment on above: Performed By: #### U RDS, [facility] #### [facility] [address] Phencyclidine Screen,Urine Negative Normal Negative [facility] Comment on above: Performed By: #### U RDS, [facility] #### [address] HCG ( test) IA.rapi d Ql (U)Ordered By: Karissa Rosenthal on 05-23-2024 HCG ( test) Ql (U) Negative [facility] HCG,Urineon 05-23-2024 Beta HCG ( test) Ql (U) Negative Normal [facility] Comment on above: Result Comment: PERF ORMED BY: [place] [address] PATHOLOGIST PROJECT MANAGER FOX PONCE M.D. Performed By: #### U RDS, [facility] #### [address] Eduardo 05-23-2024 L Specimen: [id number] Received: 05/23/24 Status: BRET Barker Num: [id number] Spec Type: Surgical Subm Dr: Karissa Rosenthal DO Tissues: A Small Intestine - Biopsy/Polyp (SMALL BOWEL BX) B GASTRIC FOR HP (GASTRIC HP) C Colon Biopsy (RANDOM COLON T) D Colon Biopsy (RANDOM COLON LT) E Colon Biopsy (SIGMOID POLYP) Procedures: HE/10, Gross/Micro L4/5, H PYLORI, IHC First AB Age/ Patient Sex Location Account Attending Physician Radha Dickinson 23/F [id number] Karissa Rosenthal DO SPEC NUM: [id number] RECD: 05/23/24 STATUS: BRET BARKER NUM: [id number] GIAN: 05/23/24- SUBM DR: Karissa Rosenthal DO ENTERED: 05/23/24-[address] [facility] [address]: SPEC TYPE: Surgical DEPT: S [...] celiac dx, rule out H. pylori Specimen: [id number] Received: 05/23/24 Status: BRET Barker Num: [id number] Spec Type: Surgical Subm Dr: Karissa Rosenthal DO Tissues: A Small Intestine - Biopsy/Polyp (SMALL BOWEL BX) B GASTRIC FOR HP (GASTRIC HP) C Colon Biopsy (RANDOM COLON T) D Colon Biopsy (RANDOM COLON LT) E Colon Biopsy (SIGMOID POLYP) Procedures: HE/10, Gross/Micro L4/5, H PYLORI, IHC First AB Patient: Radha Dickinson [id number] (Continued) Specimen: [id number] Received: 05/23/24 (Continued) Signed (signature on file) Wojciech Sheikh MD 05/24/24 1556 Specimen: [id number] Received: 05/23/24 Status: BRET Barker Num: [id number] Spec Type: Surgical Subm Dr: Karissa Rosenthal DO Tissues: A Small Intestine - Biopsy/Polyp (SMALL BOWEL BX) B GASTRIC FOR HP (GASTRIC HP) C Colon Biopsy (RANDOM COLON T) D Colon Biopsy (RANDOM COLON LT) E Colon Biopsy (SIGMOID POLYP) Procedures: HE/10, Gross/Micro L4/5, H PYLORI, IHC First AB Patient: Radha Dickinson [id number] (Continued) Specimen: [id number] Received: 05/23/24-1218 (Continued) Gross Description Received are [...] polypoid tissue fragment, entirely submitted in E1. [facility] Codes [id number] Specimen: [id number] Received: 05/23/24 Status: BRET Barker Num: [id number] Spec Type: Surgical Subm Dr: Karissa Rosenthal, Tissues: A Small Intestine - Biopsy/Polyp (SMALL BOWEL BX) B GASTRIC FOR HP (GASTRIC HP) C Colon Biopsy (RANDOM COLON T) D Colon Biopsy (RANDOM COLON LT) E Colon Biopsy (SIGMOID POLYP) Procedures: HE/10, Gross/Micro L4/5, H PYLORI, IHC First AB Patient: Radha Dickinson [id number] (Continued) Signed (signature on file) Wojciech Sheikh MD 05/24/24 2050 Normal [facility] Opiates [Presence] in Urine by Screen methodOrdered By: Karissa Rosenthal on 05-23-2024 Opiates Screen Ql (U) Negative Negative [facility] Phencyclidine Screen Ql (U)O rdered By: Karissa Rosenthal on 05-23-2024 Phencyclidine Ql (U) Negative Negative [facility] IgA [Mass/Vol]on 05-20-2024 CELIAC DISEASE SEROLOGY [place]ASCADE SEE COMMENTS 05/24/2024 10:21 PM Normal [facility] Comment on above: Result Comment: NOTE Test Result Flag Unit RefValue ---- Celiac Disease Serology [place] Immunoglobulin A (IgA), S 239 mg/dL 61 - 356 Celiac Disease Interpretation See Note See Comment: Negative serology. Celiac disease unlikely. However, approximately 10% of patients with celiac disease are seronegative. Also, patients who are already adhering to a gluten-free diet may be seronegative. If celiac disease is highly clinically suspected, consider HLA-DQ typing. Test Performed by: [place] [address] Concrete Smoother: Marissa Dodson Ph.D.; CLIA# [id number] Performed By: #### 2 106-3 #### [facility] ([id number]) [address] [place] [address] tTG IgA IA Qn (S)on 05-20-20 TTG AB IGA <1.2 Normal <4.0 (Negative) [facility] Comment on above: Result Comment: NOTE Test Performed by: [place] [address] Concrete Smoother: Marissa Dodson Ph.D.; CLIA# [id number] Performed By: #### 2 106-3 #### [facility] ([id number]) [address] [place] [address] CBC AND AUTO DIFFon 03-15-20 24 ABSOLUTE BASOPHIL 0.0 X10E9/L Normal 0.0-0.2 [facility] Comment on above: Performed By: #### 2 106-3 #### [facility] ([id number]) [address] [place] [address] ABSOLUTE NEUTROPHIL 6.9 X10E9/L High 1.5-6.6 [facility] Comment on above: Performed By: #### 2 106-3 #### [facility] ([id number]) [address] [place] [address] Basophils/100 WBC (Bld) 0.3 % Normal [facility] Comment on above: Performed By: #### 2 106-3 #### [facility] ([id number]) [address] [place] [address] Eosinophils (Bld) [#/Vol] 0.1 10*3/uL Normal 0.0-0.4 [facility] Comment on above: Performed By: #### 2 106-3 #### [facility] ([id number]) [address] [place] [address] Eosinophils/100 WBC (Bld) 0.6 % Normal [facility] Comment on above: Performed By: #### 2 106-3 #### [facility] ([id number]) [address] [place] [address] Erythrocyte distribution width (RBC) [Ratio] 14.9 % Normal 11.5-15.0 [facility] Comment on above: Performed By: #### 2 106-3 #### [facility] ([id number]) [address] [place] [address] Hematocrit (Bld) [Volume fraction] 41.6 % Normal 35-47 [facility] Comment on above: Performed By: #### 2 106-3 #### [facility] ([id number]) [address] [place] [address] Hemoglobin (Bld) [Mass/Vol] 14.1 g/dL Normal 11.7-15.5 [facility] Comment on above: Performed By: #### 2 106-3 #### [facility] ([id number]) [address] [place] [address] Lymphocytes (Bld) [#/Vol] 1.7 10*3/uL Normal 1.0-3.5 [facility] Comment on above: Performed By: #### 2 106-3 #### [facility] ([id number]) [address] [place] [address]55 Lymphocytes/100 WBC (Bld) 18.5 % Normal [facility] Comment on above: Performed By: #### 2 106-3 #### [facility] ([id number]) [address] [place] [address]186 MCH (RBC) [Entitic mass] 30.6 pg Normal 27-34 [facility] Comment on above: Performed By: #### 2 106-3 #### [facility] ([id number]) [address] [place] [address] MCHC (RBC) [Mass/Vol] 33.8 g/dL Normal 32-36 [facility] Comment on above: Performed By: #### 2 106-3 #### [facility] ([id number]) [address] [place] [address]36 MCV (RBC) [Entitic vol] 91 fL Normal 80-100 P [facility] Comment on above: Performed By: #### 2 106-3 #### [facility] ([id number]) [address] [place] [address] Monocytes (Bld) [#/Vol] 0.7 10*3/uL Normal 0-0.9 [facility] Comment on above: Performed By: #### 2 106-3 #### [facility] ([id number]) [address] [place] [address]252 Monocytes/100 WBC (Bld) 7.3 % Normal [facility] Comment on above: Performed By: #### 2 106-3 #### [facility] ([id number]) [address] [place] [address] Neutrophils/100 WBC (Bld) 73.3 % Normal [facility] Comment on above: Performed By: #### 2 106-3 #### [facility] ([id number]) [address] [place] [address] Platelet mean volume (Bld) [Entitic vol] 10.3 fL Normal 7-12 [facility] Comment on above: Performed By: #### 2 106-3 #### [facility] ([id number]) [address] [place] [address] Platelets (Bld) [#/Vol] 212 10*3/uL Normal 150-450 [facility] Comment on above: Performed By: #### 2 106-3 #### [facility] ([id number]) [address] [place] [address]87 RBC COUNT 4.59 X10E12/L Normal 3.80-5.20 [facility] Comment on above: Performed By: #### 2 106-3 #### [facility] ([id number]) [address] [place] [address]90 WBC (Bld) [#/Vol] 9.4 10*3/uL Normal 4.0-11.0 [facility] Comment on above: Performed By: #### 2 106-3 #### [facility] ([id number]) [address] [place] [address]85 COMPREHENSIVE METABOLIC PANE Eduardo 03-15-2024 Albumin [Mass/Vol] 4.4 g/dL Normal 3.2-5.3 [facility] Comment on above: Performed By: #### C JOLYNN, THYR, 89165-6 #### [facility] ([id number]) [address] [facility] [place] [address] ALP [Catalytic activity/Vol] 63 U/L Normal 39-130 [facility] Comment on above: Performed By: #### C MP, THYR, 80968-2 #### [facility] ([id number]) [address], [address] [place] [address] ALT [Catalytic activity/Vol] 21 U/L Normal 0-31 [facility] Comment on above: Performed By: #### Veronica NEIL THYR, 27655-7 #### [facility] ([id number]) [address] [place] [address] Anion gap [Moles/Vol] 7 mmol/L Normal 5-15 [facility] Comment on above: Performed By: #### C JOLYNN THYR, 32695-0 #### [facility] ([id number]) [address], [address] [place] [address] AST [Catalytic activity/Vol] 15 U/L Normal 0-41 [facility] Comment on above: Performed By: #### Veronica NEIL THYR, 64650-4 #### [facility] ([id number]) [address], [address] [place] [address] Bilirubin [Mass/Vol] 0.9 mg/dL Normal 0.3-1.2 [facility] Comment on above: Performed By: #### Veronica NEIL THYGeorgette, 15759-6 #### [facility] ([id number]) [address], [address] [place] [address] Calcium [Mass/Vol] 9.6 mg/dL Normal 8.5-10.5 [facility] Comment on above: Performed By: #### Veronica NEIL THYR, 40665-2 #### [facility] ([id number]) [address], [address] [place] [address] Chloride [Moles/Vol] 105 mmol/L Normal 98-109 [facility] Comment on above: Performed By: #### Veronica NEIL THYR, 38050-3 #### [facility] ([id number]) [address], [address] [place] [address] CO2 [Moles/Vol] 27 mmol/L Normal 22-32 [facility] Comment on above: Performed By: #### C JOLYNN THYR, 83150-8 #### [facility] ([id number]) [address] [address] [place] [address] Creatinine [Mass/Vol] 0.71 mg/dL Normal 0.40-1.00 [facility] Comment on above: Result Comment: METH OD TRACEABLE TO IDMS STANDARD Performed By: #### C JOLYNN THYR, 44267-5 #### [facility] ([id number]) [address] [place] [address] eGFR (CKD-EPI) NON-RACE DEPENDENT >90 Normal >59 [facility] Comment on above: Result Comment: Reported eGFR is based on the CKD-EPI 2020 equation that does not use a race coefficient. Performed By: #### C JOLYNN THYR, 09602-8 #### [facility] ([id number]) [address], [address] [place] [address] Glucose [Mass/Vol] 105 mg/dL High 65-99 [facility] Comment on above: Performed By: #### C JOLYNN THYR, 39697-3 #### [facility] ([id number]) [address] [address] [place] [address] Potassium [Moles/Vol] 4.2 mmol/L Normal 3.5-5.0 [facility] Comment on above: Performed By: #### C JOLYNN THYR, 50662-1 #### [facility] ([id number]) [address], [address] [place] [address] Protein [Mass/Vol] 7.0 g/dL Normal 6.0-8.0 [facility] Comment on above: Performed By: #### C JOLYNN, THYR, 72689-2 #### [facility] ([id number]) [address], [address] [place] [address] Sodium [Moles/Vol] 139 mmol/L Normal 134-146 [facility] Comment on above: Performed By: #### C JOLYNN, THYR, 91753-9 #### [facility] ([id number]) [address], [address] [place] [address] Urea nitrogen [Mass/Vol] 11 mg/dL Normal 5-23 [facility] Comment on above: Performed By: #### C JOLYNN, THYR, 75979-8 #### [facility] ([id number]) [address], [address] [place] [address] ESR Photometric method (Bld) [Velocity]on 03-15-2024 ESR, ERYTHROCYTE SEDIMENTATION RATE 6 mm/h Normal 0-20 [facility] Comment on above: Performed By: #### 2 106-3 #### [facility] ([id number]) [address] [place] [address] GI PANELon 03-15-2024 Gastrointestinal pathogens DNA and [...] SAPOVIRUS Not detected (qualifier value) Normal NDET [facility] Comment on above: Performed By: #### 2 106-3 #### [facility] ([id number]) [address] [facility] [place] [place] [address] Lipid 1996 panelon 4 Cholesterol [Mass/Vol] 131 mg/dL Low 150-200 [facility] Comment on above: Performed By: #### [place], [address]-8 #### [facility] ([id number]) [address], [address] [place] [address] Cholesterol in HDL [Mass/Vol] 49 mg/dL Normal >39 [facility] Comment on above: Result Comment: HDL <40 mg/dL - High Risk HDL > or = 40mg/dL- Desirable HDL >60 mg/dL - Negative Risk Performed By: #### Veronica NEIL THYGeorgette, 17775-0 #### [facility] ([id number]) [address] [place] [address] Cholesterol in LDL [Mass/Vol] 62 mg/dL Normal <130 [facility] Comment on above: Result Comment: LDL <100 mg/dL - Desirable LDL >160 mg/dL - High Risk Performed By: #### [place], [address]-9 #### [facility] ([id number]) [address] [place] [address] Cholesterol in VLDL [Mass/Vol] 20 mg/dL Normal 0-30 [facility] Comment on above: Performed By: #### [place], [address]-5 #### [facility] ([id number]) [address], [address] [place] [address] CHOLESTEROL:HDL 2.7 Normal 1.0-5.0 [facility] Comment on above: Performed By: #### C JOLYNN, THYR, 15826-5 #### [facility] ([id number]) [address], [address] [place] [address] Triglyceride [Mass/Vol] 100 mg/dL Normal 27-150 [facility] Comment on above: Performed By: #### C JOLYNN, THYR, 68029-0 #### [facility] ([id number]) [address], [address] [place] [address] THYROID PROFILEon 03-15-2024 Free T4 [Mass/Vol] 1.04 ng/dL Normal 0.61-1.60 [facility] Comment on above: Performed By: #### C JOLYNN, THYR, 38048-0 #### [facility] ([id number]) [address], [address] [place] [address] TSH 0.68 uIU/mL Normal 0.49-4.67 [facility] Comment on above: Performed By: #### C JOLYNN, THYR, 75295-1 #### [facility] ([id number]) [address], [address] [place] [address] BASIC METABOLIC PANLon 01-31 Anion gap [Moles/Vol] 11 mmol/L Normal 5-15 [facility] Comment on above: Performed By: #### B JOLYNN CBCA, 04126-6 #### [facility] ([id number]) [address] [place] [address] Calcium [Mass/Vol] 9.0 mg/dL Normal 8.5-10.5 [facility] Comment on above: Performed By: #### B JOLYNN CBCA, 48891-5 #### [facility] ([id number]) [address] [place] [address] Chloride [Moles/Vol] 101 mmol/L Normal 98-109 [facility] Comment on above: Performed By: #### B VALENTINA NEIL, 23781-1 #### [facility] ([id number]) [address] [place] [address] CO2 [Moles/Vol] 23 mmol/L Normal 22-32 [facility] Comment on above: Performed By: #### B VALENTINA NEIL, 80529-2 #### [facility] ([id number]) [address] [place] [address] Creatinine [Mass/Vol] 0.78 mg/dL Normal 0.40-1.00 [facility] Comment on above: Result Comment: METH OD TRACEABLE TO IDMS STANDARD Performed By: #### B VALENTINA NEIL, 12030-5 #### [facility] ([id number]) [address] [place] [address] eGFR (CKD-EPI) NON-RACE DEPENDENT >90 Normal >59 [facility] Comment on above: Result Comment: Reported eGFR is based on the CKD-EPI 2021 equation that does not use a race coefficient. Performed By: #### B VALENTINA NEIL, 57969-5 #### [facility] ([id number]) [address] [place] [address] Glucose [Mass/Vol] 87 mg/dL Normal 65-99 [facility] Comment on above: Performed By: #### B VALENTINA NEIL, 84033-6 #### [facility] ([id number]) [address] [place] [address] Potassium [Moles/Vol] 4.1 mmol/L Normal 3.5-5.0 [facility] Comment on above: Performed By: #### B VALENTINA NEIL, 20816-5 #### [facility] ([id number]) [address] [place] [address] Sodium [Moles/Vol] 135 mmol/L Normal 134-146 [facility] Comment on above: Performed By: #### B MP, CBCA, 69588-5 #### [facility] ([id number]) [address] [place] [address] Urea nitrogen [Mass/Vol] 13 mg/dL Normal 5-23 [facility] Comment on above: Performed By: #### B MP, CBCA, 52060-2 #### [facility] ([id number]) [address] [place] [address] CBC AND AUTO DIFFon 02-01-20 24 ABSOLUTE BASOPHIL 0.1 X10E9/L Normal 0.0-0.2 [facility] Comment on above: Performed By: #### B MP, CBCA, 63180-8 #### [facility] ([id number]) [address] [place] [address] ABSOLUTE NEUTROPHIL 5.3 X10E9/L Normal 1.5-6.6 [facility] Comment on above: Performed By: #### B MP, CBCA, 60524-9 #### [facility] ([id number]) [address] [place] [address] Basophils/100 WBC (Bld) 0.7 % Normal [facility] Comment on above: Performed By: #### B MP, CBCA, 39783-4 #### [facility] ([id number]) [address] [place] [address] Eosinophils (Bld) [#/Vol] 0.0 10*3/uL Normal 0.0-0.4 [facility] Comment on above: Performed By: #### B MP, CBCA, 38860-0 #### [facility] ([id number]) [address] [place] [address] Eosinophils/100 WBC (Bld) 0.1 % Normal [facility] Comment on above: Performed By: #### B MP, CBCA, 02921-1 #### [facility] ([id number]) [address] [place] [address] Erythrocyte distribution width (RBC) [Ratio] 13.5 % Normal 11.5-15.0 [facility] Comment on above: Performed By: #### B JOLYNN, CBCA, 04154-8 #### [facility] ([id number]) [address] [place] [address] Hematocrit (Bld) [Volume fraction] 44.0 % Normal 35-47 [facility] Comment on above: Performed By: #### B JOLYNN, CBCA, 62718-8 #### [facility] ([id number]) [address] [place] [address] Hemoglobin (Bld) [Mass/Vol] 15.3 g/dL Normal 11.7-15.5 [facility] Comment on above: Performed By: #### B JOLYNN, CBCA, 82607-3 #### [facility] ([id number]) [address] [place] [address] Lymphocytes (Bld) [#/Vol] 2.6 10*3/uL Normal 1.0-3.5 [facility] Comment on above: Performed By: #### B JOLYNN, CBCA, 74988-0 #### [facility] ([id number]) [address] [place] [address] Lymphocytes/100 WBC (Bld) 29.4 % Normal [facility] Comment on above: Performed By: #### B JOLYNN, CBCA, 31473-0 #### [facility] ([id number]) [address] [place] [address] MCH (RBC) [Entitic mass] 30.5 pg Normal 27-34 [facility] Comment on above: Performed By: #### B JOLYNN, CBCA, 23680-5 #### [facility] ([id number]) [address] [place] [address] MCHC (RBC) [Mass/Vol] 34.8 g/dL Normal 32-36 [facility] Comment on above: Performed By: #### B JOLYNN, CBCA, 79406-6 #### [facility] ([id number]) [address] [place] [address] MCV (RBC) [Entitic vol] 88 fL Normal 80-100 [facility] Comment on above: Performed By: #### B JOLYNN, CBCA, 11757-2 #### [facility] ([id number]) [address] [place] [address] Monocytes (Bld) [#/Vol] 0.8 10*3/uL Normal 0-0.9 [facility] Comment on above: Performed By: #### B JOLYNN, CBCA, 53552-4 #### [facility] ([id number]) [address] [place] [address] Monocytes/100 WBC (Bld) 9.7 % Normal [facility] Comment on above: Performed By: #### Dhruv NEIL, CBCA, 42315-8 #### [facility] ([id number]) [address] [place] [address] Neutrophils/100 WBC (Bld) 60.1 % Normal [facility] Comment on above: Performed By: #### B JOLYNN, CBCA, 37327-8 #### [facility] ([id number]) [address] [place] [address]31 Platelet mean volume (Bld) [Entitic vol] 10.6 fL Normal 7-12 [facility] Comment on above: Performed By: #### B JOLYNN, CBCA, 44698-9 #### [facility] ([id number]) [address] [place] [address]63 Platelets (Bld) [#/Vol] 153 10*3/uL Normal 150-450 [facility] Comment on above: Performed By: #### B MP, CBCA, 53523-2 #### [facility] ([id number]) [address] [place] [address]64 RBC COUNT 5.02 X10E12/L Normal 3.80-5.20 [facility] Comment on above: Performed By: #### B MP, CBCA, 21301-5 #### [facility] ([id number]) [address] [place] [address]65 WBC (Bld) [#/Vol] 8.8 10*3/uL Normal 4.0-11.0 [facility] Comment on above: Performed By: #### B MP, CBCA, 73495-5 #### [facility] ([id number]) [address] [place] [address]10 Fibrin D-dimer DDU (PPP) [Ma ss/Vol]on 02-01-2024 D DIMER 188 ng/mL DDU Normal <255 [facility] Comment on above: Result Comment: Results <255 ng/mL DDU: The presence of a VTE can safely be excluded with a negative D-Dimer result and Wells score. A negative result doesn't exclude the possibility of DIC. The test be repeated along with other diagnostic tests if the patient's symptoms persist or worsen. [email or web address] Performed By: #### B MP, CBCA, 82660-8 #### [facility] ([id number]) [address] [place] [address]144 XR CHEST 1 VWon 02-01-2024 XR CHEST [...] Hernandez MD on 02/01/2024 11:20 AM Normal [facility] HCG ( test) Ql (U)o n 01-30-2024 Beta HCG ( test) Ql (U) Negative Normal NEG [facility] Comment on above: Performed By: #### 2 106-3 #### [facility] ([id number]) [address] [place] [address], [place] [address] SARS/FLU A+B/RSV by NAAT/Mol ecularon 01-30-2024 SARS/FLU [...] operators who are performing tests using either [employer] DX or [employer] systems and is limited to laboratories [...] repeat. Fact Sheet for Healthcare Providers: https://www.fda.gov/media/ 573016/download Fact Sheet for Patients: https://www.fda.gov/media/ 860686/download Normal [facility] Comment on above: Performed By: #### C OVFLR #### [facility] ([id number]) [address] [place] [address] 66788 URN MACROSCOPIC NURon 2023 BILIRUBIN APOLINAR Small Abnormal NEG [facility] Comment on above: Performed By: #### N UM #### [facility] ([id number]) [address] [place] [address] 28277 BLOOD/HGB APOLINAR Negative Normal NEG [facility] Comment on above: Performed By: #### N UM #### [facility] ([id number]) [address] [place] [address] 94036 GLUCOSE APOLINAR Negative Normal NEG [facility] Comment on above: Performed By: #### N UM #### [facility] ([id number]) [address] [place] [address] 10090 KETONES APOLINAR 80 mg/dL Abnormal NEG [facility] Comment on above: Performed By: #### N UM #### [facility] ([id number]) [address] [place] [address] 41918 LEUKOCYTE ESTERASE APOLINAR Negative Normal NEG [facility] Comment on above: Performed By: #### N UM #### [facility] ([id number]) [address] [place] [address] 44209 NITRITE APOLINAR Negative Normal NEG [facility] Comment on above: Performed By: #### N UM #### [facility] ([id number]) [address] [place] [address] PH APOLINAR 5.5 Normal 5.0-8.5 [facility] Comment on above: Performed By: #### N UM #### [facility] ([id number]) [address] [place] [address] 11127 PROTEIN APOLINAR Trace Abnormal NEG [facility] Comment on above: Performed By: #### N UM #### [facility] ([id number]) [address] [place] [address] 78596 SPECIFIC GRAVITY APOLINAR 1.025 Normal 1.003-1 .03 5 [facility] Comment on above: Performed By: #### N UM #### [facility] ([id number]) [address] [place] [address] 00050 UROBILINOGEN APOLINAR 0.2 eu/dL Normal <1.1 [facility] Comment on above: Performed By: #### N UM #### [facility] ([id number]) [address] [place] [address]19 Laboratory - Microbiology an d Antimicrobial susceptibilityOrdered By: Viky Waters on 07-10-2023 N. gonorrhoeae DNA LULI+probe Ql (Unsp spec) Negative Negative [facility] Comment on above: Performed at: [address] [id number] Director: Kinga Solomon MD, Phone: [phone] No Panel InformationOrdered By: Viky Waters on 07-10-2023 Kay albicans (LULI) Negative Negative [facility] Comment on above: This test was develo ped and its performance characteristicsdetermined by [facility]. It has not been cleared orapproved by the Food and Drug Administration. Kay glabrata (LULI) Negative Negative [facility] Comment on above: This test was develo ped and its performance characteristicsdetermined by [facility]. It has not been cleared orapproved by the Food and Drug Administration. Chlamydia trachomatis (LULI) (LAB) Negative Negative [facility] Trichomonas vaginalis (LULI) Negative Negative [facility] Vaginal fluid Atopobium vagi xuan DNA detection by probe and target amplification methoOrdered By: Viky Waters on 07-10-2023 A. vaginae DNA LULI+probe Ql (Vag fld) High - 2 Score . [facility] Vaginal fluid Megasphaera sp ecies type 1 DNA detection by probe and target amplificatOrdered By: Viky Waters on 07-10-2023 Megasphaera sp type 1 DNA LULI+probe Ql (Vag fld) High - 2 Score . [facility] Comment on above: Calculate total [...] (Vag fld) High - 2 Score . [facility] Q - SURESWAB ADVANCED VAGINI TIS PLUSon 04-24-2022 KAY GLABRATA Not detected Normal NOT DETECTED [facility] Comment on above: Order Comment: [facility] performed at: QPT, [facility], [address] [place] [address], [address] [place] [address], [phone], Bulk Clerk: Jonathan Hernandez MD [facility] Date/Time: [facility] Results Received Date/Time: [facility] Reported Date/Time: Result Comment: Kay species C. albicans, C. tropicalis, C. parapsilosis, and/or C. dubliniensis can be detected, but not differentiated, in the Kay spp. result. Performed By: #### 1 0120 #### [facility] Default [address] [place] [address] KAY SPECIES Detected Abnormal NOT DETECTED [facility] Comment on above: Order Comment: [facility] performed at: [place], [address] [facility], [address] [place] [address], [address] [place] [address], Bulk Clerk: Jonathan Hernandez MD [facility] Date/Time: [facility] Results Received Date/Time: [facility] Reported Date/Time: Performed By: #### 1 0120 #### [facility] [address] [place] [address] CHLAMYDIA TRACHOMATIS RNA, TMA, UROGENITAL Not detected Normal NOT DETECTED [facility] Comment on above: Order Comment: [facility] performed at: [place], [address] [facility], [address] [place] [address], [address] [place] [address], Bulk Clerk: Jonathan Hernandez MD [facility] Date/Time: [facility] Results Received Date/Time: [facility] Reported Date/Time: Performed By: #### 1 0120 #### [facility] Default [address] [place] [address] NEISSERIA GONORRHOEAE RNA, TMA, UROGENITAL Not detected Normal NOT DETECTED [facility] Comment on above: Order Comment: [facility] performed at: [place], [facility], [address] [facility], [address] [place] [address], [address] [place] [address], Bulk Clerk: Jonathan Hernandez MD [facility] Date/Time: [facility] Results Received Date/Time: [facility] Reported Date/Time: Result Comment: For additional information, please refer to https://education.Databox/faq/YPR498 (This link is being provided for information/ educational purposes only.) Performed By: #### 1 0120 #### [facility] [address] [place] [address] SURESWAB(R) ADV BACTERIAL VAGINOSIS (BV), TMA Positive Abnormal NEGATIVE [facility] Comment on above: Order Comment: [facility] performed at: [place], [facility], [address], [address] [place] [address], [phone], Bulk Clerk: Jonathan Hernandez MD [facility] Date/Time: [facility] Results Received Date/Time: [facility] Reported Date/Time: Performed By: #### 1 0120 #### [facility] [address] [place] [address] TRICHOMONAS VAGINALIS (TV), TMA Not detected Normal NOT DETECTED [facility] Special Investigation Unit Investigator Comment on above: Order Comment: [facility] performed at: [place], [facility], [address], [address] [place], [address], Bulk Clerk: Jonathan Hernandez MD [facility] Date/Time: [facility] Results Received Date/Time: [facility] Reported Date/Time: Performed By: #### 1 0120 #### [facility] Default [address] [place] [address] CBC auto differentialOrdered By: Neyda Lyle on 08-02-2021 Absolute Eos # 0.05 [facility] Phone: Absolute Immature Granulocyte <0.03 [facility] Phone: [phone] Absolute Lymph # 1.77 [facility] Phone: Absolute Andrews # 0.61 [facility] Phone: Basophils (Bld) [#/Vol] 10*3/uL [facility] Phone: Basophils/100 WBC (Bld) 0 % 0 - 2 % [facility] Phone: Differential Type NOT REPORTED [facility] Phone: Eosinophils/100 WBC (Bld) 1 % 1 - 4 % [facility] Phone: Hematocrit (Bld) [Volume fraction] 35.3 % Low 36.3 - 47.1 % [facility] Phone: Hemoglobin.gastrointest inal spec 1 Ql (Stl) 11.8 g/dL Low 11.9 - 15.1 g/dL [facility] Phone: Immature granulocytes/100 WBC (Bld) 0 % 0 [facility] Phone: Interpretation and review of laboratory results Abnormal [facility] Phone: Lymphocytes/100 WBC (Bld) 22 % Low 24 - 43 % [facility] Phone: MCH (RBC) [Entitic mass] 28.9 pg 25.2 - 33.5 pg [facility] Phone: MCHC (RBC) [Mass/Vol] 33.4 g/dL 28.4 - 34.8 g/dL [facility] Phone: MCV (RBC) [Entitic vol] 86.5 fL 82.6 - 102.9 fL [facility] Phone: Monocytes/100 WBC (Bld) 8 % 3 - 12 % [facility] Phone: NRBC Automated 0.0 0.0 per 100 WBC [facility] Phone: Platelet distribution width (Bld) [Ratio] 13.7 % 11.8 - 14.4 % [facility] Phone: Platelet Estimate NOT REPORTED [facility] Phone: Platelet mean volume (Bld) [Entitic vol] 12.4 fL 8.1 - 13.5 fL [facility] Phone: Platelets (Bld) [#/Vol] 197 10*3/uL [facility] Phone: RBC (Bld) [#/Vol] 4.08 10*6/uL 3.95 - 5.11 m/uL 5 [employer] Phone: RBC (Bld) [#/Vol] NOT REPORTED [facility] Phone: Segmented neutrophils/100 WBC (Bld) 69 % High 36 - 65 % [facility] Phone: Segs Absolute 5.53 [facility] Phone: WBC (Bld) [#/Vol] 8.0 10*3/uL [facility] Phone: WBC (Bld) [#/Vol] NOT REPORTED [facility] Phone: [facility] Phone: CBC with Diffon 08-02-2021 Abs. Basophil <0.03 Normal 0.00-0.20 [facility] Comment on above: Performed By: #### C DP #### [facility] [address] [place] [address] Dr. [place]arez, [place] [id number] Concrete Smoother: Brice Frederick MD Abs.Imm.Granulocyte <0.03 Normal 0.00-0.30 [facility] Comment on above: Performed By: #### C DP #### [facility] [address] [place] [address] Dr. [place], [place] [id number] Concrete Smoother: Brice Frederick MD Abs.Neutrophil (Seg) 5.53 k/uL Normal 1.50-8.10 [facility] Comment on above: Performed By: #### C DP #### [facility] [address] [place] [address] Dr. [place]arez, [place] [phone] Concrete Smoother: Brice Frederick MD Basophils/100 WBC (Bld) 0 % Normal 0-[address] [facility] Comment on above: Performed By: #### C DP #### [facility] [address] [place] [address] Dr. Olivarez, [place] [phone] Concrete Smoother: Brice Frederick MD Eosinophils (Bld) [#/Vol] 0.05 10*3/uL Normal 0.00-0.44 [facility] Comment on above: Performed By: #### C DP #### [address] [place]arez, [facility] Concrete Smoother: Brice Frederick MD Eosinophils/100 WBC (Bld) 1 % Normal 1-4 [facility] Comment on above: Performed By: #### C DP #### [address] [place]arez, [place] [address] Concrete Smoother: Brice Frederick MD Erythrocyte distribution width (RBC) [Ratio] 13.7 % Normal 11.8-14.4 [facility] Comment on above: Performed By: #### C DP #### [address] [place] [address] Concrete Smoother: Brice Frederick MD Hematocrit (Bld) [Volume fraction] 35.3 % Low 36.3-47.1 [facility] Comment on above: Performed By: #### C DP #### [address] [place], [place] [address] Concrete Smoother: Brice Frederick MD Hemoglobin (Bld) [Mass/Vol] 11.8 g/dL Low 11.9-15.1 [facility] Comment on above: Performed By: #### C DP #### [address] [place], [place] [address] Concrete Smoother: Brice Frederick MD Immature granulocytes/100 WBC (Bld) 0 % Normal 0 [facility] Comment on above: Performed By: #### C DP #### [address] [place], [facility] Concrete Smoother: Brice Frederick MD Lymphocytes (Bld) [#/Vol] 1.77 10*3/uL Normal 1.10-3.70 [facility] Comment on above: Performed By: #### C DP #### [facility] [address] [place], [place] [id number] Concrete Smoother: Brice Frederick MD Lymphocytes/100 WBC (Bld) 22 % Low 24-43 [facility] Comment on above: Performed By: #### C DP #### [facility] [address] [place], [facility]83 Con[employer] Smoother: Brice Frederick MD MCH (RBC) [Entitic mass] 28.9 pg Normal 25.2-33.5 [facility] Comment on above: Performed By: #### C DP #### [facility] [address] [place] [address] Concrete Smoother: Brice Frederick MD MCHC (RBC) [Mass/Vol] 33.4 g/dL Normal 28.4-34.8 [facility] Comment on above: Performed By: #### C DP #### [address] [place], [place] [address] Concrete Smoother: Brice Frederick MD MCV (RBC) [Entitic vol] 86.5 fL Normal 82.6-102.9 [facility] Comment on above: Performed By: #### C DP #### [address] [place], [facility]83 Concrete Smoother: Brice Frederick MD Monocytes (Bld) [#/Vol] 0.61 10*3/uL Normal 0.10-1.20 [facility] Comment on above: Performed By: #### C DP #### [facility] [address] [place], [facility]83 Concrete Smoother: Brice Frederick MD Monocytes/100 WBC (Bld) 8 % Normal 3-[address] [facility] Comment on above: Performed By: #### C DP #### [facility] [address] [place], [facility]83 Concrete Smoother: Brice Frederick MD Neutrophil (Seg) 69 % High 36-65 [facility] Comment on above: Performed By: #### C DP #### [facility] [address] [place] [address] Concrete Smoother: Brice Frederick MD NRBC Automated 0.0 per 100 WBC Normal 0.0 [facility] Comment on above: Performed By: #### C DP #### [facility] [address] [place], [place] [id number] Concrete Smoother: Brice Frederick MD Platelet mean volume (Bld) [Entitic vol] 12.4 fL Normal 8.1-13.5 [facility] Comment on above: Performed By: #### C DP #### [facility] [address] [place] [address] Concrete Smoother: Brice Frederick MD Platelets (Bld) [#/Vol] 197 10*3/uL Normal 138-453 [facility] Comment on above: Performed By: #### C DP #### [address] [place], [place] [id number] Concrete Smoother: Brice Frederick MD RBC (Bld) [#/Vol] 4.08 10*6/uL Normal 3.95-5.11 [facility] Comment on above: Performed By: #### C DP #### [facility] [address] [place], [facility]83 Concrete Smoother: Brice Frederick MD WBC (Bld) [#/Vol] 8.0 10*3/uL Normal 3.5-11.3 [facility] Comment on above: Performed By: #### C DP #### [facility] [address] [place], [place] [id number] Concrete Smoother: Brice Frederick MD Auto Diff Performed NOT REPORTED Normal [facility] Comment on above: Performed By: #### C DP #### [facility] [address] [place] [address] Concrete Smoother: Brice Frederick MD Platelet Estimate NOT REPORTED Normal [facility] Comment on above: Performed By: #### C DP #### [facility] [address] [place], [place] [id number] Concrete Smoother: Brice Frederick MD RBC morphology finding Nom (Bld) NOT REPORTED Normal [facility] Comment on above: Performed By: #### C DP #### [facility] [address] [place], [place] [id number] Concrete Smoother: Brice Frederick MD WBC Morphology NOT REPORTED Normal [facility] Comment on above: Performed By: #### C DP #### [facility] [address] [place] [address] Concrete Smoother: Brice Frederick MD DRUG SCREEN MULTI URINEOrder ed By: Neyda Lyle on 08-02-2021 Amphetamine Screen, Ur Negative NEGATIVE [facility] Work Phone: Barbiturate Screen, Ur Negative NEGATIVE [facility] Work Phone: Benzodiazepine Screen, Urine Negative NEGATIVE [facility] [employer] Work Phone: Buprenorphine Urine Negative NEGATIVE [facility] Work Phone: Cannabinoid Scrn, Ur Positive Abnormal NEGATIVE [facility] Work Phone: Cocaine Metabolite, Urine Negative NEGATIVE [facility] Work Phone: Interpretation and review of laboratory results Abnormal [facility] Work Phone: Methadone Screen, Urine Negative NEGATIVE [facility] Work Phone: Methamphetamine, Urine Negative NEGATIVE [facility] Work Phone: Opiates, Urine Negative NEGATIVE [facility] Work Phone: [phone] Oxycodone Screen, Ur Negative NEGATIVE [facility] Work Phone: Phencyclidine, Urine Negative NEGATIVE [facility] [employer] Phone: Propoxyphene, Urine Negative NEGATIVE [facility] Phone: Test Information NOT REPORTED [facility] Phone: Tricyclic Antidepressants, Urine Negative NEGATIVE [facility] Phone: Comment on above: Drug screen results are to be used for medical purposes only. All positive results are unconfirmed. Testing for employment or legal uses should be sent to a reference laboratory for confirmation. [employer] Phone: Drug Scr, Abuse, Uron 2020 Amphetamine(s),Ur Negative Normal NEG [facility] Comment on above: Performed By: #### D AU #### [facility] [address] [place] [address] [place] [address] Concrete Smoother: Brice Frederick MD Barbiturate(s),Ur Negative Normal NEG [facility] Comment on above: Performed By: #### D AU #### [facility] [address] [place] [address] Concrete Smoother: Brice Frederick MD Benzodiazepine(s) Negative Normal [facility] Comment on above: Performed By: #### D AU #### [facility] [address] [place], [place] [id number] Concrete Smoother: Brice Frederick MD Buprenorphrine, Ur Negative Normal NEG [facility] Comment on above: Performed By: #### D AU #### [facility] [address] [place] [address] Con[employer] Smoother: Brice rFederick MD Cannabinoid(s),Ur Positive Abnormal NEG [facility] Comment on above: Performed By: #### D AU #### [facility] [address] [place] [address] Concrete Smoother: Brice Frederick MD Cocaine Metabolite Negative Normal [facility] Comment on above: Performed By: #### D AU #### [facility] [address] [place], [facility]83 Concrete Smoother: Brice Frederick MD Methadone Ql (U) Negative Normal [facility] Comment on above: Performed By: #### D AU #### [facility] [address] [place], [facility]83 Concrete Smoother: Brice Frederick MD Methamphetamine, Ur Negative Normal NEG [facility] Comment on above: Performed By: #### D AU #### [facility] [address] [place] [id number] Concrete Smoother: Brice Frederick MD Opiate(s), Ur Negative Normal [facility] Comment on above: Performed By: #### D AU #### [facility] [address] [place] [id number] Concrete Smoother: Brice Frederick MD Oxycodone, Urine Negative Normal [facility] Comment on above: Performed By: #### D AU #### [facility] [address] [place] [id number] Concrete Smoother: Brice Frederick MD Phencyclidine, Ur Negative Normal [facility] Comment on above: Performed By: #### D AU #### [facility] [address] [place], [facility]83 Concrete Smoother: Brice Frederick MD Propoxyphene,Urine Negative Normal [facility] Comment on above: Performed By: #### D AU #### [facility] [address] [place] [id number] Concrete Smoother: Brice Frederick MD Tricyclic antidepressants Screen Ql (U) Negative Normal [facility] Comment on above: Result Comment: Drug screen results are to be used for medical purposes only. All positive results are unconfirmed. Testing for employment or legal uses should be sent to a reference laboratory for confirmation. Performed By: #### D AU #### [facility] [address] [place] [address] Concrete Smoother: Brice Frederick MD Interpretive Info NOT REPORTED Normal [facility] Comment on above: Performed By: #### D AU #### [facility] [address] [place] [address] Concrete Smoother: Brice Frederick MD Drug Scr, Abuse, UrOrdered B y: Neyda Pool on 08-02-2021 MDMA, Urine NOT REPORTED Normal NEG [facility] Phone: Comment on above: Performed By: #### D AU #### [facility] [address] [place] [address] Concrete Smoother: Brice Frederick MD GBS, External ResultOrdered By: Historical Provider on 08-02-2021 GBS, External Result Negative [employer] Phone: [employer] Phone: UrinalysisOrdered By: Debbi Kolb on 08-02-2021 Bilirubin Urine Negative NEGATIVE [employer] Phone: Color, UA YELLOW YELLOW [employer] Phone: Glucose, Ur Negative NEGATIVE [employer] Phone: Ketones Ql (U) Negative NEGATIVE [employer] Phone: Leukocyte esterase Test strip Ql (U) Negative NEGATIVE [employer] Phone: Nitrite, Urine Negative NEGATIVE [employer] Phone: pH, UA 6.0 [employer] Phone: Protein, UA Negative NEGATIVE [employer] Phone: Specific Carson, UA 1.020 [employer] Phone: Turbidity UA CLEAR CLEAR [employer] Phone: Urinalysis Comments NOT REPORTED [facility] [employer] Work Phone: Urine Hgb Negative NEGATIVE [facility] Work Phone: Urobilinogen, Urine Normal Normal [facility] [employer] Phone: [facility] [employer] Work Phone: Urinalysis, Routineon 2020 Bilirubin, SemiQt,Ur Negative Normal NEG [facility] Comment on above: Performed By: #### U A #### [facility] [address] [place] [address] Concrete Smoother: Brice Frederick MD Blood, Urine Negative Normal [facility] Comment on above: Performed By: #### U A #### [facility] [address] [place] [address] Dr. [place], [facility]83 Concrete Smoother: Brice Frederick MD Clarity (U) CLEAR Normal CLEAR [facility] Comment on above: Performed By: #### U A #### [facility] [address] [place] [address] [place] [address] Concrete Smoother: Brice Frederick MD Color (U) YELLOW Normal YEL [facility] Comment on above: Performed By: #### U A #### [facility] [address] [place] [address] Concrete Smoother: Brice Frederick MD Glucose Ql (U) Negative Normal [facility] Comment on above: Performed By: #### U A #### [facility] [address] [place] [address] [place] [address] Concrete Smoother: Brice Frederick MD Ketones Ql (U) Negative Normal NEG [facility] Comment on above: Performed By: #### U A #### [facility] [address] [place] [address] Concrete Smoother: Brice Frederick MD Leukocyte esterase Test strip Ql (U) Negative Normal NEG [facility] Comment on above: Performed By: #### U A #### [address] [place] [address] Concrete Smoother: Brice Frederick MD Nitrite,Ur Negative Normal NEG [facility] Comment on above: Performed By: #### U A #### [address] [place] [address] Concrete Smoother: Brice Frederick MD PH,Ur 6.0 Normal 5.0-9.0 [facility] Comment on above: Performed By: #### U A #### [address] [place] [address] Concrete Smoother: Brice Frederick MD Protein Ql (U) Negative Normal NEG [facility] Comment on above: Performed By: #### U A #### [address] [place] [address] Concrete Smoother: Brice Frederick MD Spec. Carson,Ur 1.020 Normal 1.010-1.02 0 [facility] Comment on above: Performed By: #### U A #### [address] [place], [place] [id number] Concrete Smoother: Brice Frederick MD Urobilinogen,Ur Normal Normal NORM [facility] Comment on above: Performed By: #### U A #### [address] [place] [address] Concrete Smoother: Brice Frederick MD Comment NOT REPORTED Normal [facility] Comment on above: Performed By: #### U A #### [address] [place] [address] Concrete Smoother: Brice Frederick MD ABO, External ResultOrdered By: Historical Provider on 01-10-2021 ABO, External Result A+ [employer] Phone: C. Trachomatis, External Res ultOrdered By: Historical Provider on 01-10-2021 C. Trachomatis, External Result Negative [employer] Phone: Hepatitis B, External Result Ordered By: Historical Provider on 01-10-2021 Hep B, External Result NR [employer] Phone: N. Gonorrhoeae, External Res ultOrdered By: Historical Provider on 01-10-2021 N. Gonorrhoeae, External Result Negative [employer] Phone: No Panel InformationOrdered By: Historical Provider on 01-10-2021 [employer] Phone: [employer] Phone: PROFILE IOrdered By : Historical Provider on 01-10-2021 Hepatitis B Surface Ag NR Oh [employer] Phone: RPR, External LabOrdered By: Historical Provider on 01-10-2021 RPR, External Result Negative [employer] Phone: Rubella Titer, External Resu ltOrdered By: Historical Provider on 01-10-2021 Rubella Titer, External Result IMM [employer] Phone: Operative Reporton [id number] [id number] Operative Report MR#: [id number] [facility] Pt. Name: Radha Dickinson Room #: 0C Discharge Date: Birthdate: 2000 OPERATIVE REPORTDATE OF SURGERY: 09/14/2017SURGEON: Stephani Lopez M.D.INSURANCE COORDINATOR: Ham Nino M.D.PREOPERATIVE DIAGNOSIS: Radial digital nerve [...] 09/14/2017/11:28 P/Stephani Lopez M.D.Date Trans: 09/15/2017 02:25 [id number] Normal [facility] POC GLUCOSE LABon 09-14-2017 Glucose mass conc 91 mg/dL Normal 70-100 [facility] Comment on above: Performed By: #### [id number] ####[facility] [place] [address], RUST POC URINE PREGNANCYon 2016 HCG.beta subunit ( test) Ql (U) Negative Normal NEGATIVE [facility] Comment on above: Result Comment: Perf ormed in PACU Performed By: #### 8 [id number] ####[facility] Vital Signs Date Time Vital Sign Value Performing Clinician Facility 12-19-2024 16:29-0500 Body mass index (BMI) [Ratio] 21.46 kg/m2 Dat Floro CNM Work Phone: [facility] 12-19-2024 16:29-0500 Body weight 62.14 kg Dat Floro CNM Work Phone: [facility] 12-19-2024 16:29-0500 Diastolic blood pressure 70 mm[Hg] Dat Floro CNM Work Phone: [facility] 12-19-2024 16:29-0500 Systolic blood pressure 120 mm[Hg] Dat Floro CNM Work Phone: [facility] 10-17-2024 16:59-0500 Body mass index (BMI) [Ratio] 20.2 kg/m2 Dat Floro CNM Work Phone: [facility] 10-17-2024 16:59-0500 Body weight 58.51 kg Dat Floro CNM Work Phone: [facility] 10-17-2024 16:59-0500 Diastolic blood pressure 70 mm[Hg] Dat Floro CNM Work Phone: [facility] 10-17-2024 16:59-0500 Systolic blood pressure 120 mm[Hg] Dat Floro CNM Work Phone: [facility] 09-19-2024 13:27-0400 Body mass index (BMI) [Ratio] 20.05 kg/m2 Dat Floro CNM Work Phone: [facility] 09-19-2024 13:27-0400 Body weight 58.06 kg Dat Floro CNM Work Phone: [facility] 09-19-2024 13:27-0400 Diastolic blood pressure 80 mm[Hg] Dat Yokoo CNM Work Phone: [facility] 09-19-2024 13:27-0400 Systolic blood pressure 122 mm[Hg] Dat Yokoo CNM Work Phone: [facility] 09-14-2024 16:37-0400 Body mass index (BMI) [Ratio] 19.34 kg/m2 Brice Madrid MD Work Phone: [facility] 09-14-2024 16:37-0400 Body weight 57.7 kg Brice Madrid MD Work Phone: [facility] 09-14-2024 16:37-0400 Diastolic blood pressure 56 mm[Hg] Brice Madrid MD Work Phone: [facility] 09-14-2024 16:37-0400 Heart rate 80 /min Brice Madrid MD Work Phone: [facility] 09-14-2024 16:37-0400 Respiratory rate 16 /min Brice Madrid MD Work Phone: [facility] 09-14-2024 16:37-0400 Systolic blood pressure 98 mm[Hg] Brice Madrid MD Work Phone: [facility] 09-01-2024 09:07-0400 Body mass index (BMI) [Ratio] 19.89 kg/m2 Dat Yokoo CNM Work Phone: [facility] 09-01-2024 09:07-0400 Body weight 57.61 kg Dat Yokoo CNM Work Phone: [facility] 09-01-2024 09:07-0400 Diastolic blood pressure 70 mm[Hg] Dat Floro CNM Work Phone: [facility] 09-01-2024 09:07-0400 Systolic blood pressure 118 mm[Hg] Dat Floro CNM Work Phone: [facility] 08-31-2024 11:23-0400 Body height 172.7 cm Brice Madrid MD Work Phone: [facility] 08-31-2024 11:23-0400 Body mass index (BMI) [Ratio] 18.72 kg/m2 Brice Madrid MD Work Phone: [facility] 08-31-2024 11:23-0400 Body temperature 98.71 [degF] Brice Madrid MD Work Phone: [facility] 08-31-2024 11:23-0400 Body weight 55.85 kg Brice Madrid MD Work Phone: [facility] 08-31-2024 11:23-0400 Diastolic blood pressure 68 mm[Hg] Brice Madrid MD Work Phone: [facility] 08-31-2024 11:23-0400 Systolic blood pressure 112 mm[Hg] Brice Madrid MD Work Phone: [facility] 07-19-2024 13:20-0400 Body mass index (BMI) [Ratio] 19.58 kg/m2 Dat Floro CNM Work Phone: [facility] 07-19-2024 13:20-0400 Body weight 56.7 kg Dat Floro CNM Work Phone: [facility] 07-19-2024 13:20-0400 Diastolic blood pressure 70 mm[Hg] Dat Floro CNM Work Phone: [facility] 07-19-2024 13:20-0400 Systolic blood pressure 112 mm[Hg] Dat Floro CNM Work Phone: [facility] 07-19-2024 09:37-0400 Body height 172.72 cm MD Brice Madrid Work Phone: [facility] 07-19-2024 09:37-0400 Body mass index (BMI) [Ratio] 18.2 kg/m2 MD Brice Madrid Work Phone: [facility] 07-19-2024 09:37-0400 Body temperature 97.8 [degF] MD Brice Madrid Work Phone: [facility] 07-19-2024 09:37-0400 Body weight 54.43 kg MD Brice Madrid Work Phone: [facility] 07-19-2024 09:37-0400 Diastolic blood pressure 72 mm[Hg] MD Brice Madrid Work Phone: [facility] 07-19-2024 09:37-0400 Heart rate 90 /min MD Brice Madrid Work Phone: [facility] 07-19-2024 09:37-0400 Respiratory rate 20 /min MD Brice Madrid Work Phone: [facility] 07-19-2024 09:37-0400 SaO2% (BldA) [Mass fraction] 100 % MD Brice Madrid Work Phone: [facility] 07-19-2024 09:37-0400 Systolic blood pressure 109 mm[Hg] MD Brice Madrid Work Phone: [facility] 07-06-2024 14:45-0400 Body height 172.72 cm MD Brice Madrid Work Phone: [facility] 07-06-2024 14:45-0400 Body mass index (BMI) [Ratio] 18.8 kg/m2 MD Brice Madrid Work Phone: [facility] 07-06-2024 14:45-0400 Body temperature 97.3 [degF] MD Brice Madrid Work Phone: [facility] 07-06-2024 14:45-0400 Body weight 56.24 kg MD Brice Madrid Work Phone: [facility] 07-06-2024 14:45-0400 Diastolic blood pressure 83 mm[Hg] MD Brice Madrid Work Phone: [facility] 07-06-2024 14:45-0400 Heart rate 66 /min MD Brice Madrid Work Phone: [facility] 07-06-2024 14:45-0400 Respiratory rate 16 /min MD Brice Madrid Work Phone: [facility] 07-06-2024 14:45-0400 SaO2% (BldA) [Mass fraction] 99 % MD Brice Madrid Work Phone: [facility] 07-06-2024 14:45-0400 Systolic blood pressure 125 mm[Hg] MD Brice Madrid Work Phone: [facility] 05-23-2024 12:04-0400 Diastolic blood pressure 63 mm[Hg] MD Brice Madrid Work Phone: [facility] 05-23-2024 12:04-0400 Heart rate 76 /min MD Brice Madrid Work Phone: [facility] 05-23-2024 12:04-0400 Respiratory rate 18 /min MD Brice Madrid Work Phone: [facility] 05-23-2024 12:04-0400 SaO2% (BldA) [Mass fraction] 100 % MD Brice Madrid Work Phone: [facility] 05-23-2024 12:04-0400 Systolic blood pressure 96 mm[Hg] MD Brice Madrid Work Phone: [facility] 05-23-2024 09:36-0400 Body height 172.72 cm MD Brice Madrid Work Phone: [facility] 05-23-2024 09:36-0400 Body weight 54.43 kg MD Brice Madrid Work Phone: [facility] 05-20-2024 08:45-0400 Body height 170.18 cm [facility] 05-20-2024 08:45-0400 Body mass index (BMI) [Ratio] 18.8 kg/m2 [facility] 05-20-2024 08:45-0400 Body weight 54.43 kg [facility] 05-20-2024 08:45-0400 Diastolic blood pressure 75 mm[Hg] [facility] 05-20-2024 08:45-0400 Heart rate 93 /min [facility] 05-20-2024 08:45-0400 Systolic blood pressure 113 mm[Hg] [facility] 07-10-2023 09:40-0400 Body height 170.18 cm Viky Jt Other [employer] Other 07-10-2023 09:40-0400 Body mass index (BMI) [Ratio] 21.42 kg/m2 Viky Waters Other [employer] Other 07-10-2023 09:40-0400 Body temperature 96.8 [degF] Viky Waters Other [employer] Other 07-10-2023 09:40-0400 Body weight 62.05 kg Viky Waters Other [employer] Other 07-10-2023 09:40-0400 Diastolic blood pressure 66 mm[Hg] Viky Waters Other [employer] Other 07-10-2023 09:40-0400 Respiratory rate 16 /min Viky Waters Other [employer] Other 07-10-2023 09:40-0400 SaO2% (BldA) [Mass fraction] 99 % Viky Waters Other [employer] Other 07-10-2023 09:40-0400 Systolic blood pressure 112 mm[Hg] Viky Waters Other [employer] Other 08-04-2021 08:20-0400 Body temperature 97.9 [degF] Dat Kolb APRN [facility] Work Phone: [employer] Work Phone: 08-04-2021 08:20-0400 Diastolic blood pressure 67 mm[Hg] Dat Kolb APRN - CNM Work Phone: [employer] Work Phone: 08-04-2021 08:20-0400 Heart rate 63 /min Dat Kolb APRN - CNM Work Phone: [employer] Work Phone: 08-04-2021 08:20-0400 Respiratory rate 16 /min Dat Kolb APRN - CNM Work Phone: [employer] Work Phone: 08-04-2021 08:20-0400 Systolic blood pressure 104 mm[Hg] Dat Kolb APRN - CNM Work Phone: [employer] Work Phone: 08-02-2021 20:03-0400 Body height 170.2 cm Dat Kolb APRN - CNM Work Phone: [employer] Work Phone: 08-02-2021 20:03-0400 Body mass index (BMI) [Ratio] 26.63 kg/m2 Dat Kolb APRN - CNM Work Phone: [employer] Phone: 08-02-2021 20:03-0400 Body weight 77.11 kg Dat Kolb APRN - CNM Work Phone: [employer] Phone: Encounters Encounter Date Encounter Type Care [...] Orders Only Brice Madrid MD [facility] Start: 11-21-2024 End: 11-21-2024 [...] 10-13-2024 Refill Brice Madrid MD [facility] Start: 09-20-2024 End: 09-20-2024 [...] Not Available Start: 09-14-2024 End: 09-14-2024 ambulatory [facility] Start: 09-14-2024 End: 09-14-2024 Office outpatient visit 15 minutes Brice Madrid MD Work Phone: [facility] Comment on above: Multiple masses of n [place] (Primary Dx); Less than 8 weeks gestation of Start: 09-06-2024 End: 09-06-2024 ambulatory BRICE MADRID [facility] Start: 09-06-2024 End: 09-06-2024 ambulatory BRICE LEERANCE [facility] Start: 09-01-2024 End: 09-01-2024 Office outpatient visit 15 minutes Dat L Floro CNM Work Phone: [facility] Comment on above: GA: 8w6d Start: 09-01-2024 End: 09-01-2024 ambulatory DAT L FLORO Not Available Start: 08-31-2024 End: 08-31-2024 ambulatory [facility] Start: 08-31-2024 End: 08-31-2024 Office outpatient visit 15 minutes Brice Madrid MD [facility]: [facility] Comment on above: Multiple [...] 07-19-2024 ambulatory MD Brice Madrid Work Phone: [facility] Work Phone: Start: 07-19-2024 End: 07-19-2024 Patient encounter procedure MD Brice Madrid Work Phone: [facility] [place] Amb[facility] Work Phone: Start: 07-19-2024 Registered Recurring MD Brice Madrid Work Phone: [facility] Acute Work Phone: Start: 07-19-2024 ambulatory Brice Madrid Facility :[facility] Start: 07-11-2024 End: 07-11-2024 Bamboo flowsheet Dat L Floro CNM Work Phone: [facility] Start: 07-11-2024 End: 07-11-2024 Bamboo flowsheet Dat L Floro CNM Work Phone: [facility] Start: 07-06-2024 End: 07-06-2024 ambulatory MD Brice Madrid Work Phone: [facility] Work Phone: Start: 07-06-2024 End: 07-06-2024 Patient encounter procedure MD Brice Madrid Work Phone: [facility] Ambulatory Work Phone: Start: 06-14-2024 End: 06-14-2024 Patient encounter procedure MD Brice Madrid Work Phone: [facility] [place] Work Phone: Start: 06-14-2024 End: 06-14-2024 ambulatory MD Brice Madrid Work Phone: [facility] Work Phone: Start: 05-23-2024 Non-patient / Non-visit MD Brice Madrid Work Phone: [facility] Gastroenterology Work Phone: Start: 05-23-2024 End: 05-23-2024 Admission to same day surgery center MD Brice Madrid Work Phone: [facility] Work Phone: Start: 05-23-2024 End: 05-23-2024 ambulatory MD Brice Madrid Work Phone: [facility] Work Phone: Start: 05-20-2024 End: 05-20-2024 ambulatory KARISSA ROSENTHAL [facility] Start: 05-20-2024 End: 05-20-2024 ambulatory [facility] Work Phone: Start: 05-20-2024 End: 05-20-2024 Patient encounter procedure [facility] Gastroenterology Work Phone: Start: 04-25-2024 End: 04-25-2024 ambulatory BRICE [facility] Start: 03-15-2024 End: 03-15-2024 ambulatory [facility] Start: 02-05-2024 Telephone encounter Lidya [facility] Start: 02-01-2024 End: 02-02-2024 Emergency department patient visit VIKY VAZQUEZ [facility] Start: 01-30-2024 End: 01-30-2024 Emergency department patient visit BRICE Ibarra [facility] Start: 07-14-2023 Telephone encounter Viky Waters [facility] [address] Start: 07-14-2023 End: 07-14-2023 ambulatory Viky Waters Other [employer] Other Start: 07-14-2023 End: 07-14-2023 Departed Referred EFFIE Waters Work Phone: [facility] [employer] [place] Work Phone: Start: 07-10-2023 Office outpatient ne w 20 minutes Viky Waters [facility] Start: 07-10-2023 End: 07-10-2023 ambulatory Viky Waters Other [employer] Other Start: 07-10-2023 End: 07-10-2023 Departed Referred EFFIE Waters Work Phone: [facility] [employer] [place] Work Phone: Start: 08-02-2021 End: 08-04-2021 Evaluation and management of inpatient DAT KOLB [facility] Start: 08-02-2021 End: 08-04-2021 Evaluation and management of inpatient Dat Kolb [employer] - CNM Work Phone: [facility] Labor and Delivery Start: 09-14-2017 End: 09-15-2017 Ambulatory ABDULAZIM LUCY Facility:[facility] Start: 09-11-2017 End: 09-12-2017 Ambulatory DEFAULT PHYSICIAN Facility:[facility] Start: 03-05-2017 Well adult Lidya Geiger [facility] Procedures Date Procedure Procedure Detail Performing Clinician [...] 06-08-2023 Adult depression screening assessment Lidya Geiger 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 Start: 08-02-2021 Blood count complete auto&auto difrntl wbc Neyda E Pool [employer] - CNM Work Phone: Start: 08-02-2021 Drug screen class list a Neyda E Pool [employer] - CNM Work Phone: Start: 08-02-2021 Urnls dip stick/tablet rgnt auto w/o microscopy Dat Kennedi [employer] - CNM Work Phone: Start: 08-02-2021 GBS, [...] Adult BMI Screening Adult BMI Screen ing [facility] Start: 09-14-2025 Tobacco Screening Tobacco Screening [facility] Start: 08-31-2025 Adult BMI Screening Adult BMI Screen ing [facility] Start: 08-31-2025 Depression Screening Depression Scre ening [facility] Start: 08-31-2025 Tobacco Screening Tobacco Screening [facility] Start: 01-31-2025 Adult BMI Screening Adult BMI Screen ing [facility] Start: 01-31-2025 Tobacco Screening Tobacco Screening [facility] Start: 01-16-2025 End: 01-16-2025 Patient encounter procedure 01/16/2025 4:30 PM EST Routine [facility] [address] [place] [address] Dat Kolb CNM [address] [place] [address] [facility] Start: 11-21-2024 [...] first trimester Expected: 10/17/2024 (Approximate), Expires: 10/17/2025 [facility] Comment on above: Expected: 10/17/2024 (Approximate), Expires: 10/17/2025 Start: 10-17-2024 End: 10-17-2025 CBC panel - Blood by Automated count CBC Lab Routine Encounter for supervision of other normal , first trimester Expected: 10/17/2024 (Approximate), Expires: 10/17/2025 [facility] Comment on above: Expected: 10/17/2024 (Approximate), Expires: 10/17/2025 Start: 10-17-2024 End: 10-17-2025 DRUG TOX MONITORIGN 6 W/ CONF,URINE DRUG TOX MONITORIGN 6 W/ CONF,URINE Lab Routine Encounter for supervision of other normal , first trimester Expected: 10/17/2024 (Approximate), Expires: 10/17/2025 [facility] Comment on above: Expected: 10/17/2024 (Approximate), Expires: 10/17/2025 Start: 10-17-2024 End: 10-17-2025 Hemoglobin A1c/Hemoglobin.total in Blood Hemoglobin A1c Lab Routine Encounter for supervision of other normal , first trimester Expected: 10/17/2024 (Approximate), Expires: 10/17/2025 [facility] Comment on above: Expected: 10/17/2024 (Approximate), Expires: 10/17/2025 Start: 10-17-2024 End: 10-17-2025 Hepatitis B virus surface Ag [Presence] in Serum or Plasma by Immunoassay Hepatitis B surface antigen Lab Routine Encounter for supervision of other normal , first trimester Expected: 10/17/2024 (Approximate), Expires: 10/17/2025 [facility] Work Phone: Comment on above: Expected: 10/17/2024 (Approximate), Expires: 10/17/2025 Start: 10-17-2024 End: 10-17-2025 HIV-1/HIV-2 antigen/antibody combination immunoassay HIV-1 and HIV-2 antibodies Lab Routine Encounter for supervision of other normal , first trimester Expected: 10/17/2024 (Approximate), Expires: 10/17/2025 [facility] Comment on above: Expected: 10/17/2024 (Approximate), Expires: 10/17/2025 Start: 10-17-2024 End: 10-17-2025 Neisseria gonorrhoeae DNA [Presence] in Cervical mucus by LULI with probe detection C. trachomatis / N. gonorrhoeae, DNA probe Pathology and Cytology Routine Encounter for supervision of other normal , first trimester Expected: 10/17/2024 (Approximate), Expires: 10/17/2025 [facility] Comment on above: Expected: 10/17/2024 (Approximate), Expires: 10/17/2025 Start: 10-17-2024 End: 10-17-2025 Reagin Ab [Presence] in Serum by RPR RPR Lab Routine Encounter for supervision of other normal , first trimester Expected: 10/17/2024 (Approximate), Expires: 10/17/2025 [facility] Comment on above: Expected: 10/17/2024 (Approximate), Expires: 10/17/2025 Start: 10-17-2024 End: 10-17-2025 Rubella antibody, IgG Rubella antibody, IgG Lab Routine Encounter for supervision of other normal , first trimester Expected: 10/17/2024 (Approximate), Expires: 10/17/2025 [facility] Comment on above: Expected: 10/17/2024 (Approximate), Expires: 10/17/2025 Start: 10-17-2024 End: 10-17-2025 TSH W/REFLEX TO FT4 TSH W/REFLEX TO FT4 Lab Routine Encounter for supervision of other normal , first trimester Expected: 10/17/2024 (Approximate), Expires: 10/17/2025 [facility] Comment on above: Expected: 10/17/2024 (Approximate), Expires: 10/17/2025 Start: 10-17-2024 End: 10-17-2025 URINALYSIS MICROSCOPIC URINALYSIS MICROSCOPIC Lab Routine Encounter for supervision of other normal , first trimester Expected: 10/17/2024 (Approximate), Expires: 10/17/2025 [facility] Comment on above: Expected: 10/17/2024 (Approximate), Expires: 10/17/2025 Start: 09-20-2024 End: 09-20-2024 Professional / ancillary services management 09/20/2024 11:30 AM EDT Ancillary Procedure [facility] [address] [address] [facility] Start: 09-20-2024 End: 09-20-2024 Professional / ancillary services management 09/20/2024 9:30 AM EDT Ancillary Procedure [facility] [address] [address] [facility] Start: 09-20-2024 End: 09-20-2024 Patient encounter procedure 09/20/2024 9:00 AM EDT Routine [facility] [address] [place] [address] Dat Kolb, CNM [address] [place] [address] [facility] Start: 09-19-2024 End: 09-19-2024 Patient encounter procedure 09/19/2024 1:30 PM EDT Routine [facility] [address] [place] [address] Dat Kolb, CNM [address] [place] [address] Arrived [facility] Comment on above: Arrived Start: 09-14-2024 End: 09-14-2024 Patient encounter procedure 09/14/2024 4:30 PM EDT Office Visit [facility] [address] [place] [id number] Brice Madrid MD [address] [place] [address] [facility] Start: 09-01-2024 End: [...] masses of neck Expected: 08/31/2024, Expires: 08/31/2025 [facility] Comment on above: Expected: 08/31/2024 , Expires: 08/31/2025 Start: 08-31-2024 End: 08-31-2025 US Head and neck soft tissue Ultrasound soft tissue head neck Imaging Routine Multiple masses of neck Expected: 08/31/2024, Expires: 08/31/2025 [facility] Comment on above: Expected: 08/31/2024 , Expires: 08/31/2025 Start: 07-24-2024 Influenza vaccination Influenza Vacc [facility] Start: 07-19-2024 End: 07-19-2025 US Pelvis transvaginal [facility] Work Phone: Comment on above: Expected: 07/19/2024 , Expires: 07/19/2025 Start: 07-19-2024 End: 07-19-2024 Patient encounter procedure 07/19/2024 1:15 PM EDT Office Visit [facility] [address] [place] [address] Dat Kolb, CNM [address] [place] [address] Arrived [facility] Comment on above: Arrived Start: 06-08-2024 Depression Screening Depression Scre vera [facility] Start: 05-23-2024 [facility] Start: 07-24-2023 Influenza vaccination Influenza Vacc ine [facility] Start: 07-10-2023 [facility] Start: 07-24-2021 Influenza vaccination Flu vaccine (# 1) [facility] [employer] Work Phone: Start: 2019 Screening for malign ant neoplasm of cervix Pap smear [facility] Start: 2017 DTaP/Tdap/Td vaccine (1 - Tdap) DTaP/Tdap/Td vaccine (1 - Tdap) [employer] Phone: Start: 2016 Adult BMI Follow Up Plan [facility] Start: 2014 Screening for Chlamy logan trachomatis [facility]lam[facility] Phone: Start: 2013 HIV screening [facility] screen [facility] Work Phone: Start: 2010 COVID-19 Vaccine (1) COVID-19 Vaccin e (1) [facility] Phone: Start: 2009 DTaP,Tdap and Td Vaccines (6 - Tdap) DTaP,Tdap and Td Vaccines (6 - Tdap) [facility] Start: 2009 HPV vaccine (1 - 2-d ose series) HPV vaccine (1 - 2-dose series) [employer] Phone: Start: 2004 Pneumococcal 0-64 ye ars Vaccine (1 of 2 - PPSV23) Pneumococcal 0-64 years Vaccine (1 of 2 - PPSV23) [facility] Phone: Start: 1999 Varicella vaccine (1 of 2 - 2-dose childhood series) Varicella vaccine (1 of 2 - 2-dose childhood series) [facility] Phone: Start: 1998 Hepatitis C screening Hepatitis C sc reen [facility] Phone: Start: 1998 Tobacco Counseling Tobacco Counselin g [facility] [employer] [facility] [employer] vaginae DN A [Presence] in Vaginal fluid by LULI with probe detection [facility] Bacterial vaginosis associated bacterium 2 DNA [Presence] in Vaginal fluid by LULI with probe detection [facility] End: 08-31-2025 C-reactive protein C-reactive protein Lab Routine Multiple masses of neck 1 Occurrences starting 08/31/2024 until 08/31/2025 [facility] Work Phone: Comment on above: 1 Occurrences starti ng 08/31/2024 until 08/31/2025 Comprehensive metabo lic 1999 panel - Serum or Plasma [facility] Comprehensive metabo lic 1999 panel - Serum or Plasma [facility] CT Abdomen and Pelvi s W contrast IV [facility] End: 08-31-2025 Jerod-Pena virus VCA, IgG Jerod-Pena virus VCA, IgG Lab Routine Multiple masses of neck Mononucleosis syndrome 1 Occurrences starting 08/31/2024 until 08/31/2025 [facility] [employer] Comment on above: 1 Occurrences starti ng 08/31/2024 until 08/31/2025 End: 08-31-2025 Jerod-Pena virus VCA, IgM Jerod-Pena virus VCA, IgM Lab Routine Multiple masses of neck Mononucleosis syndrome 1 Occurrences starting 08/31/2024 until 08/31/2025 [facility] Comment on above: 1 Occurrences starti ng 08/31/2024 until 08/31/2025 End: 08-31-2025 Erythrocyte sedimentation rate Erythrocyte Sedimentation Rate (ESR) Lab Routine Multiple masses of neck 1 Occurrences starting 08/31/2024 until 08/31/2025 [facility] [employer] Comment on above: 1 Occurrences starti ng 08/31/2024 until 08/31/2025 Hepatitis C virus Ab [Presence] in Serum or Plasma by Immunoassay Hepatitis C antibody Lab Routine Encounter for supervision of other normal , first trimester Ordered: 10/17/2024 [facility] Comment on above: Ordered: 10/17/2024 Megasphaera sp type 1 DNA [Presence] in Vaginal fluid by LULI with probe detection [facility] Patient Education Gastritis [place] n polyps Know your Meds [facility] Work Phone: Rheumatoid factor [Units/volume] in Serum or Plasma [facility] Immunizations Immunization Date Immunization Notes Care Provider Fa cility 08-03-2021 diphtheria, tetanus toxoids and acellular pertussis vaccine, unspecified formulation Dat Kolb [employer] - CN Work Phone: [facility] Work Phone: 08-03-2021 measles, mumps and rubella virus vaccine Dat Kolb [employer] - CN Work Phone: [facility] Work Phone: 02-17-2019 influenza virus vaccine, unspecified formulation Brice Madrid MD Work Phone: [facility] 06-05-2003 diphtheria, tetanus toxoids and acellular pertussis vaccine Lidya Geiger [facility] 06-05-2003 measles, mumps and rubella virus [facility] poliovirus [facility], inactivated [facility] 01-01-2000 diphtheria, tetanus toxoids and acellular pertussis vaccine, unspecified formulation Lidya Geiger [facility] 01-01-2000 poliovirus vaccine, unspecified formulation Lidya Geiger [facility] 10-01-1999 haemophilus influenz ae type b vaccine, conjugate unspecified formulation [facility] 07-04-1999 measles, mumps and rubella virus vaccine [facility] 04-04-1999 hepatitis B vaccine, pediatric or pediatric/adolescent dosage [facility] 01-03-1999 diphtheria, tetanus toxoids and acellular pertussis vaccine, unspecified formulation Lidya Geiger [facility] 01-03-1999 haemophilus influenz ae type b vaccine, conjugate unspecified formulation Lidya Geiger [facility] 1998 diphtheria, tetanus toxoids and acellular pertussis vaccine, unspecified formulation Lidya Geiger [facility] 1998 haemophilus influenz ae type b vaccine, conjugate unspecified formulation Lidya Geiger [facility] 1998 poliovirus vaccine, unspecified formulation Lidya Geiger [facility] 1998 diphtheria, tetanus toxoids and acellular pertussis vaccine, unspecified formulation [facility] 1998 haemophilus influenz ae type b vaccine, conjugate unspecified formulation Lidya Juanjo [facility] 1998 poliovirus vaccine, unspecified formulation Lidya Geiger [facility] 1998 hepatitis B vaccine, pediatric or pediatric/adolescent dosage Lidya Geiger [facility] 1998 hepatitis B vaccine, pediatric or pediatric/adolescent dosage Lidya Geiger [facility] Payers Date Payer Category Payer Managed Care, Other (non HMO) [id number] 2024 Unknown 2024 Unknown [id number] 2024 Self-pay 2024 Private Health Insurance [id number] 2023 Private Health Insurance [id number] 2022 Medicaid [id number] 2. [id number] 2020 Unknown [id number] 15 1998 Unknown [id number] 2.16.8 40.1.703574.3.579.2.173 1998 Unknown [id number] 2.16.840.1.718322.3.579.2.1286 1998 Unknown [id number] 2.16.840.1.263801.3.579.2.1286 1998 Unknown [id number] 2.16.840.1.883351.3.579.2.1286 1998 Unknown [id number] 2.16.840.1.342455.3.579.2.128 1998 Unknown [id number] 2.16.840.1.240531.3.579.2.1286 1998 Unknown [id number] 2.16.840.1.696468.3.579.2.1285 1998 Unknown [id number] 2.16.840.1.140189.3.579.2.1285 1998 Unknown [id number] 2.16.840.1.166822.3.579.2.1285 1998 Unknown [id number] 2.16.840.1.515506.3.579.2.1285 1998 Unknown [id number] 2.16.84 0.1.350272.3.579.2.1258 1998 Unknown [id number] 2.16.84 0.1.332095.3.579.2.1258 1998 Unknown [id number] 2.16.84 0.1.453409.3.579.2.1258 1998 Unknown [id number] 2.16.84 0.1.743461.3.579.2.1258 1998 Unknown [id number] 2.16.84 0.1.102158.3.579.2.1258 1998 Unknown [id number] 2.16.84 0.1.472091.3.579.2.1258 1998 Unknown [id number] 2.16.84 0.1.780678.3.579.2.1258 1998 Unknown [id number] 2.16.84 0.1.192868.3.579.2.1259 Unknown [id number] Unknown [id number] 2.16.8 40.1.607132.3.579.2.531 Unknown [id number] 2.16.8 40.1.911373.3.579.2.531 Unknown [id number] 2.16.8 40.1.103326.3.579.2.531 Social History Date Type Detail Facility Start: 04-06-2019 End: 03-15-2024 Tobacco smoking status NHIS Current every day smoker [employer] Phone: Start: 08-03-2021 End: 07-19-2024 Tobacco use and exposure Never used [employer] Start: 08-03-2021 Alcohol intake Current non-drinker of alcohol (finding) [employer] Phone: Start: 08-02-2021 Tobacco Comment 1-2 cigs a day [employer] Phone: Start: 1998 Sex Assigned At Not on file [employer] Phone: Exposure to SARS-CoV -2 (event) Not sure [employer] Start: 02-01-2024 End: 09-01-2024 Sex Assigned At [facility] [employer] Start: 1998 Sex Assigned At Female [facility] Start: 07-09-2023 Tobacco smoking status NHIS Ex-smoker [employer] Start: 05-20-2024 End: 05-23-2024 History of tobacco use Current smoker [employer] Start: 04-06-2019 History of tobacco use [employer] Start: 02-01-2024 End: 09-01-2024 Alcohol intake Ex-drinker (finding) [employer] Start: 02-01-2024 End: 09-01-2024 History of Social function [facility] Adolescent depressio n screening assessment 0 [facility] Start: 07-09-2023 Tobacco Comment 1 cigarette a day-every other day [employer] [facility] Start: 07-09-2023 Alcohol Comment rare [facility] Start: 07-19-2024 Tobacco smoking status NHIS Never smoked tobacco [facility] Start: 07-15-2024 [facility] Start: 06-26-2015 Sex Female (finding) [facility] Tobacco smoking stat NHIS Tobacco smoking consumption unknown [facility] Goals Date Patient Goal Desired Activity /State Clinical Notes 08-04-2021 to 12-30-2024 Telephone Encounter - Lita Clancy - 12/30/2024 10:11 AM ESTTelephone Encounter - Lita Clancy - 12/30/2024 10:11 AM Brandin Kolb CNM - 12/19/2024 4:30 PM EST Note Date & Type Note Facility 12-30-2024 Telephone encounter Note Ks, my name is Radha Gauthier. I am calling about question for Ball or even Eva in her office. If 1 of them could just give me a call back against Radha Gauthier. My day is 8998 and my phone number is [phone]. Thank you. [facility] 12-30-2024 Miscellaneous Notes Ks, my name is Radha Gauthier. I am calling about question for Ball or even Eva in her office. If 1 of them could just give me a call back against Radha Gauthier. My day is 8998 and my phone number is [phone]. Thank you. documented in this encounter [facility] 12-19-2024 History of Present illness Narrative Subjective [...] a routine visit. documented in this encounter [facility] 10-17-2024 History of Present illness Narrative Subjective [...] a routine visit. documented in this encounter [facility] 10-13-2024 Miscellaneous Notes Patient requesting refill of Ondansetron to [facility] documented in this encounter [facility] 10-13-2024 Telephone encounter Note Patient requesting refill of Ondansetron to [facility] 09-20-2024 Telephone encounter Note Kimmie from the [facility] called to say the order needs updated to say transvaginal and then faxed to [phone]. Ty [facility] 09-20-2024 Miscellaneous Notes Kimmie from the [facility] called to say the order needs updated to say transvaginal and then faxed to [phone]. Ty documented in this encounter [facility] 09-19-2024 History of Present illness Narrative Subjective [...] at 11 weeks , patient going to [facility] Continue vitamin. Labs reviewed. Order placed for anatomy scan at 20 weeks. Follow up in 4 weeks for a routine visit. documented in this encounter [facility] 09-14-2024 History of Present illness Narrative Images from the original note were not included. [address] [facility] [address] SUBJECTIVE: Patient ID: Radha Dickinson is [...] note were not included. [address] [facility] [address] SUBJECTIVE: Patient ID: Radha Dickisnon is a 24 y.o. female. HPI The [...] this encounter. Follow-up: documented in this encounter [facility] 09-06-2024 Note US SOFT TISS HEAD NE CK Procedure: US SOFT TISS HEAD NECK; Reason for Exam: Multiple masses of neck; Comparison: None Technique: Real time sonography of the neck soft tissues performed. FINDINGS: In the right retroauricular region the ui designer demonstrates a hypoechoic soft tissue lesion which measures 1.4 x 0.7 x 0.7 cm. There appears to be abnormal internal blood flow. In the left occipital region, ui designer demonstrates a reniform hypoechoic lesion measuring 1.0 [...] Roshan Kramer MD on 09/06/2024 4:35 PM [facility] 09-01-2024 History of Present illness Narrative [...] verification of viability documented in this encounter [facility] 08-31-2024 History of Present illness Narrative Images from the original note were not included. [address] [facility] [id number] SUBJECTIVE: Patient ID: Radha Dickinson is a [...] Ultrasound soft tissue head neck; Future - Jreod-Pena virus VCA, IgM; Future - Jerod-Pena virus [...] recheck by oncology documented in this encounter [employer] 07-19-2024 History of Present illness Narrative PROBLEM VISIT Radha Dickinson is 24 y.o. 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 CT scan done at [facility] reviewed and does not have any measurements [...] MA,07/19/2024 1:29 PM documented in this encounter [facility] 05-23-2024 History and physical note Note Date/Time May 23, 2024 9:59a m [facility] [address] [place] [address] Gastroenterology H&P Signed Patient: Radha Dickinson MR#: [id number] : 2000 Acct:[id number] Age/Sex: 23 / F Adm Date: 4 Loc: Room: Type: [facility] Attending Dr: Karissa Rosenthal DO Copies [...] <Electronically signed by Karissa Rosenthal DO> 05/23/24 [address] [facility] Work Phone: [phone] 391-260107-01-2024 [facility]2024 Miscellaneous Notes* Telephone Encounter - Lidya Geiger CMA - 02/05/2024 10:00 AM EDT Patient with sinus pressure asking for ATB to [employer] * Telephone Encounter - Brice Madird MD - 02/05/2024 10:00 AM EDT Zpak sent to [employer] * Telephone Encounter - Lidya Geiger CMA - 02/05/2024 10:00 AM EDT [facility] advised [facility] encounter Note* Telephone Encounter - Lidya Geiger CMA - 02/05/2024 10:00 AM EDT Patient with sinus pressure asking for ATB to [employer] Coraid [id number] Telephone encounter Note* Telephone Encounter - Brice Madrid MD - 02/05/2024 10:00 AM EDT Zpak sent to [employer] Coraid [id number] Telephone encounter Note* Telephone Encounter - Lidya Geiger CMA - 02/05/2024 10:00 AM EDT Patient advised [employer]08-18-2023 Evaluation note* Encounter Date Diagnosis Assessment Notes Treatment Notes Treatment Clinical Notes Jun, Vaginal discharge (ICD-10 - N89.8) Vag + performed in office today. Will treat prophylactically for yeast based on physical exam and symptoms. Specimen was sent to lab and patient will be notified of results. Tx plan may be altered at time of results. Patient to follow with PCP or SIGN WRITER HAND as needed for persistent or worsening symptoms. Immediate eval if abdominal pain, fever, chills, body aches, back/flank pain, nausea, urinary complaints. Patient may use OTC external yeast infection creams for external irritation, do not insert creams or meds as Diflucan rx will treat. Avoid scratching and douching. Patient verbalizes understanding and is agreeable to treatment plan. [employer] Other 09-12-2021 History of Present illness Narrative* [...] time she came in. [facility] Work Phone: evaluation note* Diagnosis 38 weeks gestation of state, incidental (normal spontaneous vaginal delivery) Normal delivery documented in this encounter [facility] [employer] Work Phone: evaluation noteNo assessment information available [facility] Work Phone: Evaluation noteNo InformationN[facility] [employer] Other Evaluation note* Diagnosis Onset Date Resolution Status Abdominal pain acute Diarrhea acute Nausea & vomiting acute Unintentional weight loss [place] [facility] Work Phone: Evaluation note* Diagnosis Onset Date Resolution Status Abdominal pain acute Diarrhea acute Nausea & vomiting acute Unintentional weight loss [place] Splenomegaly acute Splenomegaly acute [facility] Work Phone: Evaluation note* Diagnosis Multiple masses of neck- Primary Mononucleosis syndrome Infectious mononucleosis [facility] Diagnosis examination or test, positive result Amenorrhea Absence of menstruation [facility] Diagnosis Multiple masses of neck- Primary Less than 8 weeks gestation of [facility] Diagnosis Nausea and vomiting in [...] Surgical History WISDOME TEETH Hospitalization History CHILD [facility] [employer] Other Hospital Discharge instructions* Instructions* Tonia Cuellar RN - 08/04/2021 Follow-up with your OB doctor as specified. [facility] OB Department phone: Kalli Kolb, MSN, PRESS OPERATOR [employer], CNM [place] [id number] [facility] [address] DIET Eat a well balanced diet focusing on foods high in fiber and protein. Drink plenty of fluids especially water. To avoid constipation you may take a mild stool softener as recommended by your doctor or pediatrician managing partner. ACTIVITY Gradually increase your activity. Resume exercise regimen only after advice by your doctor or pediatrician managing partner. Avoid lifting anything heavier than a gallon of milk for SIX weeks. Avoid driving until your doctor or pediatrician managing partner has given their approval. Rise slowly from [...] medications as recommended by your doctor or pediatrician managing partner for pain If you develop a warm, [...] vitamins as directed by your doctor or pediatrician managing partner. Refer to the booklet in the folder/binder for more information. If you feel you need more assistance or have questions, please call Agata Gray IBCLC, diet consultant, at or the OB department to [...] area in your calf. documented in this [facility] [employer] Work Phone: InstructionsNot on filedocumented in this [...] of other normal , first trimester Procedures [place] OFFICE/OUTPATIENT [facility] HIGH MDM 60 MINUTES Dat Kolb, CNM [address] [place] [address] Phone: tel: fax: Dat Kolb, CNM [address] [place] [address] Phone: tel: fax: Referral ID Status Reason Start Date Expiration Date V isits Requested Visits Authorized [id number] Closed Specialty Services Required 09/19/2024 03/18/2025 1 1 [facility] Healthcare Summary Purpose Family History Relationship Condition Age at Onset Recorded Date/T jannette maternal grandfather Heart disease Unknown Advance Directives Documents on File Type Date Recorded 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 ACP-Advance Directive ACP-Power of [employer] Management Professor Latest Code Status on File Code Status [...] section and content) DATE CREATED AUTHOR 05/18/2018 [facility] DATE CREATED AUTHOR AUTHOR'S ORGANIZ ATION [facility]/05[facility]2021 [facility] DATE CREATED AUTHOR AUTHOR'S ORGANIZ ATION 04/26/2022 [facility] Me dical Specialist DATE CREATED AUTHOR AUTHOR'S ORGANIZ ATION 07/20/2024 [facility] DATE CREATED AUTHOR AUTHOR'S ORGANIZ ATION 09/08/2024 [facility] DATE CREATED AUTHOR AUTHOR'S ORGANIZ ATION 09/16/2024 [facility] DATE CREATED AUTHOR AUTHOR'S ORGANIZ ATION 12/20/2024 [facility] dical Specialists EPIC Reason for Visit [...] 0900, 0900 (Due)2100 (Due) 09 (Due)2099 (Due) Kqbtmqz-Agcklx-Blazw Pertussis (BOOSTRIX) injection 0.5 mL 0.5 mL, [...] every 2-3 minutes with cervical changes or [place] units (MVU) greater than 200 in a [...] Dates Viky Waters APRN Attending Provider Active Databases Software Consultant Relationship Specialty Start Date End Date Brice Madrid MD [address] [place] [address] PCP - General Family Medicine 06/12/23 Team [...] July 06, 2024 End: July 06, 2024 Genoevva Arce APRN Attending Provider Acti ve Start: [...] July 19, 2024 End: July 19, 2024 Databases Software Consultant Relationship Specialty Start Date End Date Brice Madrid MD [address] [place] [address] PCP - General Family Medicine 06/12/23 Databases Software Consultant Relationship Specialty Start Date End Date Brice Madrid MD [address] [place] [address] PCP - General Family Medicine 08/10/24 Dat Kolb CNM [address] [place] [facility] [place] [address] Obstetrics and Gynecology 06/30/23 Databases Software Consultant Relationship Specialty Start Date End Date Brice Madrid MD [address] [place] [address] PCP - General Family Medicine 06/12/23 Databases Software Consultant Relationship Specialty Start Date End Date Brice Madrid MD [address] [place] [address] PCP - General Family Medicine 08/10/24 Dat Kolb CNM [address] [place] [facility] [place] [address] Obstetrics and Gynecology 06/30/23 Databases Software Consultant Relationship Specialty Start Date End Date Brice Madrid MD [address] [place] [address] PCP - General Family Medicine 08/10/24 Dat Kolb CNM [address] [facility] [place] [address] Obstetrics and Gynecology 06/30/23 Databases Software Consultant Relationship Specialty Start Date End Date Brice Madrid MD [address] [place] [address] PCP - General Family Medicine 06/12/23 Databases Software Consultant Relationship Specialty Start Date End Date Brice Madrid MD [address] [address] PCP - General Family Medicine 08/10/24 Dat Kolb CNM [address] [place] [address] Obstetrics and Gynecology 06/30/23 Databases Software Consultant Relationship Specialty Start Date End Date Dat Kolb CNM [address] [place] [address] Obstetrics and Gynecology 06/30/23 Databases Software Consultant Relationship Specialty Start Date End Date Dat Kolb CNM [address] [place] [facility] [place] [address] Obstetrics and Gynecology 06/30/23 Databases Software Consultant Relationship Specialty Start Date End Date Dat Kolb CNM [address] [facility] [address] Obstetrics and Gynecology 06/30/23 Databases Software Consultant Relationship Specialty Start Date End Date Brice Madrid MD [address] [address] PCP - General Family Medicine 08/10/24 Dat Kolb CNM [address] [facility] [place] [address] Obstetrics and Gynecology 06/30/23 Databases Software Consultant Relationship Specialty Start Date End Date Brice Madrid MD [address] [place] [address] PCP - General Family Medicine 06/12/23 Databases Software Consultant Relationship Specialty Start Date End Date Brice Madrid MD [address] [place] [address] PCP - General Family Medicine 08/10/24 Dat Kolb CNM [address] [facility] [place] [address] Obstetrics and Gynecology 06/30/23 Databases Software Consultant Relationship Specialty Start Date End Date Brice Madrid MD [address] [place] [address] PCP - General Family Medicine 08/10/24 Dat Kolb CNM [address] [facility] [place] [address] Obstetrics and Gynecology 06/30/23 Goals (unrecognized section [...] BE BASED ON THE PRIMARY CLINICAL RECORDS. [employer] [facility]. provides no warranty or guarantee of the accuracy or completeness of information in this document.
== END 2024-12-30 16:55 | disposition home or self-care (01) ==
LOC: ER 16:05 → FBC 16:17
PROVIDERS: Physician Assistant; Admitting Provider Obstetrics & Gynecology; Emergency Provider Student in an Organized Health Care Education/Training Program; PCP Family Medicine; Visit Provider Obstetrics & Gynecology
DX: O99.891 Other specified diseases and conditions complicating pregnancy (principal); R10.30 Lower abdominal pain, unspecified; R06.09 Other forms of dyspnea; Z3A.22 22 weeks gestation of pregnancy
CPT/HCPCS: 36415; 71045; 80048; 81001; 83880; 85025; 93005; 99285; G0378

== ENCOUNTER 2025-01-16 16:03 | Emergency (ER) | payer OTHER, SELFPAY ==
[2025-01-16 16:13] VITALS: BP 111/64; PULSE 109; TEMP 37.6; O2SAT 97; BMI 22.7
[2025-01-16 17:24] LABS: Bilirubin Urine NEGATIVE (NEGATIVE); Blood Urine NEGATIVE (NEGATIVE); Clarity Urine CLEAR (CLEAR); Color Urine YELLOW (YELLOW); Glucose Urine UA NEGATIVE (NEGATIVE); Ketones Urine >=80 mg/dL (NEGATIVE); Leukocyte Esterase Urine TRACE (NEGATIVE); Nitrite Urine NEGATIVE (NEGATIVE); Protein Urine TRACE mg/dL (NEG/TRACE); Specific Gravity Urine >=1.030 (1.005-1.025); Urobilinogen Urine 0.2 EU/dL (0.2-1.0); pH Urine 5.5 (5.0-9.0)
[2025-01-16 17:38] LABS: Bacteria Urine TRACE #/HPF (NONE SEEN); Mucus Urine LARGE (NONE SEEN); RBC Urine 0-2 #/HPF (0-2); Squamous Epithelial Cell Urine MODERATE #/LPF (NONE/RARE); WBC Urine 0-2 #/HPF (NONE SEEN)
[2025-01-16 17:39] LABS: Cast Seen? NONE SEEN #/LPF (NONE SEEN); Crystals Seen? None Seen #/HPF (None Seen); Urine Culture Indicated NO
== END 2025-01-16 18:16 | disposition left against medical advice (07) ==
LOC: ER 16:06
PROVIDERS: Emergency Provider Emergency Medicine; PCP Family Medicine
DX: Z53.21 Procedure and treatment not carried out due to patient leaving prior to being seen by health care provider (principal)
CPT/HCPCS: 81001; 99281; 99283

== ENCOUNTER 2025-03-13 13:07 | Observation (INO) | payer OTHER, SELFPAY ==
[2025-03-13 13:19] VITALS: BP 107/60; PULSE 96; TEMP 36.6
--- NOTE | 2025-03-13 14:53 | US_ITS ---
[place] [id number] Patient Name: DELIA CHRIS MRN: [id number] date: 2000 Sex: F Assigned Patient Location: [facility] Current Patient Location: Accession/Order Number: [id number] Exam Date: 03/14/2025 13:09 Report Date: 03/14/2025 13:10 At the request of: DAT EDEN APRN, CNM Procedure: US OB BPP w non-stress Ultrasound obstetrical biophysical profile HISTORY: Decreased movement There is adequate breathing movement, gross body movement, tone and amniotic fluid volume. Total score is 8 out of 8. The amniotic fluid index is 14.7 cm within normal limits. The heart rate is 139 bpm. US/US OB BPP w non-stress IMPRESSION: Adequate ultrasound biophysical profile Impression dictated by: Faisal Erazo M.D.03/14/2025 1:10 PM Dictation Location: [place] Electronically authenticated by: [id number] Y Date: 03/14/2025 13:10
== END 2025-03-13 17:15 | disposition home or self-care (01) ==
LOC: FBC 13:10
PROVIDERS: Admitting Provider Obstetrics & Gynecology; PCP Family Medicine; Visit Provider Obstetrics & Gynecology
DX: O36.8190 Decreased fetal movements, unspecified trimester, not applicable or unspecified (principal); Z3A.00 Weeks of gestation of pregnancy not specified
CPT/HCPCS: 59025; 76818; G0378; G0379

== ENCOUNTER 2025-04-18 21:30 | Inpatient (IN) | payer OTHER, SELFPAY ==
--- OUTSIDE RECORDS SUMMARY | 2025-04-18 21:38 | XMS_ITS | CCD ---
Author Organization [facility] CliniSymn Care Team Providers Care Training Specialist Name Role Phone PHYSICIAN, DEFAULT Unavailable Unavailable PHYSICIAN, DEFAULT Unavailable Unavailable LUCY, ABDULAZIM Unavailable Unavailable LUCY, ABDULAZIM Unavailable Unavailable SELF, REFERRED Unavailable Unavailable SELF, REFERRED Unavailable Unavailable MO Unavailable Unavailable LUCY, ABDULAZIM Unavailable Unavailable OTIS WEBSTER Unavailable Unavailable MO Unavailable Unavailable Unavailable Primary Care Provider UnavailDAT Seaman Admitting Unavailable NEYDA LYLE Attending Unavailable Viky Waters Unavailable EFFIE Waters Attending Provider [phone] MD Jung Mcqueen Attending Provider [phone] Ly, DO Karissa L Attending Provider MD Brice Madrid Primary Care Provider [phone] EFFIE Arce Attending Provider Ly, DO Karissa L Referring Provider Brice Madrid Primary Care Unavailable Ly, Karissa L Admitting Unavailable Ly, Karissa L Attending Unavailable Brice Madrid Primary Care Unavailable Ly, Karissa L Admitting Unavailable Ly, Karissa L Attending Unavailable Brice Madrid Primary Care Unavailable Ly, Karissa L Referring Unavailable Genoveva Arce Admitting Unavail able Genoveva Arce Attending Unavail able Kenndei ALBRIGHT Dat Manuelito Unavailable Brice Madrid MD Primary Care Provider [phone] BRICE MADRID Primary Care Unavailable KYA HIDALGO Attending UnavailBRICE Stevens Primary Care Unavailable DANNY HEADLEY Attending Unavailable VIKY VAZQUEZ Attending Unavailable VIKY VAZQUEZ Referring Unavailable BRICE MADRID Primary Care Unavailable DEFRANCE, BRICE Ibarra Referring Unavailable DEFRANCE, BRICE Ibarra Primary Care Unavailable LY, KARISSA Billings Referring Unavailable DEFRANCE, BRICE Ibarra Primary Care Unavailable DEFRANCE, BRICE Ibarra Referring Unavailable DEFRANCE, BRICE Ibarra Primary Care Unavailable DEFRANCE, BRICE Ibarra Referring Unavailable DEFRANCE, BRICE Ibarra Primary Care Unavailable DEFRANCE, BRICE Ibarra Attending Unavailable DEFRANCE, BRICE Ibarra Referring Unavailable DEFRANCE, BRICE Ibarra Primary Care Unavailable DEFRANCE, BRICE Ibarra Attending Unavailable DEFRANCE, BRICE Ibarra Referring Unavailable DEFRANCE, BRICE Ibarra Primary Care Unavailable DEFRANCE, BRICE Ibarra Attending Unavailable DEFRANCE, BRICE Ibarra Referring Unavailable DEFRANCE, BRICE Ibarra Primary Care Unavailable DEFRANCE, BRICE Ibarra Attending Unavailable DEFRANCE, BRICE Ibarra Referring Unavailable DEFRANCE, BRICE Ibarra Primary Care Unavailable Defrance , Brice Ibarra Primary Care Provider Brice Madrid MD Primary Care Provider FLORO, DAT L Attending Unavailable FLORO, DAT L Attending Unavailable FLORO, DAT L Attending Unavailable FLORO, DAT L Referring Unavailable FLORO, DAT L Attending Unavailable TERESA, AHMAD F Attending Unavailable TERESA, AHMAD F Referring Unavailable FLORO, DAT L Attending Unavailable [...] Translations: [NKA] Propensity to adverse reactions (disorder) 7 [facility] (1 source) No Known Allergies; Translations: [No Known Allergies] Propensity to adverse reactions (disorder) [facility] Medications Current Medications Medication Drug [...] mg from all sources in 24 hours. acetaminophen 325 mg / oxyCODONE hydrochloride 5 mg oral tablet (1 source) Opioid Agonist Start: 04-25-2024 End: 04-30-2024 oxyCODONE-acetamino phen (PERCOCET) 5-325 mg per tablet Indications: Left-sided chest wall pain Take 1 tablet by mouth every 4 (four) hours as needed for pain for up to 5 days. Max Daily Amount: 6 tablets 40 tablet 04/25/2024 04/30/2024 Active albuterol 0.83 mg/ml inhalation solution (20 sources) beta2-Adrenergic Agonist Start: 02-01-2024 take 3 [...] 10 days. 30 capsule 12/09/2024 12/19/2024 Active azithromycin 250 mg oral tablet (1 [...] capable and may self administer at bedside. cephalexin 500 mg oral capsule (1 source) [...] Active docusate sodium 100 mg oral capsule (13 sources) Start: 03-02-2025 End: 06-30-2025 take 1 capsule by mouth in the morning docusate sodium (Colace) 100 MG capsule Indications: related condition in third trimester Take 1 capsule (100 mg) by mouth in the morning and 1 capsule (100 mg) before bedtime. 60 capsule 3 03/02/2025 06/30/2025 Active Start: 08-03-2021 take 100 mg by mouth twice daily as needed for constipation 100 mg, Oral, 2 TIMES DAILY PRN, Constipation, Starting on 08/03/21 at 0014 Do not crush or break. ferrous sulfate 325 mg delayed release oral tablet (12 sources) Start: 03-02-2025 End: 03-02-2026 take 1 tablet by mouth in the morning ferrous sulfate (Fe Tabs) 325 (65 Fe) MG EC tablet Indications: related condition in third trimester Take 1 tablet (325 mg) by mouth in the morning and 1 tablet (325 mg) before bedtime. Do not crush, chew, or split.. 60 tablet 11 03/02/2025 03/02/2026 Active fluconazole 150 mg oral tablet (2 sources) Azole Antifungal Start: 07-10-2023 Fluconazole 150 MG 1 tablet Orally once, repeat dose in 72 hours if needed for 2 18 Jun, 2023 Active ibuprofen 800 mg oral tablet (1 source) Nonsteroidal Anti-inflammatory Drug Start: 08-03-2021 take 800 mg by mouth every eight hours 800 mg, Oral, EVERY 8 HOURS, First dose on 08/03/21 at 0030 Do not crush or break. lanolin 1000 mg/ml topical cream (1 source) Start: 08-03-2021 Topical, PRN, Dry Skin, nipple discomfort, Starting on 08/03/21 at 0014, metroNIDAZOLE 500 mg oral tablet (2 sources) Nitroimidazole Antimicrobial Start: 04-25-2024 End: 05-02-2024 take 1 tablet by mouth three times daily metroNIDAZOLE (FLAGYL) 500 mg tablet Take 1 tablet (500 mg total) by mouth 3 (three) times a day for 7 days. 21 tablet 04/25/2024 05/02/2024 Active Start: 07-14-2023 take 1 tablet by cookie every twelve hours metroNIDAZOLE 500 MG 1 tablet Orally Twice a day for 7 day(s) Jun, Active ondansetron 4 mg disintegrating oral tablet [...] Start: 09-28-2024 take 2 tablets by mo [facility] every eight hours for nausea ondansetron ODT [...] PO Q8H July 19, 2024 12:00am Start: 05-30-2024 End: 10-13-2024 take 1 tablet by mouth every eight hours as needed for nausea ondansetron ODT (ZOFRAN ODT) 4 mg disintegrating tablet Dissolve 1 tablet (4 mg total) on tongue every 8 (eight) hours as needed for nausea for up to 180 doses. 30 tablet 10/13/2024 Active Start: 05-20-2024 take 4 mg by mouth once daily Ondansetron Hcl Active 4 MG PO Daily May 20, 2024 12:00am Start: 01-30-2024 End: 03-15-2024 take 1 tablet by mouth every eight hours as needed for nausea ondansetron ODT (ZOFRAN ODT) 4 mg disintegrating tablet Dissolve 1 tablet (4 mg total) on tongue every 8 (eight) hours as needed for nausea for up to 60 doses. 30 tablet 1 03/15/2024 Active End: 08-04-2021 ondansetron (ZOFRAN-ODT) 8 M [...] Drug Class(es) Dates Sig (Normalized) Sig (Original) ascorbic acid/vitamin E/biotin (HAIR, SKIN, NAILS WITH BIOTIN ORAL) (4 sources) End: 04-25-2024 ascorbic acid/vitamin E/biotin (HAIR, SKIN, NAILS WITH BIOTIN ORAL) Take by mouth. 04/25/2024 Discontinued (Alternate therapy) ascorbic acid/vi tamin E/biotin (HAIR, SKIN, NAILS WITH BIOTIN ORAL) Take by mouth. Active ascorbic acid/vi tamin E/biotin (HAIR, SKIN, NAILS WITH BIOTIN ORAL) Take by mouth. 0 Active benzonatate 100 mg oral capsule (2 sources) Non-narcotic Antitussive Start: 01-30-2024 End: 03-15-2024 take 1 capsule by mouth every eight hours benzonatate (TESSALON PERLES) 100 mg capsule Take 1 capsule (100 mg total) by mouth every 8 (eight) hours. 21 capsule 01/30/2024 03/15/2024 Discontinued (Alternate therapy) calcium chloride 0.0014 meq/ml / potassium chloride 0.004 meq/ml / sodium chloride 0.103 meq/ml / sodium lactate 0.028 meq/ml injectable solution (1 source) Start: 08-02-2021 End: 08-03-2021 lactated ringers infusion 1 ml medroxyPROGESTERone acetate 150 mg/ml prefilled syringe (8 sources) Progestin Start: 09-30-2023 End: 07-19-2024 medroxyPROGESTERone (Depo-Provera) 150 MG/ML suspension prefilled syringe injection syringe Indications: Encounter for Depo-Provera contraception INJECT 1ML INTO THE SHOULDER, THIGH OR BUTTOCKS ONE TIME FOR ONE DOSE 1 mL 2 09/30/2023 07/19/2024 Discontinued (Therapy completed) End: 03-15-2024 medroxyprogesterone acetate (DEPO-PROVERA IM) Inject into the appropriate muscle. 03/15/2024 Discontinued (Alternate therapy) medroxyprogester one acetate (DEPO-PROVERA IM) Inject into the appropriate muscle. 0 Active Depo-Provera 150 MG/ML 1 mL Intramuscular Active hqvyzjes-vamq-ZC-calcium &mi ns (THERAGRAN-M) 9 mg iron-400 mcg tablet (4 sources) End: 04-25-2024 eolgnbhu-qgvr-YX-calcium &mi ns (THERAGRAN-M) 9 mg iron-400 mcg tablet Take 1 tablet by mouth in the morning. 04/25/2024 Discontinued (Alternate therapy) izkewsyp-oujc-RZ -calcium &mins (THERAGRAN-M) 9 mg iron-400 mcg tablet Take 1 tablet by mouth in the morning. Active jekxpnij-rdug-QE -calcium &mins (THERAGRAN-M) 9 mg iron-400 mcg tablet Take 1 tablet by mouth in the morning. 0 Active 1 ml nalbuphine hydrochloride 10 mg/ml [...] daily Pantoprazole Discontinued 40 MG PO Daily 90 May 25, 2024 12:00am July 06, 2024 2:47pm Problems Active Problems Problem Classification Problem Date Documented Da te Episodic/Chronic Anxiety disorders (9 sources) Mixed anxiety and depressive disorder; Translations: [...] care or not applicable] 09-19-2024 Episodic Other complications of (2 sources) Thyroid disease in ; Translations: [Endocrine, nutritional and metabolic diseases complicating , third trimester] 03-13-2025 Episodic Other female genital disorders (1 source) Other specified noninflammatory disorders of vagina Episodic Other gastrointestinal disorders (5 sources) Diarrhea; Translations: [Diarrhea, unspecified] 05-20-2024 Episodic Other gastrointestinal disorders (1 source) Splenomegaly; Translations: [Splenomegaly, not elsewhere classified] 07-06-2024 Episodic Other gastrointestinal disorders (3 sources) Splenomegaly, not elsewhere classified; Translations: [Splenomegaly] Onset: 07-19-2024 07-06-2024 Episodic Other nutritional; endocrine; and metabolic disorders (6 sources) Unintentional weight loss; Translations: [Abnormal weight loss] 05-20-2024 Episodic Other and delivery including normal (18 sources) Delivery normal; Translations: [Encounter for full-term uncomplicated delivery] Episodic Other screening for suspected conditions (not mental disorders or infectious disease) (4 sources) Decreased thyroid stimulating hormone level; Translations: [Other specified abnormal findings of blood chemistry] 03-13-2025 Episodic Other skin disorders (2 sources) Localized swelling, mass and lump, neck; Translations: [Localized swelling, mass and lump, neck] Onset: 08-31-2024 Episodic Residual codes; unclassified (2 sources) Gestation period, 38 weeks; Translations: [38 weeks gestation of ] Onset: 08-02-2021 Episodic Residual codes; unclassified (1 source) Less [...] Onset: 08-31-2024 Viral infection (3 sources) Infectious mononucleosis, unspecified without complication; Translations: [Infectious mononucleosis] Onset: 08-31-2024 08-31-2024 Episodic Past or Other Problems Problem Classification Problem Date Documented Da te Episodic/Chronic Abdominal pain (14 sources) Abdominal pain; Translations: [Unspecified abdominal pain] Onset: 05-20-2024 05-20-2024 Episodic Influenza (1 source) Influenza due to other identified influenza virus with other respiratory manifestations; Translations: [Influenza due to other identified influenza virus with other respiratory manifestations] Onset: 01-30-2024 Episodic Mood disorders (9 sources) Depressive disorder; Translations: [Depression] Onset: 03-05-2017 Resolved: 03-05-2017 03-05-2017 Chronic Mood disorders (9 sources) Mood disorders Onset: 06-08-2023 Resolved: 08-31-2024 08-31-2024 Nausea and vomiting (12 sources) Nausea and vomiting; Translations: [Nausea with vomiting, unspecified] Onset: 05-20-2024 05-20-2024 Episodic Noninfectious gastroenteritis (3 sources) Noninfective gastroenteritis and colitis, unspecified; Translations: [Chronic diarrhea] Onset: 03-15-2024 03-15-2024 Episodic Nonspecific chest pain (2 sources) Other chest pain; Translations: [Chest wall pain] Onset: 04-25-2024 04-25-2024 Episodic Other gastrointestinal disorders (7 sources) [...] [Loss of weight] Onset: 03-15-2024 05-20-2024 Episodic Other skin disorders (2 sources) Mass of neck; Translations: [Localized swelling, mass and lump, neck] 08-31-2024 Episodic Residual codes; unclassified (1 source) First trimester ; Translations: [Less than 8 weeks gestation of ] 09-14-2024 Episodic Screening and history of mental health and substance abuse codes (9 sources) H/O: attempted suicide; Translations: [History of suicide attempt] Onset: 03-05-2017 03-05-2017 Episodic Results Test Name Value Interpretation Reference Range Facility US OB BPP W NON-STRESS on 03-14-2025 [place] [address] Ultrasound Report Signed Patient: DELIA DICKINSON MR#: [id number] : 2000 Acct:[id number] Age/Sex: 24 / F ADM Date: Loc: [place] [address]: Mik Pulliam D.O. Ordering Physician: DAT KOLB APRN, CNM Date of Service: 03/13/25 Procedure(s): US OB BPP w non-stress Accession Number(s): [id number] cc: BRICE MADRID ; DAT KOLB APRN, CNM [place] [id number] Patient Name: DELIA DICKISNON MRN: [id number] date: 2000 Sex: F Assigned Patient Location: [facility] Current Patient Location: Accession/Order Number: [id number] Exam Date: 03/14/2025 13:09 Report Date: 03/14/2025 13:10 At the request of: DAT KOLB APRN, CNM Procedure: US OB BPP w non-stress Ultrasound obstetrical biophysical profile HISTORY: Decreased movement There is adequate breathing movement, gross body movement, tone and amniotic fluid volume. Total score is 8 out of 8. The amniotic fluid index is 14.7 cm within normal limits. The heart rate is 139 bpm. US/US OB BPP w non-stress IMPRESSION: Adequate ultrasound biophysical profile Impression dictated by: Faisal Erazo M.D.03/14/2025 1:10 PM Dictation Location: [place] [address] Electronically authenticated by: [id number] Y Date: 03/14/2025 13:10 Dictated By: Faisal Erazo D.O. Signed By: 03/14/25 1312 DD/ 1310 TD/TT: Negative Assembler: [facility] Radiology, Radiologramiro minaya MD - 03/14/2025 [place] [address] Ultrasound Report Signed Patient: DELIA DICKINSON MR#: [id number] : 2000 Acct:[id number] Age/Sex: 24 / F ADM Date: Loc: [facility] 252-[address]: Mik Pulliam D.O. Ordering Physician: DAT KOLB APRN, CNM Date of Service: 03/13/25 Procedure(s): US OB BPP w non-stress Accession Number(s): [id number] cc: BRICE MADRID ; DAT KOLB APRN, CNM The [place] [address] Patient Name: DELIA DICKINSON MRN: [facility]:[id number] date: 2000 Sex: F Assigned Patient Location: [facility] Current Patient Location: Accession/Order Number: [id number] Exam Date: 03/14/2025 13:09 Report Date: 03/14/2025 13:10 At the request of: DAT KOLB APRN, CNM Procedure: US OB BPP w non-stress Ultrasound obstetrical biophysical profile HISTORY: Decreased movement There is adequate breathing movement, gross body movement, tone and amniotic fluid volume. Total score is 8 out of 8. The amniotic fluid index is 14.7 cm within normal limits. The heart rate is 139 bpm. US/US OB BPP w non-stress IMPRESSION: Adequate ultrasound biophysical profile Impression dictated by: Faisal Erazo M.D.03/14/2025 1:10 PM Dictation Location: [facility] Electronically authenticated by: [id number] Y Date: 03/14/2025 13:10 Dictated By: Faisal Erazo D.O. Signed By: 03/14/25 1312 DD/ 1310 TD/TT: Negative Assembler: [facility] Radiology Study observation (narrative) [facility] US OB BPP W NON-STRESS Ordered By: Radiologist Radiology on 03-14-2025 [facility] [employer] Work Phone: US OB FOLLOW UP TRANSABDOMIN AL APPROACHon 02-20-2025 US OB FOLLOW UP TRANSABDOMINAL APPROACH TITLE OF EXAM: OB Ultrasound: REASON FOR EXAM: Growth COMPARISON: 12/13/2024 TECHNIQUE: Grayscale and M-mode Doppler imaging is performed. FINDINGS: heart rate: 165 bpm MARILIN: 13.8 cm (8.0-23.4) BPD: 7.5 cm HC: 26.2 cm AC: 25.0 cm FL: 5.8 cm GA for sonogram: 29.2 wk (27.4-31.0) Cervix length: 4.2 cm TALIB: 05/02/2025 Weight Estimate: Weight: 1416 gm / 3 lbs, 1 oz (7406-9260 gm) [place] Normal: 1541 gm (1682-0984 gm) [place]lock Wt%: 27% for 29.9 wks LMP: 07/26/24 Age by LMP: 29 w 6 d Age Prior US: 29 w 6 d Age US Today: 29 w 4 d TALIB by LMP: 05-02-25 TALIB Prior US: 05-02-25 TALIB US Today: 05-04-25 Gestation: Single Position: Cephalic Placental Location: Posterior Placental Grade: 0 Heart Rate: 165 bpm Somatic Movement: Yes Cervical Length: 4.2 cm IMPRESSION: Single intrauterine gestation with an estimated ultrasound age of 29 weeks 4 days. Cephalic presentation with posterior fundus. Dictated and transcribed 02/21/25/dpd This report has been electronically signed and approved by the interpreting radiologist. Normal Not Available C REACTIVE PROTEINon 024 CRP [Mass/Vol] mg/L Normal 0.000-0.74 4 [facility] Comment on above: Performed By: #### 2 106-3 #### [facility] ([id number]) [address] [place] [address]246 CBC AND AUTO DIFFon 10-15-20 24 ABSOLUTE BASOPHIL 0.1 X10E9/L Normal 0.0-0.2 [facility] Comment on above: Performed By: #### 2 106-3 #### [facility] ([id number]) [address] [place] [address] 66073 ABSOLUTE NEUTROPHIL 7.6 X10E9/L High 1.5-6.6 [facility] Comment on above: Performed By: #### 2 106-3 #### [facility] ([id number]) [address] [place] [address] 58594 Basophils/100 WBC (Bld) 0.5 % Normal [facility] Comment on above: Performed By: #### 2 106-3 #### [facility] ([id number]) [address] [place] [address] 42606 Eosinophils (Bld) [#/Vol] 0.2 10*3/uL Normal 0.0-0.4 [facility] Comment on above: Performed By: #### 2 106-3 #### [facility] ([id number]) [address] [place] [address] 70277 Eosinophils/100 WBC (Bld) 1.5 % Normal [facility] Comment on above: Performed By: #### 2 106-3 #### [facility] ([id number]) [address] [place] [address] 92825 Erythrocyte distribution width (RBC) [Ratio] 13.1 % Normal 11.5-15.0 [facility] Comment on above: Performed By: #### 2 106-3 #### [facility] ([id number]) [address] [place] [address] 72654 Hematocrit (Bld) [Volume fraction] 39.5 % Normal 35-47 [facility] Comment on above: Performed By: #### 2 106-3 #### [facility] ([id number]) [address] [place] [address] 31405 Hemoglobin (Bld) [Mass/Vol] 13.1 g/dL Normal 11.7-15.5 [facility] Comment on above: Performed By: #### 2 106-3 #### [facility] ([id number]) [address] [place] [address] 66362 Lymphocytes (Bld) [#/Vol] 2.4 10*3/uL Normal 1.0-3.5 [facility] Comment on above: Performed By: #### 2 106-3 #### [facility] ([id number]) [address] [place] [address] 19181 Lymphocytes/100 WBC (Bld) 20.9 % Normal [facility] Comment on above: Performed By: #### 2 106-3 #### [facility] ([id number]) [address] [place] [address] 37833 MCH (RBC) [Entitic mass] 30.6 pg Normal 27-34 [facility] Comment on above: Performed By: #### 2 106-3 #### [facility] ([id number]) [address] [place] [address] 92664 MCHC (RBC) [Mass/Vol] 33.2 g/dL Normal 32-36 [facility] Comment on above: Performed By: #### 2 106-3 #### [facility] ([id number]) [address] [place] [address] 19366 MCV (RBC) [Entitic vol] 92 fL Normal 80-100 [facility] Comment on above: Performed By: #### 2 106-3 #### [facility] ([id number]) [address] [place] [address] 55533 Monocytes (Bld) [#/Vol] 1.4 10*3/uL High 0-0.9 [facility] Comment on above: Performed By: #### 2 106-3 #### [facility] ([id number]) [address] [place] [address] 55451 Monocytes/100 WBC (Bld) 11.9 % Normal [facility] Comment on above: Performed By: #### 2 106-3 #### [facility] ([id number]) [address] [place] [address] 96269 Neutrophils/100 WBC (Bld) 65.2 % Normal [facility] Comment on above: Performed By: #### 2 106-3 #### [facility] ([id number]) [address] [place] [address] 72295 Platelet mean volume (Bld) [Entitic vol] 10.1 fL Normal 7-12 [facility] Comment on above: Performed By: #### 2 106-3 #### [facility] ([id number]) [address] [place] [address] 23246 Platelets (Bld) [#/Vol] 195 10*3/uL Normal 150-450 [facility] Comment on above: Performed By: #### 2 106-3 #### [facility] ([id number]) [address] [place] [address] 72122 RBC COUNT 4.28 X10E12/L Normal 3.80-5.20 [facility] Comment on above: Performed By: #### 2 106-3 #### [facility] ([id number]) [address] [place] [address] 68321 WBC (Bld) [#/Vol] 11.7 10*3/uL High 4.0-11.0 [facility] Comment on above: Performed By: #### 2 106-3 #### [facility] ([id number]) [address] [place] [address] 10810 EBV capsid IgG IA Qn (S)on JEROD VALENTINE VCA IgG >8.0 High <0.9 [facility] Comment on above: Result Comment: Interpretation-------- <0.9 Negative 0.9 - 1.0 Equivocal >1.0 Positive Performed By: #### 2 106-3 #### [facility] ([id number]) [address] [place] [address] 30930 EBV capsid IgM IA Qn (S)on JEROD VALENTINE VCA IgM 0.3 AI Normal <0.9 [facility] Comment on above: Result Comment: Interpretation-------- <0.9 Negative 0.9 - 1.0 Equivocal >1.0 Positive Performed By: #### C OVFLR #### [facility] ([id number]) [address] [place] [address] 57711 ESR Photometric method (Bld) [Velocity]on 09-06-2024 ESR, ERYTHROCYTE SEDIMENTATION RATE 2 mm/h Normal 0-20 [facility] Comment on above: Performed By: #### 2 106-3 #### [facility] ([id number]) [address] [place] [address] 23259 HCG ( test) Ql (U)o n 09-01-2024 Interpretation and review of laboratory results Abnormal [facility] Preg Test, Ur Positive [facility] US OB < 14 WEEKS EARLYon [...] weeks GA for growth/anatomy. Dictated and transcribed 09/01/24dpd This report has been electronically signed and [...] IFA Negative Normal . [facility] Comment on above: Result Comment: Nega tive <1:80 Borderline 1:80 Positive >1:80 ICAP nomenclature: AC-0 For more information about Hep-2 cell patterns use ANApatterns.org, the official website for the International Consensus on Antinuclear Antibody (JORGE LUIS) Patterns (ICAP). Performed at: - [facility] [id number] Caving Guide: Lionel Levy PhD, Phone: [phone] PERFORMED BY: [place] [address] PATHOLOGIST FUNDRAISER FOX PONCE M.D. Performed By: #### U RDS, C #### [address] Alanine aminotransferase [En zymatic activity/volume] in Serum or PlasmaOrdered By: Genoveva Claude on 07-06-2024 ALT [Catalytic activity/Vol] 13 U/L Normal 7-52 [facility] Comment on above: Performed By: #### R A, JORGE LUIS, METH, HEPACUTE #### [facility] , #### CBC, LDH, FE and TIBC, KIRILL, CMP, [id number] #### [facility] [address] [place] [address] [place] Albumin [Mass/volume] in Ser um or Plasma by Bromocresol green (BCG) dye binding methoOrdered By: Genoveva Arce on 07-06-2024 Albumin BCG dye [Mass/Vol] 5.2 g/dL 3.5-5.7 [facility] Alkaline phosphatase [Enzyma tic activity/volume] in Serum or PlasmaOrdered By: Genoveva Arce on 07-06-2024 ALP [Catalytic activity/Vol] 67 U/L Normal 34-104 [facility] Comment on above: Performed By: #### R A, JORGE LUIS, METH, HEPACUTE #### [facility] , #### CBC, LDH, FE and TIBC, KIRILL, CMP, [id number] #### [facility] [address] [place] [address] [place] Aspartate aminotransferase [ Enzymatic activity/volume] in Serum or PlasmaOrdered By: Genoveva Arce on 07-06-2024 AST [Catalytic activity/Vol] 13 U/L Normal 13-39 [facility] Comment on above: Performed By: #### R A, JORGE LUIS, METH, HEPACUTE #### [facility] , #### CBC, LDH, FE and TIBC, KIRILL, CMP, [id number] #### [address] Automated basophil %Ordered By: Genoveva Arce on 07-06-2024 Basophils/100 WBC (Bld) 0.3 % Normal . [facility] Comment on above: Performed By: #### R A, JORGE LUIS, METH, HEPACUTE #### [facility] , #### CBC, LDH, FE and TIBC, KIRILL, CMP, [id number] #### [address] Automated basophil countOrde red By: Genoveva Martinezshawn on 07-06-2024 Basophils (Bld) [#/Vol] 0.0 10*3/uL Normal 0.0-0.2 [facility] Comment on above: Result Comment: PERF ORMED BY: [place] [address] PATHOLOGIST FUNDRAISER FOX PONCE M.D. Performed By: #### R A, JORGE LUIS, METH, HEPACUTE #### [facility] , #### CBC, LDH, FE and TIBC, KIRILL, CMP, [id number] #### [address] Automated blood monocyte cou ntOrdered By: Genoveva Arce on 07-06-2024 Monocytes (Bld) [#/Vol] 0.8 10*3/uL Normal 0.0-0.8 [facility] Comment on above: Performed By: #### R A, JORGE LUIS, METH, HEPACUTE #### [facility] , #### CBC, LDH, FE and TIBC, KIRILL, CMP, [id number] #### [address] Automated eosinophil %Ordere d By: Genoveva Arce on 07-06-2024 Eosinophils/100 WBC (Bld) 0.6 % Normal . [facility] Comment on above: Performed By: #### R A, JORGE LUIS, METH, HEPACUTE #### [facility] , #### CBC, LDH, FE and TIBC, KIRILL, CMP, [id number] #### [address] Automated eosinophil countOr dered By: Genoveva Arce on 07-06-2024 Eosinophils (Bld) [#/Vol] 0.1 10*3/uL Normal 0.0-0.45 [facility] Comment on above: Performed By: #### R A, JORGE LUIS, METH, HEPACUTE #### [facility] , #### CBC, LDH, FE and TIBC, KIRILL, CMP, [id number] #### [address] Automated monocyte %Ordered By: Genoveva Arce on 07-06-2024 Monocytes/100 WBC (Bld) 6.5 % Normal . [facility] Comment on above: Performed By: #### R A, JORGE LUIS, METH, HEPACUTE #### [facility] , #### CBC, LDH, FE and TIBC, KIRILL, CMP, [id number] #### [address] Automated neutrophil %Ordere d By: Genoveva Arce on 07-06-2024 Neutrophils/100 WBC (Bld) 62.6 % Normal . [facility] Comment on above: Performed By: #### R A, JORGE LUIS, METH, HEPACUTE #### [facility] , #### CBC, LDH, FE and TIBC, KIRILL, CMP, [id number] #### [address] [place] [address] [place] Bilirubin.total [Mass/volume ] in Serum or PlasmaOrdered By: Genoveva Arce on 07-06-2024 Bilirubin [Mass/Vol] 1.0 mg/dL Normal 0.3-1.0 [facility] Comment on above: Performed By: #### R A, JORGE LUIS, METH, HEPACUTE #### [facility] , #### CBC, LDH, FE and TIBC, KIRILL, CMP, [id number] #### [address] Calcium [Mass/volume] in Ser um or PlasmaOrdered By: Genoveva Arce on 07-06-2024 Calcium [Mass/Vol] 10.4 mg/dL High 8.6-10.3 [facility] Comment on above: Performed By: #### R A, JORGE LUIS, METH, HEPACUTE #### [facility] , #### CBC, LDH, FE and TIBC, KIRILL, CMP, [id number] #### [address] Carbon dioxide, total [Moles /volume] in Serum or PlasmaOrdered By: Genoveva Arce on 07-06-2024 CO2 [Moles/Vol] 27.0 mmol/L Normal 21.0-31.0 [facility] Comment on above: Performed By: #### R A, JORGE LUIS, METH, HEPACUTE #### [facility] , #### CBC, LDH, FE and TIBC, KIRILL, CMP, [id number] #### [place] [address] [place] Chloride [Moles/volume] in S qing or PlasmaOrdered By: Genoveva Arce on 07-06-2024 Chloride [Moles/Vol] 102 mmol/L Normal 98-107 [facility] Comment on above: Performed By: #### R A, JORGE LUIS, METH, HEPACUTE #### [facility] , #### CBC, LDH, FE and TIBC, KIRILL, CMP, [id number] #### [address] Complete Blood Count Auto Di ffon 07-06-2024 Mean Corpuscular HGB Conc 33.5 g/dL Normal 32.0-35.0 [facility] Comment on above: Performed By: #### R A, JORGE LUIS, METH, HEPACUTE #### [facility] , #### CBC, LDH, FE and TIBC, KIRILL, CMP, [id number] #### [address] NRBC% 0.1 /100{WBC} Normal 0-0.5 [facility] Comment on above: Performed By: #### R A, JORGE LUIS, METH, HEPACUTE #### [facility] , #### CBC, LDH, FE and TIBC, KIRILL, CMP, [id number] #### [address] Comprehensive Metabolic Pane eduardo 07-06-2024 Albumin [Mass/Vol] 5.2 g/dL Normal 3.5-5.7 [facility] Comment on above: Performed By: #### R A, JORGE LUIS, METH, HEPACUTE #### [facility] , #### CBC, LDH, FE and TIBC, KIRILL, CMP, [id number] #### [address] Creatinine Clr Calc Pharmacy 94.62 Normal [facility] Comment on above: Performed By: #### R A, JORGE LUIS, METH, HEPACUTE #### [facility] , #### CBC, LDH, FE and TIBC, KIRILL, CMP, [id number] #### [address] GFR/1.73 sq M.predicted MDRD (S/P/Bld) [Vol rate/Area] mL/min/{1.73_m2} Normal [facility] Comment on above: Performed By: #### R A, JORGE LUIS, METH, HEPACUTE #### [facility] , #### CBC, LDH, FE and TIBC, KIRILL, CMP, [id number] #### [address] Creatinine [Mass/volume] in Serum or PlasmaOrdered By: Genoveva Claude on 07-06-2024 Creatinine [Mass/Vol] 0.80 mg/dL Normal 0.60-1.20 [facility] Comment on above: Performed By: #### R A, JORGE LUIS, METH, HEPACUTE #### [facility] , #### CBC, LDH, FE and TIBC, KIRILL, CMP, [id number] #### [address] Erythrocyte distribution wid th [Ratio] by Automated countOrdered By: Genoveva Pulliamsimon on 07-06-2024 Erythrocyte distribution width (RBC) [Ratio] 13.7 % Normal 11.9-15.3 [facility] Comment on above: Performed By: #### R A, JORGE LUIS, METH, HEPACUTE #### [facility] , #### CBC, LDH, FE and TIBC, KIRILL, CMP, [id number] #### [address] Erythrocytes [#/volume] in B lood by Automated countOrdered By: Genoveva Pulliamsimon on 07-06-2024 RBC (Bld) [#/Vol] 4.84 10*6/uL Normal 3.60-5.00 [facility] Comment on above: Performed By: #### R A, JORGE LUIS, METH, HEPACUTE #### [facility] , #### CBC, LDH, FE and TIBC, KIRILL, CMP, [id number] #### [address] Ferritin [Mass/volume] in Se rum or PlasmaOrdered By: Genoveva Claude on 07-06-2024 Ferritin [Mass/Vol] 28.8 ng/mL Normal 11.0-306.8 [facility] Comment on above: Performed By: #### R A, JORGE LUIS, METH, HEPACUTE #### [facility] , #### CBC, LDH, FE and TIBC, KIRILL, CMP, [id number] #### [facility] [address] Folate [Mass/volume] in Seru m or PlasmaOrdered By: Genoveva Pulliamsimon on 07-06-2024 Folate [Mass/Vol] 17.2 ng/mL >5.9 [facility] Comment on above: Folate reference ran ge: >5.9 ng/mlThe WHO technical consultation on folate and vitamin [id number] has determined that folate concentrations lessthan 4 ng/ml are considered deficient. Glucose [Mass/volume] in Ser um or PlasmaOrdered By: Genoveva Pulliamsimon on 07-06-2024 Glucose [Mass/Vol] 93 mg/dL Normal 70-100 [facility] Comment on above: ADA recommended refe rence rangeRandom Glucose Reference Range is dependent on time and content of last meal. Glucose of more than 200 mg/dL in a nonstressed, ambulatory subject supports the diagnosis of Diabetes Mellitus. Result Comment: [place] om Glucose Reference Range is dependent on time and content of last meal. Glucose of more than 200 mg/dL in a nonstressed, ambulatory subject supports the diagnosis of Diabetes Mellitus. ADA recommended reference range Performed By: #### R A, JORGE LUIS, METH, HEPACUTE #### [facility] , #### CBC, LDH, FE and TIBC, KIRILL, CMP, [id number] #### [facility] [address] Hematocrit [Volume Fraction] of Blood by Automated countOrdered By: Genoveva Pulliamsimon on 07-06-2024 Hematocrit (Bld) [Volume fraction] 43.6 % Normal 34.0-46.4 [facility] Comment on above: Performed By: #### R A, JORGE LUIS, METH, HEPACUTE #### [facility] , #### CBC, LDH, FE and TIBC, KIRILL, CMP, [id number] #### [address] Hemoglobin [Mass/volume] in BloodOrdered By: Genoveva Arce on 07-06-2024 Hemoglobin (Bld) [Mass/Vol] 14.6 g/dL Normal 11.8-15.4 [facility] Comment on above: Performed By: #### R A, JORGE LUIS, METH, HEPACUTE #### [facility] , #### CBC, LDH, FE and TIBC, KIRILL, CMP, [id number] #### [address] Hepatitis Acute Panelon 06-23 HBsAg Screen Negative Normal Negative [facility] Comment on above: Performed By: #### U RDS, [facility] #### [address] Hepatitis A Antibody IgM Negative Normal Negative [facility] Comment on above: Performed By: #### U RDS, [facility] #### [address] Hepatitis B Core Antibody IgM Negative Normal Negative [facility] Comment on above: Performed By: #### U RDS, [facility] #### [address] Hepatitis C Virus Antibody Non-Reactive Normal Non Reactive [facility] Comment on above: Performed By: #### U RDS, [facility] #### [address] Interpretation Hepatitis C Comment Normal . [facility] Comment on above: Result Comment: Not infected with HCV unless early or acute infection is suspected (which may be delayed in an immunocompromised individual), or other evidence exists to indicate HCV infection. Performed at: [facility] [address] [id number] Caving Guide: Lionel Levy PhD, Phone: [phone] PERFORMED BY: [place] [address] PATHOLOGIST FUNDRAISER JIANLAN SUN M.D. Performed By: #### U RDS, CG #### [facility] [address] Hepatitis B virus surface Ag [Presence] in Serum or Plasma by ImmunoassayOrdered By: Genoveva Pulliamralphshawn on 07-06-2024 HBV surface Ag IA Ql Negative Negative [facility] Hepatitis C virus IgG Ab [Pr esence] in Serum or Plasma by ImmunoassayOrdered By: Genoveva Pulliamsimon on 07-06-2024 HCV IgG IA Ql Non-Reactive Non Reactive [facility] Hepatitis C virus RNA [Units /volume] (viral load) in Serum or Plasma by LULI with probOrdered By: Genoveva Pulliamsimon on 07-06-2024 HCV RNA LULI+probe Qn N/A [facility] Hepatitis C virus RNA [log u nits/volume] (viral load) in Serum or Plasma by LULI withOrdered By: Genoveva Pulliamsimon on 07-06-2024 HCV RNA LULI+probe [Log units/Vol] N/A [facility] Iron [Mass/volume] in Serum or PlasmaOrdered By: Genoveva Pulliamsimon on 07-06-2024 Iron [Mass/Vol] 64 ug/dL Normal 50-212 [facility] Comment on above: Performed By: #### R A, JORGE LUIS, METH, HEPACUTE #### [facility] , #### CBC, LDH, FE and TIBC, KIRILL, CMP, [id number] #### [address] Iron and TIBC Profileon 06-23 % Iron Saturation 14.5 % Low 20-50 [facility] Comment on above: Performed By: #### R A, JORGE LUIS, METH, HEPACUTE #### [facility] , #### CBC, LDH, FE and TIBC, KIRILL, CMP, [id number] #### [facility] [address] [place] [address] Total Iron Binding Capacity 440 ug/dL Normal 255-450 [facility] Comment on above: Performed By: #### R A, JORGE LUIS, METH, HEPACUTE #### [facility] , #### CBC, LDH, FE and TIBC, KIRILL, CMP, [id number] #### [facility] [address] Iron binding capacity [Mass/ volume] in Serum or PlasmaOrdered By: Genoveva Pulliamsimon on 07-06-2024 Iron binding capacity [Mass/Vol] 440 ug/dL 255-450 [facility] Iron saturation [Mass Fracti on] in Serum or PlasmaOrdered By: Genoveva Pulliamsimon on 07-06-2024 Iron saturation [Mass fraction] 14.5 % Low 20-50 [facility] LDH Lactate Dehydrogenaseon 07-06-2024 LDH Lactate Dehydrogenase 128 U/L Low 140-271 [facility] Comment on above: Performed By: #### R A, JORGE LUIS, METH, HEPACUTE #### [facility] , #### CBC, LDH, FE and TIBC, KIRILL, CMP, [id number] #### [address] Lactate dehydrogenase [Enzym atic activity/volume] in Serum or Plasma by Lactate to pyOrdered By: Genoveva Pulliamsimon on 07-06-2024 LDH Lactate to pyruvate reaction [Catalytic activity/Vol] 128 U/L Low 140-271 [facility] Leukocytes [#/volume] correc ryan for nucleated erythrocytes in Blood by Automated counOrdered By: Genoveva Pulliamsimon on 07-06-2024 WBC corrected for nucl RBC Auto (Bld) [#/Vol] 11.6 10*3/uL 3.8-11.6 [facility] Leukocytes [#/volume] in Blo od by Automated countOrdered By: Genoveva Pulliamsimon on 07-06-2024 WBC (Bld) [#/Vol] 11.6 10*3/uL Normal 3.8-11.6 [facility] Comment on above: Performed By: #### R A, JORGE LUIS, METH, HEPACUTE #### [facility] , #### CBC, LDH, FE and TIBC, KIRILL, CMP, [id number] #### [facility] [address] [place] [address] Lymphocytes [#/volume] in Bl ood by Automated countOrdered By: Genoveva Claude on 07-06-2024 Lymphocytes (Bld) [#/Vol] 3.5 10*3/uL Normal 1.00-4.8 [facility] Comment on above: Performed By: #### R A, JORGE LUIS, METH, HEPACUTE #### [facility] , #### CBC, LDH, FE and TIBC, KIRILL, CMP, [id number] #### [facility] [address] Lymphocytes/100 leukocytes i n Blood by Automated countOrdered By: Genoveva Claude on 07-06-2024 Lymphocytes/100 WBC (Bld) 30.0 % Normal . [facility] Comment on above: Performed By: #### R A, JORGE LUIS, METH, HEPACUTE #### [facility] , #### CBC, LDH, FE and TIBC, KIRILL, CMP, [id number] #### [facility] [address] MCH [Entitic mass] by Automa ryan countOrdered By: Genoveva Claude on 07-06-2024 MCH (RBC) [Entitic mass] 30.1 pg Normal 24.7-34.3 [facility] Comment on above: Performed By: #### R A, JORGE LUIS, METH, HEPACUTE #### [facility] , #### CBC, LDH, FE and TIBC, KIRILL, CMP, [id number] #### [address] MCHC Auto (RBC) [Mass/Vol]Or dered By: Genoveva Arce on 07-06-2024 MCHC (RBC) [Mass/Vol] 33.5 g/dL 32.0-35.0 [facility] MCV [Entitic volume] by Auto mated countOrdered By: Genoveva Arce on 07-06-2024 MCV (RBC) [Entitic vol] 90.0 fL Normal 80-100 [facility] Comment on above: Performed By: #### R A, JORGE LUIS, METH, HEPACUTE #### [facility] , #### CBC, LDH, FE and TIBC, KIRILL, CMP, [id number] #### [facility] [address] [place] [address] Methylmalonic Acidon 024 Methylmalonic Acid 184 Normal 0-378 [facility] Comment on above: Result Comment: This test was developed and its performance characteristics determined by [employer]. It has not been cleared or approved by the Food and Drug Administration. Performed at: [address] [id number] Caving Guide: Endy Arzate MD, Phone: [phone] Performed By: #### U RDS, C #### [address] Neutrophils [#/volume] in Bl ood by Automated countOrdered By: Genoveva Arce on 07-06-2024 Neutrophils (Bld) [#/Vol] 7.3 10*3/uL Normal 1.8-7.7 [facility] Comment on above: Performed By: #### R A, JORGE LUIS, METH, HEPACUTE #### [facility] , #### CBC, LDH, FE and TIBC, KIRILL, CMP, [id number] #### [address] No Panel InformationOrdered By: Genoveva Arce on 07-06-2024 Estimated GFR (CKD-EPI) > 60.0 mL/Min [facility] Hepatitis A IgM Antibody Negative Negative [facility] Hepatitis B Core IgM Antibody Negative Negative [facility] Hepatitis C Interpretation Comment . [facility] Comment on above: Not infected with HC V unless early or acute infection issuspected (which may be delayed in an immunocompromisedindividual), or other evidence exists to indicate HCVinfection.Performed at: [facility] [address] [id number] Director: Lionel Levy PhD, Phone: [phone] Pharmacy Creatinine Clearance (Chem 94.62 [facility] Nucleated erythrocytes [Pres ence] in Blood by Automated countOrdered By: Genoveva Claude on 07-06-2024 Nucleated RBC Auto Ql (Bld) 0.1 /100{WBC} 0-0.5 [facility] Platelet mean volume [Entiti c volume] in Blood by Automated countOrdered By: Genoveva Claude on 07-06-2024 Platelet mean volume (Bld) [Entitic vol] 9.9 fL Normal 6.3-10.7 [facility] Comment on above: Performed By: #### R A, JORGE LUIS, METH, HEPACUTE #### [facility] , #### CBC, LDH, FE and TIBC, KIRILL, CMP, [id number] #### [facility] [address] [place] [address] [place] Platelets [#/volume] in Bloo d by Automated countOrdered By: Genoveva Claude on 07-06-2024 Platelets (Bld) [#/Vol] 260 10*3/uL Normal 150-450 [facility] Comment on above: Performed By: #### R A, JORGE LUIS, METH, HEPACUTE #### [facility] , #### CBC, LDH, FE and TIBC, KIRILL, CMP, [id number] #### [facility] [address] [place] [address] [place] Potassium [Moles/volume] in Serum or PlasmaOrdered By: Genoveva Claude on 07-06-2024 Potassium [Moles/Vol] 3.8 mmol/L Normal 3.5-5.1 [facility] Comment on above: Performed By: #### R A, JORGE LUIS, METH, HEPACUTE #### [facility] , #### CBC, LDH, FE and TIBC, KIRILL, CMP, [id number] #### [facility] [address] [place] [address] [place] Protein [Mass/volume] in Ser um or PlasmaOrdered By: Genoveva Claude on 07-06-2024 Protein [Mass/Vol] 8.3 g/dL Normal 6.4-8.9 [facility] Comment on above: Performed By: #### R A, JORGE LUIS, METH, HEPACUTE #### [facility] , #### CBC, LDH, FE and TIBC, KIRILL, CMP, [id number] #### [address] Rheumatoid Factoron 07-06-20 24 Rheumatoid Factor 10.2 Normal <14.0 [facility] Comment on above: Result Comment: Perf ormed at: - [facility] [id number] Caving Guide: Lionel Levy PhD, Phone: [phone] Performed By: #### U RDS, CG #### [address] Serum globulin measurement b y calculation (mass/volume)Ordered By: Genoveva Arce on 07-06-2024 Globulin (S) [Mass/Vol] 3.1 g/dL Normal F [facility] Comment on above: Performed By: #### R A, JORGE LUIS, METH, HEPACUTE #### [facility] , #### CBC, LDH, FE and TIBC, KIRILL, CMP, [id number] #### [facility] [address] [place] [address] Serum homogeneous pattern an tinuclear antibody (JORGE LUIS) titerOrdered By: Genoveva Arce on 07-06-2024 Homogenous nuclear Ab pattern (S) [Titer] N/A [facility] Serum nuclear antibody titer Ordered By: Genoveva Arce on 07-06-2024 Nuclear Ab (S) [Titer] Negative . [facility] Comment on above: Negative <1:80 Borde rline 1:80 Positive >1:80ICAP nomenclature: [id number] more information about Hep-2 cell patterns useANApatterns.org, the official website for theInternational Consensus on Antinuclear Antibody (JORGE LUIS)Patterns (ICAP).Performed at: [facility] [id number] Director: Lionel Levy PhD, Phone: [phone] Serum or plasma albumin/glob ulin mass ratioOrdered By: Genoveva Claude on 07-06-2024 Albumin/Globulin [Mass ratio] 1.7 {ratio} Normal [facility] Comment on above: Performed By: #### R A, JORGE LUIS, METH, HEPACUTE #### [facility] , #### CBC, LDH, FE and TIBC, KIRILL, CMP, [id number] #### [facility] [address] Serum or plasma anion gap de terminationOrdered By: Genoveva Claude on 07-06-2024 Anion gap [Moles/Vol] 13.8 mmol/L Normal 6.0-15.0 [facility] Comment on above: Performed By: #### R A, JORGE LUIS, METH, HEPACUTE #### [facility] , #### CBC, LDH, FE and TIBC, KIRILL, CMP, [id number] #### [facility] [address] Serum or plasma methylmalona te measurement (moles/volume)Ordered By: Genoveva Claude on 07-06-2024 Methylmalonate [Moles/Vol] 184 nmol/L 0-378 [facility] Comment on above: This test was develo ped and its performance characteristicsdetermined by [facility]. It has not been cleared orapproved by the Food and Drug Administration.Performed at: [address] [id number] Director: Endy Arzate MD, Phone: [phone] Serum or plasma rheumatoid f actor measurement (units/volume)Ordered By: Genoveva Claude on 07-06-2024 Rheumatoid factor Qn 10.2 [IU]/mL <14.0 [facility] Comment on above: Performed at: [facility]ell [address] [id number] Director: Lionel Levy PhD, Phone: [phone] Sodium [Moles/volume] in Ser um or PlasmaOrdered By: Genoveva Arce on 07-06-2024 Sodium [Moles/Vol] 139 mmol/L Normal 136-145 [facility] Comment on above: Performed By: #### R A, JORGE LUIS, METH, HEPACUTE #### [facility] , #### CBC, LDH, FE and TIBC, KIRILL, CMP, [id number] #### [address] Transferrin [Mass/volume] in Serum or PlasmaOrdered By: Genoveva Arce on 07-06-2024 Transferrin [Mass/Vol] 314 mg/dL Normal 203-362 [facility] Comment on above: Performed By: #### R A, JORGE LUIS, METH, HEPACUTE #### [facility] , #### CBC, LDH, FE and TIBC, KIRILL, CMP, [id number] #### [address] Urea nitrogen [Mass/volume] in Serum or PlasmaOrdered By: Genoveva Arce on 07-06-2024 Urea nitrogen [Mass/Vol] 11 mg/dL Normal 7-25 [facility] Comment on above: Performed By: #### R A, JORGE LUIS, METH, HEPACUTE #### [facility] , #### CBC, LDH, FE and TIBC, KIRILL, CMP, [id number] #### [address] Vit. B12/Folate Profileon Folate 17.2 ng/mL Normal >5.9 [facility] Comment on above: Result Comment: Coco te reference range: >5.9 ng/ml The WHO technical consultation on folate and vitamin b12 deficiencies has determined that folate concentrations less than 4 ng/ml are considered deficient. PERFORMED BY: [place] [address] PATHOLOGIST FUNDRAISER FOX PONCE M.D. Performed By: #### R A, JORGE LUIS, METH, HEPACUTE #### [facility] , #### CBC, LDH, FE and TIBC, KIRILL, CMP, [id number] #### [facility] [address] [place] [id number] [facility] Vitamin B12 ser/plasOrdered By: Genoveva Arce on 07-06-2024 Cobalamin (Vitamin B12) [Mass/Vol] 357 pg/mL Normal 180-914 [facility] Comment on above: Performed By: #### R A, JORGE LUIS, METH, HEPACUTE #### [facility] , #### CBC, LDH, FE and TIBC, KIRILL, CMP, [id number] #### [facility] [address] [place] [id number] [facility] CT abdomen pelvis w conon CT abdomen pelvis w [facility] [place] [address] [place] [address] CT Scan Report Signed Patient: Delia Dickinson MR#: [id number] : 2000 Acct:[id number] Age/Sex: 23 / F ADM Date: 06/14/24 Loc: CT Room: Type: [facility] Attending Dr: Karissa Vogt DO Copies to: Karissa Vogt DO Ordering Provider: Karissa Vogt DO Date of Service: 06/14/24 CT/CT abdomen [...] Briggs Jr., D.ORojas06/14/2024 11:57 AM Dictation Location: [place] [address] Transcribed By: [facility] 06/14/24 1157 Dictated By: Bradford Briggs Jr, DO 06/14/24 1155 Signed By: 06/14/24 1157 Normal [facility] Amphetamine Screen Ql (U)Ord ered By: Karissa Vogt on 05-23-2024 Amphetamines Ql (U) Negative Negative [facility] Barbiturates [Presence] in U rine by Screen methodOrdered By: Karissa Vogt on 05-23-2024 Barbiturates Screen Ql (U) Negative Negative [facility] Benzodiazepines Screen Ql (U )Ordered By: Karissa Vogt on 05-23-2024 Benzodiazepines Ql (U) Negative Negative [facility] Benzoylecgonine [Presence] i n Urine by Screen methodOrdered By: Karissa Vogt on 05-23-2024 Benzoylecgonine Screen Ql (U) Negative Negative [facility] Cannabinoids [Presence] in U rine by Screen methodOrdered By: Karissa Vogt on 05-23-2024 Cannabinoids Screen Ql (U) Positive High Negative [facility] Comment on above: These are unconfirme d results and should not be used for legal purposes. Drug Cut-Off Concentration: AMPH 1000 ng/mL NIEVES 200 ng/mL HUGO 200 ng/mL COCM 300 ng/mL OP 300 ng/mL PCP 25 ng/mL THC 20 ng/mL Drug Screen,Urineon 05-23-20 Amphetamine Screen,Urine Negative Normal Negative [facility] Comment on above: Performed By: #### U ROSENDO [facility] #### [address] Barbiturate Screen,Urine Negative Normal Negative [facility] Comment on above: Performed By: #### [facility] #### [address] Benzodiazepines Screen,Urine Negative Normal Negative [facility] Comment on above: Performed By: #### U RDS, UHCG #### [address] Cannabinoid Screen,Urine Positive High Negative [facility] Comment on above: Result Comment: Thes e are unconfirmed results and should not be used for legal purposes. Drug Cut-Off Concentration: AMPH 1000 ng/mL NIEVES 200 ng/mL HUGO 200 ng/mL COCM 300 ng/mL OP 300 ng/mL PCP 25 ng/mL THC 20 ng/mL PERFORMED BY: [place] [address] PATHOLOGIST FUNDRAISER FOX PONCE M.D. Performed By: #### U RDS, CG #### [address] Cocaine Screen,Urine Negative Normal Negative [facility] Comment on above: Performed By: #### U RDS, UHCG #### [address] Opiate Screen,Urine Negative Normal Negative [facility] Comment on above: Performed By: #### U RDS, UHCG #### [address] Phencyclidine Screen,Urine Negative Normal Negative [facility] Comment on above: Performed By: #### U RDS, UHCG #### [address] HCG ( test) IA.rapi d Ql (U)Ordered By: Karissa Vogt on 05-23-2024 HCG ( test) Ql (U) Negative [facility] HCG,Urineon 05-23-2024 Beta HCG ( test) Ql (U) Negative Normal [facility] Comment on above: Result Comment: PERF ORMED BY: [place] [address] PATHOLOGIST FUNDRAISER FOX PONCE M.D. Performed By: #### U RDS, CG #### [place] [address] [place] Eduardo 05-23-2024 L Specimen: Received: 05/23/24 Status: BRET Zaidi Num: [id number] Spec Type: Surgical Subm Dr: Karissa Vogt DO Tissues: A Small Intestine - Biopsy/Polyp (SMALL BOWEL BX) B GASTRIC FOR HP (GASTRIC HP) C Colon Biopsy (RANDOM COLON T) D Colon Biopsy (RANDOM COLON LT) E Colon Biopsy (SIGMOID POLYP) Procedures: HE/10, Gross/Micro L4/5, H PYLORI, IHC First AB Age/ Patient Sex Location Account Attending Physician Delia Dickinson 23/F [id number] Karissa Vogt DO SPEC NUM: [id number] RECD: 05/23/24 STATUS: BRET ZAIDI NUM: [id number] GIAN: 05/23/24- SUBM DR: Karissa Vogt DO ENTERED: 05/23/[address] [facility] [address]: SPEC TYPE: Surgical DEPT: S [...] celiac dx, rule out H. pylori Specimen: [id number] Received: 05/23/24 Status: BRET Zaidi Num: [id number] Spec Type: Surgical Subm Dr: Karissa Vogt DO Tissues: A Small Intestine - Biopsy/Polyp (SMALL BOWEL BX) B GASTRIC FOR HP (GASTRIC HP) C Colon Biopsy (RANDOM COLON T) D Colon Biopsy (RANDOM COLON LT) E Colon Biopsy (SIGMOID POLYP) Procedures: HE/10, Gross/Micro L4/5, H PYLORI, IHC First AB Patient: Delia Dickinson [id number] (Continued) Specimen: [id number] Received: 05/23/24 (Continued) Signed (signature on file) Wojciech Sheikh MD 05/24/24 1556 Specimen: [id number] Received: 05/23/24 Status: BRET Zaidi Num: [id number] Spec Type: Surgical Subm Dr: Karissa Vogt DO Tissues: A Small Intestine - Biopsy/Polyp (SMALL BOWEL BX) B GASTRIC FOR HP (GASTRIC HP) C Colon Biopsy (RANDOM COLON T) D Colon Biopsy (RANDOM COLON LT) E Colon Biopsy (SIGMOID POLYP) Procedures: /10, Gross/Micro L4/5, H PYLORI, IHC First AB Patient: Delia Dickinson [id number] (Continued) Specimen: [id number] Received: 05/23/24-121 (Continued) Gross Description Received are 5 formalin [...] fragment, entirely submitted in E1. CPT Codes 83387w5 [id number] Specimen: [id number] Received: 05/23/24 Status: BRET Kramernaseem Num: [id number] Spec Type: Surgical Subm Dr: Karissa Vogt DO Tissues: A Small Intestine - Biopsy/Polyp (SMALL BOWEL BX) B GASTRIC FOR HP (GASTRIC HP) C Colon Biopsy (RANDOM COLON T) D Colon Biopsy (RANDOM COLON LT) E Colon Biopsy (SIGMOID POLYP) Procedures: HE/10, Gross/Micro L4/5, H PYLORI, IHC First AB Patient: Delia Dickinson [id number] (Continued) Signed (signature on file) Wojciech Sheikh MD 05/24/24 1556 Normal [facility] Opiates [Presence] in Urine by Screen methodOrdered By: Karissa Ly on 05-23-2024 Opiates Screen Ql (U) Negative Negative [facility] Phencyclidine Screen Ql (U)O rdered By: Karissa Ly on 05-23-2024 Phencyclidine Ql (U) Negative Negative [facility] IgA [Mass/Vol]on 05-20-2024 CELIAC DISEASE SEROLOGY [place] SEE COMMENTS 05/24/2024 10:21 PM Normal [facility] Comment on above: Result Comment: NOTE Test Result Flag Unit RefValue ---- Celiac Disease Serology [place] Immunoglobulin A (IgA), S 239 mg/dL 61 - 356 Celiac Disease Interpretation See Note See Comment: Negative serology. Celiac disease unlikely. However, approximately 10% of patients with celiac disease are seronegative. Also, patients who are already adhering to a gluten-free diet may be seronegative. If celiac disease is highly clinically suspected, consider HLA-DQ typing. Test Performed by: [facility] [employer] [place] [address] Caving Guide: Marissa Dodson Ph.D.; CLIA# [id number] Performed By: #### 2 106-3 #### [facility] ([id number]) [address] [place] [address] tTG IgA IA Qn (S)on 05-20-20 TTG AB IGA <1.2 Normal <4.0 (Negative) [facility] Comment on above: Result Comment: NOTE Test Performed by: [facility] [employer] [place] [address] Caving Guide: Marissa Dodson Ph.D.; CLIA# [id number] Performed By: #### 2 106-3 #### [facility] ([id number]) [address] [place] [address] CBC AND AUTO DIFFon 03-15-20 ABSOLUTE BASOPHIL 0.0 X10E9/L Normal 0.0-0.2 [facility] Comment on above: Performed By: #### 2 106-3 #### [facility] ([id number]) [address] [place] [address] ABSOLUTE NEUTROPHIL 6.9 X10E9/L High 1.5-6.6 [facility] Comment on above: Performed By: #### 2 106-3 #### [facility] ([id number]) [address] [place] [address]8905 Basophils/100 WBC (Bld) 0.3 % Normal [facility] Comment on above: Performed By: #### 2 106-3 #### [facility] ([id number]) [address] [place] [address] Eosinophils (Bld) [#/Vol] 0.1 10*3/uL Normal 0.0-0.4 [facility] Comment on above: Performed By: #### 2 106-3 #### [facility] ([id number]) [address] [place] [address]267 Eosinophils/100 WBC (Bld) 0.6 % Normal [facility] Comment on above: Performed By: #### 2 106-3 #### [facility] ([id number]) [address] [place] [address] [place] [address] Erythrocyte distribution width (RBC) [Ratio] 14.9 % Normal 11.5-15.0 [facility] Comment on above: Performed By: #### 2 106-3 #### [facility] ([id number]) [address] [place] [address] Hematocrit (Bld) [Volume fraction] 41.6 % Normal 35-47 [facility] Comment on above: Performed By: #### 2 106-3 #### [facility] ([id number]) [address] [place] [address]10 Hemoglobin (Bld) [Mass/Vol] 14.1 g/dL Normal 11.7-15.5 [facility] Comment on above: Performed By: #### 2 106-3 #### [facility] ([id number]) [address] [place] [address] Lymphocytes (Bld) [#/Vol] 1.7 10*3/uL Normal 1.0-3.5 [facility] Comment on above: Performed By: #### 2 106-3 #### [facility] ([id number]) [address] [place] [address]87 Lymphocytes/100 WBC (Bld) 18.5 % Normal [facility] Comment on above: Performed By: #### 2 106-3 #### [facility] ([id number]) [address] [place] [address] 42880 MCH (RBC) [Entitic mass] 30.6 pg Normal 27-34 [facility] Comment on above: Performed By: #### 2 106-3 #### [facility] ([id number]) [address] [place] [address]34 MCHC (RBC) [Mass/Vol] 33.8 g/dL Normal 32-36 [facility] Comment on above: Performed By: #### 2 106-3 #### [facility] ([id number]) [address] [place] [address]31 MCV (RBC) [Entitic vol] 91 fL Normal 80-100 [facility] Comment on above: Performed By: #### 2 106-3 #### [facility] ([id number]) [address] [place] [address]4036 Monocytes (Bld) [#/Vol] 0.7 10*3/uL Normal 0-0.9 [facility] Comment on above: Performed By: #### 2 106-3 #### [facility] ([id number]) [address] [place] [address]1996 Monocytes/100 WBC (Bld) 7.3 % Normal [facility] Comment on above: Performed By: #### 2 106-3 #### [facility] ([id number]) [address] [place] [address]43 Neutrophils/100 WBC (Bld) 73.3 % Normal [facility] Comment on above: Performed By: #### 2 106-3 #### [facility] ([id number]) [address] [place] [address]19 Platelet mean volume (Bld) [Entitic vol] 10.3 fL Normal 7-12 [facility] Comment on above: Performed By: #### 2 106-3 #### [facility] ([id number]) [address] [place] [address] 62592 Platelets (Bld) [#/Vol] 212 10*3/uL Normal 150-450 [facility] Comment on above: Performed By: #### 2 106-3 #### [facility] ([id number]) [address] [place] [address] 14123 RBC COUNT 4.59 X10E12/L Normal 3.80-5.20 [facility] Comment on above: Performed By: #### 2 106-3 #### [facility] ([id number]) [address] [place] [address]361 WBC (Bld) [#/Vol] 9.4 10*3/uL Normal 4.0-11.0 [facility] Comment on above: Performed By: #### 2 106-3 #### [facility] ([id number]) [address] [place] [address] [place] [address] COMPREHENSIVE METABOLIC PANE Eduardo 03-15-2024 Albumin [Mass/Vol] 4.4 g/dL Normal 3.2-5.3 [facility] Comment on above: Performed By: #### C JOLYNN THYR, 87415-3 #### [facility] ([id number]) [address] [place] [address] ALP [Catalytic activity/Vol] 63 U/L Normal 39-130 [facility] Comment on above: Performed By: #### C JOLYNN THYR, 28855-3 #### [facility] ([id number]) [address] [place] [address] ALT [Catalytic activity/Vol] 21 U/L Normal 0-31 [facility] Comment on above: Performed By: #### C JOLYNN THYR, 12160-6 #### [facility] ([id number]) [address] [place] [address] Anion gap [Moles/Vol] 7 mmol/L Normal 5-15 [facility] Comment on above: Performed By: #### C JOLYNN THYR, 28450-1 #### [facility] ([id number]) [address] [place] [address] AST [Catalytic activity/Vol] 15 U/L Normal 0-41 [facility] Comment on above: Performed By: #### Veronica NEIL THYR, 50756-0 #### [facility] ([id number]) [address] [place] [address] Bilirubin [Mass/Vol] 0.9 mg/dL Normal 0.3-1.2 [facility] Comment on above: Performed By: #### C JOLYNN, THYR, 68106-3 #### [facility] ([id number]) [address] [place] [address] Calcium [Mass/Vol] 9.6 mg/dL Normal 8.5-10.5 [facility] Comment on above: Performed By: #### C CASSI NEIL, 52532-5 #### [facility] ([id number]) [address] [place] [address] Chloride [Moles/Vol] 105 mmol/L Normal 98-109 [facility] Comment on above: Performed By: #### Veronica NEIL THYGeorgette, 46962-0 #### [facility] ([id number]) [address] [place] [address] CO2 [Moles/Vol] 27 mmol/L Normal 22-32 [facility] Comment on above: Performed By: #### C CASSI NEIL, 31496-3 #### [facility] ([id number]) [address] [place] [address] Creatinine [Mass/Vol] 0.71 mg/dL Normal 0.40-1.00 [facility] Comment on above: Result Comment: METH OD TRACEABLE TO IDMS STANDARD Performed By: #### C CASSI NEIL, 57030-6 #### [facility] ([id number]) [address] [place] [address] eGFR (CKD-EPI) NON-RACE DEPENDENT >90 Normal >59 [facility] Comment on above: Result Comment: Reported eGFR is based on the CKD-EPI 2020 equation that does not use a race coefficient. Performed By: #### C JOLYNN THYR, 94782-6 #### [facility] ([id number]) [address] [place] [address] Glucose [Mass/Vol] 105 mg/dL High 65-99 [facility] Comment on above: Performed By: #### Veronica NEIL THYR, 33588-5 #### [facility] ([id number]) [address] [place] [address] Potassium [Moles/Vol] 4.2 mmol/L Normal 3.5-5.0 [facility] Comment on above: Performed By: #### C JOLYNN THYR, 14856-1 #### [facility] ([id number]) [address] [place] [address] Protein [Mass/Vol] 7.0 g/dL Normal 6.0-8.0 [facility] Comment on above: Performed By: #### C JOLYNN THYR, 21080-9 #### [facility] ([id number]) [address] [place] [address] Sodium [Moles/Vol] 139 mmol/L Normal 134-146 [facility] Comment on above: Performed By: #### Veronica NEIL THYR, 92207-4 #### [facility] ([id number]) [address] [place] [address] Urea nitrogen [Mass/Vol] 11 mg/dL Normal 5-23 [facility] Comment on above: Performed By: #### Veronica NEIL, THYR, 68412-3 #### [facility] ([id number]) [address] [place] [address] Comprehensive metabolic pane eduardo 03-15-2024 Albumin [Mass/Vol] 4.4 g/dL 3.2 - 5.3 g/dL [facility] ALP [Catalytic activity/Vol] 63 U/L 39 - 130 U/L [facility] ALT No additional P-5'-P [Catalytic activity/Vol] 21 U/L 0 - 31 U/L [facility] Anion gap [Moles/Vol] 7 mmol/L 5 - 15 mmol/L [facility] AST [Catalytic activity/Vol] 15 U/L 0 - 41 U/L [facility] Bilirubin [Mass/Vol] 0.9 mg/dL 0.3 - 1 .2 mg/dL [facility] Calcium [Mass/Vol] 9.6 mg/dL 8.5 - 10. 5 mg/dL [facility] Chloride [Moles/Vol] 105 mmol/L 98 - 10 9 mmol/L [facility] CO2 [Moles/Vol] 27 mmol/L 22 - 32 mmol/L [facility] Creatinine [Mass/Vol] 0.71 mg/dL 0.40 - 1.00 mg/dL [facility] Comment on above: METHOD TRACEABLE TO IDHI STANDARD eGFR (CKD-EPI)non-race dependent - PINF [facility] Comment on above: Reported eGFR is based on the CKD-EPI 2020 equation that does not use a race coefficient. Glucose [Mass/Vol] 105 mg/dL High 65 - 99 mg/dL [facility] Potassium [Moles/Vol] 4.2 mmol/L 3.5 - 5.0 mmol/L [facility] Protein [Mass/Vol] 7.0 g/dL 6.0 - 8.0 g/dL [facility] Sodium [Moles/Vol] 139 mmol/L 134 - 146 mmol/L [facility] Urea nitrogen [Mass/Vol] 11 mg/dL 5 - 23 mg/dL [facility] ESR Photometric method (Bld) [Velocity]on 03-15-2024 ESR, ERYTHROCYTE SEDIMENTATION RATE 6 mm/h Normal 0-20 [facility] Comment on above: Performed By: #### 2 106-3 #### [facility] ([id number]) [address] [place] [address], [place] [address] GI PANELon 03-15-2024 Gastrointestinal pathogens DNA and [...] SAPOVIRUS Not detected (qualifier value) Normal NDET [facility] Comment on above: Performed By: #### 2 106-3 #### [facility] ([id number]) [address] [facility] [place] [address] Gastrointestinal pathogens D NA and RNA panel LULI+non-probe (Stl)on 03-15-2024 Adenovirus 40+41 DNA LULI+non-probe Ql (Stl) Not detected Not Detected^N ot Detected [facility] Astrovirus subtypes 1-8 RNA LULI+non-probe Ql (Stl) Not detected Not Detected^N ot Detected [facility] C. cayetanensis DNA LULI+non-probe Ql (Stl) Not detected Not Detected^N ot Detected [facility] C. coli+jejuni+upsaliensis DNA LULI+non-probe Ql (Stl) Not detected Not Detected^N ot Detected [facility] Cryptosporidium sp DNA LULI+non-probe Ql (Stl) Not detected Not Detected^N ot Detected [facility] E. coli enteroaggregative Gissell plasmid aggR+aatA genes LULI+non-probe Ql (Stl) Not detected Not Detected^N ot Detected [facility] E. coli enteropathogenic eae gene LULI+non-probe Ql (Stl) Not detected Not Detected^N ot Detected [facility] E. coli enterotoxigenic ltA+st1a+st1b genes LULI+non-probe Ql (Stl) Not detected Not Detected^N ot Detected [facility] E. coli stx1+stx2 genes LULI+non-probe Ql (Stl) Not detected Not Detected^N ot Detected [facility] E. histolytica DNA LULI+non-probe Ql (Stl) Not detected Not Detected^N ot Detected [facility] G. lamblia DNA LULI+non-probe Ql (Stl) Not detected Not Detected^N ot Detected [facility] Norovirus genogroup I+II RNA LULI+non-probe Ql (Stl) Not detected Not Detected^N ot Detected [facility] P. shigelloides DNA LULI+non-probe Ql (Stl) Not detected Not Detected^N ot Detected [facility] Rotavirus A RNA LULI+non-probe Ql (Stl) Not detected Not Detected^N ot Detected [facility] S. enterica+bongori DNA LULI+non-probe Ql (Stl) Not detected Not Detected^N ot Detected [facility] Sapovirus genogroups I+II+IV+V RNA LULI+non-probe Ql (Stl) Not detected Not Detected^N ot Detected [facility] Shigella species+EIEC invasion plasmid antigen H ipaH gene LULI+non-probe Ql (Stl) Not detected Not Detected^N ot Detected [facility] Specimen source Nom (Body fld) STOOL [facility] V. cholerae DNA LULI+non-probe Ql (Stl) Not detected Not Detected^N ot Detected [facility] V. cholerae+parahaemolytic us+vulnificus DNA LULI+non-probe Ql (Stl) Not detected Not Detected^N ot Detected [facility] Y. enterocolitica DNA LULI+non-probe Ql (Stl) Not detected Not Detected^N ot Detected [facility] Lipid 1996 panelon 4 Cholesterol [Mass/Vol] 131 mg/dL Low 150 - 200 mg/dL [facility] Cholesterol in HDL [Mass/Vol] 49 mg/dL 39 - PINF mg/dL [facility] Comment on above: HDL <40 mg/dL - High Risk HDL > or = 40mg/dL- Desirable HDL >60 mg/dL - Negative Risk Cholesterol in LDL [Mass/Vol] 62 mg/dL NINF - 130 mg/dL [facility] Comment on above: LDL <100 mg/dL - Desirable LDL >160 mg/dL - High Risk Cholesterol in VLDL [Mass/Vol] 20 mg/dL 0 - 30 mg/dL [facility] Cholesterol.total/Nita sterol in HDL [Mass ratio] 2.7 {ratio} 1.0 - 5.0 [facility] Triglyceride [Mass/Vol] 100 mg/dL 27 - 150 mg/dL [facility] Cholesterol [Mass/Vol] 131 mg/dL Low 150-200 [facility] Comment on above: Performed By: #### Veronica NEIL THYGeorgette, 04552-4 #### [facility] ([id number]) [address] [place] [address] Cholesterol in HDL [Mass/Vol] 49 mg/dL Normal >39 [facility] Comment on above: Result Comment: HDL <40 mg/dL - High Risk HDL > or = 40mg/dL- Desirable HDL >60 mg/dL - Negative Risk Performed By: #### Veronica NEIL, THYR, 21037-7 #### [facility] ([id number]) [address] [place] [address] Cholesterol in LDL [Mass/Vol] 62 mg/dL Normal <130 [facility] Comment on above: Result Comment: LDL <100 mg/dL - Desirable LDL >160 mg/dL - High Risk Performed By: #### Veronica NEIL, THYR, 29417-0 #### [facility] ([id number]) [address] [place] [address] Cholesterol in VLDL [Mass/Vol] 20 mg/dL Normal 0-30 [facility] Comment on above: Performed By: #### Veronica NEIL, THYR, 60053-7 #### [facility] ([id number]) [address] [place] [address] CHOLESTEROL:HDL 2.7 Normal 1.0-5.0 [facility] Comment on above: Performed By: #### C MP, THYR, 21940-5 #### [facility] ([id number]) [address] [facility] [address] [place] [address] Triglyceride [Mass/Vol] 100 mg/dL Normal 27-150 [facility] Comment on above: Performed By: #### C MP, THYR, 40538-7 #### [facility] ([id number]) [address] [facility] [place] [address] No Panel Informationon 03-15 Interpretation and review of laboratory results Abnormal [facility] THYROID PROFILEon 03-15-2024 Free T4 [Mass/Vol] 1.04 ng/dL Normal 0.61-1.60 [facility] Comment on above: Performed By: #### C MP, THYR, 04219-7 #### [facility] ([id number]) [address] [place] [address] TSH 0.68 uIU/mL Normal 0.49-4.67 [facility] Comment on above: Performed By: #### C MP, THYR, 98962-6 #### [facility] ([id number]) [address] [facility] [address] [place] [address] Thyroid profile includes TSH FT4on 03-15-2024 Free T4 [Mass/Vol] 1.04 ng/dL 0.61 - 1.60 ng/dL [facility] TSH Qn 0.68 m[IU]/L [facility] BASIC METABOLIC PANLon 01-31 Anion gap [Moles/Vol] 11 mmol/L Normal 5-15 [facility] Comment on above: Performed By: #### B JOLYNN, CBCA, 49174-9 #### [facility] ([id number]) [address] [place] [address] Calcium [Mass/Vol] 9.0 mg/dL Normal 8.5-10.5 [facility] Comment on above: Performed By: #### B VALENTINA NEIL, 25124-5 #### [facility] ([id number]) [address] [place] [address] Chloride [Moles/Vol] 101 mmol/L Normal 98-109 [facility] Comment on above: Performed By: #### B VALENTINA NEIL, 25239-0 #### [facility] ([id number]) [address] [place] [address] CO2 [Moles/Vol] 23 mmol/L Normal 22-32 [facility] Comment on above: Performed By: #### [place], [address]-4 #### [facility] ([id number]) [address] [place] [address] Creatinine [Mass/Vol] 0.78 mg/dL Normal 0.40-1.00 [facility] Comment on above: Result Comment: METH OD TRACEABLE TO IDMS STANDARD Performed By: #### [place], [address]-6 #### [facility] ([id number]) [address] [place] [address] eGFR (CKD-EPI) NON-RACE DEPENDENT >90 Normal >59 [facility] Comment on above: Result Comment: Reported eGFR is based on the CKD-EPI 2020 equation that does not use a race coefficient. Performed By: #### B VALENTINA NEIL, 85661-9 #### [facility] ([id number]) [address] [place] [address] Glucose [Mass/Vol] 87 mg/dL Normal 65-99 [facility] Comment on above: Performed By: #### [place], [address]-9 #### [facility] ([id number]) [address] [place] [address] Potassium [Moles/Vol] 4.1 mmol/L Normal 3.5-5.0 [facility] Comment on above: Performed By: #### B MP, CBCA, 54958-2 #### [facility] ([id number]) [address] [place] [address] 48098 Sodium [Moles/Vol] 135 mmol/L Normal 134-146 [facility] Comment on above: Performed By: #### B MP, CBCA, 83307-9 #### [facility] ([id number]) [address] [place] [address] 37159 Urea nitrogen [Mass/Vol] 13 mg/dL Normal 5-23 [facility] Comment on above: Performed By: #### B MP, CBCA, 01135-8 #### [facility] ([id number]) [address] [place] [address] 10215 CBC AND AUTO DIFFon 02-01-20 24 ABSOLUTE BASOPHIL 0.1 X10E9/L Normal 0.0-0.2 [facility] Comment on above: Performed By: #### B MP, CBCA, 45850-0 #### [facility] ([id number]) [address] [place] [address] 66181 ABSOLUTE NEUTROPHIL 5.3 X10E9/L Normal 1.5-6.6 [facility] Comment on above: Performed By: #### B MP, CBCA, 22875-4 #### [facility] ([id number]) [address] [place] [address] 31955 Basophils/100 WBC (Bld) 0.7 % Normal [facility] Comment on above: Performed By: #### B MP, CBCA, 68269-3 #### [facility] ([id number]) [address] [place] [address] 04302 Eosinophils (Bld) [#/Vol] 0.0 10*3/uL Normal 0.0-0.4 [facility] Comment on above: Performed By: #### B JOLYNN, CBCA, 75346-8 #### [facility] ([id number]) [address] [place] [address] 61125 Eosinophils/100 WBC (Bld) 0.1 % Normal [facility] Comment on above: Performed By: #### B JOLYNN, CBCA, 81054-9 #### [facility] ([id number]) [address] [place] [address] 81992 Erythrocyte distribution width (RBC) [Ratio] 13.5 % Normal 11.5-15.0 [facility] Comment on above: Performed By: #### B JOLYNN, CBCA, 18604-7 #### [facility] ([id number]) [address] [place] [address] 67383 Hematocrit (Bld) [Volume fraction] 44.0 % Normal 35-47 [facility] Comment on above: Performed By: #### B JOLYNN, CBCA, 91237-4 #### [facility] ([id number]) [address] [place] [address] 35305 Hemoglobin (Bld) [Mass/Vol] 15.3 g/dL Normal 11.7-15.5 [facility] Comment on above: Performed By: #### B JOLYNN, CBCA, 17443-1 #### [facility] ([id number]) [address] [place] [address] 42548 Lymphocytes (Bld) [#/Vol] 2.6 10*3/uL Normal 1.0-3.5 [facility] Comment on above: Performed By: #### B JOLYNN, CBCA, 76536-6 #### [facility] ([id number]) [address] [place] [address] 47652 Lymphocytes/100 WBC (Bld) 29.4 % Normal [facility] Comment on above: Performed By: #### B JOLYNN, CBCA, 86145-5 #### [facility] ([id number]) [address] [place] [address] 20823 MCH (RBC) [Entitic mass] 30.5 pg Normal 27-34 [facility] Comment on above: Performed By: #### Dhruv NEIL, CBCA, 79684-9 #### [facility] ([id number]) [address] [place] [address] 92498 MCHC (RBC) [Mass/Vol] 34.8 g/dL Normal 32-36 [facility] Comment on above: Performed By: #### Dhruv NEIL, CBCA, 20628-8 #### [facility] ([id number]) [address] [place] [address] 21667 MCV (RBC) [Entitic vol] 88 fL Normal 80-100 [facility] Comment on above: Performed By: #### Dhruv NEIL, CBCA, 43797-8 #### [facility] ([id number]) [address] [place] [address] 21964 Monocytes (Bld) [#/Vol] 0.8 10*3/uL Normal 0-0.9 [facility] Comment on above: Performed By: #### Dhruv NEIL, CBCA, 71001-7 #### [facility] ([id number]) [address] [place] [address] 82590 Monocytes/100 WBC (Bld) 9.7 % Normal [facility] Comment on above: Performed By: #### Dhruv NEIL, CBCA, 82196-6 #### [facility] ([id number]) [address] [place] [address] 02515 Neutrophils/100 WBC (Bld) 60.1 % Normal [facility] Comment on above: Performed By: #### B MP, CBCA, 16541-4 #### [facility] ([id number]) [address] [place] [address] 65682 Platelet mean volume (Bld) [Entitic vol] 10.6 fL Normal 7-12 [facility] Comment on above: Performed By: #### B MP, CBCA, 00808-1 #### [facility] ([id number]) [address] [place] [address] 91649 Platelets (Bld) [#/Vol] 153 10*3/uL Normal 150-450 [facility] Comment on above: Performed By: #### B MP, CBCA, 54292-7 #### [facility] ([id number]) [address] [place] [address] 92884 RBC COUNT 5.02 X10E12/L Normal 3.80-5.20 [facility] Comment on above: Performed By: #### B MP, CBCA, 72599-4 #### [facility] ([id number]) [address] [place] [address] 16426 WBC (Bld) [#/Vol] 8.8 10*3/uL Normal 4.0-11.0 [facility] Comment on above: Performed By: #### B MP, CBCA, 17243-8 #### [facility] ([id number]) [address] [place] [address] 81527 Fibrin D-dimer DDU (PPP) [Ma ss/Vol]on 02-01-2024 D DIMER 188 ng/mL DDU Normal <255 [facility] Comment on above: Result Comment: Results <255 ng/mL DDU: The presence of a VTE can safely be excluded with a negative D-Dimer result and Wells score. A negative result doesn't exclude the possibility of DIC. The test be repeated along with other diagnostic tests if the patient's symptoms persist or worsen. [email or web address] Performed By: #### B JOLYNN, CBCA, 72829-8 #### [facility] ([id number]) [address] [place] [address] 93768 XR CHEST 1 VWon 02-01-2024 XR CHEST [...] Hernandez MD on 02/01/2024 11:20 AM Normal [facility] HCG ( test) Ql (U)o n 01-30-2024 Beta HCG ( test) Ql (U) Negative Normal NEG [facility] Comment on above: Performed By: #### 2 106-3 #### [facility] ([id number]) [address] [place] [address] 02135 SARS/FLU A+B/RSV by NAAT/Mol ecularon 01-30-2024 SARS/FLU [...] operators who are performing tests using either [employer] or [employer] systems and is limited to laboratories that [...] repeat. Fact Sheet for Healthcare Providers: https://www.fda.gov/media/ 717301/download Fact Sheet for Patients: https://www.fda.gov/media/ 639374/download Normal [facility] Comment on above: Performed By: #### C OVFLR #### [facility] ([id number]) [address] [place] [address] 41410 URN MACROSCOPIC NURon 2023 BILIRUBIN APOLINAR Small Abnormal NEG [facility] Comment on above: Performed By: #### N UM #### [facility] ([id number]) [address] [place] [address] 44360 BLOOD/HGB APOLINAR Negative Normal NEG [facility] Comment on above: Performed By: #### N UM #### [facility] ([id number]) [address] [place] [address] 02542 GLUCOSE APOLINAR Negative Normal NEG [facility] Comment on above: Performed By: #### N UM #### [facility] ([id number]) [address] [place] [address] 05873 KETONES APOLINAR 80 mg/dL Abnormal NEG [facility] Comment on above: Performed By: #### N UM #### [facility] ([id number]) [address] [place] [address] 08285 LEUKOCYTE ESTERASE APOLINAR Negative Normal NEG [facility] Comment on above: Performed By: #### N UM #### [facility] ([id number]) [address] [place] [address] 13256 NITRITE APOLINAR Negative Normal NEG [facility] Comment on above: Performed By: #### N UM #### [facility] ([id number]) [address] [place] [address] 14247 PH APOLINAR 5.5 Normal 5.0-8.5 [facility] Comment on above: Performed By: #### N UM #### [facility] ([id number]) [address] [place] [address] 04996 PROTEIN APOLINAR Trace Abnormal NEG [facility] Comment on above: Performed By: #### N UM #### [facility] ([id number]) [address] [place] [address] 79709 SPECIFIC GRAVITY APOLINAR 1.025 Normal 1.003-1 .03 5 [facility] Comment on above: Performed By: #### N UM #### [facility] ([id number]) [address] [place] [address] 61741 UROBILINOGEN APOLINAR 0.2 eu/dL Normal <1.1 [facility] Comment on above: Performed By: #### N UM #### [facility] ([id number]) [address] [place] [address] 05308 Laboratory - Microbiology an d Antimicrobial susceptibilityOrdered By: Viky Waters on 07-10-2023 N. gonorrhoeae DNA LULI+probe Ql (Unsp spec) Negative Negative [facility] Comment on above: Performed at: =Gregory mejias [address] [id number] Director: Kinga Solomon MD, Phone: [phone] No Panel InformationOrdered By: Viky Waters on 07-10-2023 Kay albicans (LULI) Negative Negative [facility] Comment on above: This test was develo ped and its performance characteristicsdetermined by [facility]. It has not been cleared orapproved by the Food and Drug Administration. Kay glabrata (LULI) Negative Negative Fi [facility] Comment on above: This test was develo ped and its performance characteristicsdetermined by [facility]. It has not been cleared orapproved by the Food and Drug Administration. Chlamydia trachomatis (LULI) (LAB) Negative Negative [facility] Trichomonas vaginalis (LULI) Negative Negative [facility] Vaginal fluid Atopobium vagi xuan DNA detection by probe and target amplification methoOrdered By: Viky Waters on 07-10-2023 A. vaginae DNA LULI+probe Ql (Vag fld) High - 2 Score . [facility] Vaginal fluid Megasphaera sp ecies type 1 DNA detection by probe and target amplificatOrdered By: Viky Waters on 07-10-2023 Megasphaera sp type 1 DNA LULI+probe Ql (Vag fld) High - 2 Score . [facility] Comment on above: Calculate total scor e [...] (Vag fld) High - 2 Score . [facility] Q - SURESWAB ADVANCED VAGINI TIS PLUSon 04-24-2022 KAY GLABRATA Not detected Normal NOT DETECTED [facility] Comment on above: Order Comment: [facility] performed at: [place], [facility], [address] , [address] [place] [address], [address] [place] [address], Service Center Assistant: Jonathan Hernandez MD [facility] Collection Date/Time: [facility] Results Received Date/Time: [facility] Reported Date/Time: Result Comment: Kay species C. albicans, C. tropicalis, C. parapsilosis, and/or C. dubliniensis can be detected, but not differentiated, in the Kay spp. result. Performed By: #### 1 0120 #### [facility] Default [address] [place] [address] KAY SPECIES Detected Abnormal NOT DETECTED [facility] Specialist Comment on above: Order Comment: [facility] performed at: [facility], [facility], [address] , [address] [place] [address], [address] [place] [address], Service Center Assistant: Jonathan Hernandez MD [facility] Date/Time: [facility] Results Received Date/Time: [facility] Reported Date/Time: Performed By: #### 1 0120 #### [facility] Default [address] [place] [address] CHLAMYDIA TRACHOMATIS RNA, TMA, UROGENITAL Not detected Normal NOT DETECTED [facility] Specialist Comment on above: Order Comment: [facility] performed at: [facility], [facility], [address] , [address] [place] [address], [address] [place] [address], Service Center Assistant: Jonathan Hernandez MD [facility] Date/Time: [facility] Results Received Date/Time: [facility] Reported Date/Time: Performed By: #### 1 0120 #### [facility] Default [address] [place] [address] NEISSERIA GONORRHOEAE RNA, TMA, UROGENITAL Not detected Normal NOT DETECTED [facility] [employer] Technician Comment on above: Order Comment: [facility] performed at: [facility], [facility], [address] , [address] [place], [place] [address] [address], Service Center Assistant: Jonathan Hernandez MD [facility] Date/Time: [facility] Results Received Date/Time: [facility] Reported Date/Time: Result Comment: For additional information, please refer to [email or web address] (This link is being provided for information/ educational purposes only.) Performed By: #### 1 0120 #### [facility] Default [address] [place] [address] SURESWAB(R) ADV BACTERIAL VAGINOSIS (BV), TMA Positive Abnormal NEGATIVE [facility] Specialist Comment on above: Order Comment: [facility] performed at: [facility] [employer] [facility], [address] [place] [address], Service Center Assistant: Jonathan Hernandez MD [facility] Date/Time: [facility] Results Received Date/Time: [facility] Reported Date/Time: Performed By: #### 1 0120 #### [facility] Default [address] [place] [address] TRICHOMONAS VAGINALIS (TV), TMA Not detected Normal NOT DETECTED [facility] Comment on above: Order Comment: [facility] performed at: [facility], [address] [place] [address], [address] [place] [address], [address] [place] [address], Service Center Assistant: Jonathan Hernandez MD [facility] Date/Time: [facility] Results Received Date/Time: [facility] Reported Date/Time: Performed By: #### 1 0120 #### [facility] Default [address] [place] [address] CBC auto differentialOrdered By: Neyda Lyle on 08-02-2021 Absolute Eos # 0.05 [employer] Phone: Absolute Immature Granulocyte <0.03 [employer] Phone: Absolute Lymph # 1.77 [employer] Phone: Absolute [place] # 0.61 [employer] Phone: Basophils (Bld) [#/Vol] 10*3/uL M [employer] Phone: Basophils/100 WBC (Bld) 0 % 0 - 2 % M [employer] Phone: Differential Type NOT REPORTED [employer] Phone: Eosinophils/100 WBC (Bld) 1 % 1 - 4 % [employer] Phone: Hematocrit (Bld) [Volume fraction] 35.3 % Low 36.3 - 47.1 % [employer] Phone: Hemoglobin.gastrointest inal spec 1 Ql (Stl) 11.8 g/dL Low 11.9 - 15.1 g/dL [employer] Phone: Immature granulocytes/100 WBC (Bld) 0 % 0 [employer] Phone: Interpretation and review of laboratory results Abnormal [employer] Phone: Lymphocytes/100 WBC (Bld) 22 % Low 24 - 43 % [employer] Phone: MCH (RBC) [Entitic mass] 28.9 pg 25.2 - 33.5 pg [employer] Phone: MCHC (RBC) [Mass/Vol] 33.4 g/dL 28.4 - 34.8 g/dL [employer] Phone: MCV (RBC) [Entitic vol] 86.5 fL 82.6 - 102.9 fL [employer] Phone: Monocytes/100 WBC (Bld) 8 % 3 - 12 % [employer] Phone: NRBC Automated 0.0 0.0 per 100 WBC [employer] Phone: Platelet distribution width (Bld) [Ratio] 13.7 % 11.8 - 14.4 % [employer] Phone: Platelet Estimate NOT REPORTED [employer] Phone: Platelet mean volume (Bld) [Entitic vol] 12.4 fL 8.1 - 13.5 fL [employer] Phone: Platelets (Bld) [#/Vol] 197 10*3/uL [employer] Phone: RBC (Bld) [#/Vol] 4.08 10*6/uL 3.95 - 5.11 m/uL [employer] Phone: RBC (Bld) [#/Vol] NOT REPORTED [employer] Phone: Segmented neutrophils/100 WBC (Bld) 69 % High 36 - 65 % [employer] Phone: Segs Absolute 5.53 [employer] Phone: WBC (Bld) [#/Vol] 8.0 10*3/uL [employer] Phone: WBC (Bld) [#/Vol] NOT REPORTED [employer] Phone: [employer] Phone: CBC with Diffon 08-02-2021 Abs. Basophil <0.03 Normal 0.00-0.20 [facility] Comment on above: Performed By: #### C DP #### [facility] [address] [place] [address] Caving Guide: Brice Frederick MD Abs.Imm.Granulocyte <0.03 Normal 0.00-0.30 [facility] Comment on above: Performed By: #### C DP #### [facility] [address] [place] [address] Caving Guide: Brice Frederick MD Abs.Neutrophil (Seg) 5.53 k/uL Normal 1.50-8.10 [facility] Comment on above: Performed By: #### C DP #### [facility] [address] [place], [place] [address] Caving Guide: Brice Frederick MD Basophils/100 WBC (Bld) 0 % Normal 0-2 M [facility] Comment on above: Performed By: #### C DP #### [address] [place], [facility] Caving Guide: Brice Frederick MD Eosinophils (Bld) [#/Vol] 0.05 10*3/uL Normal 0.00-0.44 [facility] Comment on above: Performed By: #### C DP #### [address] [place], [facility] Caving Guide: Brice Frederick MD Eosinophils/100 WBC (Bld) 1 % Normal 1-4 [facility] Comment on above: Performed By: #### C DP #### [address] [place], [facility] Caving Guide: Brice Frederick MD Erythrocyte distribution width (RBC) [Ratio] 13.7 % Normal 11.8-14.4 [facility] Comment on above: Performed By: #### C DP #### [address] [place], [place] [address] Caving Guide: Brice Frederick MD Hematocrit (Bld) [Volume fraction] 35.3 % Low 36.3-47.1 [facility] Comment on above: Performed By: #### C DP #### [address] [place], [facility] Caving Guide: Brice Frederick MD Hemoglobin (Bld) [Mass/Vol] 11.8 g/dL Low 11.9-15.1 [facility] Comment on above: Performed By: #### C DP #### [address] [place], [place] [address] Caving Guide: Brice Frederick MD Immature granulocytes/100 WBC (Bld) 0 % Normal 0 [facility] Comment on above: Performed By: #### C DP #### [address] [place], [place] [id number] Caving Guide: Brice Frederick MD Lymphocytes (Bld) [#/Vol] 1.77 10*3/uL Normal 1.10-3.70 [facility] Comment on above: Performed By: #### C DP #### [address] [place], [place] [address] Caving Guide: Brice Frederick MD Lymphocytes/100 WBC (Bld) 22 % Low 24-43 [facility] Comment on above: Performed By: #### C DP #### [address] [place], [facility] Caving Guide: Brice Frederick MD MCH (RBC) [Entitic mass] 28.9 pg Normal 25.2-33.5 [facility] Comment on above: Performed By: #### C DP #### [address] [place], [place] [id number] Caving Guide: Brice Frederick MD MCHC (RBC) [Mass/Vol] 33.4 g/dL Normal 28.4-34.8 [facility] Comment on above: Performed By: #### C DP #### [address] [place], [place] [address] Caving Guide: Brice Frederick MD MCV (RBC) [Entitic vol] 86.5 fL Normal 82.6-102.9 M [facility] Comment on above: Performed By: #### C DP #### [address] [place], [place] [address] Caving Guide: Brice Frederick MD Monocytes (Bld) [#/Vol] 0.61 10*3/uL Normal 0.10-1.20 [facility] Comment on above: Performed By: #### C DP #### [facility] [address] [place] [address] Caving Guide: Brice Frederick MD Monocytes/100 WBC (Bld) 8 % Normal 3-12 M [facility] Comment on above: Performed By: #### C DP #### [facility] [address] [place], [facility] Caving Guide: Brice Frederick MD Neutrophil (Seg) 69 % High 36-65 [facility] Comment on above: Performed By: #### C DP #### [facility] [address] [place], [place] [address] Caving Guide: Brice Frederick MD NRBC Automated 0.0 per 100 WBC Normal 0.0 [facility] Comment on above: Performed By: #### C DP #### [address] [place], [place] [id number] Caving Guide: Brice Frederick MD Platelet mean volume (Bld) [Entitic vol] 12.4 fL Normal 8.1-13.5 [facility] Comment on above: Performed By: #### C DP #### [address] [place], [place] [id number] Caving Guide: Brice Frederick MD Platelets (Bld) [#/Vol] 197 10*3/uL Normal 138-453 [facility] Comment on above: Performed By: #### C DP #### [facility] [address] [place] [address] Caving Guide: Brice Frederick MD RBC (Bld) [#/Vol] 4.08 10*6/uL Normal 3.95-5.11 [facility] Comment on above: Performed By: #### C DP #### [address] [place], [facility]83 Caving Guide: Brice Frederick MD WBC (Bld) [#/Vol] 8.0 10*3/uL Normal 3.5-11.3 [facility] Comment on above: Performed By: #### C DP #### [facility] [address] [place] [address] Caving Guide: Brice Frederick MD Auto Diff Performed NOT REPORTED Normal [facility] Comment on above: Performed By: #### C DP #### [facility] [address] [place] [address] Caving Guide: Brice Frederick MD Platelet Estimate NOT REPORTED Normal [facility] Comment on above: Performed By: #### C DP #### [facility] [address] [place] [address] Caving Guide: Brice Frederick MD RBC morphology finding Nom (Bld) NOT REPORTED Normal [facility] Comment on above: Performed By: #### C DP #### [facility] [address] [place] [address] Caving Guide: Brice Frederick MD WBC Morphology NOT REPORTED Normal [facility] Comment on above: Performed By: #### C DP #### [facility] [address] [place], [place] [id number] Caving Guide: Brice Frederick MD DRUG SCREEN MULTI URINEOrder ed By: Neyda Lyle on 08-02-2021 Amphetamine Screen, Ur Negative NEGATIVE [facility] [employer] Phone: Barbiturate Screen, Ur Negative NEGATIVE [facility] [employer] Work Phone: Benzodiazepine Screen, Urine Negative NEGATIVE [facility] [employer] Work Phone: Buprenorphine Urine Negative NEGATIVE [facility] Work Phone: Cannabinoid Scrn, Ur Positive Abnormal NEGATIVE [facility] [employer] Work Phone: Cocaine Metabolite, Urine Negative NEGATIVE [facility] [employer] Phone: Interpretation and review of laboratory results Abnormal [facility] Phone: Methadone Screen, Urine Negative NEGATIVE [facility] [employer] Work Phone: Methamphetamine, Urine Negative NEGATIVE [facility] [employer] Work Phone: Opiates, Urine Negative NEGATIVE [facility] [employer] Work Phone: Oxycodone Screen, Ur Negative NEGATIVE [facility] [employer] Work Phone: Phencyclidine, Urine Negative NEGATIVE [facility] [employer] Work Phone: Propoxyphene, Urine Negative NEGATIVE [facility] [employer] Work Phone: Test Information NOT REPORTED [facility] Phone: Tricyclic Antidepressants, Urine Negative NEGATIVE [facility] Phone: Comment on above: Drug screen results are to be used for medical purposes only. All positive results are unconfirmed. Testing for employment or legal uses should be sent to a reference laboratory for confirmation. [employer] Phone: Drug Scr, Abuse, Uron 2020 Amphetamine(s),Ur Negative Normal NEG [facility] Comment on above: Performed By: #### D AU #### [facility] [address] [place] [address] Caving Guide: Brice Frederick MD Barbiturate(s),Ur Negative Normal NEG [facility] Comment on above: Performed By: #### D AU #### [facility] [address] [place] [address] Caving Guide: Brice Frederick MD Benzodiazepine(s) Negative Normal NEG [facility] Comment on above: Performed By: #### D AU #### [facility] [address] [place] [address] Caving Guide: Brice Frederick MD Buprenorphrine, Ur Negative Normal NEG [facility] Comment on above: Performed By: #### D AU #### [facility] [address] [place], [place] [id number] Caving Guide: Brice Frederick MD Cannabinoid(s),Ur Positive Abnormal NEG [facility] Comment on above: Performed By: #### D AU #### [facility] [facility] [address] [place], [facility] Caving Guide: Brice Frederick MD Cocaine Metabolite Negative Normal [facility] Comment on above: Performed By: #### D AU #### [facility] [address] [place], [place] [id number] Caving Guide: Brice Frederick MD Methadone Ql (U) Negative Normal [facility] Comment on above: Performed By: #### D AU #### [facility] [address] [place], [facility] Caving Guide: Brice Frederick MD Methamphetamine, Ur Negative Normal [facility] Comment on above: Performed By: #### D AU #### [facility] [address] [place] [address] Dr. [place] [id number] Caving Guide: Brice Frederick MD Opiate(s), Ur Negative Normal [facility] Comment on above: Performed By: #### D AU #### [facility] [address] [place], [facility] Caving Guide: Brice Frederick MD Oxycodone, Urine Negative Normal [facility] Comment on above: Performed By: #### D AU #### [facility] [address] [place] [address] Caving Guide: Brice Frederick MD Phencyclidine, Ur Negative Normal [facility] Comment on above: Performed By: #### D AU #### [facility] [address] [place] [address] Caving Guide: Brice Frederick MD Propoxyphene,Urine Negative Normal NEG [facility] Comment on above: Performed By: #### D AU #### [address] [place] [address] Caving Guide: Brice Frederick MD Tricyclic antidepressants Screen Ql (U) Negative Normal NEG [facility] Comment on above: Result Comment: Drug screen results are to be used for medical purposes only. All positive results are unconfirmed. Testing for employment or legal uses should be sent to a reference laboratory for confirmation. Performed By: #### D AU #### [facility] [address] [place] [address] Dr. [place], [place] [id number] Caving Guide: Brice Frederick MD Interpretive Info NOT REPORTED Normal [facility] Comment on above: Performed By: #### D AU #### [address] [place], [place] [id number] Caving Guide: Brice Frederick MD Drug Scr, Abuse, UrOrdered B y: Neyda Pool on 08-02-2021 MDMA, Urine NOT REPORTED Normal NEG [facility] Phone: Comment on above: Performed By: #### D AU #### [address] [place] [address] Caving Guide: Brice Frederick MD GBS, External ResultOrdered By: Historical Provider on 08-02-2021 GBS, External Result Negative [facility] Phone: [employer] Phone: UrinalysisOrdered By: Debbi Kolb on 08-02-2021 Bilirubin Urine Negative NEGATIVE [facility] Phone: Color, UA YELLOW YELLOW [employer] Phone: Glucose, Ur Negative NEGATIVE [facility] Phone: Ketones Ql (U) Negative NEGATIVE [facility] Work Phone: Leukocyte esterase Test strip Ql (U) Negative NEGATIVE [facility] Work Phone: Nitrite, Urine Negative NEGATIVE [facility] Work Phone: pH, UA 6.0 [facility] Work Phone: Protein, UA Negative NEGATIVE [facility] Work Phone: Specific [place], UA 1.020 [facility] Work Phone: Turbidity UA CLEAR CLEAR [facility] [employer] Work Phone: Urinalysis Comments NOT REPORTED [facility] [employer] Work Phone: Urine Hgb Negative NEGATIVE [facility] Phone: Urobilinogen, Urine Normal Normal [facility] Phone: [facility] Phone: Urinalysis, Routineon 2020 Bilirubin, SemiQt,Ur Negative Normal NEG [facility] Comment on above: Performed By: #### U A #### [facility] [address] [place] [address] [place] [address] Caving Guide: Brice Frederick MD Blood, Urine Negative Normal NEG [facility] Comment on above: Performed By: #### U A #### [facility] [address] [place] [address] [place] [address] Caving Guide: Brice Frederick MD Clarity (U) CLEAR Normal CLEAR [facility] Comment on above: Performed By: #### U A #### [facility] [address] [place] [address] [place] [address] Caving Guide: Brice Frederick MD Color (U) YELLOW Normal YEL [facility] Comment on above: Performed By: #### U A #### [facility] [address] [place], [place] [id number] Caving Guide: Brice Frederick MD Glucose Ql (U) Negative Normal NEG [facility] Comment on above: Performed By: #### U A #### [facility] [address] [place], [place] [id number] Caving Guide: Brice Frederick MD Ketones Ql (U) Negative Normal NEG [facility] Comment on above: Performed By: #### U A #### [facility] [address] [place], [place] [id number] Caving Guide: Brice Frederick MD Leukocyte esterase Test strip Ql (U) Negative Normal NEG [facility] Comment on above: Performed By: #### U A #### [address] [place], [place] [id number] Caving Guide: Brice Frederick MD Nitrite,Ur Negative Normal NEG [facility] Comment on above: Performed By: #### U A #### [facility] [address] [place] [address] Dr. [place], [place] [id number] Caving Guide: Brice Frederick MD PH,Ur 6.0 Normal 5.0-9.0 [facility] Comment on above: Performed By: #### U A #### [facility] [address] [place] [address] Dr. [place], [place] [id number] Caving Guide: Brice Frederick MD Protein Ql (U) Negative Normal [facility] Comment on above: Performed By: #### U A #### [facility] [address] [place], [place] [id number] Caving Guide: Brice Frederick MD Spec. [place],Ur 1.020 Normal 1.010-1.02 0 [facility] Comment on above: Performed By: #### U A #### [facility] [address] [place] [address] Caving Guide: Brice Frederick MD Urobilinogen,Ur Normal Normal NORM [facility] Comment on above: Performed By: #### U A #### [facility] [address] [place] [address] Caving Guide: Brice Frederick MD Comment NOT REPORTED Normal [facility] Comment on above: Performed By: #### U A #### [facility] [address] [place] [address] Caving Guide: Brice Frederick MD ABO, External ResultOrdered By: Historical Provider on 01-10-2021 ABO, External Result A+ [facility] Phone: C. Trachomatis, External Res ultOrdered By: Historical Provider on 01-10-2021 C. Trachomatis, External Result Negative [employer] Phone: Hepatitis B, External Result Ordered By: Historical Provider on 01-10-2021 Hep B, External Result NR [employer] Phone: N. Gonorrhoeae, External Res ultOrdered By: Historical Provider on 01-10-2021 N. Gonorrhoeae, External Result Negative [employer] Phone: No Panel InformationOrdered By: Historical Provider on 01-10-2021 [employer] Phone: [employer] Phone: PROFILE IOrdered By : Historical Provider on 01-10-2021 Hepatitis B Surface Ag NR [facility] Phone: RPR, External LabOrdered By: Historical Provider on 01-10-2021 RPR, External Result Negative [facility] Phone: Rubella Titer, External Resu ltOrdered By: Historical Provider on 01-10-2021 Rubella Titer, External Result IMM [employer] Phone: Operative Reporton 7 Operative Report MR#: [id number] [facility] Pt. Name: Delia Dickinson Room #: 0C Discharge Date: Birthdate: 2000 OPERATIVE REPORTDATE OF SURGERY: 09/14/2017SURGEON: Stephani Ayala M.D.DATA TECHNICAL LEAD: Ham Nino M.D.PREOPERATIVE DIAGNOSIS: Radial digital nerve [...] were no complications. [facility].Electronically Signed by:Stephani Ayala M.D. 09/17/2017 05:16 P Stephani Ayala M.D.Date Dict: 09/14/2017/11:28 P/Stephani Ayala M.D.Date Trans: 09/15/2017 02:25 [id number] Normal [facility] POC GLUCOSE LABon 09-14-2017 Glucose mass conc 91 mg/dL Normal 70-100 [facility] Comment on above: Performed By: #### [id number] ####[facility] POC URINE PREGNANCYon 2016 HCG.beta subunit ( test) Ql (U) Negative Normal NEGATIVE [facility] Comment on above: Result Comment: Perf ormed in PACU Performed By: #### [id number] ####[facility] Vital Signs Date Time Vital Sign Value Performing Clinician Facility 03-20-2025 17:23-0400 Body mass index (BMI) [Ratio] 23.49 kg/m2 Dat Kolb CN Work Phone: [facility] 03-20-2025 17:23-0400 Body weight 68.04 kg Dat Kolb CN Work Phone: [facility] 03-20-2025 17:23-0400 Diastolic blood pressure 70 mm[Hg] Dat Kolb CN Work Phone: [facility] 03-20-2025 17:23-0400 Systolic blood pressure 110 mm[Hg] Dat Kolb CN Work Phone: [facility] 03-13-2025 09:13-0400 Body height 170.2 cm Rickey Kwong MD Work Phone: [facility] 03-13-2025 09:13-0400 Body mass index (BMI) [Ratio] 23.65 kg/m2 Rickey Kwong MD Work Phone: [facility] 03-13-2025 09:13-0400 Body weight 68.49 kg Rickey Kwong MD Work Phone: [facility] 03-13-2025 09:13-0400 Diastolic blood pressure 66 mm[Hg] Rickey Kwong MD Work Phone: [facility] 03-13-2025 09:13-0400 Heart rate 81 /min Rickey Kwong MD Work Phone: [facility] 03-13-2025 09:13-0400 Respiratory rate 18 /min Rickey Kwong MD Work Phone: [facility] 03-13-2025 09:13-0400 SaO2% (BldA) [Mass fraction] 99 % Rickey Kwong MD Work Phone: [facility] 03-13-2025 09:13-0400 Systolic blood pressure 96 mm[Hg] Rickey Kwong MD Work Phone: [facility] 03-09-2025 13:45-0400 Body mass index (BMI) [Ratio] 23.49 kg/m2 Dat Floro CNM Work Phone: [facility] 03-09-2025 13:45-0400 Body weight 68.04 kg Dat Floro CNM Work Phone: [facility] 03-09-2025 13:45-0400 Diastolic blood pressure 70 mm[Hg] Dat Floro CNM Work Phone: [facility] 03-09-2025 13:45-0400 Systolic blood pressure 112 mm[Hg] Dat Floro CNM Work Phone: [facility] 01-23-2025 16:41-0500 Body mass index (BMI) [Ratio] 24.28 kg/m2 Dat Floro CNM Work Phone: [facility] 01-23-2025 16:41-0500 Body weight 70.31 kg Dat Floro CNM Work Phone: [facility] 01-23-2025 16:41-0500 Diastolic blood pressure 70 mm[Hg] Dat Floro CNM Work Phone: [facility] 01-23-2025 16:41-0500 Systolic blood pressure 112 mm[Hg] Dat Floro CNM Work Phone: [facility] 12-19-2024 16:29-0500 Body mass index (BMI) [Ratio] 21.46 kg/m2 Dat Floro CNM Work Phone: [facility] 12-19-2024 16:29-0500 Body weight 62.14 kg Dat Floro CNM Work Phone: [facility] 12-19-2024 16:29-0500 Diastolic blood pressure 70 mm[Hg] Dat Floro CNM Work Phone: [facility] 12-19-2024 16:29-0500 Systolic blood pressure 120 mm[Hg] Dat Floro CNM Work Phone: [facility] 10-17-2024 16:59-0500 Body mass index (BMI) [Ratio] 20.2 kg/m2 Dat Floro CNM Work Phone: [facility] 10-17-2024 16:59-0500 Body weight 58.51 kg Dat Floro CNM Work Phone: [facility] 10-17-2024 16:59-0500 Diastolic blood pressure 70 mm[Hg] Dat Floro CNM Work Phone: [facility] 10-17-2024 16:59-0500 Systolic blood pressure 120 mm[Hg] Dat Floro CNM Work Phone: [facility] 09-19-2024 13:27-0400 Body mass index (BMI) [Ratio] 20.05 kg/m2 Dat Floro CNM Work Phone: [facility] 09-19-2024 13:27-0400 Body weight 58.06 kg Dat Floro CNM Work Phone: [facility] 09-19-2024 13:27-0400 Diastolic blood pressure 80 mm[Hg] Dat Floro CNM Work Phone: [facility] 09-19-2024 13:27-0400 Systolic blood pressure 122 mm[Hg] Dat Babcocko CNM Work Phone: [facility] 09-14-2024 16:37-0400 Body mass index (BMI) [Ratio] 19.34 kg/m2 Brice Madrid MD Work Phone: [facility] 09-14-2024 16:37-0400 Body weight 57.7 kg Brice Madrid MD Work Phone: [facility] 09-14-2024 16:37-0400 Diastolic blood pressure 56 mm[Hg] Brice Madrid MD Work Phone: [facility] 09-14-2024 16:37-0400 Heart rate 80 /min Brice Madrid MD Work Phone: [facility] 09-14-2024 16:37-0400 Respiratory rate 16 /min Brice Madrid MD Work Phone: [facility] 09-14-2024 16:37-0400 Systolic blood pressure 98 mm[Hg] Brice Madrid MD Work Phone: [facility] 09-01-2024 09:07-0400 Body mass index (BMI) [Ratio] 19.89 kg/m2 Dat Babcocko CNM Work Phone: [facility] 09-01-2024 09:07-0400 Body weight 57.61 kg Dat Babcocko CNM Work Phone: [facility] 09-01-2024 09:07-0400 Diastolic blood pressure 70 mm[Hg] Dat Yokoo CNM Work Phone: [facility] 09-01-2024 09:07-0400 Systolic blood pressure 118 mm[Hg] Dat Yokoo CNM Work Phone: [facility] 08-31-2024 11:23-0400 Body height 172.7 cm Brice Madrid MD Work Phone: [facility] 08-31-2024 11:23-0400 Body mass index (BMI) [Ratio] 18.72 kg/m2 Brice Madrid MD Work Phone: [facility] 08-31-2024 11:23-0400 Body temperature 98.71 [degF] Brice Madrid MD Work Phone: [facility] 08-31-2024 11:23-0400 Body weight 55.85 kg Brice Madrid MD Work Phone: [facility] 08-31-2024 11:23-0400 Diastolic blood pressure 68 mm[Hg] Brice Madrid MD Work Phone: [facility] 08-31-2024 11:23-0400 Systolic blood pressure 112 mm[Hg] Brice Madrid MD Work Phone: [facility] 07-19-2024 13:20-0400 Body mass index (BMI) [Ratio] 19.58 kg/m2 Dat Babcocko CNM Work Phone: [facility] 07-19-2024 13:20-0400 Body weight 56.7 kg Dat Floro CNM Work Phone: [facility] 07-19-2024 13:20-0400 Diastolic blood pressure 70 mm[Hg] Dat Yokoo CNM Work Phone: [facility] 07-19-2024 13:20-0400 Systolic blood pressure 112 mm[Hg] Dat Floro CNM Work Phone: [facility] 07-19-2024 09:37-0400 Body height 172.72 cm MD Brice Madrid Work Phone: [facility] 07-19-2024 09:37-0400 Body mass index (BMI) [Ratio] 18.2 kg/m2 MD Brice Madrid Work Phone: [facility] 07-19-2024 09:37-0400 Body temperature 97.8 [degF] MD Brice Madrid Work Phone: [facility] 07-19-2024 09:37-0400 Body weight 54.43 kg MD Brice Madrid Work Phone: [facility] 07-19-2024 09:37-0400 Diastolic blood pressure 72 mm[Hg] MD Brice Madrid Work Phone: [facility] 07-19-2024 09:37-0400 Heart rate 90 /min MD Brice Madrid Work Phone: [facility] 07-19-2024 09:37-0400 Respiratory rate 20 /min MD Brice Madrid Work Phone: [facility] 07-19-2024 09:37-0400 SaO2% (BldA) [Mass fraction] 100 % MD Brice Madrid Work Phone: [facility] 07-19-2024 09:37-0400 Systolic blood pressure 109 mm[Hg] MD Brice Madrid Work Phone: [facility] 07-06-2024 14:45-0400 Body height 172.72 cm MD Brice Madrid Work Phone: [facility] 07-06-2024 14:45-0400 Body mass index (BMI) [Ratio] 18.8 kg/m2 MD Brice Madrid Work Phone: [facility] 07-06-2024 14:45-0400 Body temperature 97.3 [degF] MD Brice Madrid Work Phone: [facility] 07-06-2024 14:45-0400 Body weight 56.24 kg MD Brice Madrid Work Phone: [facility] 07-06-2024 14:45-0400 Diastolic blood pressure 83 mm[Hg] MD Brice Madrid Work Phone: [facility] 07-06-2024 14:45-0400 Heart rate 66 /min MD Brice Madrid Work Phone: [facility] 07-06-2024 14:45-0400 Respiratory rate 16 /min MD Brice Madrid Work Phone: [facility] 07-06-2024 14:45-0400 SaO2% (BldA) [Mass fraction] 99 % MD Brice Madrid Work Phone: [facility] 07-06-2024 14:45-0400 Systolic blood pressure 125 mm[Hg] MD Brice Madrid Work Phone: [facility] 05-23-2024 12:04-0400 Diastolic blood pressure 63 mm[Hg] MD Brice Madrid Work Phone: [facility] 05-23-2024 12:04-0400 Heart rate 76 /min MD Brice Madrid Work Phone: [facility] 05-23-2024 12:04-0400 Respiratory rate 18 /min MD Brice Madrid Work Phone: [facility] 05-23-2024 12:04-0400 SaO2% (BldA) [Mass fraction] 100 % MD Brice Madrid Work Phone: [facility] 05-23-2024 12:04-0400 Systolic blood pressure 96 mm[Hg] MD Brice Madrid Work Phone: [facility] 05-23-2024 09:36-0400 Body height 172.72 cm MD Brice Madrid Work Phone: [facility] 05-23-2024 09:36-0400 Body weight 54.43 kg MD Brice Madrid Work Phone: [facility] 05-20-2024 08:45-0400 Body height 170.18 cm [facility] 05-20-2024 08:45-0400 Body mass index (BMI) [Ratio] 18.8 kg/m2 [facility] 05-20-2024 08:45-0400 Body weight 54.43 kg [facility] 05-20-2024 08:45-0400 Diastolic blood pressure 75 mm[Hg] [facility] 05-20-2024 08:45-0400 Heart rate 93 /min [facility] 05-20-2024 08:45-0400 Systolic blood pressure 113 mm[Hg] [facility] 04-25-2024 16:19-0400 Body height 172.7 cm Brice Madrid MD Work Phone: [facility] 04-25-2024 16:19-0400 Body mass index (BMI) [Ratio] 17.79 kg/m2 Brice Madrid MD Work Phone: [facility] 04-25-2024 16:19-0400 Body weight 53.07 kg Brice Madrid MD Work Phone: [facility] 04-25-2024 16:19-0400 Diastolic blood pressure 74 mm[Hg] Brice Madrid MD Work Phone: [facility] 04-25-2024 16:19-0400 Heart rate 80 /min Brice Madrid MD Work Phone: [facility] 04-25-2024 16:19-0400 Respiratory rate 16 /min Brice Madrid MD Work Phone: [facility] 04-25-2024 16:19-0400 Systolic blood pressure 100 mm[Hg] Brice Madrid MD Work Phone: [facility] 03-15-2024 10:08-0400 Body height 172.7 cm Brice Madrid MD Work Phone: [facility] 03-15-2024 10:08-0400 Body mass index (BMI) [Ratio] 18.7 kg/m2 Brice Madrid MD Work Phone: [facility] 03-15-2024 10:08-0400 Body temperature 98.01 [degF] Brice Madrid MD Work Phone: [facility] 03-15-2024 10:08-0400 Body weight 55.79 kg Brice Madrid MD Work Phone: [facility] 03-15-2024 10:08-0400 Diastolic blood pressure 70 mm[Hg] Brice Madrid MD Work Phone: [employer] 03-15-2024 10:08-0400 Heart rate 104 /min Brice Madrid MD Work Phone: [employer] 03-15-2024 10:08-0400 Respiratory rate 16 /min Brice Madrid MD Work Phone: [employer] 03-15-2024 10:08-0400 Systolic blood pressure 104 mm[Hg] Brice Madrid MD Work Phone: [employer] 07-10-2023 09:40-0400 Body height 170.18 cm Viky Jt Other [employer] Other 07-10-2023 09:40-0400 Body mass index (BMI) [Ratio] 21.42 kg/m2 Viky Waters Other [employer] Other 07-10-2023 09:40-0400 Body temperature 96.8 [degF] Viky Jt Other [employer] Other 07-10-2023 09:40-0400 Body weight 62.05 kg Viky Waters Other [employer] Other 07-10-2023 09:40-0400 Diastolic blood pressure 66 mm[Hg] Viky Jt Other [employer] Other 07-10-2023 09:40-0400 Respiratory rate 16 /min Viky Waters Other [employer] Other 07-10-2023 09:40-0400 SaO2% (BldA) [Mass fraction] 99 % Viky Waters Other [employer] Other 07-10-2023 09:40-0400 Systolic blood pressure 112 mm[Hg] Viky Waters Other [facility] [employer] Other 08-04-2021 08:20-0400 Body temperature 97.9 [degF] Dat Kolb GARMENT LINER - CNM Work Phone: [employer] Work Phone: 08-04-2021 08:20-0400 Diastolic blood pressure 67 mm[Hg] Dat Kolb GARMENT LINER - CNM Work Phone: [employer] Work Phone: 08-04-2021 08:20-0400 Heart rate 63 /min Dat Kolb APRN - CNM Work Phone: [employer] Work Phone: 08-04-2021 08:20-0400 Respiratory rate 16 /min Dat Kolb GARMENT LINER - CNM Work Phone: [employer] Work Phone: 08-04-2021 08:20-0400 Systolic blood pressure 104 mm[Hg] Dat Kolb GARMENT LINER - CNM Work Phone: [employer] Work Phone: 08-02-2021 20:03-0400 Body height 170.2 cm Dat Kolb APRN - CNM Work Phone: [employer] Work Phone: 08-02-2021 20:03-0400 Body mass index (BMI) [Ratio] 26.63 kg/m2 Dat Kolb GARMENT LINER - CNM Work Phone: [employer] Work Phone: 08-02-2021 20:03-0400 Body weight 77.11 kg Dat Kolb APRN - CNM Work Phone: [employer] Work Phone: Encounters Encounter Date Encounter Type Care Provider Facility Start: 04-10-2025 ambulatory DAT L FLORO Not Alejandra ilable Start: 04-03-2025 End: 04-03-2025 ambulatory DAT L FLORO Not Available Start: 04-03-2025 End: 04-03-2025 Bamboo flowsheet Dat L Yokoo CNM Work Phone: [facility] Start: 04-03-2025 End: 04-03-2025 Bamboo flowsheet Dat Manuelito Babcocko CNM Work Phone: [facility] Start: 03-20-2025 End: 03-20-2025 Subsequent care visit Dat Babcocko CNM Work Phone: [facility] Comment on above: Encounter for superv ision of other normal , third trimester (Primary Dx); Low thyroid stimulating hormone (TSH) level Start: 03-20-2025 End: 03-20-2025 ambulatory DAT Manuelito BABCOCKO Not Available Start: 03-20-2025 End: 03-20-2025 Bamboo flowsheet Dat L Floro CNM Work Phone: [facility] Start: 03-20-2025 End: 03-20-2025 Bamboo flowsheet Dat L Floro CNM Work Phone: [facility] Start: 03-14-2025 End: 03-14-2025 Clinisync Result Encounter Dat Manuelito Floro CNM Work Phone: [facility] Unsolicited Start: 03-14-2025 End: 03-14-2025 Clinisync Result Encounter Dat Manuelito Babcocko CNM Work Phone: [facility] Unsolicited Start: 03-13-2025 End: 03-13-2025 Bamboo flowscruz Kwong MD Work Phone: [facility] Start: 03-13-2025 End: 03-13-2025 Bamboo val Kwong MD Work Phone: [facility] Start: 03-13-2025 End: 03-13-2025 ambulatory RICKEY KWONG Not Available Start: 03-13-2025 End: 03-13-2025 Office outpatient new 45 minutes Rickey Kwong MD Work Phone: [facility] Comment on above: Low TSH level (Prima ry Dx); Thyroid disease during in third trimester (CMS/HCC) Start: 03-09-2025 End: 03-09-2025 Bamboo flowsheet Dat L Floro CNM Work Phone: [facility] Start: 03-09-2025 End: 03-09-2025 Bamboo flowsheet Dat L Floro CNM Work Phone: [facility] Start: 03-09-2025 End: 03-09-2025 ambulatory DAT L FLORO Not Available Start: 03-09-2025 End: 03-09-2025 Subsequent care visit Dat L Floro CNM Work Phone: [facility] Comment on above: Encounter for superv ision of other normal , third trimester (Primary Dx) Start: 03-07-2025 End: 03-08-2025 Telephone encounter Dat L Floro CNM Work Phone: [facility] Start: 02-20-2025 End: 02-20-2025 ambulatory DAT L FLORO Not Available Start: 02-15-2025 End: 02-15-2025 Bamboo flowsheet Dat L Floro CNM Work Phone: [facility] Start: 02-15-2025 End: 02-15-2025 Bamboo flowsheet Dat L Floro CNM Work Phone: [facility] Start: 02-15-2025 End: 02-15-2025 ambulatory DAT L FLORO Not Available Start: 01-23-2025 End: 01-23-2025 Subsequent care visit Dat L Floro CNM Work Phone: [facility] Comment on above: Encounter for superv ision of other normal , second trimester (Primary Dx) Start: 01-23-2025 End: 01-23-2025 ambulatory DAT L FLORO Not Available Start: 01-23-2025 End: 01-23-2025 Bamboo flowsheet Dat L Floro CNM Work Phone: [facility] Start: 01-23-2025 End: 01-23-2025 Bamboo flowsheet Dat L Floro CNM Work Phone: [facility] Start: 12-30-2024 End: 12-30-2024 Telephone encounter Dat L Floro CNM Work Phone: [facility] Start: 12-19-2024 End: 12-19-2024 Subsequent care visit Dat L Floro CNM [...] Orders Only Brice Madrid MD Work Phone: [facility] Start: 11-21-2024 End: 11-21-2024 [...] 10-13-2024 Refill Brice Madrid MD Work Phone: [facility] Start: 09-20-2024 End: 09-20-2024 Telephone encounter [...] Not Available Start: 09-14-2024 End: 09-14-2024 ambulatory [facility] Start: 09-14-2024 End: 09-14-2024 Office outpatient visit 15 minutes Brice Madrid MD Work Phone: [facility] Comment on above: Multiple masses of n chramaine (Primary Dx); Less than 8 weeks gestation of Start: 09-06-2024 End: 09-06-2024 ambulatory BRICE MADRID [facility] Start: 09-06-2024 End: 09-06-2024 ambulatory [facility] Start: 09-01-2024 End: 09-01-2024 Office outpatient visit 15 minutes Dat L Floro CNM Work Phone: [facility] Comment on above: GA: [id number] Start: 09-01-2024 End: 09-01-2024 ambulatory DAT L FLORO Not Available Start: 08-31-2024 End: 08-31-2024 ambulatory [facility] Start: 08-31-2024 End: 08-31-2024 Office outpatient visit 15 minutes Brice Madrid MD Work Phone: [facility] Comment on above: [...] 07-19-2024 ambulatory MD Brice Madrid Work Phone: [facility] Work Phone: Start: 07-19-2024 End: 07-19-2024 Patient encounter procedure MD Brice Madrid Work Phone: [facility] Work Phone: Start: 07-19-2024 Registered Recurring MD Brice Madrid Work Phone: [facility] Work Phone: Start: 07-19-2024 ambulatory Brice Madrid Facility :[facility] Start: 07-11-2024 End: 07-11-2024 Bamboo flowsheet Dat L Floro CNM Work Phone: [facility] Start: 07-11-2024 End: 07-11-2024 Bamboo flowsheet Dat L Floro CNM Work Phone: [facility] Start: 07-06-2024 End: 07-06-2024 ambulatory MD Brice Madrid Work Phone: [facility] Work Phone: Start: 07-06-2024 End: 07-06-2024 Patient encounter procedure MD Brice Madrid Work Phone: [facility] Work Phone: Start: 06-14-2024 End: 06-14-2024 Patient encounter procedure MD Brice Madrid Work Phone: [facility] [place] Work Phone: Start: 06-14-2024 End: 06-14-2024 ambulatory MD Brice Madrid Work Phone: [facility] Work Phone: Start: 05-30-2024 End: 05-30-2024 Telephone encounter Silvia Vora LPN [facility] Start: 05-23-2024 Non-patient / Non-visit MD Brice Madrid Work Phone: [facility] Work Phone: Start: 05-23-2024 End: 05-23-2024 Admission to same day surgery center MD Brice Madrid Work Phone: [facility] Work Phone: Start: 05-23-2024 End: 05-23-2024 ambulatory MD Brice Madrid Work Phone: [facility] Work Phone: Start: 05-20-2024 End: 05-20-2024 ambulatory KARISSA Manuelito VOGT [facility] Start: 05-20-2024 End: 05-20-2024 ambulatory [facility] Work Phone: Start: 05-20-2024 End: 05-20-2024 Patient encounter procedure [facility] Gastroenterology Work Phone: Start: 04-25-2024 End: 04-25-2024 ambulatory [facility] Start: 04-25-2024 End: 04-25-2024 Office outpatient visit 15 minutes Brice Madrid MD Work Phone: [facility] Comment on above: Left-sided chest wal l pain (Primary Dx) Start: 03-16-2024 End: 03-17-2024 Telephone encounter Zena Harry CMA [facility] Start: 03-15-2024 End: 03-15-2024 ambulatory BRICE MADRID [facility] Start: 03-15-2024 End: 03-15-2024 Office outpatient visit 25 minutes Brice Madrid MD Work Phone: [facility] Comment on above: Weight loss, non-int entional (Primary Dx); Chronic diarrhea Start: 02-05-2024 Telephone encounter Lidya Martin MA [facility] Start: 02-01-2024 End: 02-02-2024 Emergency department patient visit VIKY [facility] Start: 01-30-2024 End: 01-30-2024 Emergency department patient visit BRICE MADR[facility] Start: 07-14-2023 Telephone encounter Viky Waters [facility] [address] Start: 07-14-2023 End: 07-14-2023 ambulatory Viky Waters Other [employer] Other Start: 07-14-2023 End: 07-14-2023 Departed Referred GARMENT LINER Viky Waters Work Phone: [facility] [facility] [place] Work Phone: Start: 07-10-2023 Office outpatient ne w 20 minutes Viky Waters [facility] Start: 07-10-2023 End: 07-10-2023 ambulatory Viky Waters Other [employer] Other Start: 07-10-2023 End: 07-10-2023 Departed Referred [employer]ARMENT [employer]ER Viky Waters Work Phone: [facility] [place] Work Phone: Start: 08-02-2021 End: 08-04-2021 Evaluation and management of inpatient [facility] Start: 08-02-2021 End: 08-04-2021 [facility] Start: 09-14-2017 End: 09-15-2017 Ambulatory ABDULAZIM LUCY Facility:[facility] Start: 09-11-2017 End: 09-12-2017 Ambulatory DEFAULT PHYSICIAN Facility:[facility] Start: 03-05-2017 Well adult Lidya Geiger [facility] Procedures Date Procedure Procedure Detail Performing Clinician Start: 03-14-2025 US OB BPP W NON-STRESS Dat L F loro CNM Work Phone: Start: 09-01-2024 Urine test visual color cmprsn meths Dat L Yokoo CNM Work Phone: Start: 08-31-2024 Adult depression screening assessment Brice Madrid MD Work Phone: Start: 06-14-2024 Computed tomography of abdomen and pelvis with contrast MD Brice Madrid Work Phone: Start: 05-23-2024 Esophagogastroduodenoscopy MD Brice vasquez Work Phone: Start: 05-23-2024 Esophagogastroduodenoscopy MD Brice vasquez Work Phone: Start: 04-25-2024 Adult depression screening assessment Brice Madrid MD Work Phone: Start: 03-15-2024 Follow-up visit Follow-up BRICE MADRID Start: 03-15-2024 Adult depression screening assessment Brice Madrid MD Work Phone: Start: 06-08-2023 Adult depression screening assessment Lidyaeric Geiger CMA Start: 08-02-2021 Blood count complete auto&auto difrntl wbc Neyda E Pool GARMENT LINER - CNM Work Phone: Start: 08-02-2021 Drug screen class list a Neyda E Pool G[employer]MENT [employer]ER - CNM Work Phone: Start: 08-02-2021 Urnls dip stick/tablet rgnt auto w/o microscopy Dat Kennedi GARMENT LINER - CNM Work Phone: Start: 08-02-2021 GBS, [...] 01-10-2021 RUBELLA TITER, EXTERNAL RESULT Historica l Jacob NIXON Start: 09-14-2017 ANESTH LOWER ARM SURGERY OTIS CESAR Start: 09-14-2017 Microsurg tqs req use operating microscope MOE AYALA Start: 09-14-2017 REPAIR OF DIGIT NERVE ABDULAZIM LUCY Plan of Treatment Date Care Activity Detail Author Start: 10-09-2025 End: 10-09-2025 Patient encounter procedure 10/09/2025 9:30 AM EST [facility] [address] [place] [phone] Rickey Kwong MD [address] [place] [address] [facility] Start: 09-14-2025 Adult BMI Screening Adult BMI Screening [facility] Start: 09-14-2025 Tobacco Screening Tobacco Screening [facility] Start: 08-31-2025 Adult BMI Screening Adult BMI Screening [facility] Start: 08-31-2025 Depression Screening Depression Screening [facility] Start: 08-31-2025 Tobacco Screening Tobacco Screening [facility] Start: 04-25-2025 Adult BMI Screening Adult BMI Screening [facility] Start: 04-25-2025 Depression Screening Depression Screening [facility] Start: 04-25-2025 Tobacco Screening Tobacco Screening [facility] Start: 04-03-2025 End: 04-03-2025 Patient encounter procedure [facility] Comment on above: Arrived Start: 03-20-2025 End: 03-20-2025 Patient encounter procedure [facility] Comment on above: Arrived Start: 03-15-2025 Adult BMI Screening Adult BMI Screening [facility] Start: 03-15-2025 Depression Screening Depression Screening [facility] Start: 03-15-2025 Tobacco Screening Tobacco Screening [facility] Start: 03-13-2025 End: 03-13-2026 Thyroglobulin Antibody Thyroglobulin Antibody Lab Routine Low TSH level Thyroid disease during in third trimester (CMS/HCC) Expected: 03/13/2025 (Approximate), Expires: 03/13/2026 [facility] Work Phone: Comment on above: Expected: 03/13/2025 (Approximate), Expi res: 03/13/2026 Start: 03-13-2025 End: 03-13-2026 Thyroid peroxidase antibody Thyroid peroxidase antibody Lab Routine Low TSH level Thyroid disease during in third trimester ([facility]) Expected: 03/13/2025 (Approximate), Expires: 03/13/2026 [facility] Comment on above: Expected: 03/13/2025 (Approximate), Expi res: 03/13/2026 Start: 03-13-2025 End: 03-13-2026 Thyrotropin [Units/volume] in Serum or Plasma TSH Lab Routine Low TSH level Thyroid disease during in third trimester ([facility]) Expected: 03/13/2025 (Approximate), Expires: 03/13/2026 [facility] Comment on above: Expected: 03/13/2025 (Approximate), Expi res: 03/13/2026 Start: 03-13-2025 End: 03-13-2026 Thyrotropin receptor antibody Thyrotropin receptor antibody Lab Routine Low TSH level Thyroid disease during in third trimester ([facility]) Expected: 03/13/2025 (Approximate), Expires: 03/13/2026 [facility] Comment on above: Expected: 03/13/2025 (Approximate), Expi res: 03/13/2026 Start: 03-13-2025 End: 03-13-2026 Thyroxine (T4) free [Mass/volume] in Serum or Plasma T4, free Lab Routine Low TSH level Thyroid disease during in third trimester ([facility]) Expected: 03/13/2025 (Approximate), Expires: 03/13/2026 [facility] Comment on above: Expected: 03/13/2025 (Approximate), Expi res: 03/13/2026 Start: 03-13-2025 End: 03-13-2026 Triiodothyronine (T3) Free [Mass/volume] in Serum or Plasma T3, free Lab Routine Low TSH level Thyroid disease during in third trimester ([facility]) Expected: 03/13/2025 (Approximate), Expires: 03/13/2026 [facility] Comment on above: Expected: 03/13/2025 (Approximate), Expi res: 03/13/2026 Start: 03-09-2025 End: 03-09-2025 Patient encounter procedure 03/09/2025 1:30 PM EDT Routine [facility] [address] [place] [address] Kalli Kolbannmarie Billings, CNM [address] [place] [address] [facility] Start: 02-15-2025 End: 02-15-2025 Patient encounter procedure [facility] Comment on above: Arrived Start: 01-31-2025 Adult BMI Screening Adult BMI Screening [facility] Start: 01-31-2025 Tobacco Screening Tobacco Screening [facility] Start: 01-23-2025 End: 01-23-2025 Patient encounter procedure 01/23/2025 4:45 PM EST Routine [facility] [address] [place] [id number] Yokolizbet Dat L, CNM [address] [place] [address] Arrived [facility] Comment on above: Arrived Start: 01-16-2025 End: 01-16-2025 Patient encounter procedure 01/16/2025 4:30 PM EST Routine [facility] [address] [place] [address] Dat Kolb, CNM [address] [place] [address] [facility] Start: 11-21-2024 End: 11-21-2024 Patient encounter procedure [facility] Comment on above: Arrived Start: 10-17-2024 End: 10-17-2024 Patient encounter procedure [facility] Comment on above: Encounter for supervision of other zaki l , first trimester Start: 10-17-2024 End: 10-17-2025 ABO/Rh ABO/Rh Lab Routine Encounter for supervision of other normal , first trimester Expected: 10/17/2024 (Approximate), Expires: 10/17/2025 [facility] Comment on above: Expected: 10/17/2024 (Approximate), Expi res: 10/17/2025 Start: 10-17-2024 End: 10-17-2025 Antibody screen Antibody screen Lab Routine Encounter for supervision of other normal , first trimester Expected: 10/17/2024 (Approximate), Expires: 10/17/2025 [facility] Comment on above: Expected: 10/17/2024 (Approximate), Expi res: 10/17/2025 Start: 10-17-2024 End: 10-17-2025 Bacteria identified in Urine by Culture Urine culture Microbiology Routine Encounter for supervision of other normal , first trimester Expected: 10/17/2024 (Approximate), Expires: 10/17/2025 [facility] Comment on above: Expected: 10/17/2024 (Approximate), Expi res: 10/17/2025 Start: 10-17-2024 End: 10-17-2025 CBC panel - Blood by Automated count CBC Lab Routine Encounter for supervision of other normal , first trimester Expected: 10/17/2024 (Approximate), Expires: 10/17/2025 [facility] Comment on above: Expected: 10/17/2024 (Approximate), Expi res: 10/17/2025 Start: 10-17-2024 End: 10-17-2025 DRUG TOX MONITORIGN 6 W/ CONF,URINE DRUG TOX MONITORIGN 6 W/ CONF,URINE Lab Routine Encounter for supervision of other normal , first trimester Expected: 10/17/2024 (Approximate), Expires: 10/17/2025 [facility] Comment on above: Expected: 10/17/2024 (Approximate), Expi res: 10/17/2025 Start: 10-17-2024 End: 10-17-2025 Hemoglobin A1c/Hemoglobin.total in Blood Hemoglobin A1c Lab Routine Encounter for supervision of other normal , first trimester Expected: 10/17/2024 (Approximate), Expires: 10/17/2025 [facility] Comment on above: Expected: 10/17/2024 (Approximate), Expi res: 10/17/2025 Start: 10-17-2024 End: 10-17-2025 Hepatitis B virus surface Ag [Presence] in Serum or Plasma by Immunoassay Hepatitis B surface antigen Lab Routine Encounter for supervision of other normal , first trimester Expected: 10/17/2024 (Approximate), Expires: 10/17/2025 [facility] Work Phone: Comment on above: Expected: 10/17/2024 (Approximate), Expi res: 10/17/2025 Start: 10-17-2024 End: 10-17-2025 HIV-1/HIV-2 antigen/antibody combination immunoassay HIV-1 and HIV-2 antibodies Lab Routine Encounter for supervision of other normal , first trimester Expected: 10/17/2024 (Approximate), Expires: 10/17/2025 [facility] Comment on above: Expected: 10/17/2024 (Approximate), Expi res: 10/17/2025 Start: 10-17-2024 End: 10-17-2025 Neisseria gonorrhoeae DNA [Presence] in Cervical mucus by LULI with probe detection C. trachomatis / N. gonorrhoeae, DNA probe Pathology and Cytology Routine Encounter for supervision of other normal , first trimester Expected: 10/17/2024 (Approximate), Expires: 10/17/2025 [facility] Comment on above: Expected: 10/17/2024 (Approximate), Expi res: 10/17/2025 Start: 10-17-2024 End: 10-17-2025 Reagin Ab [Presence] in Serum by RPR RPR Lab Routine Encounter for supervision of other normal , first trimester Expected: 10/17/2024 (Approximate), Expires: 10/17/2025 [facility] Comment on above: Expected: 10/17/2024 (Approximate), Expi res: 10/17/2025 Start: 10-17-2024 End: 10-17-2025 Rubella antibody, IgG Rubella antibody, IgG Lab Routine Encounter for supervision of other normal , first trimester Expected: 10/17/2024 (Approximate), Expires: 10/17/2025 [facility] Comment on above: Expected: 10/17/2024 (Approximate), Expi res: 10/17/2025 Start: 10-17-2024 End: 10-17-2025 TSH W/REFLEX TO FT4 TSH W/REFLEX TO FT4 Lab Routine Encounter for supervision of other normal , first trimester Expected: 10/17/2024 (Approximate), Expires: 10/17/2025 [facility] Comment on above: Expected: 10/17/2024 (Approximate), Expi res: 10/17/2025 Start: 10-17-2024 End: 10-17-2025 URINALYSIS MICROSCOPIC URINALYSIS MICROSCOPIC Lab Routine Encounter for supervision of other normal , first trimester Expected: 10/17/2024 (Approximate), Expires: 10/17/2025 [facility] Comment on above: Expected: 10/17/2024 (Approximate), Expi res: 10/17/2025 Start: 09-20-2024 End: 09-20-2024 Professional / ancillary services management 09/20/2024 11:30 AM EDT Ancillary Procedure [facility] [address] [phone] [facility] Start: 09-20-2024 End: 09-20-2024 Professional / ancillary services management 09/20/2024 9:30 AM EDT Ancillary Procedure [facility] [address] [phone] [facility] Start: 09-20-2024 End: 09-20-2024 Patient encounter procedure 09/20/2024 9:00 AM EDT Routine [facility] [address] [place] [id number] Dat Kolb, CNM [address] [place] [address] [facility] Start: 09-19-2024 End: 09-19-2024 Patient encounter procedure 09/19/2024 1:30 PM EDT Routine [facility] [address] [place] [phone] Dat Kolb, CNM [address] [place] [address] Arrived [facility] Comment on above: Arrived Start: 09-14-2024 End: 09-14-2024 Patient encounter procedure 09/14/2024 4:30 PM EDT Office Visit [facility] [address] [place] [phone] Brice Madrid MD [address], [place] [id number] [facility] Start: 09-01-2024 End: 09-01-2025 US for US OB less than 14 weeks early Imaging Routine Amenorrhea examination or test, positive result Expected: 09/01/2024, Expires: 09/01/2025 [facility] Work Phone: Comment on above: Expected: 09/01/2024, Expires: Start: 08-31-2024 End: 08-31-2025 CBC W Auto Differential panel - Blood CBC auto differential Lab Routine Multiple masses of neck Expected: 08/31/2024, Expires: 08/31/2025 [facility] Comment on above: Expected: 08/31/2024, Expires: Start: 08-31-2024 End: 08-31-2025 US Head and neck soft tissue Ultrasound soft tissue head neck Imaging Routine Multiple masses of neck Expected: 08/31/2024, Expires: 08/31/2025 [facility] Comment on above: Expected: 08/31/2024, Expires: Start: 07-24-2024 Influenza vaccination Influenza Vaccine [facility] Start: 07-19-2024 End: 07-19-2025 US Pelvis transvaginal [facility] Work Phone: Comment on above: Expected: 07/19/2024, Expires: Start: 07-19-2024 End: 07-19-2024 Patient encounter procedure 07/19/2024 1:15 PM EDT Office Visit [facility] [address] [place] [address] Dat Kolb, CNM [address] [place], [place] [phone] Arrived [facility] Comment on above: Arrived Start: 06-08-2024 Depression Screening Depression Screening [facility] Start: 05-23-2024 [facility] Start: 07-24-2023 Influenza vaccination Influenza Vaccine [facility] Start: 07-10-2023 [facility] Start: 07-24-2021 Influenza vaccination Flu vaccine (#1) [employer] Phone: Start: 2019 Screening for malignant neoplasm of cervix Pap smear [facility] Start: 2017 DTaP/Tdap/Td vaccine (1 - Tdap) DTaP/Tdap/Td vaccine (1 - Tdap) [employer] Phone: Start: 2016 Adult BMI Follow Up Plan Adult BMI Follow Up Plan [facility] Start: 2014 Screening for Chlamydia trachomatis Chlamydia screen [employer] Phone: Start: 2013 HIV screening HIV screen [employer] Phone: Start: 2010 COVID-19 Vaccine (1) COVID-19 Vaccine (1) [employer] Phone: Start: 2009 DTaP,Tdap and Td Vaccines (6 - Tdap) DTaP,Tdap and Td Vaccines (6 - Tdap) [facility] [employer] Start: 2009 HPV vaccine (1 - 2-dose series) HPV vaccine (1 - 2-dose series) [employer] Phone: Start: 2004 Pneumococcal 0-64 years Vaccine (1 of 2 - PPSV23) Pneumococcal 0-64 years Vaccine (1 of 2 - PPSV23) [employer] Phone: Start: 1999 Varicella vaccine (1 of 2 - 2-dose childhood series) Varicella vaccine (1 of 2 - 2-dose childhood series) [employer] Phone: Start: 1998 Hepatitis C screening Hepatitis C screen [employer] Phone: Start: 1998 Tobacco Counseling Tobacco Counseling [facility] Atopobium vaginae DN A [Presence] in Vaginal fluid by LULI with probe detection [facility] Bacterial vaginosis associated bacterium 2 DNA [Presence] in Vaginal fluid by LULI with probe detection [facility] End: 08-31-2025 C-reactive protein C-reactive protein Lab Routine Multiple masses of neck 1 Occurrences starting 08/31/2024 until 08/31/2025 [facility]: Comment on above: 1 Occurrences starting 08/31/2024 until 08/31/2025 Comprehensive metabo lic 2000 panel - Serum or Plasma [facility] Comprehensive metabo lic 1999 panel - Serum or Plasma [facility] CT Abdomen and Pelvi s W contrast IV [facility] End: 08-31-2025 Jerod-Valentine virus VCA, IgG Jerod-Valentine virus VCA, IgG Lab Routine Multiple masses of neck Mononucleosis syndrome 1 Occurrences starting 08/31/2024 until 08/31/2025 [facility] Comment on above: 1 Occurrences starting 08/31/2024 until 08/31/2025 End: 08-31-2025 Jerod-Valentine virus VCA, IgM Jerod-Valentine virus VCA, IgM Lab Routine Multiple masses of neck Mononucleosis syndrome 1 Occurrences starting 08/31/2024 until 08/31/2025 [facility] Comment on above: 1 Occurrences starting 08/31/2024 until 08/31/2025 End: 08-31-2025 Erythrocyte sedimentation rate Erythrocyte Sedimentation Rate (ESR) Lab Routine Multiple masses of neck 1 Occurrences starting 08/31/2024 until 08/31/2025 [facility] Comment on above: 1 Occurrences starting 08/31/2024 until 08/31/2025 Hepatitis C virus Ab [Presence] in Serum or Plasma by Immunoassay Hepatitis C antibody Lab Routine Encounter for supervision of other normal , first trimester Ordered: 10/17/2024 [facility] Comment on above: Ordered: 10/17/2024 Megasphaera sp type 1 DNA [Presence] in Vaginal fluid by LULI with probe detection [facility] Patient Education Gastritis [place] n polyps Know your Meds [facility] Work Phone: Rheumatoid factor [Units/volume] in Serum or Plasma [facility] [place] Immunizations Immunization Date Immunization Notes Care Provider Steve vu 08-03-2021 diphtheria, tetanus toxoids and acellular pertussis vaccine, unspecified formulation Dat Kolb GARMENT [employer]ER - CNM Work Phone: [employer] Work Phone: 08-03-2021 measles, mumps and rubella virus vaccine Dat Kolb [employer]MENT [employer]ER - CNM Work Phone: [employer] Work Phone: 02-17-2019 influenza virus vaccine, unspecified formulation Brice Madrid MD Work Phone: [facility] 06-05-2003 diphtheria, tetanus toxoids and acellular pertussis vaccine Lidya Geiger [facility] 06-05-2003 measles, mumps and rubella virus vaccine Lidya Geiger [facility] 06-05-2003 poliovirus vaccine, inactivated Lidya Geiger [facility] 01-01-2000 diphtheria, tetanus toxoids and acellular pertussis vaccine, unspecified formulation Lidya Geiger [facility] 01-01-2000 poliovirus vaccine, unspecified formulation Lidya Geiger [facility] 10-01-1999 haemophilus influenz ae type b vaccine, conjugate unspecified formulation Lidya Geiger [facility] 07-04-1999 measles, mumps and rubella virus vaccine Lidya Geiger [facility] 04-04-1999 hepatitis B vaccine, pediatric or pediatric/adolescent dosage Lidya Geiger [facility] 01-03-1999 diphtheria, tetanus toxoids and acellular pertussis vaccine, unspecified formulation Lidya Geiger [facility] 01-03-1999 haemophilus influenz ae type b vaccine, conjugate unspecified formulation Lidya Geiger [facility] 1998 diphtheria, tetanus toxoids and acellular pertussis vaccine, unspecified formulation Lidya Geiger [facility] 1998 haemophilus influenz ae type b vaccine, conjugate unspecified formulation Lidya Geiger [facility] 1998 poliovirus vaccine, unspecified formulation Lidya Geiger [facility] 1998 diphtheria, tetanus toxoids and acellular pertussis vaccine, unspecified formulation Lidya Geiger [facility] 1998 haemophilus influenz ae type b vaccine, conjugate unspecified formulation Lidya Geiger [facility] 1998 poliovirus vaccine, unspecified formulation Lidya Geiger [facility] 1998 hepatitis B vaccine, pediatric or pediatric/adolescent dosage Lidya Geiger [facility] [place] 2000 hepatitis B vaccine, pediatric or pediatric/adolescent dosage Lidya Geiger [facility] Payers Date Payer Category Payer Managed Care, Other (non HMO) [id number] 02.315 2024 Unknown 2024 Unknown [id number] 2024 Self-pay 2024 Private Health Insurance [id number] 2023 Private Health Insurance [id number] 2022 Medicaid [id number] 2. [id number] 2020 Unknown [id number] 1.2.840.335507.1.13.239.2.7.3.468002.3 15 1998 Unknown [id number] 2.16.8 40.1.389649.3.579.2.173 1998 Unknown [id number] 2.16.840.1.394182.3.579.2.1286 1998 Unknown [id number] 2.16.840.1.326478.3.579.2.1286 1998 Unknown [id number] 2.16.840.1.289796.3.579.2.1285 1998 Unknown [id number] 2.16.840.1.534608.3.579.2.1285 1998 Unknown [id number] 2.16.840.1.039753.3.579.2.1285 1998 Unknown [id number] 2.16.840.1.957443.3.579.2.1285 1998 Unknown [id number] 2.16.840.1.501619.3.579.2.1285 1998 Unknown [id number] 2.16.840.1.859512.3.579.2.1285 1998 Unknown [id number] 2.16.840.1.305647.3.579.2.1285 1998 Unknown [id number] 2.16.84 0.1.644951.3.579.2.1258 1998 Unknown [id number] 2.16.84 0.1.679392.3.579.2.1258 1998 Unknown [id number] 2.16.84 0.1.858918.3.579.2.1258 1998 Unknown [id number] 2.16.84 0.1.708995.3.579.2.1258 1998 Unknown [id number] 2.16.84 0.1.472612.3.579.2.1258 1998 Unknown [id number] 2.16.84 0.1.387614.3.579.2.1258 1998 Unknown [id number] 2.16.84 0.1.682495.3.579.2.1258 1998 Unknown [id number] 2.16.84 0.1.311087.3.579.2.1258 1998 Unknown [id number] 2.16.84 0.1.684323.3.579.2.1258 1998 Unknown [id number] 2.16.84 0.1.380114.3.579.2.9 1998 Unknown [id number] 2.16.84 0.1.991413.3.579.2.9 1998 Unknown [id number] 2.16.84 0.1.591591.3.579.2.1258 1998 Unknown [id number] 2.16.84 0.1.850402.3.579.2.1258 1998 Unknown [id number] 2.16.84 0.1.864373.3.579.2.1258 1998 Unknown [id number] 2.16.84 0.1.759651.3.579.2.9 1998 Unknown [id number] 2.16.84 0.1.569578.3.579.2.1259 Unknown [id number] Unknown [id number] 2.16.8 40.1.403170.3.579.2.531 Unknown [id number] 2.16.8 40.1.835918.3.579.2.531 Unknown [id number] 2.16.8 40.1.347442.3.579.2.531 Social History Date Type Detail Facility Start: 04-06-2019 End: 03-15-2024 Tobacco smoking status [facility] Current every day smoker [employer] Phone: Start: 08-03-2021 End: 07-19-2024 Tobacco use and exposure Never used [employer] Start: 08-03-2021 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) [employer] Phone: Start: 08-02-2021 Tobacco Comment 1-2 cigs a day [employer] Phone: Start: 2000 Sex Assigned At Not on file [facility] [employer] Phone: Exposure to SARS-CoV -2 (event) Not sure [employer] Start: 12-10-2020 End: 09-01-2024 Sex Assigned At [facility] Start: 2000 Sex Assigned At Female F [facility] Start: 04-06-2019 End: 05-23-2024 Tobacco smoking status NHIS Smoker (finding) [facility] Start: 07-19-2024 Tobacco smoking stat us [facility] Never smoked tobacco [facility] Start: 09-01-2024 End: 09-14-2024 Alcoholic beverage intake Ex-drinker (finding) [facility] Start: 12-10-2020 End: 09-01-2024 History of Social function [facility] Start: 07-15-2024 [facility] Tobacco smoking stat [facility] Tobacco smoking consumption unknown [facility] Start: 04-06-2019 History of tobacco use [facility] Adolescent depressio n screening assessment 0 [facility] Start: 07-09-2023 Tobacco Comment 1 cigarette a day-every other day [facility] Start: 07-09-2023 Alcohol Comment rare [facility] Start: 06-26-2015 Sex Female (finding) [facility] Start: 07-09-2023 Tobacco smoking stat [facility] Ex-smoker [facility] Goals Date Patient Goal Desired Activity /State Clinical Notes 08-04-2021 to 03-20-2025 [facility] CNM - 03/20/2025 5:15 PM Nalini Kwong MD - 03/13/2025 9:00 AM EDTDat Kolb CNM - 03/09/2025 1:30 PM EDTTelephone Encounter - Juan Snyder - 03/07/2025 3:25 PM EDT Note Date & Type Note Facility 03-20-2025 History of Present illness Narrative Subjective No chief complaint on file. Delia Dickinson is a 24 y.o. at 33w6d with a working estimated date of delivery [...] 02/04/19 21w0d ND Her is complicated by: Objective Physical Exam Weight: 150 lb Expected Total Weight Gain: 25 lb-35 lb Pregravid BMI: 19.89 BP: 110/70 Urine protein-negative Urine glucose-negative Assessment/Plan Diagnoses and all orders for this visit: Encounter for supervision of other normal , third trimester Low thyroid stimulating hormone (TSH) level Continue vitamin. Labs reviewed. GBS at 36 weeks Patient would like to be taken off of work, as she states I'm uncomfortable and tired. I did explain to her that I don't have a medical reason to take her off of work at this time. PVU Expected mode of delivery Follow up in 2 weeks for a routine visit. documented in this encounter [facility] 03-13-2025 History of Present illness Narrative Delia Dickinson is a 24 y.o. female Rickey Kwong MD presents with chief complaint of Thyroid Problem (NEW PREGANACY) HPI: HPI: 02/2025 New patient sent from [facility] for abnormal thyroid function tests while she is 32 weeks , due date May 02, 2025 lab in January/2025 TSH 0.15 free T4 1.3 ( 0.8-1.8), back in September/2024 TSH 0.02 she has only has 1 kid 3 years old, no history of thyroid problem before, clinically euthyroid no shaking, no tremor, no palpitation, weight appropriate to her SUBJECTIVE: MEDICATIONS: Current Outpatient Medications Medication Instructions docusate sodium (COLACE) 100 mg, Oral, 2 times daily ferrous sulfate (FE TABS) 325 mg, Oral, 2 times daily, Do not crush, chew, or split. ondansetron ODT (ZOFRAN-ODT) 8 mg, Oral, Every 8 hours PRN ALLERGIES: No Known Allergies No past medical history on file. Past Surgical History: Procedure Laterality Date KNEE SURGERY Right REVIEW OF SYMPTOMS: 14 POINT OF SYSTEM REVIEWED AND NEGATIVE OBJECTIVE: No results found for: TSH Lab Results Component Value Date T4FREE 1.3 02/15/2025 T4FREE 1.6 10/18/2024 Visit Vitals BP 96/66 Pulse 81 Resp 18 Ht 5' 7 Wt 151 lb LMP 2024 (Approximate) SpO2 99% BMI 23.65 kg/m OB Status Smoking Status Never BSA 1.8 m Physical Exam Constitutional: Appearance: Normal appearance. She is normal weight. HENT: Head: Normocephalic and atraumatic. Right Ear: External ear normal. Nose: Nose normal. Mouth/Throat: Pharynx: Oropharynx is clear. Eyes: Extraocular Movements: Extraocular movements intact. Pupils: Pupils are equal, round, and reactive to light. Cardiovascular: Rate and Rhythm: Normal rate and regular rhythm. Pulmonary: Effort: Pulmonary effort is normal. Abdominal: General: Abdomen is flat. Palpations: Abdomen is soft. Musculoskeletal: General: Normal range of motion. Skin: General: Skin is warm. Neurological: General: No focal deficit present. Mental Status: She is alert. Psychiatric: Mood and Affect: Mood normal. Behavior: Behavior normal. ASSESSMENT AND PLAN: Assessment/Plan Diagnoses and all orders for this visit: Low TSH level - Thyroglobulin Antibody; Future - Thyrotropin receptor antibody; Future - Thyroid peroxidase antibody; Future - T3, free; Future - T4, free; Future - TSH; Future Low TSH 0.15 in January/2024 while she is around 28 weeks, currently she is 32 weeks, clinically euthyroid, no need for medication, I will repeat thyroid function tests now including antibodies and communicate results to her. Thyroid disease during in third trimester (CMS/[facility]) - Thyroglobulin Antibody; Future - Thyrotropin receptor antibody; Future - Thyroid peroxidase antibody; Future - T3, free; Future - T4, free; Future - TSH; Future We will see her 3 months after delivery, we will check lab thyroid function at that time and evaluate her again Follow up in about 5 months (around 08/13/2025). documented in this encounter [facility] 03-09-2025 History of Present illness Narrative Subjective No chief complaint on file. Delia Dickinson is a 24 y.o. at 32w2d with a working estimated date of delivery [...] 02/04/19 21w0d ND Her is complicated by: Objective Physical Exam weight: 150 lb Expected Total Weight Gain: 25 lb-35 lb Pregravid BMI: 19.89 BP: 112/70 Urine protein-negative Urine glucose-negative Assessment/Plan Continue vitamin. Labs reviewed. GBS taken. Expected mode of delivery Follow up in 1 week for a routine visit. documented in this encounter [facility] 03-07-2025 Telephone encounter Note Spoke with pt [facility] 03-07-2025 Miscellaneous Notes Spoke with pt Pt left VM for Christine to call her back - ty [phone] documented in this encounter [facility] 03-07-2025 Telephone encounter Note Pt left VM for Christine to call her back - ty [phone] [facility] 01-23-2025 History of Present illness Narrative Subjective No chief complaint on file. Delia Dickinson is a 24 y.o. at 25w6d with a working estimated date of delivery [...] 02/04/19 21w0d ND Her is complicated by: The following portions of the chart were reviewed this encounter and updated as appropriate: Objective Physical Exam weight: 155 lb Expected Total Weight Gain: 25 lb-35 lb Pregravid BMI: 19.89 BP: 112/70 Urine protein Urine glucose Labs: reviewed Imaging Assessment/Plan Continue vitamin. Labs reviewed. Rhogam GTT . Follow up in 2 weeks for a routine visit. documented in this encounter [facility] 12-30-2024 Telephone encounter Note Hi, my name is Delia Gauthier. I am calling about question for Ball or even Eva in her office. If 1 of them could just give me a call back against Delia Gauthier. My day is 8998 and my phone number is [phone]. Thank you. [facility] 12-30-2024 Miscellaneous Notes Chandler, my name is Delia Gauthier. I am calling about question for Ball or even Eva in her office. If 1 of them could just give me a call back against Delia Gauthier. My day is [phone] and my phone number is [phone]. Thank you. documented in this encounter [facility] 12-19-2024 History of Present illness Narrative Subjective No chief complaint on file. Delia Dickinson is a 24 y.o. at 20w6d [...] a routine visit. documented in this encounter [facility] 10-17-2024 History of Present illness Narrative Subjective No chief complaint on file. Delia Dickinson is a 24 y.o. at 11w6d [...] a routine visit. documented in this encounter [facility] 10-13-2024 Miscellaneous Notes Patient requesting refill of Ondansetron to [facility] documented in this encounter [facility] 10-13-2024 Telephone encounter Note Patient requesting refill of Ondansetron to [facility] 09-20-2024 Telephone encounter Note Kimmie from the [facility] called to say the order needs updated to say transvaginal and then faxed to [phone]. Ty [facility] 09-20-2024 Miscellaneous Notes Kimmie from the [facility] called to say the order needs updated to say transvaginal and then faxed to [phone]. Ty documented in this encounter [facility] 09-19-2024 History of Present illness Narrative Subjective No chief complaint on file. Delia Dickinson is a 24 y.o. at 11w3d [...] at 11 weeks , patient going to [place] Continue vitamin. Labs reviewed. Order placed for anatomy scan at 20 weeks. Follow up in 4 weeks for a routine visit. documented in this encounter [facility] 09-14-2024 History of Present illness Narrative Images from the original note were not included. [address] [place] [id number] SUBJECTIVE: Patient ID: Delia Dickinson is a 24 y.o. female. 24 [...] Affect: Mood normal. Behavior: Behavior normal. ASSESSMENT/PLAN: Delia was seen today for follow-up. Diagnoses and all orders for this visit: Multiple masses of neck Less than 8 weeks gestation of Follow-up: Complete keflex and recheck if not improving Images from the original note were not included. [id number] [facility] [id number] SUBJECTIVE: Patient ID: Delia Dickinson is a 24 y.o. female. HPI [...] this encounter. Follow-up: documented in this encounter [facility] 09-06-2024 Note US SOFT TISS HEAD NE CK Procedure: US SOFT TISS HEAD NECK; Reason for Exam: Multiple masses of neck; Comparison: None Technique: Real time sonography of the neck soft tissues performed. FINDINGS: In the right retroauricular region the stroke belt sander operator demonstrates a hypoechoic soft tissue lesion which measures 1.4 x 0.7 x 0.7 cm. There appears to be abnormal internal blood flow. In the left occipital region, stroke belt sander operator demonstrates a reniform hypoechoic lesion measuring 1.0 [...] Roshan Kramer MD on 09/06/2024 4:35 PM [facility] 09-01-2024 History of Present illness Narrative Subjective Delia Dickinson is a 24 y.o. at 8w6d [...] verification of viability documented in this encounter [facility] 08-31-2024 History of Present illness Narrative Images from the original note were not included. [id number] [facility] [id number] SUBJECTIVE: Patient ID: Delia Dickinson is a 24 y.o. female. 24 [...] Affect: Mood normal. Behavior: Behavior normal. ASSESSMENT/PLAN: Delia was seen today for mass. Diagnoses and all orders for this visit: Multiple masses of neck - C-reactive protein; Future - Erythrocyte Sedimentation Rate (ESR); Future - CBC auto differential; Future - Ultrasound soft tissue head neck; Future - Jerod-Valentine virus VCA, IgM; Future - Jerod-Valentine virus VCA, IgG; Future Mononucleosis syndrome - Jerod-Valentine virus VCA, IgM; Future - Jerod-Valentine virus VCA, IgG; Future Other orders - [...] recheck by oncology documented in this encounter [facility] 07-19-2024 History of Present illness Narrative PROBLEM VISIT Delia Dickinson is 24 y.o. a patient of [facility] [employer] Here for Last pap: 09/18/21 Last mammogram: [...] up with me. CT scan done at [place] reviewed and does not have any measurements [...] Instructions on file for this visit. Eva August MA,07/19/2024 1:29 PM documented in this encounter [facility] 05-30-2024 Miscellaneous Notes Patient requesting refill of Ondansetron to [facility] stating still having regular nausea and its the only thing that helps her eat daily. documented in this encounter [facility] 05-30-2024 Telephone encounter Note Patient requesting refill of Ondansetron to [facility] stating still having regular nausea and its the only thing that helps her eat daily. [facility] 05-23-2024 History and physical note Note Date/Time May 23, 2024 9:59a m [facility] [address] [place] [address] Gastroenterology H&P Signed Patient: Delia Dickinson MR#: [id number] : 2000 Acct:[id number] Age/Sex: 23 / F Adm Date: 4 Loc: Room: Type: [facility] Attending Dr: Karissa Vogt DO Copies to: Karissa Vogt, DO Brice Madrid MD~ Date of Service: 05/23/2024 HISTORY & [...] an appropriate candidate for the procedure. Karissa Vogt DO Documented By: Karissa Vogt DO 05/23/24 0958 Signed By: <Electronically signed by Karissa Vogt DO> 05/23/24 [address] [facility] Work Phone: 1(623) 674-538107-01-2024 [facility] History of Present illness Narrative* Brice Madrid MD - 04/25/2024 4:00 PM EDT Images from the original note were not included. [id number] [facility] [id number] SUBJECTIVE: Patient ID: Delia Dickinson is a 23 y.o. female. 23 yo pt tripped fell landing on left ribs 1 week ago, went to ER Thursday, pt vapes, pt given oxycodone 5 x 10 tabs by ER and does have pain The following portions of the patient's history were reviewed and updated as appropriate: allergies, current medications, past family history, past medical history, past social history, past surgicalhistory and problem list. REVIEW OF SYSTEMS: Review of Systems Respiratory: Positive for chest tightness. Cardiovascular: Positive for chest pain. PHYSICAL EXAMINATION: Vitals: 04/25/24 1619 BP: 100/74 BP Site: Right Arm BP Postition: Sitting BP CUFF SIZE: M (9-13 inches) Pulse: 80 Resp: 16 Weight: 53.1 kg (117 lb) Height: 172.7 cm (5' 8 ) Physical Exam Vitals and nursing note reviewed. Constitutional: Appearance: Normal appearance. HENT: Head: Normocephalic and atraumatic. Cardiovascular: Rate and Rhythm: Normal rate and regular rhythm. Pulses: Normal pulses. Heart sounds: Normal heart sounds. Pulmonary: Effort: Pulmonary effort is normal. Breath sounds: Normal breath sounds. Musculoskeletal: Comments: Chest wall tenderness Skin: General: Skin is warm and dry. Neurological: General: No focal deficit present. Mental Status: She is alert and oriented to person, place, and time. Psychiatric: Mood and Affect: Mood normal. Behavior: Behavior normal. ASSESSMENT/PLAN: Delia was seen today for follow-up. Diagnoses and all orders for this visit: Left-sided chest wall pain - oxyCODONE-acetaminophen (PERCOCET) 5-325 mg per tablet; Take 1 tablet by mouth every 4 (four) hours as needed for pain for up to 5 days. Max Daily Amount: 6 tablets Other orders - metroNIDAZOLE (FLAGYL) 500 mg tablet; Take 1 tablet (500 mg total) by mouth 3 (three) times a dayfor 7 days. Follow-up: [facility] Percocet refill documented in this [facility]04-24-2024 Miscellaneous Notes* Telephone Encounter - Zena Harry CMA - 03/16/2024 8:19 AM EDT ----- Message from Brice Madrid MD sent at 03/16/2024 8:06 AM EDT ----- GI panel shows no infection, labs are stable given chronic diarrhea symptoms, chol good and glu 105is not an issue, please f/u gastroenterology as planned! * Telephone Encounter - Zena Harry CMA - 03/16/2024 8:19 AM EDT PC to patient l/m regarding results and instructions. Patient to call with questions. documented in this [facility]04-24-2024 Telephone encounter Note* Telephone Encounter - Zena Harry CMA - 03/16/2024 8:19 AM EDT ----- Message from Brice Madrid MD sent at 03/16/2024 8:06 AM EDT ----- GI panel shows no infection, labs are stable given chronic diarrhea symptoms, chol good and glu 105is not an issue, please f/u gastroenterology as planned! [facility] [id number] Telephone encounter Note* Telephone Encounter - Zena Harry CMA - 03/16/2024 8:19 AM EDT PC to patient l/m regarding results and instructions. Patient to call with questions. [facility] [id number] History of Present illness Narrative* Brice Madrid MD - 03/15/2024 10:00 AM EDT Images from the original note were not included. [id number] [facility] [id number] SUBJECTIVE: Patient ID: Delia Dickinson is a 23 y.o. female. 23 yo WF with diarrhea x 1 1/2 years starting 1 year after and weight concerns, , still smoking, still having anxiety and depression more stable Pt had influenza A 6 weeks ago- has resolved Pt is taking 1 Boost a day, trying to gain weight , feels nauseous and diarrhea multiple times a day , sometimes blood occasionally Pt had nausea and vomiting during The following portions of the patient's history were reviewed and updated as appropriate: allergies, current medications, past family history, past medical history, past social history, past surgicalhistory and problem list. REVIEW OF SYSTEMS: Review of Systems Respiratory: Negative. Cardiovascular: Negative. Gastrointestinal: Negative. Genitourinary: Negative. PHYSICAL EXAMINATION: Vitals: 03/15/24 1008 BP: 104/70 BP Site: Left Arm BP Postition: Sitting BP CUFF SIZE: M (9-13 inches) Pulse: 104 Resp: 16 Temp: 36.7 C (98 F) TempSrc: Tympanic Weight: 55.8 kg (123 lb) Height: 172.7 cm (5' 8 ) Physical [...] Affect: Mood normal. Behavior: Behavior normal. ASSESSMENT/PLAN: Delia was seen today for follow-up. Diagnoses and all orders for this visit: Weight loss, non-intentional - CBC auto differential; Future - Comprehensive metabolic panel; Future - Lipid profile; Future - Thyroid profile includes TSH FT4; Future - Ambulatory referral to Gastroenterology; Future Chronic diarrhea - CBC auto differential; Future - Comprehensive metabolic panel; Future - Lipid profile; Future - Thyroid profile includes TSH FT4; Future - Ambulatory referral to Gastroenterology; Future - Erythrocyte Sedimentation Rate (ESR); Future - GI Panel(stool pathogen panel); Future Other orders - ondansetron ODT (ZOFRAN ODT) 4 mg disintegrating tablet; Dissolve 1 tablet (4 mg total) on tongueevery 8 (eight) hours as needed for nausea for up to 60 doses. Follow-up: Zofran rx Fasting labs and GI panel Gastroenterology referral Avoid cow 's milk [facility] Inst[facility]* Patient Instructions* Brice Madrid MD - 03/15/2024 10:00 AM EDT Are You Ready To Kick The Habit? Free Tobacco Cessation Resources [facility] Services [facility] provide all employees with free tobacco cessation services that include: Counseling to understand nicotine addiction Education about medications that can help you successfully quit Assistance with developing a plan to quit Call to set up an individual appointment or find out when group classes will be held: [facility]: [phone] [facility]: [phone] [facility]: [phone] [facility]: [phone] Quit Smoking Action Plan and Resources [facility] offers an eight-week, online smoking cessation plan to all [facility] employees, regardless of whether [employer] is your medical insurance provider. Go to [email or web address]/[email or web address] and click the Health Risk Assessment and Resources link to get started. In the Nsmqj4Rvbbjv menu, click Action Plans instead of Health Risk Assessment to access the Quit Smoking Action Plan. Additional smoking cessation resources are also available to all [facility] employees on the Zdgmb8Yhriqf web page at www.[employer]/quitsmoking. [employer] Tobacco Cessation Program If [employer] is your medical insurance provider, there are more free resources available to you, including: No copays or deductibles on local tobacco cessation counseling services to help you quit Prescription assistance for tobacco cessation medications to help you quit For details about the tobacco cessation program available to [employer] members, go to www.[employer]ja (Search: Tobacco Cessation Program). [place] Tobacco Quit Line 9-137-CJLH-NOW ( ) is a toll-free, telephonic service that helps [place] residents quit smoking and using tobacco. It is staffed by experts who tailor a quit plan for you and provide you with advice. [place] Tobacco Quit Line 6-758-TPFW-NOW ( ) is a toll-free, telephonic service that helps [place] residents quit smoking and using tobacco. It is staffed by experts who tailor a quit plan for you and provide you with advice. Two weeks of nicotine replacement therapy may be provided at no charge, if needed. Additional Resources These national organizations also offer free information and resources to help you quit tobacco: [place] [employer]--www.cancer.org/healthy/stayawayfromtobacco [place] [employer]--www.heart.org (Search: Quit Smoking) Centers for Disease Control and Prevention--www.cdc.gov/tobacco [place] [employer]--www.lungusa.org documented [facility] Miscellaneous Notes* Telephone Encounter - Lidya Geiger CMA - 02/05/2024 10:00 AM EDT Patient with sinus pressure asking for ATB to [facility] * Telephone Encounter - Brice Madrid MD - 02/05/2024 10:00 AM EDT [facility] sent to [facility] * Telephone Encounter - Lidya Geiger CMA - 02/05/2024 10:00 AM EDT [facility] Note* Telephone Encounter - Lidya Geiger CMA - 02/05/2024 10:00 AM EDT Patient with sinus pressure asking for ATB to [employer] [facility] Telephone encounter Note* Telephone Encounter - Brice Madrid MD - 02/05/2024 10:00 AM EDT Zpak sent to [employer] [facility]-15-2024 Telephone encounter Note* Telephone Encounter - Lidya Geiger CMA - 02/05/2024 10:00 AM EDT Patient advised [facility]08-18[facility]23 Evaluation note* Encounter Date Diagnosis Assessment Notes Treatment Notes Treatment Clinical Notes Jun, Vaginal discharge (ICD-10 - N89.8) Vag + performed in office today. Will treat prophylactically for yeast based on physical exam and symptoms. Specimen was sent to lab and patient will be notified of results. Tx plan may be altered at time of results. Patient to follow with PCP or CIVIL ENGINEERING DESIGNER as needed for persistent or worsening symptoms. Immediate eval if abdominal pain, fever, chills, body aches, back/flank pain, nausea, urinary complaints. Patient may use OTC external yeast infection creams for external irritation, do not insert creams or meds as Diflucan rx will treat. Avoid scratching and douching. Patient verbalizes understanding and is agreeable to treatment plan. [employer] Other 09-12-2021 History of Present illness Narrative* [...] time she came in. [facility] Work Phone: evaluation note* Diagnosis 38 weeks gestation of state, incidental (normal spontaneous vaginal delivery) Normal delivery documented in this encounter [facility] Work Phone: evalqdxgiv noteNo assessment information available [facility] Work Phone: Evaluation noteNo InformationNort [facility] Other Evaluation note* Diagnosis Onset Date Resolution Status Abdominal pain acute Diarrhea acute Nausea & vomiting acute Unintentional weight loss ac nez perce [facility] Work Phone: Evaluation note* Diagnosis Onset Date Resolution Status Abdominal pain acute Diarrhea acute Nausea & vomiting acute Unintentional weight loss ac nez perce Splenomegaly acute Splenomegaly acute [facility] Work Phone: Evaluation note* Diagnosis examination or test, positive result Amenorrhea Absence of menstruation documented in this encounter [facility] HealthcareEvaluation note* Diagnosis Nausea and vomiting in prior to 22 weeks gestation- Primary Encounter for supervision of other normal , first trimester documented in this encounter [facility] HealthcareEvaluation note* Diagnosis Marijuana use- Primary Encounter for supervision of other normal , first trimester documented in this encounter [facility] HealthcareEvaluation note* Diagnosis Pelvic pain in female Unspecified symptom associated with female genital organs documented in this encounter [facility] HealthcareEvaluation note* Diagnosis Encounter for supervision of other normal , third trimester- Primary documented in this encounter [facility] HealthcareEvaluation note* Diagnosis Weight loss, non-intentional- Primary Loss of weight Chronic diarrhea Diarrhea documented in this encounter [facility] SystemEvaluation note* Diagnosis Left-sided chest wall pain- Primary Painful respiration documented in this encounter [facility] SystemEvaluation note* Diagnosis Multiple masses of neck- Primary Mononucleosis syndrome Infectious mononucleosis documented in this encounter [facility] SystemEvaluation note* Diagnosis Multiple masses of neck- Primary Less than 8 weeks gestation of documented in this encounter [facility] SystemEvaluation note* Diagnosis Encounter for supervision of other normal , second trimester- Primary documented in this encounter [facility] HealthcareEvaluation note* Diagnosis Low TSH level- Primary Thyroid disease during in third trimester (CMS/HCC) documented in this encounter [facility] HealthcareEvaluation note* Diagnosis Encounter for supervision of other normal , third trimester- Primary documented in this encounter [facility] HealthcareEvaluation note* Diagnosis Encounter for supervision of other normal , third trimester- Primary Low thyroid stimulating hormone (TSH) level documented in this encounter [facility] HealthcareHistory general Narrative - Reported* Type Description Date Surgical History KNEE SURGERY Surgical History TENDON REPAIR IN HAND Surgical History WISDOME TEETH Hospitalization History CHILD [facility] Other [facility] Discharge instructions* Instructions* Tonia Cuellar RN - 08/04/2021 Follow-up with your OB doctor as specified. [facility] Department phone: Kalli Kolb, MSN, GARMENT LINER, CNM [place] [address] DIET Eat a well balanced diet focusing on foods high in fiber and protein. Drink plenty of fluids especially water. To avoid constipation you may take a mild stool softener as recommended by your doctor or lending manager. ACTIVITY Gradually increase your activity. Resume exercise regimen only after advice by your doctor or lending manager. Avoid lifting anything heavier than a gallon of milk for SIX weeks. Avoid driving until your doctor or lending manager has given their approval. Rise slowly from [...] medications as recommended by your doctor or lending manager for pain If you develop a warm, [...] vitamins as directed by your doctor or lending manager. Refer to the booklet in the folder/binder for more information. If you feel you need more assistance or have questions, please call Agata Gray IBCLC, design consultant, at or the OB department to [...] area in your calf. documented in this encounterEngrade Work Phone: InstructionsNot on filedocumented in this encounter [email or web address] SystemInstructionsNot on filedocumented in this encounter [facility] SystemInstructions* Attachments The following attachments cannot be sent through Care Everywhere. * Chest Pain (Setswana) documented in this encounterProChildren[facility] RehabilitationW[facility]The[facility] SystemInstructionsNot on file documented in this encounterProChildren'S Hospital For RehabilitationWheresThe[facility] SystemInstructionsNot on file documented in this encounterProMedica Health SystemReason for referral (narrative)* Consultation (Routine) - Authorized Specialty Diagnoses / Procedures Referred By Leann ibarra Referred To Contact Gastroenterology Diagnoses Weight loss, non-intentional Chronic diarrhea Brice Madrid MD [address] [address] Goyo Delvalle MD [address] [facility], [address] [id number] Referral ID Status Reason Start Date Expiration Date Visits Requested Visits Authorized [id number] Authorized Specialty Services Required 03/15/2024 03/15/2025 1 1 [facility] for visit Narrative* Maternity Services (Routine) - Closed Specialty Diagnoses / Procedures Referred By Leann ibarra Referred To Contact Obstetrics and Gynecology Diagnoses Encounter for supervision of other normal , first trimester Procedures MO OFFICE/OUTPATIENT NEW HIGH MDM 60 MINUTES Dat Kolb, CNM [address] [place] [address] Phone: tel: fax: Dat Kolb CNM [address] [place] [address] Phone: tel: fax: Referral ID Status Reason Start Date Expiration Date V isits Requested Visits Authorized [id number] Closed Specialty Services Required 09/19/2024 03/18/2025 1 1 [facility] Summary Purpose Family History No Family History Records Found Relationship Condition Age at Onset Recorded Date/T jannette maternal grandfather Heart disease Unknown Advance Directives No Advanced Directives Records FoundDocuments on File Type Date Recorded 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 ACP-Advance Directive 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 Latest Code Status on File Code Status Date Activated Date Inactivated Comments Full Code 08/03/2021 12:15 AM Full Code 08/02/2021 7:40 PM 08/03/2021 12:14 AM Full Code 08/02/2021 7:16 PM 08/02/2021 7:40 PM Advance Directive Response Recorded Date/ Time Advance Directives No April 07 3:39pm Date Activated Date Inactivated Comments 07/08/2021 10:51 PM 07/09/2021 1:17 AM Date Activated Date Inactivated Comments 07/08/2021 10:51 PM 07/09/2021 1:17 AM Latest Code Status on File Code Status Date Activated Date Inactivated Comments Full Code 07/08/2021 10:51 PM 07/09/2021 1:17 AM Chief [...] section and content) DATE CREATED AUTHOR 05/18/2018 [facility] DATE CREATED AUTHOR AUTHOR'S ORGANIZ ATION 08/05/2021 [facility] DATE CREATED AUTHOR AUTHOR'S ORGANIZ ATION 04/26/2022 [facility] dical Specialist DATE CREATED AUTHOR AUTHOR'S ORGANIZ ATION 07/20/2024 [facility] DATE CREATED AUTHOR AUTHOR'S ORGANIZ ATION 09/08/2024 [facility] DATE CREATED AUTHOR AUTHOR'S ORGANIZ ATION 09/16/2024 [facility] DATE CREATED AUTHOR AUTHOR'S ORGANIZ ATION 04/11/2025 [facility] dical Specialists EPIC Reason for Visit (unrecogniz ed section and content) Reason Comments Contractions Reason Comments Initial Visit Reason Comments Pelvic Pain Reason Comments Follow-up Tired all the time, diarrhea every time she eats, nauseated, dizziness and shaky, trouble maintaining weight Reason Comments Follow-up [place]-rib injury Reason Comments Mass Behind ear and hairl ine- itches and tender Reason Comments Follow-up Patient is ! Back of neck went down some, right ear has not went down Reason Onset Date Comments Med Refill 10/13/2024 Reason Comments Thyroid Problem NEW PREGANACY Scheduled Active and Recently Administ ered Medications (unrecognized section and content) Medication Order 08/02/2021 08/03/2021 08/04/2021 benzocaine-menthol (DERMOPLAST) 20-0.5 % spray Topical, 2 TIMES DAILY, First dose on 08/03/21 at 0030, Apply to perineal area. Patient is capable and may self administer at bedside., 0138 (Given - Provider: Safia Reynolds RN)0900 (Due)2100 (Due) 0900 (Due)2100 (Due) ibuprofen (ADVIL;MOTRIN) tablet 800 mg 800 mg, Oral, EVERY 8 HOURS, First dose on 08/03/21 at 0030, Do not crush or break., 0138 (Given - Provider: Safia Reynolds, RN)0830 (Due)1704 (Given - Provider: Tonia Cuellar, RN) 0235 (Given - Provider: Lizeth Horton, RN)1030 (Due - Provider: Lucille Hong, STEPHON)1200 (Given - Provider: Tonia Cuellar, RN)1630 (Due) measles, mumps & rubella vaccine (MMR) injection 0.5 mL 0.5 mL, SubCUTAneous, PRIOR TO DISCHARGE, Starting on 08/03/21 at 0014, For 1 dose, sodium chloride flush 0.9 % injection 10 mL 10 mL, IntraVENous, EVERY 12 HOURS SCHEDULED (2 times per day), First dose on 08/03/21 at 0900, 0900 (Due)2100 (Due) 0900 (Due)2100 (Due) Fxrvtye-Qzfela-Shmsy Pertussis (BOOSTRIX) injection 0.5 mL 0.5 mL, IntraMUSCular, PRIOR TO DISCHARGE, Starting on Thu08/03/21 at 0014, For 1 dose, If not previously administered during at 27-36 weeks as recommended by CDC., witch kavita-glycerin (TUCKS) pad Topical, 2 TIMES DAILY, First dose on 08/03/21 at 0030, Apply to perineal area. Patient is capable and may self administer at bedside., 0030 (Due)0900 (Due)2100 (Due) 0900 (Due)2100 (Due) Continuous Medication Order 08/02/2021 08/03/2021 08/04/2021 lactated ringers infusion (CANCELED) IntraVENous, at 125 mL/hr, CONTINUOUS, Starting on Thu08/02/21 at 2000, Labor and Delivery 2027 (New Bag - Provider: Safia Reynolds RN)2234 (New Bag - Provider: Safia Reynolds, RN)2319 (Rate/Dose Change - Provider: Safia Reynolds, RN)2338 (Stopped - Provider: Safia Reynolds, RN)2348 (Canceled Entry - Provider: Safia Reynolds, RN) oxytocin (PITOCIN) 30 units in 500 [...] every 2-3 minutes with cervical changes or [place] units (MVU) greater than 200 in a 10-minute window. Maximum infusion rate: 24 cali-unit/min. Contact provider if maximum rate does not achieve desired response. Provider may order alternative titration goal or other clinically appropriate goal of titration rate (s). Smaller titration increments of 1 cali-units/min, not faster than every 30 minutes, may be used when approaching therapeutic goal. 2204 (New Bag - Provider: Safia Reynolds RN)223 (Rate/Dose Change - Provider: Safia Reynolds RN)2305 (Rate/Dose Change - Provider: Safia Reynolds, RN)2329 (Stopped - Provider: Safia Reynolds, STEPHON)2348 (Restarted - Provider: Safia Reynolds RN) 0008 (Rate/Dose Change - Provider: Safia Reynolds, STEPHON)0200 (Stopped - Provider: Safia Reynolds RN) PRN Medication Order 08/02/2021 08/03/2021 08/04/2021 [...] mg from all sources in 24 hours., 09 (Given - Provid er: Tonia Cuellar RN) docusate sodium (COLACE) capsule 100 mg [...] Dates Viky Waters APRN Attending Provider Active Team Status: Active Member Role Status Dates PHYSICIAN NO FAMILY Primary Care Provider Active Team Status: Inactive Member Role Status Dates PHYSICIAN NO FAMILY Primary Care Provider Active Start: May 20, 2024 End: May 20, 2024 Karissa L Ly , DO Attending Provider Active St art: May 20, 2024 End: May 20, 2024 Team Status: Active Member Role Status Dates Brice Madrid MD Primary Care Provider Active Team Status: Inactive Member Role Status Dates Karissa L Ly , DO Attending Provider Active St art: May 23, 2024 End: May 23, 2024 Brice Madrid MD Primary Care Provider Active Start: May 23, 2024 End: May 23, 2024 Team Status: Active Member Role Status Dates Karissa L Ly , DO Attending Provider, Other Provider Active [...] 06, 2024 End: July 06, 2024 Karissa L Ly , DO Referring Provider Active St art: July 06, 2024 End: July 06, 2024 Team Status: Active Member Role Status Gita Madrid MD Primary Care Provider Active Start: July 19, 2024 Genoveva Arce APRN Attending Provider Acti ve Start: July 19, 2024 Karissa L Ly , DO Referring Provider Active St art: [place] 27th, 2024 Team Status: Inactive Member Role Status Dates Brice Madrid MD Primary Care Provider Active Start: July 19, 2024 End: July 19, 2024 Genoveva Arce APRN Attending Provider Acti ve Start: July 19, 2024 End: July 19, 2024 Training Specialist Relationship Specialty Start Date End Date Brice Madrid MD [address] [address] PCP - General Family Medicine 08/10/24 Dat Kolb CNM [address] [place] [address] Obstetrics and Gynecology 06/30/23 Training Specialist Relationship Specialty Start Date End Date Brice Madrid MD [address] [address] PCP - General Family Medicine 08/10/24 Dat Kolb CNM [address] [place] [address] Obstetrics and Gynecology 06/30/23 Training Specialist Relationship Specialty Start Date End Date Brice Madrid MD [address] [place] [address] PCP - General Family Medicine 08/10/24 Dat Kolb CNM [address] [place] [address] Obstetrics and Gynecology 06/30/23 Training Specialist Relationship Specialty Start Date End Date Brice Madrid MD [address] [place] [address] PCP - General Family Medicine 08/10/24 Dat Kolb CNM [address] [facility] [place] [address] Obstetrics and Gynecology 06/30/23 Training Specialist Relationship Specialty Start Date End Date Dat Kolb CNM [address] [facility] [place] [address] Obstetrics and Gynecology 06/30/23 Training Specialist Relationship Specialty Start Date End Date Yokolizbet Dat Billings CNM [address] [facility] [place] [address] Obstetrics and Gynecology 06/30/23 Training Specialist Relationship Specialty Start Date End Date Dat Kolb CNM [address] [facility] [place] [address] Obstetrics and Gynecology 06/30/23 Training Specialist Relationship Specialty Start Date End Date Brice Madrid MD [address] [place] [address] PCP - General Family Medicine 08/10/24 Dat Kolb CNM [address] [facility] [place] [address] Obstetrics and Gynecology 06/30/23 Training Specialist Relationship Specialty Start Date End Date Brice Madrid MD [address] [place] [address] PCP - General Family Medicine 06/12/23 Training Specialist Relationship Specialty Start Date End Date Brice Madrid MD [address] [place] [address] PCP - General Family Medicine 08/10/24 Dat Kolb CNM [address] [place] [address] Obstetrics and Gynecology 06/30/23 Training Specialist Relationship Specialty Start Date End Date Brice Madrid MD [address] [place] [address] PCP - General Family Medicine 08/10/24 Dat Kolb CNM [address] [place] [address] Obstetrics and Gynecology 06/30/23 Training Specialist Relationship Specialty Start Date End Date Brice Madrid MD [address] [place] [address] PCP - General Family Medicine 06/12/23 Training Specialist Relationship Specialty Start Date End Date Brice Madrid MD [address] [place] [address] PCP - General Family Medicine 06/12/23 Training Specialist Relationship Specialty Start Date End Date Brice Madrid MD [address] [place] [address] PCP - General Family Medicine 06/12/23 Training Specialist Relationship Specialty Start Date End Date Brice Madrid MD [address] [place] [address] PCP - General Family Medicine 06/12/23 Training Specialist Relationship Specialty Start Date End Date Brice Madrid MD [address] [place] [address] PCP - General Family Medicine 06/12/23 Training Specialist Relationship Specialty Start Date End Date Brice Madrid MD [address] [place] [address] PCP - General Family Medicine 06/12/23 Training Specialist Relationship Specialty Start Date End Date Brice Madrid MD [address] [place] [address] PCP - General Family Medicine 06/12/23 Training Specialist Relationship Specialty Start Date End Date Brice Madrid MD [address] [place] [address] PCP - General Family Medicine 08/10/24 Dat Kolb CNM [address] [place] [address] Obstetrics and Gynecology 06/30/23 Training Specialist Relationship Specialty Start Date End Date Brice Madrid MD [address] [place] [address] PCP - General Family Medicine 08/10/24 Dat Kolb CNM [address] [place] [address] Obstetrics and Gynecology 06/30/23 Training Specialist Relationship Specialty Start Date End Date Brice Madrid MD [address] [place] [address] PCP - General Family Medicine 08/10/24 Dat Kolb CNM [address] [place] [address] Obstetrics and Gynecology 06/30/23 Training Specialist Relationship Specialty Start Date End Date Brice Mdarid MD [address] [place] [address] PCP - General Family Medicine 08/10/24 Dat Kolb CNM [address] [place] [address] Obstetrics and Gynecology 06/30/23 Training Specialist Relationship Specialty Start Date End Date Brice Madrid MD [address] [place] [address] PCP - General Family Medicine 08/10/24 Dat Kolb CNM [address] [place] [address] Obstetrics and Gynecology 06/30/23 Training Specialist Relationship Specialty Start Date End Date Brice Madrid MD [address] [place] [address] PCP - General Family Medicine 08/10/24 Dat Kolb CNM [address] [place] [address] Obstetrics and Gynecology 06/30/23 Training Specialist Relationship Specialty Start Date End Date Brice Madrid MD [address] [place] [address] PCP - General Family Medicine 08/10/24 Dat Kolb CNM [address] [place] [address] Obstetrics and Gynecology 06/30/23 Training Specialist Relationship Specialty Start Date End Date Brice Madrid MD [address] [place] [address] PCP - General Family Medicine 08/10/24 Dat Kolb CNM [address] [place] [id number] Obstetrics and Gynecology 06/30/23 Goals (unrecognized section [...] BE BASED ON THE PRIMARY CLINICAL RECORDS. [facility] [facility]. provides no warranty or guarantee of the accuracy or completeness of information in this document.
[2025-04-18 21:56] VITALS: BP 116/67; PULSE 114
[2025-04-18] MEDS: LACTATED RINGER'S SOLUTION 1,000 ML 125 ML IV (22:15)
[2025-04-18 22:36] LABS: Hematocrit 34.4 % (36.0-48.0); Hemoglobin 11.5 g/dL (12.0-16.0); Mean Corpuscular HGB Conc 33.4 g/dL (29.9-35.2); Mean Corpuscular Hemoglobin 26.5 pg (26.7-34.0); Mean Corpuscular Volume 79.3 fL (81.0-99.0); Mean Platelet Volume 12.2 fL (9.5-13.5); Platelet Count 163 10^3/uL (150-450); Red Blood Count 4.34 10^6/uL (4.20-5.40); Red Cell Distribution Width 14.8 % (11.0-15.0); White Blood Count 7.6 10^3/uL (4.0-11.0)
[2025-04-18 22:38] LABS: Bilirubin Urine NEGATIVE (NEGATIVE); Blood Urine MODERATE (NEGATIVE); Clarity Urine CLEAR (CLEAR); Color Urine LT. YELLOW (YELLOW); Glucose Urine UA NEGATIVE (NEGATIVE); Ketones Urine 15 mg/dL (NEGATIVE); Leukocyte Esterase Urine MODERATE (NEGATIVE); Nitrite Urine NEGATIVE (NEGATIVE); Protein Urine NEGATIVE (NEG/TRACE); Urobilinogen Urine 0.2 EU/dL (0.2-1.0)
[2025-04-18 22:43] LABS: Urine Microscopic Indicated YES
[2025-04-18 22:45] LABS: Bacteria Urine SMALL #/HPF (NONE SEEN); Crystals Seen? Seen #/HPF (None Seen); Mucus Urine NONE SEEN (NONE SEEN); RBC Urine NONE SEEN #/HPF (0-2); Squamous Epithelial Cell Urine MODERATE #/LPF (NONE/RARE)
[2025-04-18 22:46] LABS: Amorphous Sediment Urine RARE; Cast Seen? NONE SEEN #/LPF (NONE SEEN); Urine Culture Indicated YES-LC
[2025-04-18 22:50] LABS: Amphetamine Screen Urine NEGATIVE (NEGATIVE); Barbiturates Screen Urine NEGATIVE (NEGATIVE); Benzodiazepines Screen Urine NEGATIVE (NEGATIVE); Buprenorphine Screen Urine NEGATIVE (NEGATIVE); Cannabinoid Screen Urine POSITIVE (NEGATIVE); Cocaine Screen Urine NEGATIVE (NEGATIVE); Methadone Screen Urine NEGATIVE (NEGATIVE); Methamphetamines Screen Urine NEGATIVE (NEGATIVE); Opiate Screen Urine NEGATIVE (NEGATIVE); Oxycodone Screen Urine NEGATIVE (NEGATIVE); Phencyclidine Screen Urine NEGATIVE (NEGATIVE); Tricyclic Antidepressant Urine NEGATIVE (NEGATIVE)
--- NOTE | 2025-04-18 23:30 | P.OBHP_ITS ---
OB - H&P: HPI History of Present Illness Chief complaint: CONTRACTIONS, SPOTTING : 2 Para: 1 Gestational age based on last menstrual period: 38.0 History of Present Dating criteria: LMP confirmed by 1st trimester US care: good care Ultrasounds: normal 1st trimester US and normal mid trimester US Medical complications OB: other (anemia ) Narrative: started on iron and colace prenatally Labs Blood type: A (+) positive Rubella: immune RPR/VDLR: nonreactive GBS status: negative HBsAG: negative PFSH PFS Social History Little interest or pleasure in doing things: not at all Feeling down, depressed, or hopeless: not at all Meds Home Medications and Allergies Allergies Allergy/AdvReac Type Severity Reaction Status Date / Time No Known Drug Allergies Allergy Verified 12/30/24 13:31 Exam Constitutional Vital Signs, click to edit/add: Last Vital Signs Pulse 114 H 04/18/25 21:56 BP 116/67 04/18/25 21:56 Documenting provider has reviewed patient's vital signs: yes Common normals: no apparent distress, average body habitus, oriented x3, no limitations, healthy appearing and alert Exam limitations: altered mental status Orientation/consciousness: Yes awake, Yes oriented to person, Yes oriented to pl andres and Yes oriented to time HENMT Common normals: normocephalic Head and scalp: normal to inspection Eye Common normals: EOMs intact bilaterally General eye: normal appearance of both eyes Neck & C-Spine Common normals: no lymphadenopathy General: normal visual inspection Lymph Lymphatic: no lymphadenopathy noted Chest Common normals: inspection of chest normal Respiratory Common normals: normal respiratory effort, no retractions, no use of accessory muscles and clear to auscultation bilaterally Effort & inspection: able to speak in complete sentences Auscultation: clear to auscultation bilaterally Cardio Common normals: regular rate and regular rhythm Rate: regular rate Rhythm: regular rhythm GI Common normals: Normal to inspection, nondistended, normoactive bowel sounds present Inspection: normal to inspection Common normals: no CVA tenderness Back & Pelvis Common normals: no CVA tenderness Extremity Common normals: normal to inspection, full ROM and normal capillary refill Neuro Common normals: oriented x3 Sensorium/orientation: awake, alert, oriented to person, oriented to place, oriented to time and orientation impaired Psych Common normals: mental status grossly normal, thought process normal, cooperative, affect normal and speech normal Attitude: calm Activity/motor behavior: appropriate eye contact Speech: normal speech Thought content: normal thought content Results Labs Labs: Short CBC 04/18/25 Range/Units 22:30 WBC 7.6 (4.0-11.0) 10^3/uL Hgb 11.5 L (12.0-16.0) g/dL Hct 34.4 L (36.0-48.0) % Plt Count 163 (150-450) 10^3/uL Urine 04/18/25 Range/Units 21:45 Urine Color Lt. yellow (YELLOW) Urine Clarity Clear (CLEAR) Urine pH 6.0 (5.0-9.0) Ur Specific [place] 1.010 (1.005-1.025) Urine Protein Negative (NEG/TRACE) mg/dL Urine Glucose (UA) Negative (NEGATIVE) mg/dL OB - A/P Assessment and Plan (1) Term :
[2025-04-19] VITALS (14 sets, daily range): BP systolic 106–159; BP diastolic 55–87; PULSE 66–86; TEMP 36.4–36.9
[2025-04-19] MEDS: LIDOCAINE HCL 1% 200 MG/20 ML MDV INJ (00:25)
[2025-04-19] MEDS: KETOROLAC TROMETHAMINE 30 MG/ML VIAL IVP (00:27)
[2025-04-19] MEDS: OXYTOCIN/0.9 % SODIUM CHLORIDE 20 UNITS/1,000 ML PLAST..BAG 125 UNIT IV (00:30)
--- NOTE | 2025-04-19 01:13 | PM.OBPRCVD ---
Procedure Intrapartal events: None Induction method: none Delivery augmentation: rupture of membranes Delivery monitor: external FHT and external uterine Route of delivery: Episiotomy Description: none L&D Laceration Description: periurethral - 1st degree Delivery repair: Vicryl Estimated blood loss (mL): 200 Anesthesia type: Local Disposition: no change Delivery date: 04/19/25 Gender: male presentation: vertex Placental delivery description: Spontaneous cord description: 3 Vessels heart rate - 1 minute: 100 bpm or Greater respiratory effort - 1 minute: Spontaneous/Strong Cry muscle tone - 1 minute: Active Movement reflex response - 1 minute: Prompt Response color - 1 minute: Bluish Hands or Feet total score - 1 minute: 9 heart rate - 5 minute: 100 bpm or Greater respiratory effort - 5 minute: Spontaneous/Strong Cry muscle tone - 5 minute: Active Movement reflex response - 5 minute: Prompt Response color - 5 minute: Bluish Hands or Feet total score - 5 minute: 9
[2025-04-19] MEDS: BENZOCAINE/MENTHOL 85 GRAM SPRAY BOTTLE 1 APPLIC TOPICAL (03:15)
[2025-04-19] MEDS: GLYCERIN/WITCH HAZEL PADS 1 PAD TOPICAL (03:16)
[2025-04-19] MEDS: IBUPROFEN 400 MG TABLET 800 MG PO ×2 (07:38→23:11)
--- NOTE | 2025-04-19 09:05 | PC.NURSE ---
Patient's scheduled follow up with Kalli Kolb is May 03 2025 at 11:30am by phone call and patient made aware.
[2025-04-19] MEDS: DOCUSATE SODIUM 100 MG CAPSULE PO ×2 (09:18→23:14)
--- NOTE | 2025-04-19 13:03 | PC.NURSE ---
report provided to Nasreen Alcantara RN
[2025-04-20 06:20] LABS: Basophils Percent Auto 0.2 % (0.2-2.0); Eosinophils Absolute Auto 0.2 10^3/uL (0.0-0.7); Eosinophils Percent Auto 1.9 % (0.9-7.0); Hematocrit 33.2 % (36.0-48.0); Hemoglobin 10.6 g/dL (12.0-16.0); Immature Granulocytes Abs Auto 0.02 10^3/uL (0.00-0.03); Immature Granulocytes Pct Auto 0.2 % (0.0-0.5); Lymphocytes Absolute Auto 2.6 10^3/uL (1.2-3.8); Lymphocytes Percent Auto 28.7 % (20.5-60.0); Mean Corpuscular HGB Conc 31.9 g/dL (29.9-35.2); Mean Corpuscular Hemoglobin 25.4 pg (26.7-34.0); Mean Corpuscular Volume 79.6 fL (81.0-99.0); Mean Platelet Volume 11.3 fL (9.5-13.5); Monocytes Absolute Auto 0.8 10^3/uL (0.3-0.8); Monocytes Percent Auto 8.8 % (1.7-12.0); Neutrophils Absolute Auto 5.3 10^3/uL (1.4-6.5); Neutrophils Percent Auto 60.2 % (43.0-75.0); Platelet Count 146 10^3/uL (150-450); Red Blood Count 4.17 10^6/uL (4.20-5.40); Red Cell Distribution Width 14.9 % (11.0-15.0); White Blood Count 8.9 10^3/uL (4.0-11.0)
--- NOTE | 2025-04-20 08:08 | PM.OBPN ---
OB - PN: Subj Subjective Patient comments: no complaints and pain well controlled status: doing well Exam Constitutional Vital Signs, click to edit/add: Last Vital Signs Temp 97.9 F 04/19/25 23:06 Pulse 69 04/19/25 23:06 Resp 16 04/19/25 23:06 BP 106/67 04/19/25 23:06 O2 Del Method Room Air 04/19/25 23:06 Documenting provider has reviewed patient's vital signs: yes Common normals: no apparent distress Respiratory Common normals: normal respiratory effort and clear to auscultation bilaterally Cardio Common normals: regular rate and regular rhythm GI Common normals: Normal to inspection, nondistended, normoactive bowel sounds present Extremity Common normals: no clubbing, cyanosis or edema and no calf tenderness Results Labs Labs: Short CBC 04/20/25 Range/Units 06:06 WBC 8.9 (4.0-11.0) 10^3/uL Hgb 10.6 L (12.0-16.0) g/dL Hct 33.2 L (36.0-48.0) % Plt Count 146 L (150-450) 10^3/uL OB - PN: A/P Assessment and Plan (1) Term : Plan - Vaginal Delivery day: 1 Plan: routine care, discharge home and follow up 6 weeks Time Spent with Patient Time: Total time spent is greater than 50% in coordination of care (as documented) at patient's floor/unit and/or counseling patient: Total time spent with greater than 50% in coordination of care (as documented) at patient's floor/unit and/or counseling patient: less than 15 minutes
[2025-04-20 08:30] VITALS: BP 118/78; PULSE 80; TEMP 37.1
[2025-04-20] MEDS: IBUPROFEN 400 MG TABLET 800 MG PO (08:54)
[2025-04-20] MEDS: DOCUSATE SODIUM 100 MG CAPSULE PO (08:58)
[2025-04-21 20:08] LABS: Cannabinoid Positive (.); Carboxy THC Conf, MS, UR 141 ng/mL (Cutoff=10)
== END 2025-04-20 15:45 | disposition home or self-care (01) | DRG 807 ==
PROVIDERS: Admitting Provider Midwife; PCP Family Medicine; Visit Provider Midwife
DX: O99.324 Drug use complicating childbirth (principal); Z37.0 Single live birth; F12.90 Cannabis use, unspecified, uncomplicated; O70.0 First degree perineal laceration during delivery; Z3A.38 38 weeks gestation of pregnancy; Z91.52 Personal history of nonsuicidal self-harm; O99.334 Smoking (tobacco) complicating childbirth; F17.290 Nicotine dependence, other tobacco product, uncomplicated; Z87.440 Personal history of urinary (tract) infections
CPT/HCPCS: 36415; 59050; 59410; 80307; 80349; 81001; 85025; 85027; 86850; 86900; 86901; 87086; J1885